=== PATIENT | male | born 1970 | race Caucasian/White ===

== ENCOUNTER 2017-07-03 04:59 | Inpatient (IN) | payer MEDICAID ==
[~2017-07-03] VITALS: Ht 182.9 cm; Wt 128.7 kg
[~2017-07-03 04:59] MED LIST: ASPI1TAB69 PO; LISI40TA PO; TETA1INJ6 IM
[2017-07-03 05:02] VITALS: BP 134/65; PULSE 93; RESP 20; TEMP 101.2; O2SAT 97
[2017-07-03] MEDS ORDERED: guaiFENesin/CODEINE SYRUP 200 MG/20 MG/10 ML CUP PO ONE (05:15)
[2017-07-03] MEDS ORDERED: ACETAMINOPHEN 325 MG TAB PO ONE (05:15)
[2017-07-03] MEDS ORDERED: SODIUM CHLOR 0.9% 1000 ML INJ 1,000 ML IV ONE ×2 (05:15→08:00)
[2017-07-03 05:16] VITALS: BP 147/75; PULSE 89; RESP 20; O2SAT 98
[2017-07-03] MEDS ORDERED: GABA600T PO (05:16)
--- NOTE | 2017-07-03 05:19 | PD ---
HPI Chief Complaint: Cold / Flu Symptoms Time Seen by Provider: 05:11 Travel History International Travel<30 days: No Contact w/Intl Traveler<30days: No Traveled to known affect area: No History of Present Illness HPI 46-year-old male here for evaluation of flulike illness. The patient has had fever, cough, generalized malaise. Symptoms have been going on for about a week. He was seen by his primary care physician 3 days ago and started on Tamiflu for presumptive diagnosis of influenza, however he states his symptoms have not been improving. Cough is nonproductive. No hemoptysis. He complains of diffuse chest pain/aches, mainly while coughing. He has had a few loose bowel movements. No abdominal pain. No vomiting. Last dose of Tylenol was around 7:00 PM. PFSH Past Medical History Arthritis: No Asthma: No Autoimmune Disease: No Blood Disorders: No Anxiety: No Depression: No Heart Rhythm Problems: No Cancer: No Cardiovascular Problems: Yes (ARRHYTHMIA - DOESNT RECALL WHICH) High Cholesterol: No Chemotherapy: No Chest Pain: No Congestive Heart Failure: No Cirrhosis: Yes (2006 DIAGNOSED) COPD: No Cerebrovascular Accident: No Diabetes: No Diminished Hearing: No Diverticulitis: Yes (RUPTURE WITH COLOSTOMY PRESENT) Endocrine: No Gastrointestinal Disorders: Yes (COLOSTOMY) GERD: No Glaucoma: No Genitourinary: No Headaches: No Hepatitis: Yes (HEPATITIS C) Hiatal Hernia: No Hypertension: Yes Immune Disorder: No Kidney Stones: No Musculoskeletal: No Neurologic: No Psychiatric: No Reproductive: No Respiratory: No Migraines: No Myocardial Infarction: No Pancreatitis: No Radiation Therapy: No Renal Failure: No Seizures: No Sickle Cell Disease: No Sleep Apnea: No Thyroid Disease: No Ulcer: No Tetanus Vaccination: < 5 Years Influenza Vaccination: No Past Surgical History Abdominal Surgery: Yes (COLOSTOMY, and reveral of colostomy) AICD: No Appendectomy: No Arteriovenous Shunt: No Body Medical Devices: PLEURISY Cardiac Surgery: No Cholecystectomy: No Ear Surgery: No Endocrine Surgery: No Eye Surgery: No Genitourinary Surgery: No Gynecologic Surgery: No Insulin Pump: No Joint Replacement: No Oral Surgery: No Pacemaker: No Thoracic Surgery: Yes (REMOVAL OF 1/2 RIB LEFT CHEST WALL AGE 12) Social History Alcohol Use: Yes (1 BEER A DAY) Tobacco Use: No Substance Use: No Allergies-Medications (Allergen,Severity, Reaction): Coded Allergies: No Known Allergies (Verified Adverse Reaction, Unknown, 07/03/17) Reported Meds & Prescriptions Reported Meds & Active Scripts Active Lisinopril 40 Mg Tab 40 Mg PO DAILY Reported Gabapentin 600 Mg Tab 600 Mg PO BID Review of Systems Except as stated in HPI: all other systems reviewed are Neg Physical Exam Narrative GENERAL: Well-developed, well-nourished, no apparent distress. SKIN: Focused skin assessment warm/dry. No rash. No petechiae. HEAD: Atraumatic. Normocephalic. EYES: Pupils equal and round. No scleral icterus. No injection or drainage. ENT: No nasal bleeding or discharge. Mucous membranes pink and moist. Normal- appearing pharynx. Bilateral tympanic membrane and external auditory canals are normal. NECK: Trachea midline. No JVD. No nuchal rigidity. CARDIOVASCULAR: Regular rate and rhythm. No murmur appreciated. RESPIRATORY: No accessory muscle use. Clear to auscultation. Breath sounds equal bilaterally. GASTROINTESTINAL: Abdomen soft, non-tender, nondistended. MUSCULOSKELETAL: No obvious deformities. No clubbing. No cyanosis. No edema. NEUROLOGICAL: Awake and alert. No obvious cranial nerve deficits. Motor grossly within normal limits. Normal speech. PSYCHIATRIC: Appropriate mood and affect; insight and judgment normal. Data Data Last Documented VS Vital Signs Date Time Temp Pulse Resp B/P (MAP) Pulse Ox O2 Delivery O2 Flow Rate FiO2 07/03/17 07:03 98.8 93 20 139/81 (100) 96 Room Air Orders Orders Sepsis Workup Initiated (07/03/17 ) Electrocardiogram (07/03/17 05:15) Complete Blood Count With Diff (07/03/17 05:15) Comprehensive Metabolic Panel (07/03/17 05:15) Prothrombin Time / Inr (Pt) (07/03/17 05:15) Act Partial Throm Time (Ptt) (07/03/17 05:15) Lactic Acid Sepsis Protocol (07/03/17 05:15) Lipase (07/03/17 05:15) Ckmb (Isoenzyme) Profile (07/03/17 05:15) Troponin I (07/03/17 05:15) Influenzae A/B Antigen (07/03/17 05:15) Blood Culture (07/03/17 05:15) Chest, Single Ap (07/03/17 05:15) Ecg Monitoring (07/03/17 05:15) Iv Access Insert/Monitor (07/03/17 05:15) Oximetry (07/03/17 05:15) Acetaminophen (Tylenol) (07/03/17 05:15) Sodium Chlor 0.9% 1000 Ml Inj (Ns 1000 M (07/03/17 05:15) Guaifen-Cod 200-20 Mg/10ml Liq (Robituss (07/03/17 05:15) Group A Rapid Strep Screen (07/03/17 05:18) Strep Culture (Group A) (07/03/17 06:22) Labs Laboratory Tests Test 07/03/17 06:10 White Blood Count 11.4 TH/MM3 Red Blood Count 3.26 MIL/MM3 Hemoglobin 11.7 GM/DL Hematocrit 34.3 % Mean Corpuscular Volume 105.0 FL Mean Corpuscular Hemoglobin 36.0 PG Mean Corpuscular Hemoglobin Concent 34.2 % Red Cell Distribution Width 15.4 % Platelet Count 113 TH/MM3 Mean Platelet Volume 9.1 FL CBC Comment AUTO DIFF Prothrombin Time 14.4 SEC Prothromb Time International Ratio 1.4 RATIO Activated Partial Thromboplast Time 30.8 SEC Lactic Acid Level 1.2 mmol/L MDM Medical Decision Making Medical Screen Exam Complete: Yes Emergency Medical Condition: Yes Interpretation(s) EKG: Sinus, rate 87, normal axis, normal intervals, nonspecific T-wave abnormality, no ST segment abnormality, possible left atrial enlargement Differential Diagnosis Influenza, pneumonia, viral illness, sepsis, dehydration, metabolic abnormality Narrative Course Initial vital signs show heart rate 93, blood pressure 134/65, pulse ox 97% on room air, oral temp of 101.2F. CBC: WBC 11.4, hemoglobin 11.7, hematocrit 34.3, platelets 113, MCV 105. The patient has had elevated MCVs in the past. CMP: Influenza and group A strep are negative. Chest x-ray: No acute disease. At approximately 7 Am at the end of my shift the patient was signed out to Dr Gomes to follow up with the rest of the labs and disposition. Fabian Moser MD Jul 03, 2017 05:19
--- NOTE | 2017-07-03 06:15 | RADRPT ---
EXAM DATE/TIME: 07/03/2017 05:25 [facility] COMPARISON: CHEST SINGLE AP, December 03, 2012, 5:39. INDICATIONS : Flu like symptoms and cough for two weeks. MEDICAL HISTORY : None. SURGICAL HISTORY : None. ENCOUNTER: Initial ACUITY: 2 weeks PAIN SCORE: 0/10 LOCATION: Bilateral chest FINDINGS: A single view of the chest demonstrates the lungs to be symmetrically aerated without evidence of mas s, infiltrate or effusion. Heart mildly enlarged. The cardiomediastinal contours are unremarkable. Osseous structures are intact. CONCLUSION: No acute disease. Santiago Mccartney MD on July 03, 2017 at 6:14 Board Certified Radiologist. This report was verified electronically.
[2017-07-03 06:50] LABS: HEMATOCRIT 34.3 % (39.0-51.0); HEMOGLOBIN 11.7 GM/DL (13.0-17.0); MEAN CORPUSCULAR HGB CONC 34.2 % (32.0-36.0); MEAN PLATELET VOLUME 9.1 FL (7.0-11.0); PLATELET COUNT 113 TH/MM3 (150-450); RED BLOOD COUNT 3.26 MIL/MM3 (4.50-5.90); RED CELL DISTRIBUTION WIDTH 15.4 % (11.6-17.2); WHITE BLOOD COUNT 11.4 TH/MM3 (4.0-11.0)
[2017-07-03 06:52] LABS: INTERNATIONAL NORMALIZED RATIO 1.4 RATIO; PROTHROMBIN TIME - PATIENT 14.4 SEC (9.8-11.6)
[2017-07-03 07:03] VITALS: BP 139/81; PULSE 93; RESP 20; TEMP 98.8; O2SAT 96
[2017-07-03 07:12] LABS: ALBUMIN 2.2 GM/DL (3.4-5.0); AST (GOT) 68 U/L (15-37); BLOOD UREA NITROGEN 17 MG/DL (7-18); CALCIUM 8.2 MG/DL (8.5-10.1); CHLORIDE 97 MEQ/L (98-107); CREATININE 1.03 MG/DL (0.60-1.30); GLOMERULAR FILTRATION RATE 77 ML/MIN (>89); GLUCOSE,RANDOM 88 MG/DL (74-106); SODIUM (NA) 130 MEQ/L (136-145)
[2017-07-03 07:13] LABS: ALT (GPT) 54 U/L (12-78)
[2017-07-03 07:16] LABS: ALKALINE PHOSPHATASE 248 U/L (45-117); TOTAL BILIRUBIN ADULT 2.1 MG/DL (0.2-1.0); TOTAL PROTEIN 6.8 GM/DL (6.4-8.2); TROPONIN I LESS THAN 0.02 NG/ML (0.02-0.05)
[2017-07-03 07:37] LABS: BANDS 37 % (0-6); LYMPHOCYTES 1 % (9-44); MONOCYTES 7 % (0-8); NEUTROPHIL # MANUAL DIFF 10.4 TH/MM3 (1.8-7.7); POLYS (SEG NEUTROPHILS) 54 % (16-70)
[2017-07-03] MEDS ORDERED: VANCOMYCIN INJ 1,000 MG in SODIUM CHLOR 0.9% 250 ML INJ 250 ML IV STA (07:47)
[2017-07-03] MEDS ORDERED: PIPERACIL-TAZO 4.5 GM PREMIX 100 ML IV STA (07:47)
--- NOTE | 2017-07-03 07:57 | PD ---
Physical Exam Narrative GENERAL: 46-year-old male who appears uncomfortable SKIN: Focused skin assessment warm/dry. Jaundiced HEAD: Atraumatic. Normocephalic. EYES: Pupils equal and round. No scleral icterus. No injection or drainage. ENT: No nasal bleeding or discharge. Mucous membranes pink and moist. NECK: Trachea midline. CARDIOVASCULAR: Regular rate and rhythm. RESPIRATORY: No accessory muscle use. No increased effort GASTROINTESTINAL: Abdomen soft, non-tender, nondistended. MUSCULOSKELETAL: No obvious deformities. No clubbing. No cyanosis. NEUROLOGICAL: Awake and alert. Moves all extremities. Normal speech. PSYCHIATRIC: Appropriate mood and affect; insight and judgment normal. Data Data Last Documented VS Vital Signs Date Time Temp Pulse Resp B/P (MAP) Pulse Ox O2 Delivery O2 Flow Rate FiO2 07/03/17 07:03 98.8 93 20 139/81 (100) 96 Room Air Orders Orders Sepsis Workup Initiated (07/03/17 ) Electrocardiogram (07/03/17 05:15) Complete Blood Count With Diff (07/03/17 05:15) Comprehensive Metabolic Panel (07/03/17 05:15) Prothrombin Time / Inr (Pt) (07/03/17 05:15) Act Partial Throm Time (Ptt) (07/03/17 05:15) Lactic Acid Sepsis Protocol (07/03/17 05:15) Lipase (07/03/17 05:15) Ckmb (Isoenzyme) Profile (07/03/17 05:15) Troponin I (07/03/17 05:15) Influenzae A/B Antigen (07/03/17 05:15) Blood Culture (07/03/17 05:15) Chest, Single Ap (07/03/17 05:15) Ecg Monitoring (07/03/17 05:15) Iv Access Insert/Monitor (07/03/17 05:15) Oximetry (07/03/17 05:15) Acetaminophen (Tylenol) (07/03/17 05:15) Sodium Chlor 0.9% 1000 Ml Inj (Ns 1000 M (07/03/17 05:15) Guaifen-Cod 200-20 Mg/10ml Liq (Robituss (07/03/17 05:15) Group A Rapid Strep Screen (07/03/17 05:18) Strep Culture (Group A) (07/03/17 06:22) Ct Abd/Pel W Iv Contrast(Rout) (07/03/17 ) Vancomycin Inj (Vancomycin Inj) (07/03/17 07:47) Piperacil-Tazo 4.5 Gm Premix (Zosyn 4.5 (07/03/17 07:47) Sodium Chlor 0.9% 1000 Ml Inj (Ns 1000 M (07/03/17 08:00) Iohexol 350 Inj (Omnipaque 350 Inj) (07/03/17 08:52) Admit Order (Ed Use Only) (07/03/17 09:56) Labs Laboratory Tests Test 07/03/17 06:10 White Blood Count 11.4 TH/MM3 Red Blood Count 3.26 MIL/MM3 Hemoglobin 11.7 GM/DL Hematocrit 34.3 % Mean Corpuscular Volume 105.0 FL Mean Corpuscular Hemoglobin 36.0 PG Mean Corpuscular Hemoglobin Concent 34.2 % Red Cell Distribution Width 15.4 % Platelet Count 113 TH/MM3 Mean Platelet Volume 9.1 FL CBC Comment AUTO DIFF Differential Total Cells Counted 100 Neutrophils % (Manual) 54 % Band Neutrophils % 37 % Lymphocytes % 1 % Monocytes % 7 % Eosinophils % 1 % Neutrophils # (Manual) 10.4 TH/MM3 Differential Comment FINAL DIFF MANUAL Platelet Estimate LOW Platelet Morphology Comment NORMAL Prothrombin Time 14.4 SEC Prothromb Time International Ratio 1.4 RATIO Activated Partial Thromboplast Time 30.8 SEC Blood Urea Nitrogen 17 MG/DL Creatinine 1.03 MG/DL Random Glucose 88 MG/DL Total Protein 6.8 GM/DL Albumin 2.2 GM/DL Calcium Level 8.2 MG/DL Alkaline Phosphatase 248 U/L Aspartate Amino Transf (AST/SGOT) 68 U/L Alanine Aminotransferase (ALT/SGPT) 54 U/L Total Bilirubin 2.1 MG/DL Sodium Level 130 MEQ/L Potassium Level 4.1 MEQ/L Chloride Level 97 MEQ/L Carbon Dioxide Level 28.0 MEQ/L Anion Gap 5 MEQ/L Estimat Glomerular Filtration Rate 77 ML/MIN Lactic Acid Level 1.2 mmol/L Total Creatine Kinase 85 U/L Troponin I LESS THAN 0.02 NG/ML Lipase 932 U/L MDM Supervised Visit with ZARA: No Interpretation(s) CBC & BMP Diagram 07/03/17 06:10 Total Protein 6.8, Albumin 2.2 L, Calcium Level 8.2 L, Alkaline Phosphatase 248 H, Aspartate Amino Transf (AST/SGOT) 68 H, Alanine Aminotransferase (ALT/SGPT) 54, Total Bilirubin 2.1 H Last 24 hours Impressions Chest X-Ray 07/03/17 0515 Signed Impressions: Service Date/Time: June 05:25 - CONCLUSION: No acute disease. Santiago Mccartney MD CT abdomen pelvis shows likely source of infection is right lower lobe infiltrate given symptoms. Other findings noted Narrative Course Patient has 37 bands without source. Given vancomycin and Zosyn and IV fluid bolus repeated. Patient has elevation in lipase. Will check CT scan abdomen and pelvis to rule out concurrent process. Patient updated and agrees to plan. Patient agrees to admission. CT without pancreatitis findings and patient without significant abdominal pain. Patient's fever and symptoms are likely from a small right lower lobe pneumonia that was seen on CT. will admit for further care Sepsis Criteria SIRS Criteria (2 or more): Temp > 100.9 or < 96.8, Heart rate over 90 Sepsis Criteria (SIRS+source): Infect source susp/known Criteria Outcome: Meets sepsis criteria Physician Communication Physician Communication Signed over to me to follow blood work and reevaluate dr grove agrees to admit Diagnosis Primary Impression: Sepsis Qualified Codes: A41.9 - Sepsis, unspecified organism Additional Impressions: Bandemia Pneumonia Qualified Codes: J18.1 - Lobar pneumonia, unspecified organism Elevated lipase Admitting Information Admitting Physician Requests: Observation Addis Gomes MD Jul 03, 2017 07:57
[2017-07-03] MEDS ORDERED: IOHEXOL 350 MG/ML 10 ML VIAL (for RAD DIAG) IVCONTRAST ONE (08:52)
--- NOTE | 2017-07-03 09:25 | RADRPT ---
EXAM DATE/TIME: 07/03/2017 08:43 [facility] COMPARISON: No previous studies available for comparison. INDICATIONS : Abdominal pain along with flu like symptoms. IV CONTRAST: 97 cc Omnipaque 350 (iohexol) IV ORAL CONTRAST: No oral contrast ingested. RADIATION DOSE: 16.33 CTDIvol (mGy) MEDICAL HISTORY : Cardiovascular disease. Hepatitis C. Diverticulitis.Hypertension SURGICAL HISTORY : Colostomy. ENCOUNTER: Initial ACUITY: 3 days PAIN SCALE: 5/10 LOCATION: abdomen TECHNIQUE: Volumetric scanning of the abdomen and pelvis was performed. Using automated exposure control and ad justment of the mA and/or kV according to patient size, radiation dose was kept as low as reasonably achievable to obtain optimal diagnostic quality images. DICOM format image data is available electro nically for review and comparison. FINDINGS: LOWER LUNGS: Tiny right pleural effusion is noted. Minimal right basilar atelectasis and/or infiltrate is noted. LIVER: There is a 1.5 cm low-density lesion within the anterior segment of the right lobe of the liver which is indeterminate. MRI of the abdomen with contrast would be helpful for further characterization of this lesion. No biliary ductal dilatation is noted. The gallbladder is filled with calcified gallston es. There are multiple very large intraperitoneal varices within the left abdomen which feed into the splenic vein suggesting portal hypertension. Perigastric varices are also noted. SPLEEN: Mild splenomegaly is noted PANCREAS: Within normal limits. KIDNEYS: Normal in size and shape. There is no mass, stone or hydronephrosis. ADRENAL GLANDS: Within normal limits. VASCULAR: There is no aortic aneurysm. BOWEL/MESENTERY: The stomach, small bowel, and colon demonstrate no acute abnormality. There is no free intraperitone al air or fluid. ABDOMINAL WALL: Within normal limits. RETROPERITONEUM: There is no lymphadenopathy. BLADDER: No wall thickening or mass. REPRODUCTIVE: Within normal limits. INGUINAL: Extensive bilateral inguinal varices are noted and are more prominent on the right than the left. MUSCULOSKELETAL: Degenerative changes and scoliosis of the thoracolumbar spine are noted. CONCLUSION: 1. 1.5 cm low-density lesion within the anterior segment of the right lobe of liver which is indeterm inate. Outpatient MRI of the abdomen with contrast would be helpful for further characterization of t his indeterminate lesion. 2. Mild splenomegaly and very large intra-abdominal varices draining into the splenic vein suggesting portal hypertension. 3. Perigastric varices and bilateral inguinal varices are also noted. 4. Cholelithiasis. 5. Tiny right pleural effusion. 6. Minimal right basilar atelectasis and/or infiltrate. 7. Degenerative changes and scoliosis of the thoracolumbar spine. Haseeb Helms MD on July 03, 2017 at 9:10 Board Certified Radiologist. This report was verified electronically.
[2017-07-03] MEDS ORDERED: NALOXONE HCL 0.4 MG/ML AMP IV PUSH PRN (10:15)
[2017-07-03] MEDS ORDERED: SODIUM CHLORIDE 0.9% FLUSH 10 ML FLUSH IV FLUSH PRN (10:15)
[2017-07-03 11:26] VITALS: BP 134/66; PULSE 88; RESP 18; TEMP 98.7; O2SAT 95
--- NOTE | 2017-07-03 11:27 | PD.PN.STU ---
Subjective Remarks The patient is a 46 year old male who presents with the complaint of "flu for 1.5 weeks". He is accompanied by his mother who provides most of the information. About 1.5 weeks ago he began to have a productive cough, headaches , and body aches. His PCP gave him Tamiflu which he finished last night but did not help much. He was also febrile at home a few times and febrile upon arrival to the ED with temp of 101.2 F. About 2 days ago he began to develop with a pain that was in his upper right chest and in the lateral side of the lower right chest. He describes it as throbbing constant 7/10 pain that is alleviated with Ibuprofen. He says the pain is worse when he takes in a deep breath. He denies any trauma or injury to the areas. Last night he woke up at 3am and the pain was so bad that he wanted to come to the ED. He denies any nausea, vomiting , abdominal pain, rash, change in appetite, sore throat, congestion, hematuria, dysuria, melena, or chills. He had an episode of runny stool 2 nights ago with no blood in it. PMH: hypertension, disk herniation, hepatitis C (untreated), ruptured diverticular abscess Home Meds: gabapentin, Flexeril, and lisinopril Social hx: he denies tobacco or recreational drug use. He has a hx of alcohol abuse but his last drink was 7 years ago. Objective Vitals Vital Signs Date Time Temp Pulse Resp B/P (MAP) Pulse Ox O2 Delivery O2 Flow Rate FiO2 07/03/17 07:03 98.8 93 20 139/81 (100) 96 Room Air 07/03/17 07:03 98.8 93 20 139/81 (100) 96 Room Air 07/03/17 05:16 89 20 147/75 (99) 98 Room Air 07/03/17 05:16 98 07/03/17 05:02 101.2 93 20 134/65 (88) 97 Result Diagram: 07/03/17 0610 07/03/17 0610 Other Results Laboratory Tests Test 07/03/17 06:10 White Blood Count 11.4 TH/MM3 Red Blood Count 3.26 MIL/MM3 Hemoglobin 11.7 GM/DL Hematocrit 34.3 % Mean Corpuscular Volume 105.0 FL Mean Corpuscular Hemoglobin 36.0 PG Mean Corpuscular Hemoglobin Concent 34.2 % Red Cell Distribution Width 15.4 % Platelet Count 113 TH/MM3 Mean Platelet Volume 9.1 FL CBC Comment AUTO DIFF Differential Total Cells Counted 100 Neutrophils % (Manual) 54 % Band Neutrophils % 37 % Lymphocytes % 1 % Monocytes % 7 % Eosinophils % 1 % Neutrophils # (Manual) 10.4 TH/MM3 Differential Comment FINAL DIFF MANUAL Platelet Estimate LOW Platelet Morphology Comment NORMAL Prothrombin Time 14.4 SEC Prothromb Time International Ratio 1.4 RATIO Activated Partial Thromboplast Time 30.8 SEC Blood Urea Nitrogen 17 MG/DL Creatinine 1.03 MG/DL Random Glucose 88 MG/DL Total Protein 6.8 GM/DL Albumin 2.2 GM/DL Calcium Level 8.2 MG/DL Alkaline Phosphatase 248 U/L Aspartate Amino Transf (AST/SGOT) 68 U/L Alanine Aminotransferase (ALT/SGPT) 54 U/L Total Bilirubin 2.1 MG/DL Sodium Level 130 MEQ/L Potassium Level 4.1 MEQ/L Chloride Level 97 MEQ/L Carbon Dioxide Level 28.0 MEQ/L Anion Gap 5 MEQ/L Estimat Glomerular Filtration Rate 77 ML/MIN Lactic Acid Level 1.2 mmol/L Total Creatine Kinase 85 U/L Troponin I LESS THAN 0.02 NG/ML Lipase 932 U/L Imaging Last Impressions Chest X-Ray 07/03/17 0515 Signed Impressions: Service Date/Time: June 05:25 - CONCLUSION: No acute disease. Santiago Mccartney MD Chest CT 07/03/17 0000 Signed Impressions: Service Date/Time: June 12:16 - CONCLUSION: 1. Extensive stranding with prominent lymph nodes in the right axilla measuring upwards of 1.6 cm in diameter. Does the patient have clinical symptomatology to suggest a cellulitis in this area? 2. Mild, generalized anasarca with some interstitial prominence in both lungs as well the visualized portions of the upper mesentery. Findings are nonspecific but can be seen in entity such as overwhelming sepsis. 3. Calcified gallstones. 4. Small right-sided pleural effusion with associated atelectatic changes. 5. Atretic left sixth rib could be congenital or postsurgical. Old healed rib fractures involving the lateral aspect of #3 and 4 on the left. 6. Mild gynecomastia. Again, nonspecific finding that can be seen with certain medications. Masoud Lopez MD Abdomen/Pelvis CT 07/03/17 0000 Signed Impressions: Service Date/Time: June 08:43 - CONCLUSION: 1. 1.5 cm low-density lesion within the anterior segment of the right lobe of liver which is indeterminate. Outpatient MRI of the abdomen with contrast would be helpful for further characterization of this indeterminate lesion. 2. Mild splenomegaly and very large intra-abdominal varices draining into the splenic vein suggesting portal hypertension. 3. Perigastric varices and bilateral inguinal varices are also noted. 4. Cholelithiasis. 5. Tiny right pleural effusion. 6. Minimal right basilar atelectasis and/or infiltrate. 7. Degenerative changes and scoliosis of the thoracolumbar spine. Haseeb Helms MD Objective Remarks GENERAL: A WDWN male in no acute distress. SKIN: Warm and dry. Hypopigmented spots over the upper back, shoulders, and upper chest. Mild jaundice in his arms. HEAD: Normocephalic. EYES: Mild scleral icterus. No injection or drainage. NECK: Supple, trachea midline. No JVD or lymphadenopathy. CARDIOVASCULAR: Regular rate and rhythm.. A 2/6 systolic murmur heard at the apex. RESPIRATORY: Breath sounds equal bilaterally. No accessory muscle use. GASTROINTESTINAL: Abdomen soft, non-tender, mildly distended. Galloway's sign is negative, no hepatosplenomegaly on exam. MUSCULOSKELETAL: No cyanosis, or edema. Tenderness to palpation in the upper right chest around the second rib. Tender to palpation on the right lower back on lateral side. No erythema or bruising of the area. A/P Assessment and Plan 1. Shoulder/back pain -elevated Alk phos, total bilirubin, and lipase. Stones seen on CT. Patient has no significant abdominal pain. -RUQ u/s to better evaluate stone -hepatitis panel and HIV lab work -Could be secondary to the small pleural effusion seen on CT -order urine to rule out stones or UTI 2. Macrocytic anemia -Order B12 and folate 3. Pleural Effusion -cover with antibiotics- it is likely the source of infection 4. Hyponatremia -order Legionella urine antigen due to pleural effusion, loose stool, and low sodium. 5. Tinea Versicolor -can be treated outpatient by his PCP Yogesh Tripathi M3 Jul 03, 2017 11:26
--- NOTE | 2017-07-03 13:32 | RADRPT ---
EXAM DATE/TIME: 07/03/2017 12:16 [facility] COMPARISON: CHEST SINGLE AP, July 03, 2017, 5:25. INDICATIONS : Chest pain, possible flu. RADIATION DOSE: 19.91 CTDIvol (mGy) MEDICAL HISTORY : Hypertension. SURGICAL HISTORY : None. ENCOUNTER: Initial ACUITY: 2 weeks PAIN SCALE: 4/10 LOCATION: Right chest TECHNIQUE: Volumetric scanning of the chest was performed. Using automated exposure control and adjustment of t he mA and/or kV according to patient size, radiation dose was kept as low as reasonably achievable to obtain optimal diagnostic quality images. DICOM format image data is available electronically for r eview and comparison. Follow-up recommendations for detected pulmonary nodules are based at a minimum on nodule size and pa tient risk factors according to Fleischner Society Guidelines. FINDINGS: LUNGS: Mild interstitial prominence bilaterally. Atelectatic changes in the right base. PLEURAE: Small right-sided effusion. MEDIASTINUM: The heart and great vessels demonstrate no acute abnormality. There is no mediastinal or hilar lymph adenopathy. AXILLAE: Extensive inflammatory stranding in the right axilla with prominent lymph nodes measuring upwards of 1.6 cm in diameter. MUSCULOSKELETAL: Within normal limits for patient age. MISCELLANEOUS: Bilateral gynecomastia. Extensive calcified gallstones within the gallbladder lumen. Markedly atretic left rib may be congenital. Old healed rib fractures laterally at ribs #3 and 4 also on the left Gen eralized stranding in the visualized portions of the upper mesentery. CONCLUSION: 1. Extensive stranding with prominent lymph nodes in the right axilla measuring upwards of 1.6 cm in diameter. Does the patient have clinical symptomatology to suggest a cellulitis in this area? 2. Mild, generalized anasarca with some interstitial prominence in both lungs as well the visualized portions of the upper mesentery. Findings are nonspecific but can be seen in entity such as overwhelm ing sepsis. 3. Calcified gallstones. 4. Small right-sided pleural effusion with associated atelectatic changes. 5. Atretic left sixth rib could be congenital or postsurgical. Old healed rib fractures involving the lateral aspect of #3 and 4 on the left. 6. Mild gynecomastia. Again, nonspecific finding that can be seen with certain medications. Masoud Lopez MD on July 03, 2017 at 13:17 Board Certified Radiologist. This report was verified electronically.
[2017-07-03] MEDS: IBUPROFEN 600 MG TAB PO PRN (18:08)
[2017-07-03] MEDS: SODIUM CHLOR 0.9% 1000 ML INJ 1,000 ML IV SCH ×2 (18:11→20:02)
[2017-07-03 20:00] VITALS: BP 129/57; PULSE 98; RESP 18; TEMP 99.1; O2SAT 92
[2017-07-03] MEDS: cefTRIAXone INJ 1,000 MG in SODIUM CHLORIDE 0.9% INJ 100 ML IV SCH (20:22)
[2017-07-03] MEDS ORDERED: guaiFENesin/DEXTROMETHORPHAN 200 MG/20 MG/10 ML CUP PO ONE (20:30)
[2017-07-03] MEDS: SODIUM CHLORIDE 0.9% FLUSH 10 ML FLUSH IV FLUSH SCH (21:00)
--- NOTE | 2017-07-03 21:28 | EKG ---
Date Performed: 07/03/2017 Time Performed: 05:27:57 PTAGE: 46 years EKG: Sinus rhythm POSSIBLE LEFT ATRIAL ENLARGEMENT NONSPECIFIC T-WAVE ABNORMALITY Compared to previous tracing, sinus rhythm has replaced the previously seen narrow complex with resolution to previously seen ST changes BORDERLINE ECG PREVIOUS TRACING : 12/03/12 @ 1358 DOCTOR: Everett Wayne Interpretating Date/Time 07/03/2017 21:26:11
--- NOTE | 2017-07-03 23:28 | HHI.HP ---
[facility] Kulwinder Ely MD (Paul) Admission Diagnosis bandemia, pneumonia, fever Diagnoses: Chief Complaint: Fever, cough, generalized body ache Travel History International Travel<30 Days: No Contact w/Intl Traveler <30 Da: No Traveled to Known Affected Are: No Sepsis Criteria SIRS Criteria (2 or more): Temp > 100.9 or < 96.8, WBC > 86397, < 4000 or > 10 % bands Sepsis Criteria (SIRS+source): Infect source susp/known History of Present Illness Patiet 46-year-old male who presented to the emergency room with complaint of flulike symptoms for about a week. Patient reports he has been having right-sided pleuritic type chest pain. He was seen by his PCP who was treating him for the flu empirically. However his symptoms did not get any better. His main complaint today is the pain involving the right lower side of his chest. He reports the pain as being constant. Worse with deep breath. He reports occasional cough but denies shortness of breath. He admits to some fevers and chills. Patient had a temperature 101.2 in the emergency room. Workup in the emergency room revealed a pleural effusion on an abdominal CAT scan. Hospitalist service consulted for admission. Review of Systems Constitutional: COMPLAINS OF: Fever, Chills Respiratory: COMPLAINS OF: Cough, DENIES: Wheezing, Sputum production Cardiovascular: COMPLAINS OF: Chest pain Musculoskeletal: COMPLAINS OF: Muscle aches Integumentary: DENIES: Rash Pain on the right axilla. Past Family Social History Past Medical History Hypertension, disk herniation, hepatitis C (untreated), ruptured diverticular abscess Past Surgical History ?Left thoracotomy for pleurisy. Reported Medications Reported Meds & Active Scripts Active Lisinopril 40 Mg Tab 40 Mg PO DAILY Reported Gabapentin 600 Mg Tab 600 Mg PO BID Allergies: Coded Allergies: No Known Allergies (Verified Adverse Reaction, Unknown, 07/03/17) Family History Reviewed and noncontributory. Social History he denies tobacco or recreational drug use. He has a hx of alcohol abuse but his last drink was reportedly 7 years ago. He denies current illicit drug use. Physical Exam Vital Signs Vital Signs Date Time Temp Pulse Resp B/P (MAP) Pulse Ox O2 Delivery O2 Flow Rate FiO2 07/03/17 16:30 07/03/17 11:26 98.7 88 18 134/66 (88) 95 Room Air 07/03/17 07:03 98.8 93 20 139/81 (100) 96 Room Air 07/03/17 07:03 98.8 93 20 139/81 (100) 96 Room Air 07/03/17 05:16 89 20 147/75 (99) 98 Room Air 07/03/17 05:16 98 07/03/17 05:02 101.2 93 20 134/65 (88) 97 Physical Exam GENERAL: This is a well-nourished, well-developed patient, in no apparent distress. SKIN: some punctate lesions on bilateral arms. HEAD: Atraumatic. Normocephalic. No temporal or scalp tenderness. EYES: Pupils equal round and reactive. Extraocular motions intact. No scleral icterus. No injection or drainage. ENT: Nose without bleeding, purulent drainage or septal hematoma. Throat without erythema, tonsillar hypertrophy or exudate. Uvula midline. Airway patent. NECK: Trachea midline. No JVD or lymphadenopathy. Supple, nontender, no meningeal signs. CARDIOVASCULAR: Regular rate and rhythm. 2/6 GEOVANNA murmur best heard over the tricuspid area. RESPIRATORY: Diminished breath sounds bilaterally at the bases. GASTROINTESTINAL: Abdomen soft, non-tender, nondistended. No hepato-splenomegaly , or palpable masses. No guarding. MUSCULOSKELETAL: Extremities without clubbing, cyanosis, or edema. No joint tenderness, effusion, or edema noted. No calf tenderness. Negative Homans sign bilaterally. NEUROLOGICAL: Awake and alert. Cranial nerves II through XII intact. Motor and sensory grossly within normal limits. Five out of 5 muscle strength in all muscle groups. Normal speech. Laboratory Laboratory Tests Test 07/03/17 06:10 07/03/17 11:14 White Blood Count 11.4 Red Blood Count 3.26 Hemoglobin 11.7 Hematocrit 34.3 Mean Corpuscular Volume 105.0 Mean Corpuscular Hemoglobin 36.0 Mean Corpuscular Hemoglobin Concent 34.2 Red Cell Distribution Width 15.4 Platelet Count 113 Mean Platelet Volume 9.1 CBC Comment AUTO DIFF Differential Total Cells Counted 100 Neutrophils % (Manual) 54 Band Neutrophils % 37 Lymphocytes % 1 Monocytes % 7 Eosinophils % 1 Neutrophils # (Manual) 10.4 Differential Comment FINAL DIFF MANUAL Platelet Estimate LOW Platelet Morphology Comment NORMAL Prothrombin Time 14.4 Prothromb Time International Ratio 1.4 Activated Partial Thromboplast Time 30.8 Blood Urea Nitrogen 17 Creatinine 1.03 Random Glucose 88 Total Protein 6.8 Albumin 2.2 Calcium Level 8.2 Alkaline Phosphatase 248 Aspartate Amino Transf (AST/SGOT) 68 Alanine Aminotransferase (ALT/SGPT) 54 Total Bilirubin 2.1 Sodium Level 130 Potassium Level 4.1 Chloride Level 97 Carbon Dioxide Level 28.0 Anion Gap 5 Estimat Glomerular Filtration Rate 77 Lactic Acid Level 1.2 Total Creatine Kinase 85 Troponin I LESS THAN 0.02 Lipase 932 Ammonia 22 Date/Time Source Procedure Growth Status 07/03/17 06:10 Blood Peripheral Aerobic Blood Culture Pending Received 07/03/17 06:10 Blood Peripheral Anaerobic Blood Culture Pending Received 07/03/17 06:22 Throat Group A Streptococcus Screen Pending Received Result Diagram: 07/03/1710 07/03/17 0610 Imaging Last Impressions Chest X-Ray 07/03/17 0515 Signed Impressions: Service Date/Time: June 05:25 - CONCLUSION: No acute disease. Santiago Mccartney MD Chest CT 07/03/17 0000 Signed Impressions: Service Date/Time: June 12:16 - CONCLUSION: 1. Extensive stranding with prominent lymph nodes in the right axilla measuring upwards of 1.6 cm in diameter. Does the patient have clinical symptomatology to suggest a cellulitis in this area? 2. Mild, generalized anasarca with some interstitial prominence in both lungs as well the visualized portions of the upper mesentery. Findings are nonspecific but can be seen in entity such as overwhelming sepsis. 3. Calcified gallstones. 4. Small right-sided pleural effusion with associated atelectatic changes. 5. Atretic left sixth rib could be congenital or postsurgical. Old healed rib fractures involving the lateral aspect of #3 and 4 on the left. 6. Mild gynecomastia. Again, nonspecific finding that can be seen with certain medications. Masoud Lopez MD Abdomen/Pelvis CT 07/03/17 0000 Signed Impressions: Service Date/Time: June 08:43 - CONCLUSION: 1. 1.5 cm low-density lesion within the anterior segment of the right lobe of liver which is indeterminate. Outpatient MRI of the abdomen with contrast would be helpful for further characterization of this indeterminate lesion. 2. Mild splenomegaly and very large intra-abdominal varices draining into the splenic vein suggesting portal hypertension. 3. Perigastric varices and bilateral inguinal varices are also noted. 4. Cholelithiasis. 5. Tiny right pleural effusion. 6. Minimal right basilar atelectasis and/or infiltrate. 7. Degenerative changes and scoliosis of the thoracolumbar spine. Haseeb Helms MD Caprinarlyn VTE Risk Assessment Caprini VTE Risk Assessment: No/Low Risk (score <= 1) VTE Pharm Contraindication: Coagulopathy,INR elevated Caprini Risk Assessment Model Point Value = 1 Point Value = 2 Point Value = 3 Point Value = 5 Age 41-60 Minor surgery BMI > 25 kg/m2 Swollen legs Varicose veins or History of unexplained or recurrent spontaneous Oral contraceptives or hormone replacement Sepsis (< 1 month) Serious lung disease, including pneumonia (< 1 month) Abnormal pulmonary function Acute myocardial infarction Congestive heart failure (< 1 month) History of inflammatory bowel disease Medical patient at bed rest Age 61-74 Arthroscopic surgery Major open surgery (> 45 min) Laparoscopic surgery (> 45 min) Malignancy Confined to bed (> 72 hours) Immobilizing plaster cast Central venous access Age >= 75 History of VTE Family history of VTE Factor V Leiden Prothrombin [id number] Lupus anticoagulant Anticardiolipin antibodies Elevated serum homocysteine Heparin-induced thrombocytopenia Other congenital or acquired thrombophilia Stroke (< 1 month) Elective arthroplasty Hip, pelvis, or leg fracture Acute spinal cord injury (< 1 month) Prophylaxis Regimen Total Risk Factor Score Risk Level Prophylaxis Regimen 0-1 Low Early ambulation 2 Moderate Order ONE of the following: *Sequential Compression Device (SCD) *Heparin 5000 units SQ BID 3-4 Higher Order ONE of the following medications: *Heparin 5000 units SQ TID *Enoxaparin/Lovenox 40 mg SQ daily (WT < 150 kg, CrCl > 30 mL/min) *Enoxaparin/Lovenox 30 mg SQ daily (WT < 150 kg, CrCl > 10-29 mL/min) *Enoxaparin/Lovenox 30 mg SQ BID (WT < 150 kg, CrCl > 30 mL/min) AND/OR *Sequential Compression Device (SCD) 5 or more Highest Order ONE of the following medications: *Heparin 5000 units SQ TID (Preferred with Epidurals) *Enoxaparin/Lovenox 40 mg SQ daily (WT < 150 kg, CrCl > 30 mL/min) *Enoxaparin/Lovenox 30 mg SQ daily (WT < 150 kg, CrCl > 10-29 mL/min) *Enoxaparin/Lovenox 30 mg SQ BID (WT < 150 kg, CrCl > 30 mL/min) AND *Sequential Compression Device (SCD) Assessment and Plan Problem List: (1) Sepsis ICD Code: A41.9 - Sepsis, unspecified organism Status: Acute Plan: Fever, leukocytosis, bandemia. PNA is probable source. Patient also have axillary lymphadenopathy. Etiology unclear. Patient has a history of some type of thoracotomy on the left for pleurisy per his report. Continue Rocephin and Azithromycin. Follow cultures Follow WBC. If no improvement by tomorrow, can consider another source such as the liver abnormality. ?Abscess is a stretch. Can consider MR of his abdomen to look at the liver better. (2) Pneumonia ICD Code: J18.9 - Pneumonia, unspecified organism Status: Acute Plan: Antibiotics as above. If no improvement by tomorrow, would plan to broaden antibiotics coverage. (3) Bandemia ICD Code: D72.825 - Bandemia Status: Acute Plan: Secondary to sepsis as above. Monitor progress. (4) Elevated lipase ICD Code: R74.8 - Abnormal levels of other serum enzymes Status: Acute Plan: May be due to dehydration and sepsis. Asymptomatic. (5) Hypertension ICD Code: I10 - Essential (primary) hypertension Status: Acute Plan: Continue lisinopril. (6) Axillary lymphadenopathy ICD Code: R59.0 - Localized enlarged lymph nodes Plan: Etiology unclear. Continue to monitor Physician Certification 2 Midnight Certification Type: Admission for Inpatient Services Order for Inpatient Services The services are ordered in accordance with Medicare regulations or non- Medicare payer requirements, as applicable. In the case of services not specified as inpatient-only, they are appropriately provided as inpatient services in accordance with the 2-midnight benchmark. Estimated LOS (days): 3 days is the estimated time the patient will need to remain in the hospital, assuming treatment plan goals are met and no additional complications. Post-Hospital Plan: Home Problem Qualifiers (1) Sepsis: Qualified Codes: A41.9 - Sepsis, unspecified organism (2) Pneumonia: Qualified Codes: J18.1 - Lobar pneumonia, unspecified organism (3) Hypertension: Qualified Codes: I10 - Essential (primary) hypertension Verna Grissom MD Jul 03, 2017 23:28
[2017-07-04] VITALS: BP 119/67; PULSE 84; RESP 18; TEMP 97.3; O2SAT 94
[2017-07-04 04:00] VITALS: BP 146/67; PULSE 85; RESP 18; TEMP 97.5; O2SAT 94
[2017-07-04] MEDS: SODIUM CHLOR 0.9% 1000 ML INJ 1,000 ML IV SCH ×2 (05:59→14:22)
[2017-07-04 08:00] VITALS: BP 135/63; PULSE 89; RESP 18; TEMP 98.5; O2SAT 91
[2017-07-04 08:27] LABS: AUTOMATED NEUTROPHIL # 10.6 TH/MM3 (1.8-7.7); BASOPHIL % 0.2 % (0.0-2.0); EOSINOPHIL # 0.1 TH/MM3 (0-0.4); EOSINOPHIL % 1.2 % (0.0-4.0); HEMATOCRIT 33.5 % (39.0-51.0); HEMOGLOBIN 11.4 GM/DL (13.0-17.0); LYMPH % 3.8 % (9.0-44.0); LYMPHOCYTE # 0.5 TH/MM3 (1.0-4.8); MEAN CELL VOLUME 107.3 FL (80.0-100.0); MEAN CORPUSCULAR HEMOGLOBIN 36.4 PG (27.0-34.0); MEAN CORPUSCULAR HGB CONC 33.9 % (32.0-36.0); MEAN PLATELET VOLUME 8.8 FL (7.0-11.0); MONO % 9.2 % (0.0-8.0); MONOCYTE # 1.1 TH/MM3 (0-0.9); NEUT % 85.6 % (16.0-70.0); PLATELET COUNT 87 TH/MM3 (150-450); RED BLOOD COUNT 3.12 MIL/MM3 (4.50-5.90); RED CELL DISTRIBUTION WIDTH 15.7 % (11.6-17.2); WHITE BLOOD COUNT 12.4 TH/MM3 (4.0-11.0)
[2017-07-04 08:43] LABS: ALBUMIN 1.8 GM/DL (3.4-5.0); BICARBONATE 27.7 MEQ/L (21.0-32.0); BLOOD UREA NITROGEN 16 MG/DL (7-18); CALCIUM 7.8 MG/DL (8.5-10.1); CHLORIDE 101 MEQ/L (98-107); SODIUM (NA) 135 MEQ/L (136-145)
[2017-07-04] MEDS: SODIUM CHLORIDE 0.9% FLUSH 10 ML FLUSH IV FLUSH SCH ×2 (09:00→21:09)
[2017-07-04] MEDS ORDERED: AZITHROMYCIN 250 MG TAB PO SCH (09:00)
[2017-07-04 09:04] LABS: ALKALINE PHOSPHATASE 101 U/L (45-117); ALT (GPT) 42 U/L (12-78); AST (GOT) 49 U/L (15-37); GLOMERULAR FILTRATION RATE 104 ML/MIN (>89); GLUCOSE,RANDOM 77 MG/DL (74-106); TOTAL BILIRUBIN ADULT 2.2 MG/DL (0.2-1.0); TOTAL PROTEIN 6.1 GM/DL (6.4-8.2)
[2017-07-04 09:05] LABS: BANDS 31 % (0-6); MONOCYTES 2 % (0-8); MYELOCYTES 1 % (0-0); NEUTROPHIL # MANUAL DIFF 12.2 TH/MM3 (1.8-7.7); POLYS (SEG NEUTROPHILS) 66 % (16-70); TOXIC GRANULATION 1+ (NORMAL)
[2017-07-04] MEDS ORDERED: Vancomycin Consult Pharmacy 1 EA OTHER SCH (09:15)
[2017-07-04] MEDS ORDERED: VANCOMYCIN INJ 1,000 MG in SODIUM CHLOR 0.9% 250 ML INJ 250 ML IV SCH (09:15)
[2017-07-04] MEDS: cefTRIAXone INJ 1,000 MG in SODIUM CHLORIDE 0.9% INJ 100 ML IV SCH (09:30)
[2017-07-04] MEDS: LISINOPRIL 20 MG TAB PO SCH (09:32)
[2017-07-04] MEDS: GABAPENTIN 300 MG CAP PO SCH ×2 (09:34→21:09)
[2017-07-04] MEDS: IBUPROFEN 600 MG TAB PO PRN ×2 (09:35→16:57)
[2017-07-04 12:00] VITALS: BP 129/63; PULSE 100; RESP 18; TEMP 99; O2SAT 91
--- NOTE | 2017-07-04 12:16 | PD.CONS ---
HPI History of Present Illness This is a 46 year old male with hx perforated diverticular abscess s/p colectomy and colostomy and reversal, hep c s/p interferon who presented with flu like sx. GI consulted for elevated lipase and liver lesion. He endorses mild abd pain in lower quadrants, fevers. Denies n/v diarrhea, blood in stool, black tarry stool, weight loss. CT showed indeterminate 1.5cm liver lesion, portal HTN, varices, cholelithiasis. he had colonoscopy 2-3 years ago prior to his colostomy with Dr Velazquez and there were no abnormal findings. never had endoscopy. He denies etoh or illicit drug use but his UDS was pos for cocaine, marijuana, opiates. Poor historian, some hx obtained from pts mother. (Stefani Hui) PFSH Past Medical History Hypertension, disk herniation, hepatitis C (untreated), ruptured diverticular abscess Past Surgical History pleurodesis colectomy colostomy colostomy reversal (Stefani uHi) Coded Allergies: No Known Allergies (Verified Allergy, Unknown, 07/04/17) Family History Reviewed and noncontributory. Social History he denies tobacco or recreational drug use. He has a hx of alcohol abuse but his last drink was reportedly 7 years ago. He denies current illicit drug use. UDS pos for cocaine, opiates, marijuana. (Stefani Hui) Review of Systems Constitutional: COMPLAINS OF: Fatigue, Fever Endocrine: DENIES: Polydipsia Eyes: DENIES: Blurred vision Ears, nose, mouth, throat: DENIES: Hearing loss Respiratory: DENIES: Cough Cardiovascular: DENIES: Chest pain Gastrointestinal: COMPLAINS OF: Abdominal pain, DENIES: Black stools, Bloody stools, Diarrhea, Nausea, Vomiting, Hematemesis Genitourinary: DENIES: Urinary incontinence Musculoskeletal: COMPLAINS OF: Muscle aches Integumentary: DENIES: Jaundice Hematologic/lymphatic: DENIES: Bruising Immunologic/allergic: DENIES: Eczema Neurologic: DENIES: Abnormal gait Psychiatric: DENIES: Confusion (Stefani Hui) GI Exam Vitals I&O Vital Signs Date Time Temp Pulse Resp B/P (MAP) Pulse Ox O2 Delivery O2 Flow Rate FiO2 07/04/17 08:00 98.5 89 18 135/63 (87) 91 07/04/17 04:00 97.5 85 18 146/67 (93) 94 07/04/17 00:00 97.3 84 18 119/67 (84) 94 07/03/17 20:00 99.1 98 18 129/57 (81) 92 07/03/17 16:30 I/O 07/03/17 07/03/17 07/03/17 07/04/17 07/04/17 07/04/17 07:00 15:00 23:00 07:00 15:00 23:00 Intake Total 1100 ml Output Total 1200 ml Balance -100 ml Intake IV Total 1100 ml Output Urine Total 1200 ml Imaging Last Impressions Chest X-Ray 07/03/17 0515 Signed Impressions: Service Date/Time: June 05:25 - CONCLUSION: No acute disease. Santiago Mccartney MD Chest CT 07/03/17 0000 Signed Impressions: Service Date/Time: June 12:16 - CONCLUSION: 1. Extensive stranding with prominent lymph nodes in the right axilla measuring upwards of 1.6 cm in diameter. Does the patient have clinical symptomatology to suggest a cellulitis in this area? 2. Mild, generalized anasarca with some interstitial prominence in both lungs as well the visualized portions of the upper mesentery. Findings are nonspecific but can be seen in entity such as overwhelming sepsis. 3. Calcified gallstones. 4. Small right-sided pleural effusion with associated atelectatic changes. 5. Atretic left sixth rib could be congenital or postsurgical. Old healed rib fractures involving the lateral aspect of #3 and 4 on the left. 6. Mild gynecomastia. Again, nonspecific finding that can be seen with certain medications. Masoud Lopez MD Abdomen/Pelvis CT 07/03/17 0000 Signed Impressions: Service Date/Time: June 08:43 - CONCLUSION: 1. 1.5 cm low-density lesion within the anterior segment of the right lobe of liver which is indeterminate. Outpatient MRI of the abdomen with contrast would be helpful for further characterization of this indeterminate lesion. 2. Mild splenomegaly and very large intra-abdominal varices draining into the splenic vein suggesting portal hypertension. 3. Perigastric varices and bilateral inguinal varices are also noted. 4. Cholelithiasis. 5. Tiny right pleural effusion. 6. Minimal right basilar atelectasis and/or infiltrate. 7. Degenerative changes and scoliosis of the thoracolumbar spine. Haseeb Helms MD Laboratory Test 07/04/17 06:00 07/04/17 06:13 Urine Opiates Screen POS Urine Barbiturates Screen NEG Urine Amphetamines Screen NEG Urine Benzodiazepines Screen NEG Urine Cocaine Screen POS Urine Cannabinoids Screen POS White Blood Count 12.4 TH/MM3 Red Blood Count 3.12 MIL/MM3 Hemoglobin 11.4 GM/DL Hematocrit 33.5 % Mean Corpuscular Volume 107.3 FL Mean Corpuscular Hemoglobin 36.4 PG Mean Corpuscular Hemoglobin Concent 33.9 % Red Cell Distribution Width 15.7 % Platelet Count 87 TH/MM3 Mean Platelet Volume 8.8 FL Neutrophils (%) (Auto) 85.6 % Lymphocytes (%) (Auto) 3.8 % Monocytes (%) (Auto) 9.2 % Eosinophils (%) (Auto) 1.2 % Basophils (%) (Auto) 0.2 % Neutrophils # (Auto) 10.6 TH/MM3 Lymphocytes # (Auto) 0.5 TH/MM3 Monocytes # (Auto) 1.1 TH/MM3 Eosinophils # (Auto) 0.1 TH/MM3 Basophils # (Auto) 0.0 TH/MM3 CBC Comment AUTO DIFF Differential Total Cells Counted 100 Neutrophils % (Manual) 66 % Band Neutrophils % 31 % Monocytes % 2 % Neutrophils # (Manual) 12.2 TH/MM3 Myelocytes 1 % Differential Comment FINAL DIFF MANUAL Toxic Granulation 1+ Platelet Estimate LOW Platelet Morphology Comment NORMAL Blood Urea Nitrogen 16 MG/DL Creatinine 0.80 MG/DL Random Glucose 77 MG/DL Total Protein 6.1 GM/DL Albumin 1.8 GM/DL Calcium Level 7.8 MG/DL Alkaline Phosphatase 101 U/L Aspartate Amino Transf (AST/SGOT) 49 U/L Alanine Aminotransferase (ALT/SGPT) 42 U/L Total Bilirubin 2.2 MG/DL Sodium Level 135 MEQ/L Potassium Level 4.0 MEQ/L Chloride Level 101 MEQ/L Carbon Dioxide Level 27.7 MEQ/L Anion Gap 6 MEQ/L Estimat Glomerular Filtration Rate 104 ML/MIN Lipase 278 U/L Date/Time Source Procedure Growth Status 07/04/17 10:37 Blood Peripheral Aerobic Blood Culture Pending Received 07/04/17 10:37 Blood Peripheral Anaerobic Blood Culture Pending Received 07/03/17 06:22 Throat Group A Streptococcus Screen Pending Received Physical Examination HEENT: PERRL; normocephalic; atraumatic; no jaundice. CHEST: rhonchi CARDIAC: RRR ABDOMEN: Soft, mildly distended, RUQ TTP; no hepatosplenomegaly; bowel sounds are present in all four quadrants. EXTREMITIES: No clubbing, cyanosis, or edema. SKIN: ashy; no rash; no jaundice. [employer]: lethargic (Stefani Hui) Assessment and Plan Plan ASSESSMENT - abnormal imaging - 1.5 cm liver lesion seen on CT as well as portal HTN, varices, cholelithiasis. hx hep c. - elevated LFTs - trending down. hx hep c. - elevated lipase - unclear significance. 932 on admission and now WNL. - abd pain - pt c/o lower quadrant pain, is TTP in RUQ. unclear etiology. - PNA per primary ID following PLAN - liver w/u inc AFP - hcv quant - abx per ID - illicit drug cessation - further recs as case unfolds pt seen by myself and Dr Andrade and this note is on his behalf (Stefani Hui) Plan Patient was seen and examined, agree with above note, that his liver function tests, most likely cirrhosis, patient has chronic pancreatitis, also has hepatitis C, agree with above plan (Rigoberto Andrade MD) Stefani Hui Jul 04, 2017 12:16 Rigoberto Andrade MD Jul 04, 2017 16:48
--- NOTE | 2017-07-04 13:03 | HHI.PR ---
Subjective Remarks Patient reports that pleuritic right-sided chest pain continues. Denies any nausea or vomiting currently. Has had some hemoptysis as per nursing. Objective Vital Signs Date Time Temp Pulse Resp B/P (MAP) Pulse Ox O2 Delivery O2 Flow Rate FiO2 07/04/17 12:00 99.0 100 18 129/63 (85) 91 07/04/17 08:00 98.5 89 18 135/63 (87) 91 07/04/17 04:00 97.5 85 18 146/67 (93) 94 07/04/17 00:00 97.3 84 18 119/67 (84) 94 07/03/17 20:00 99.1 98 18 129/57 (81) 92 07/03/17 16:30 I/O 07/03/17 07/03/17 07/03/17 07/04/17 07/04/17 07/04/17 06:59 14:59 22:59 06:59 14:59 22:59 Intake Total 1100 ml Output Total 1200 ml Balance -100 ml Intake IV Total 1100 ml Output Urine Total 1200 ml Result Diagram: 07/04/1761207/04/17612 Objective Remarks GENERAL: Patient sitting up in bed. Appears comfortable. Alert and oriented 3. SKIN: Warm and dry. HEAD: Normocephalic. EYES: No scleral icterus. No injection or drainage. NECK: Supple, trachea midline. No JVD. CARDIOVASCULAR: Regular rate and rhythm without murmurs, gallops, or rubs. RESPIRATORY: Breath sounds equal bilaterally. No accessory muscle use. GASTROINTESTINAL: Abdomen soft, non-tender, nondistended. MUSCULOSKELETAL: No cyanosis, or edema. BACK: Nontender without obvious deformity. No CVA tenderness. A/P Assessment and Plan //Sepsis //MRSA bacteremia. = Pneumonia on CT chest, liver lesion, right axillary lymphadenopathy, possible cellulitis = Continue broad-spectrum antibiotics. Infectious disease consulted. Repeat blood cultures. Check echocardiogram. Start vancomycin //Pneumonia. //Hemoptysis reported by nursing As seen on CT. Continue broad-spectrum antibiotics. = Add vancomycin for MRSA. Consult pulmonology. //Elevated lipase = Uncertain etiology, could be secondary to nausea and vomiting secondary to sepsis. GI consulted for liver lesion. Appreciate assistance. //Suspected IV drug use //Cocaine, marijuana, opiates positive on drug screen. = Patient adamantly denies IV drug use. Counseling provided nonetheless. //Right axillary lymphadenopathy. Tender to palpation Uncertain etiology. Continue IV antibiotics. Infectious disease following. //Thrombus cytopenia. Platelets in the 80s. Likely secondary to liver sequestration. No signs of acute blood loss. Continue to monitor. Discharge Planning Continue treatment for sepsis, MRSA bacteremia. Juanjose Ramsay MD Jul 04, 2017 13:03
--- NOTE | 2017-07-04 14:07 | PD.CONS ---
History of Present Illness Service Infectious Disease Consult Requested By Dr Kya Ramsay Reason for Consult Evaluate patient with MRSA bacteremia Primary Care Physician Kulwinder Ely MD (Paul) Diagnoses: History of Present Illness Patient seen and examined. Records reviewed. Patient is a 46-year-old male who presented to the emergency room with complaint of flulike symptoms for about a week. Patient reports he has been having right-sided pleuritic type chest pain. He describes pain as heavy in character, present all the time, worse with coughing and deep breathing. he initially had dry cough but recently started bringing up blood. He was seen by his PCP who was treating him for the flu empirically. he started Tamiflu about 2 days prior to admission. he also has had fevers and upb0bbu. No abdominal pain, no N/V, no complaints. In the ED, his temp was 102. Influenza testing negative. One of 2 BC now reported as growing MRSA. His temps are better. CXR clear. CT chest with R pleural effusion with some atelectasis. CT A/P with a lesion in liver. evidence of portal hypertension. Infectious Disease consultation has been requested to evaluate patient with MRSA bacteremia. Review of Systems Constitutional: COMPLAINS OF: Fever, Chills Eyes: DENIES: Eye pain Ears, nose, mouth, throat: DENIES: Nasal discharge, Oral lesions, Throat pain, Running Nose, Sinus Pain Respiratory: COMPLAINS OF: Cough, Hemoptysis, Sputum production Cardiovascular: COMPLAINS OF: Chest pain, DENIES: Palpitations, Syncope Gastrointestinal: DENIES: Abdominal pain, Diarrhea, Nausea, Vomiting, Difficulty Swallowing Genitourinary: DENIES: Urgency, Hematuria, Dysuria Musculoskeletal: DENIES: Joint Swelling Integumentary: DENIES: Rash Hematologic/lymphatic: DENIES: Lymphadenopathy Immunologic/allergic: DENIES: Urticaria Neurologic: DENIES: Headache, Localized weakness Psychiatric: DENIES: Hallucinations Past Family Social History Allergies: Coded Allergies: No Known Allergies (Verified Adverse Reaction, Unknown, 07/03/17) Past Medical History Hypertension Herniated disc Hepatitis C (untreated) Ruptured diverticular abscess Past Surgical History ?Left thoracotomy for pleurisy. Active Ordered Medications Current Medications Medications (Trade) Dose Ordered Sig/Cassandra Route Start Time Stop Time Status Last Admin Sodium Chloride 1,000 ml @ 100 mls/hr Q10H IV 07/03/17 10:02 07/04/17 05:59 (NS Flush) 2 ml UNSCH PRN IV FLUSH 07/03/17 10:15 (NS Flush) 2 ml BID IV FLUSH 07/03/17 21:00 (Tylenol) 650 mg Q4H PRN PO 07/03/17 10:15 (Zofran Inj) 4 mg Q6H PRN IVP 07/03/17 10:15 (Narcan Inj) 0.4 mg UNSCH PRN IV PUSH 07/03/17 10:15 Ceftriaxone Sodium 1000 mg/ Sodium Chloride 100 ml @ 200 mls/hr Q12H IV 07/03/17 21:00 07/04/17 09:30 (Motrin) 600 mg Q6H PRN PO 07/03/17 18:15 07/04/17 09:35 (Neurontin) 600 mg BID PO 07/04/17 09:00 07/04/17 09:34 (Prinivil) 40 mg DAILY PO 07/04/17 09:00 07/04/17 09:32 (Zithromax) 500 mg DAILY PO 07/04/17 09:00 07/04/17 09:34 Pharmacy Profile Note 0 ml @ 0 mls/hr UNSCH OTHER 07/04/17 09:15 Vancomycin HCl 2000 mg/Sodium Chloride 520 ml @ 250 mls/hr Q12H IV 07/04/17 13:00 Miscellaneous Information SPECIFIC LAB TO BE DRAWN:VANCOMYCIN TROUGH DATE TO... ONCE ONCE .XX 07/06/17 00:45 07/06/17 00:46 (Tessalon) 200 mg TID PRN PO 07/04/17 11:45 Family History Non-contributory Social History He denies tobacco or recreational drug use. He has a hx of alcohol abuse but his last drink was reportedly 7 years ago. He denies current illicit drug use. Physical Exam Vital Signs Vital Signs Date Time Temp Pulse Resp B/P (MAP) Pulse Ox O2 Delivery O2 Flow Rate FiO2 07/04/17 12:00 99.0 100 18 129/63 (85) 91 07/04/17 08:00 98.5 89 18 135/63 (87) 91 07/04/17 04:00 97.5 85 18 146/67 (93) 94 07/04/17 00:00 97.3 84 18 119/67 (84) 94 07/03/17 20:00 99.1 98 18 129/57 (81) 92 07/03/17 16:30 Physical Exam GENERAL: Patient is a well-nourished, well-developed male, awake and alert, not in respiratory distress. SKIN: Cool and dry. No generalized rash, no ecchymoses and no evidence of embolic lesions. Has spider angiomatas HEAD: Atraumatic. Normocephalic. No temporal wasting, or tenderness. EYES: Straughn conjunctiva. No petechia or hemorrhage. Pupils equal, round and reactive to light. Extraocular movements full and intact. No scleral icterus. No injection or drainage. EARS, NOSE AND THROAT: Nose without bleeding or purulent nasal discharge. No sinus tenderness. Mucous membranes pink and moist. No oral lesions noted. No exudate. No oral thrush. NECK: Trachea midline. Supple and not tender, no meningeal signs CARDIOVASCULAR: Regular rate and rhythm. No murmurs, rubs or gallops heard RESPIRATORY: Clear to auscultation. Breath sounds equal bilaterally. No rales , wheezing or rhonchi ABDOMEN: Soft, non-tender, nondistended. Bowel sounds present and normoactive. No guarding. No rebound. No organomegaly. EXTREMITIES: No clubbing, cyanosis, or edema. On his R foot there is an area of redness below the big toe to the 3rd toes. There is tenderness on palpation of the 2nd MCP plantar aspect. NO swelling, (+) heat, no open wound. No calf tenderness. Well perfused and warm. NEUROLOGICAL: Awake and alert. Cranial nerves grossly intact. Motor grossly within normal limits. PSYCHIATRIC: Normal affect, calm and cooperative. LINE: No evidence of infection Laboratory Laboratory Tests Test 07/04/17 06:00 07/04/17 06:13 Urine Opiates Screen POS Urine Barbiturates Screen NEG Urine Amphetamines Screen NEG Urine Benzodiazepines Screen NEG Urine Cocaine Screen POS Urine Cannabinoids Screen POS White Blood Count 12.4 Red Blood Count 3.12 Hemoglobin 11.4 Hematocrit 33.5 Mean Corpuscular Volume 107.3 Mean Corpuscular Hemoglobin 36.4 Mean Corpuscular Hemoglobin Concent 33.9 Red Cell Distribution Width 15.7 Platelet Count 87 Mean Platelet Volume 8.8 Neutrophils (%) (Auto) 85.6 Lymphocytes (%) (Auto) 3.8 Monocytes (%) (Auto) 9.2 Eosinophils (%) (Auto) 1.2 Basophils (%) (Auto) 0.2 Neutrophils # (Auto) 10.6 Lymphocytes # (Auto) 0.5 Monocytes # (Auto) 1.1 Eosinophils # (Auto) 0.1 Basophils # (Auto) 0.0 CBC Comment AUTO DIFF Differential Total Cells Counted 100 Neutrophils % (Manual) 66 Band Neutrophils % 31 Monocytes % 2 Neutrophils # (Manual) 12.2 Myelocytes 1 Differential Comment FINAL DIFF MANUAL Toxic Granulation 1+ Platelet Estimate LOW Platelet Morphology Comment NORMAL Blood Urea Nitrogen 16 Creatinine 0.80 Random Glucose 77 Total Protein 6.1 Albumin 1.8 Calcium Level 7.8 Alkaline Phosphatase 101 Aspartate Amino Transf (AST/SGOT) 49 Alanine Aminotransferase (ALT/SGPT) 42 Total Bilirubin 2.2 Sodium Level 135 Potassium Level 4.0 Chloride Level 101 Carbon Dioxide Level 27.7 Anion Gap 6 Estimat Glomerular Filtration Rate 104 Lipase 278 Date/Time Source Procedure Growth Status 07/04/17 10:37 Blood Peripheral Aerobic Blood Culture Pending Received 07/04/17 10:37 Blood Peripheral Anaerobic Blood Culture Pending Received 07/03/17 06:22 Throat Group A Streptococcus Screen - Preliminary NO BETA STREPTOCOCCI ISOLATED AT 24 H... Resulted Result Diagram: 07/04/17 0613 07/04/17 0613 Imaging Last Impressions Chest X-Ray 07/03/17 0515 Signed Impressions: Service Date/Time: June 05:25 - CONCLUSION: No acute disease. Santiago Mccartney MD Chest CT 07/03/17 0000 Signed Impressions: Service Date/Time: June 12:16 - CONCLUSION: 1. Extensive stranding with prominent lymph nodes in the right axilla measuring upwards of 1.6 cm in diameter. Does the patient have clinical symptomatology to suggest a cellulitis in this area? 2. Mild, generalized anasarca with some interstitial prominence in both lungs as well the visualized portions of the upper mesentery. Findings are nonspecific but can be seen in entity such as overwhelming sepsis. 3. Calcified gallstones. 4. Small right-sided pleural effusion with associated atelectatic changes. 5. Atretic left sixth rib could be congenital or postsurgical. Old healed rib fractures involving the lateral aspect of #3 and 4 on the left. 6. Mild gynecomastia. Again, nonspecific finding that can be seen with certain medications. Masoud Lopez MD Abdomen/Pelvis CT 07/03/17 0000 Signed Impressions: Service Date/Time: June 08:43 - CONCLUSION: 1. 1.5 cm low-density lesion within the anterior segment of the right lobe of liver which is indeterminate. Outpatient MRI of the abdomen with contrast would be helpful for further characterization of this indeterminate lesion. 2. Mild splenomegaly and very large intra-abdominal varices draining into the splenic vein suggesting portal hypertension. 3. Perigastric varices and bilateral inguinal varices are also noted. 4. Cholelithiasis. 5. Tiny right pleural effusion. 6. Minimal right basilar atelectasis and/or infiltrate. 7. Degenerative changes and scoliosis of the thoracolumbar spine. Haseeb Helms MD Assessment and Plan Assessment and Plan IMPRESSION MRSA bacteremia, source - has pulmonary complaints, has pleural effusion - now with hemoptysis - also with redness on his R foot, ?early cellulitis ?Early PNA Known liver cirrhosis, previous ETOH, and also He p C RECOMMENDATION Agree with echo Repeat BC Continue Vanco Will switch to Levaquin and stop Rocephin and Zithromax Repeat chest x-ray to reevaluate the pleural effusion and infiltrate Agree with pulmonary evaluation May need to do a CTA as part of workup for hemoptysis X-ray of the right foot, may need to do MRI if more physical findings develop Follow cultures Monitor progress We will determine course of treatment once workup is completed I will follow along with you Thank you for this consultation Natividad Sanchez MD Jul 04, 2017 14:07
[2017-07-04] MEDS: VANCOMYCIN INJ 2,000 MG in SODIUM CHLORID 0.9% 500 ML INJ 500 ML IV SCH (14:08)
--- NOTE | 2017-07-04 15:42 | ECHRPT ---
Indication: SEPSIS/ENDOCARDITIS CONCLUSIONS The left ventricular systolic function is normal with an estimated ejection fraction in the range of 60-65%. Wall thickness is measured at the upper limits of normal. No regional wall motion abnormalities are present. Normal left ventricular size. There is trace tricuspid valve regurgitation. The estimated pulmonary arterial pressure is 33 mmHg. Structurally normal mitral valve. Trace mitral regurgitation. BP: / HR: Rhythm: Sinus MEASUREMENTS (Male / Female) Normal Values Technical Quality:Good 2D ECHO LV Diastolic Diameter PLAX 5.5 cm 4.2 - 5.9 / 3.9 - 5.3 cm LV Systolic Diameter PLAX 3.8 cm IVS Diastolic Thickness 1.0 cm 0.6 - 1.0 / 0.6 - 0.9 cm LVPW Diastolic Thickness 1.0 cm 0.6 - 1.0 / 0.6 - 0.9 cm LV Relative Wall Thickness 0.4 LVOT Diameter 2.1 cm M-MODE Aortic Root Diameter MM 2.6 cm LA Systolic Diameter MM 3.1 cm LA Ao Ratio MM 1.2 AV Cusp Separation MM 2.0 cm DOPPLER AV Peak Velocity 187.0 cm/s AV Peak Gradient 14.0 mmHg LVOT Peak Velocity 151.0 cm/s LVOT Peak Gradient 9.1 mmHg AV Area Cont Eq pk 2.8 cm MR Peak Velocity 335.0 cm/s MR Peak Gradient 44.9 mmHg Mitral E Point Velocity 115.0 cm/s Mitral A Point Velocity 71.1 cm/s Mitral E to A Ratio 1.6 LV E' Lateral Velocity 11.1 cm/s Mitral E to LV E' Lateral Ratio 10.4 LV E' Septal Velocity 9.5 cm/s Mitral E to LV E' Septal Ratio 12.2 TR Peak Velocity 244.0 cm/s TR Peak Gradient 23.8 mmHg Right Atrial Pressure 10.0 mmHg Pulmonary Artery Systolic Pressu 33.8 mmHg Right Ventricular Systolic Press 33.8 mmHg FINDINGS LEFT VENTRICLE The left ventricular systolic function is normal with an estimated ejection fraction in the range of 60-65%. Wall thickness is measured at the upper limits of normal. No regional wall motion abnormalities are present. Normal left ventricular size. RIGHT VENTRICLE Normal right ventricular size and systolic function. LEFT ATRIUM The left atrial size is normal. RIGHT ATRIUM The right atrial size is normal. ATRIAL SEPTUM Normal atrial septal thickness without atrial level shunting by limited color doppler interrogation. AORTA The aortic root and proximal ascending aorta are normal in size on limited imaging. MITRAL VALVE Structurally normal mitral valve. Trace mitral regurgitation. AORTIC VALVE Trileaflet aortic valve. No aortic valve stenosis or regurgitation. TRICUSPID VALVE There is trace tricuspid valve regurgitation. The estimated pulmonary arterial pressure is 33 mmHg. PULMONARY VALVE No pulmonary valve regurgitation or stenosis. VESSELS The inferior vena cava is normal in size. PERICARDIUM No pericardial effusion. Cristo Vance MD (Electronically Signed) Final Date:04 July 2017 15:41
--- NOTE | 2017-07-04 16:01 | RADRPT ---
EXAM DATE/TIME: 07/04/2017 15:41 [facility] COMPARISON: CT THORAX W/O CONTRAST, July 03, 2017, 12:16. CT ABDOMEN & PELVIS W CONTRAST, July 03, 2017, 8:43. INDICATIONS : Eval cough. Hemoptysis. MEDICAL HISTORY : Hypertension. SURGICAL HISTORY : None. ENCOUNTER: Subsequent ACUITY: 2 weeks PAIN SCORE: 8/10 LOCATION: Bilateral chest FINDINGS: There is cardiomegaly with mild interstitial edema and consolidative changes in the right base have p rogressed in the interval. Small right pleural effusion is evident. CONCLUSION: Progression of the right bibasilar disease and pleural effusion. Josh Santiago MD FACR on July 04, 2017 at 15:57 Board Certified Radiologist. This report was verified electronically.
[2017-07-04 16:02] VITALS: BP 111/55; PULSE 99; RESP 18; TEMP 98.5; O2SAT 91
--- NOTE | 2017-07-04 16:09 | RADRPT ---
EXAM DATE/TIME: 07/04/2017 15:35 [facility] COMPARISON: No previous studies available for comparison. INDICATIONS : Redness and pain right 1st distal metatarsal. MEDICAL HISTORY : Hypertension. SURGICAL HISTORY : None. ENCOUNTER: Subsequent ACUITY: 1 day PAIN SCORE: 10/10 LOCATION: Right Foot. FINDINGS: Three view examination of the right foot demonstrates no soft tissue swelling, dislocation, or fractu re. The tarsal bones appear intact. The interphalangeal and metatarsophalangeal joints are intact. The calcaneus is intact. Bony mineralization is normal. CONCLUSION: Negative for fracture or dislocation. Follow up in 7-10 days is suggested if symptoms persist. Josh Santiago MD FACR on July 04, 2017 at 16:07 Board Certified Radiologist. This report was verified electronically.
[2017-07-04] MEDS: LEVOFLOXACIN 750 MG TAB PO SCH (16:57)
[2017-07-04 21:30] VITALS: BP 103/50; PULSE 83; RESP 19; TEMP 98.1; O2SAT 92
[2017-07-05] VITALS: BP 106/61; PULSE 80; RESP 20; TEMP 98.9; O2SAT 93
[2017-07-05] MEDS: VANCOMYCIN INJ 2,000 MG in SODIUM CHLORID 0.9% 500 ML INJ 500 ML IV SCH ×2 (00:14→12:29)
[2017-07-05] MEDS: IBUPROFEN 600 MG TAB PO PRN ×4 (00:14→20:20)
[2017-07-05] MEDS: BENZONATATE 100 MG CAP PO PRN ×3 (00:14→17:57)
[2017-07-05] MEDS: SODIUM CHLOR 0.9% 1000 ML INJ 1,000 ML IV SCH ×3 (02:02→21:53)
[2017-07-05 05:00] VITALS: BP 105/67; PULSE 88; RESP 17; TEMP 97.3; O2SAT 92
[2017-07-05 07:47] LABS: TOTAL IRON BINDING CAPACITY 141 MCG/DL (250-450)
[2017-07-05 07:50] LABS: % SATURATION IRON PROFILE 68.6 % (20-50); FERRITIN 540 NG/ML (26-388); IRON (FE) 97 MCG/DL (65-175)
[2017-07-05 08:27] VITALS: BP 114/58; PULSE 80; RESP 18; TEMP 97.6; O2SAT 91
[2017-07-05] MEDS: SODIUM CHLORIDE 0.9% FLUSH 10 ML FLUSH IV FLUSH SCH ×2 (08:48→20:17)
[2017-07-05] MEDS: GABAPENTIN 300 MG CAP PO SCH ×2 (08:52→20:16)
[2017-07-05] MEDS: LISINOPRIL 20 MG TAB PO SCH (08:52)
[2017-07-05] MEDS ORDERED: cefTRIAXone INJ 2,000 MG in SODIUM CHLORIDE 0.9% INJ 100 ML IV SCH (09:00)
--- NOTE | 2017-07-05 10:16 | HHI.GIFU ---
Subjective Remarks Pt sitting up in bed, coughing. Denies coughign up blood today. Denies abd pain. (Stefani Hui) Objective Vitals I&O Vital Signs Date Time Temp Pulse Resp B/P (MAP) Pulse Ox O2 Delivery O2 Flow Rate FiO2 07/05/17 10:12 16 07/05/17 08:27 97.6 80 18 114/58 (76) 91 07/05/17 05:00 97.3 88 17 105/67 (80) 92 07/05/17 00:00 98.9 80 20 106/61 (76) 93 07/04/17 21:30 98.1 83 19 103/50 (67) 92 07/04/17 16:02 98.5 99 18 111/55 (73) 91 07/04/17 12:00 99.0 100 18 129/63 (85) 91 I/O 07/04/17 07/04/17 07/04/17 07/05/17 07/05/17 07/05/17 07:00 15:00 23:00 07:00 15:00 23:00 Intake Total 1100 ml 650 ml 750 ml Output Total 1200 ml Balance -100 ml 650 ml 750 ml Intake Oral 650 ml 750 ml IV Total 1100 ml Output Urine Total 1200 ml # Voids 0 3 # Bowel Movements 0 0 Laboratory Laboratory Tests Test 07/05/17 05:48 Iron Level 97 Total Iron Binding Capacity 141 Percent Iron Saturation 68.6 Ferritin 540 Tumor Marker Alpha Fetoprotein 3.5 Date/Time Source Procedure Growth Status 07/04/17 10:37 Blood Peripheral Aerobic Blood Culture Pending Received 07/04/17 10:37 Blood Peripheral Anaerobic Blood Culture Pending Received 07/05/17 00:22 Sputum Expectorated Sputum Gram Stain Pending Received 07/05/17 00:22 Sputum Expectorated Sputum Sputum Culture Pending Received Imaging Last Impressions Foot X-Ray 07/04/17 0000 Signed Impressions: Service Date/Time: Tuesday, July 04, 2017 15:35 - CONCLUSION: Negative for fracture or dislocation. Follow up in 7-10 days is suggested if symptoms persist. Josh Santiago MD FACR Chest X-Ray 07/04/17 0000 Signed Impressions: Service Date/Time: Tuesday, July 04, 2017 15:41 - CONCLUSION: Progression of the right bibasilar disease and pleural effusion. Josh Santiago MD FACR Chest CT 07/03/17 0000 Signed Impressions: Service Date/Time: June 12:16 - CONCLUSION: 1. Extensive stranding with prominent lymph nodes in the right axilla measuring upwards of 1.6 cm in diameter. Does the patient have clinical symptomatology to suggest a cellulitis in this area? 2. Mild, generalized anasarca with some interstitial prominence in both lungs as well the visualized portions of the upper mesentery. Findings are nonspecific but can be seen in entity such as overwhelming sepsis. 3. Calcified gallstones. 4. Small right-sided pleural effusion with associated atelectatic changes. 5. Atretic left sixth rib could be congenital or postsurgical. Old healed rib fractures involving the lateral aspect of #3 and 4 on the left. 6. Mild gynecomastia. Again, nonspecific finding that can be seen with certain medications. Masoud Lopez MD Abdomen/Pelvis CT 07/03/17 0000 Signed Impressions: Service Date/Time: June 08:43 - CONCLUSION: 1. 1.5 cm low-density lesion within the anterior segment of the right lobe of liver which is indeterminate. Outpatient MRI of the abdomen with contrast would be helpful for further characterization of this indeterminate lesion. 2. Mild splenomegaly and very large intra-abdominal varices draining into the splenic vein suggesting portal hypertension. 3. Perigastric varices and bilateral inguinal varices are also noted. 4. Cholelithiasis. 5. Tiny right pleural effusion. 6. Minimal right basilar atelectasis and/or infiltrate. 7. Degenerative changes and scoliosis of the thoracolumbar spine. Haseeb Helms MD Physical Exam HEENT: PERRL; normocephalic; atraumatic; no jaundice. CHEST: diminished CARDIAC: RRR ABDOMEN: Soft, mildly distended, nontender; no hepatosplenomegaly; bowel sounds are present in all four quadrants. EXTREMITIES: No clubbing, cyanosis, or edema. SKIN: ashy; no rash; no jaundice. FLYING I INSTRUCTOR: AOX3 (Stefani Hui MACHINE TURNER) Assessment and Plan Plan ASSESSMENT - abnormal imaging - 1.5 cm liver lesion seen on CT as well as portal HTN, varices, cholelithiasis. hx hep c. - elevated LFTs - trending down. hx hep c. cirrhosis - elevated lipase -chronic pancreatitis. 932 on admission and now WNL. - abd pain - pt c/o lower quadrant pain, is TTP in RUQ. unclear etiology. - PNA per primary ID following 07/05/17 liver w/u and hcv quant are pending. pt coughing. no GI complaints today. PLAN - await liver w/u - await hcv quant - abx per ID - illicit drug cessation - supportive care pt seen by myself and Dr Andrade and this note is on his behalf (Stefani Hui) Plan Patient was seen and examined, agree with above note,, await for further lab and workup on the liver, chronic pancreatitis seems to be improving since the patient does not have pain now (Rigoberto Andrade MD) Stefani Hui Jul 05, 2017 10:16 Rigoberto Andrade MD Jul 05, 2017 14:01
--- NOTE | 2017-07-05 11:42 | PD.CONS ---
History of Present Illness Service Pulmonary Consult Requested By Reason for Consult Hemoptysis Primary Care Physician Kulwinder Ely MD (Paul) Diagnoses: History of Present Illness Patient seen and examined. Records reviewed. Patient is a 46-year-old male who presented to the emergency room with complaint of flulike symptoms for about a week. Patient reports he has been having right-sided pleuritic type chest pain. He describes pain as heavy in character, present all the time, worse with coughing and deep breathing. Patient states he was having hemoptysis for 3 days. Last episode was yesterday. He coughs up clear to yellow mucus now. States he has history of pleurisy from before. He is life long non-smoker. Review of Systems Respiratory: COMPLAINS OF: Cough, Hemoptysis, Sputum production, Shortness of breath Cardiovascular: COMPLAINS OF: Chest pain (right sided, pleuritic ), DENIES: Palpitations, Syncope, Dyspnea on Exertion, PND, Lower Extremity Edema, Orthopnea, Claudication Except as stated in HPI: all other systems reviewed are Neg Past Family Social History Allergies: Coded Allergies: No Known Allergies (Verified Allergy, Unknown, 07/04/17) Physical Exam Vital Signs Vital Signs Date Time Temp Pulse Resp B/P (MAP) Pulse Ox O2 Delivery O2 Flow Rate FiO2 07/05/17 10:12 16 07/05/17 08:27 97.6 80 18 114/58 (76) 91 07/05/17 05:00 97.3 88 17 105/67 (80) 92 07/05/17 00:00 98.9 80 20 106/61 (76) 93 07/04/17 21:30 98.1 83 19 103/50 (67) 92 07/04/17 16:02 98.5 99 18 111/55 (73) 91 07/04/17 12:00 99.0 100 18 129/63 (85) 91 Physical Exam GENERAL: This is a well-nourished, well-developed patient, in no apparent distress. SKIN: No rashes, ecchymoses or lesions. Cool and dry. HEAD: Atraumatic. Normocephalic. No temporal or scalp tenderness. EYES: Pupils equal round and reactive. Extraocular motions intact. No scleral icterus. No injection or drainage. ENT: Nose without bleeding, purulent drainage or septal hematoma. Throat without erythema, tonsillar hypertrophy or exudate. Uvula midline. Airway patent. NECK: Trachea midline. No JVD or lymphadenopathy. Supple, nontender, no meningeal signs. CARDIOVASCULAR: Regular rate and rhythm without murmurs, gallops, or rubs. RESPIRATORY: Clear to auscultation.diminished right basilar breath sounds. GASTROINTESTINAL: Abdomen soft, non-tender, nondistended. No hepato-splenomegaly , or palpable masses. No guarding. MUSCULOSKELETAL: Extremities without clubbing, cyanosis, or edema. No joint tenderness, effusion, or edema noted. No calf tenderness. Negative Homans sign bilaterally. NEUROLOGICAL: Awake and alert. Cranial nerves II through XII intact. Motor and sensory grossly within normal limits. Five out of 5 muscle strength in all muscle groups. Normal speech. Laboratory Laboratory Tests Test 07/05/17 05:48 Iron Level 97 Total Iron Binding Capacity 141 Percent Iron Saturation 68.6 Ferritin 540 Tumor Marker Alpha Fetoprotein 3.5 Date/Time Source Procedure Growth Status 07/04/17 10:37 Blood Peripheral Aerobic Blood Culture - Preliminary NO GROWTH IN 1 DAY Resulted 07/04/17 10:37 Blood Peripheral Anaerobic Blood Culture - Preliminary NO GROWTH IN 1 DAY Resulted 07/05/17 00:22 Sputum Expectorated Sputum Gram Stain - Final Resulted 07/05/17 00:22 Sputum Expectorated Sputum Sputum Culture Pending Resulted Result Diagram: 07/04/1761207/04/17 06 Imaging CXR reviewed: shows increasing right pleural effusion vs atelectasis CT chest reviewed Assessment and Plan Assessment and Plan PNA Hemoptysis, resolved, likely secondary to pna Right pleural effusion vs atelectasis Hx of drug use MRSA bacteremia Obtain chest ultrasound for evaluation of right effusion May need thoracentesis with appropriate fluid studies Hemoptysis has resolved and is likely secondary to pna O2 sats stable on room air Abx as per ID recs F/u all outstanding cxs Recommend IS D/w patient and mother at bedside in detail Further orders per Dr. Smith Thank you for this consultation Diana Pleitez Jul 05, 2017 11:42
[2017-07-05 12:23] VITALS: BP 110/57; PULSE 87; RESP 18; TEMP 97.9; O2SAT 91
--- NOTE | 2017-07-05 12:55 | RADRPT ---
EXAM DATE/TIME: 07/05/2017 12:26 [facility] COMPARISON: CHEST PA & LAT, July 04, 2017, 15:41. EXTERNAL COMPARISON : [facility], XR CHEST PA & LAT, March 13, 2015 INDICATIONS : Right plerual effusion. MEDICAL HISTORY : Hypertension. Diverticulitis. Cirrhosis. Cardiac arrhythmia. Dysnea. Hemoptysis. Hep C. SURGICAL HISTORY : Colostomy. Removal of 1/2 rib left chest wall. ENCOUNTER: Initial ACUITY: 1 week PAIN SCORE: 3/10 LOCATION: Right chest MEASUREMENTS: SKIN TO PARIETAL PLEURA: 2.8 cm SKIN TO MAX SAFE DEPTH: ?5.3 cm ESTIMATED FLUID VOLUME: 408 cc FLUID COMPOSITION: complex FINDINGS: Loculated complex right pleural effusion. Thoracentesis under CT may be of benefit given the loculat ions. CONCLUSION: Loculated fluid as above. Josh Santiago MD FACR on July 05, 2017 at 12:52 Board Certified Radiologist. This report was verified electronically.
[2017-07-05] MEDS: LEVOFLOXACIN 750 MG TAB PO SCH (15:19)
[2017-07-05 16:00] VITALS: BP 134/59; PULSE 90; RESP 18; TEMP 98.1; O2SAT 92
--- NOTE | 2017-07-05 17:01 | HHI.PR ---
Subjective Remarks Patient seen this morning. Says he is feeling better overall.. Denies any chest pain or shortness of breath. Objective Vital Signs Date Time Temp Pulse Resp B/P (MAP) Pulse Ox O2 Delivery O2 Flow Rate FiO2 07/05/17 16:29 16 07/05/17 16:00 98.1 90 18 134/59 (84) 92 07/05/17 12:23 97.9 87 18 110/57 (74) 91 07/05/17 08:27 97.6 80 18 114/58 (76) 91 07/05/17 05:00 97.3 88 17 105/67 (80) 92 07/05/17 00:00 98.9 80 20 106/61 (76) 93 07/04/17 21:30 98.1 83 19 103/50 (67) 92 I/O 07/04/17 07/04/17 07/04/17 07/05/17 07/05/17 07/05/17 07:00 15:00 23:00 07:00 15:00 23:00 Intake Total 1100 ml 650 ml 750 ml Output Total 1200 ml Balance -100 ml 650 ml 750 ml Intake Oral 650 ml 750 ml IV Total 1100 ml Output Urine Total 1200 ml # Voids 0 3 # Bowel Movements 0 0 Result Diagram: 07/04/1761207/04/17612 Objective Remarks GENERAL: Patient sitting up in bed. Appears comfortable. Alert and oriented 3. SKIN: Warm and dry. HEAD: Normocephalic. EYES: No scleral icterus. No injection or drainage. NECK: Supple, trachea midline. No JVD. Right axillary lymphadenopathy dry clipper tender but improved from yesterday. CARDIOVASCULAR: Regular rate and rhythm without murmurs, gallops, or rubs. RESPIRATORY: Breath sounds equal bilaterally. No accessory muscle use. GASTROINTESTINAL: Abdomen soft, non-tender, nondistended. MUSCULOSKELETAL: No cyanosis, or edema. BACK: Nontender without obvious deformity. No CVA tenderness. A/P Assessment and Plan //Sepsis //MRSA bacteremia. = Pneumonia on CT chest, liver lesion, right axillary lymphadenopathy, possible cellulitis = Continue broad-spectrum antibiotics. Infectious disease consulted. Repeat blood cultures. Check echocardiogram. Start vancomycin = 07/05. Echocardiogram negative for vegetations. Continue antibiotics as per infectious disease. Appreciate assistance. //Pneumonia. //Hemoptysis reported by nursing As seen on CT. Continue broad-spectrum antibiotics. = Add vancomycin for MRSA. Consult pulmonology. = Pulmonology following. Appreciate assistance. //Elevated lipase = Uncertain etiology, could be secondary to nausea and vomiting secondary to sepsis. GI consulted for liver lesion. Appreciate assistance. = Liver workup pending. Appreciate GI assistance. //Suspected IV drug use //Cocaine, marijuana, opiates positive on drug screen. = Patient adamantly denies IV drug use. Counseling provided nonetheless. //Right axillary lymphadenopathy. Tender to palpation Uncertain etiology. Continue IV antibiotics. Infectious disease following. //Thrombus cytopenia. Platelets in the 80s. Likely secondary to liver sequestration. No signs of acute blood loss. Continue to monitor. Discharge Planning Continue treatment for sepsis, MRSA bacteremia. Juanjose Ramsay MD Jul 05, 2017 17:01
[2017-07-05] MEDS ORDERED: MAGNESIUM HYDROXIDE SUSP 30 ML CUP PO ONE (18:00)
[2017-07-05] MEDS ORDERED: DOCUSATE SODIUM 50 MG/SENNA 8.6 MG TAB PO ONE (18:00)
[2017-07-05 20:47] VITALS: BP 100/46; PULSE 92; RESP 18; TEMP 97.4; O2SAT 91
[2017-07-06] MEDS ORDERED: PHARMACY ORDERED LAB ONE (00:45)
[2017-07-06 01:29] VITALS: BP 110/53; PULSE 83; RESP 18; TEMP 97.7; O2SAT 91
[2017-07-06] MEDS: VANCOMYCIN INJ 2,000 MG in SODIUM CHLORID 0.9% 500 ML INJ 500 ML IV SCH (01:55)
[2017-07-06 05:27] VITALS: BP 139/81; PULSE 81; RESP 18; TEMP 97.8; O2SAT 94
[2017-07-06] MEDS: SODIUM CHLOR 0.9% 1000 ML INJ 1,000 ML IV SCH ×2 (08:02→09:13)
[2017-07-06 08:08] LABS: AUTOMATED NEUTROPHIL # 11.6 TH/MM3 (1.8-7.7); BASOPHIL # 0.1 TH/MM3 (0-0.2); BASOPHIL % 0.4 % (0.0-2.0); EOSINOPHIL # 0.3 TH/MM3 (0-0.4); EOSINOPHIL % 2.3 % (0.0-4.0); LYMPH % 4.7 % (9.0-44.0); LYMPHOCYTE # 0.7 TH/MM3 (1.0-4.8); MEAN CELL VOLUME 107.2 FL (80.0-100.0); MEAN CORPUSCULAR HEMOGLOBIN 35.8 PG (27.0-34.0); MEAN CORPUSCULAR HGB CONC 33.4 % (32.0-36.0); MEAN PLATELET VOLUME 9.2 FL (7.0-11.0); MONO % 11.9 % (0.0-8.0); MONOCYTE # 1.7 TH/MM3 (0-0.9); NEUT % 80.7 % (16.0-70.0); PLATELET COUNT 117 TH/MM3 (150-450); RED BLOOD COUNT 3.08 MIL/MM3 (4.50-5.90); RED CELL DISTRIBUTION WIDTH 15.5 % (11.6-17.2); WHITE BLOOD COUNT 14.4 TH/MM3 (4.0-11.0)
[2017-07-06 08:21] VITALS: BP 102/54; PULSE 84; RESP 18; TEMP 97.5; O2SAT 93
[2017-07-06 08:31] LABS: ALBUMIN 1.5 GM/DL (3.4-5.0); BICARBONATE 24.2 MEQ/L (21.0-32.0); CALCIUM 7.6 MG/DL (8.5-10.1); CREATININE 4.1 MG/DL (0.60-1.30); MAGNESIUM 2.1 MG/DL (1.5-2.5); PHOSPHORUS 3.2 MG/DL (2.5-4.9)
[2017-07-06] MEDS: LISINOPRIL 20 MG TAB PO SCH (09:00)
[2017-07-06] MEDS: SODIUM CHLORIDE 0.9% FLUSH 10 ML FLUSH IV FLUSH SCH ×2 (09:13→21:00)
[2017-07-06] MEDS: GABAPENTIN 300 MG CAP PO SCH (09:14)
[2017-07-06] MEDS: BENZONATATE 100 MG CAP PO PRN ×2 (09:17→21:07)
[2017-07-06] MEDS: IBUPROFEN 600 MG TAB PO PRN (09:19)
[2017-07-06 09:29] LABS: BANDS 6 % (0-6); MONOCYTES 8 % (0-8); MYELOCYTES 1 % (0-0); POLYS (SEG NEUTROPHILS) 82 % (16-70); PROMYELOCYTES 1 % (0-0)
[2017-07-06 09:30] LABS: TOXIC GRANULATION 1+ (NORMAL)
[2017-07-06 09:31] LABS: TOXIC VACUOLATION PRESENT (NONE SEEN)
[2017-07-06] MEDS ORDERED: SODIUM CHLORID 0.9% 500 ML INJ 500 ML IV ONE (11:00)
--- NOTE | 2017-07-06 11:45 | HHI.GIFU ---
Subjective Remarks Pt is asleep when I walked in, awakes to me calling his name but falls back to sleep. mom at bed side, states hasn't had BM since Fri. no nausea, vomiting, abd pain or bleeding reported. (Mavis Crawford ROSA ELENA) Objective Vitals I&O Vital Signs Date Time Temp Pulse Resp B/P (MAP) Pulse Ox O2 Delivery O2 Flow Rate FiO2 07/06/17 08:21 97.5 84 18 102/54 (70) 93 07/06/17 05:27 97.8 81 18 139/81 (100) 94 07/06/17 01:29 97.7 83 18 110/53 (72) 91 07/05/17 20:47 97.4 92 18 100/46 (64) 91 07/05/17 16:29 16 07/05/17 16:00 98.1 90 18 134/59 (84) 92 07/05/17 12:23 97.9 87 18 110/57 (74) 91 I/O 07/05/17 07/05/17 07/05/17 07/06/17 07/06/17 07/06/17 07:00 15:00 23:00 07:00 15:00 23:00 Intake Total 750 ml 1000 ml 1500 ml Balance 750 ml 1000 ml 1500 ml Intake Oral 750 ml IV Total 1000 ml 1500 ml # Voids 3 # Bowel Movements 0 Laboratory Laboratory Tests Test 07/06/17 01:45 07/06/17 07:00 Vancomycin Level Trough 26.7 White Blood Count 14.4 Red Blood Count 3.08 Hemoglobin 11.0 Hematocrit 33.0 Mean Corpuscular Volume 107.2 Mean Corpuscular Hemoglobin 35.8 Mean Corpuscular Hemoglobin Concent 33.4 Red Cell Distribution Width 15.5 Platelet Count 117 Mean Platelet Volume 9.2 Neutrophils (%) (Auto) 80.7 Lymphocytes (%) (Auto) 4.7 Monocytes (%) (Auto) 11.9 Eosinophils (%) (Auto) 2.3 Basophils (%) (Auto) 0.4 Neutrophils # (Auto) 11.6 Lymphocytes # (Auto) 0.7 Monocytes # (Auto) 1.7 Eosinophils # (Auto) 0.3 Basophils # (Auto) 0.1 CBC Comment AUTO DIFF Differential Total Cells Counted 100 Neutrophils % (Manual) 82 Band Neutrophils % 6 Monocytes % 8 Eosinophils % 2 Neutrophils # (Manual) 13.0 Myelocytes 1 Promyelocytes 1 Differential Comment FINAL DIFF MANUAL Toxic Granulation 1+ Toxic Vacuolation PRESENT Platelet Estimate LOW Platelet Morphology Comment NORMAL Blood Urea Nitrogen 45 Creatinine 4.10 Random Glucose 62 Albumin 1.5 Calcium Level 7.6 Phosphorus Level 3.2 Magnesium Level 2.1 Sodium Level 135 Potassium Level 4.5 Chloride Level 103 Carbon Dioxide Level 24.2 Anion Gap 8 Estimat Glomerular Filtration Rate 16 Date/Time Source Procedure Growth Status 07/04/17 10:37 Blood Peripheral Aerobic Blood Culture - Preliminary NO GROWTH IN 2 DAYS Resulted 07/04/17 10:37 Blood Peripheral Anaerobic Blood Culture - Preliminary NO GROWTH IN 2 DAYS Resulted 07/05/17 00:22 Sputum Expectorated Sputum Gram Stain - Final Resulted 07/05/17 00:22 Sputum Expectorated Sputum Sputum Culture Pending Resulted Imaging Last Impressions Chest Ultrasound 07/05/17 0000 Signed Impressions: Service Date/Time: Wednesday, July 05, 2017 12:26 - CONCLUSION: Loculated fluid as above. Josh Santiago MD FACR Foot X-Ray 07/04/17 0000 Signed Impressions: Service Date/Time: Tuesday, July 04, 2017 15:35 - CONCLUSION: Negative for fracture or dislocation. Follow up in 7-10 days is suggested if symptoms persist. Josh Santiago MD FACR Chest X-Ray 07/04/17 0000 Signed Impressions: Service Date/Time: Tuesday, July 04, 2017 15:41 - CONCLUSION: Progression of the right bibasilar disease and pleural effusion. Josh Santiago MD FACR Chest CT 07/03/17 0000 Signed Impressions: Service Date/Time: June 12:16 - CONCLUSION: 1. Extensive stranding with prominent lymph nodes in the right axilla measuring upwards of 1.6 cm in diameter. Does the patient have clinical symptomatology to suggest a cellulitis in this area? 2. Mild, generalized anasarca with some interstitial prominence in both lungs as well the visualized portions of the upper mesentery. Findings are nonspecific but can be seen in entity such as overwhelming sepsis. 3. Calcified gallstones. 4. Small right-sided pleural effusion with associated atelectatic changes. 5. Atretic left sixth rib could be congenital or postsurgical. Old healed rib fractures involving the lateral aspect of #3 and 4 on the left. 6. Mild gynecomastia. Again, nonspecific finding that can be seen with certain medications. Masoud Lopez MD Abdomen/Pelvis CT 07/03/17 0000 Signed Impressions: Service Date/Time: June 08:43 - CONCLUSION: 1. 1.5 cm low-density lesion within the anterior segment of the right lobe of liver which is indeterminate. Outpatient MRI of the abdomen with contrast would be helpful for further characterization of this indeterminate lesion. 2. Mild splenomegaly and very large intra-abdominal varices draining into the splenic vein suggesting portal hypertension. 3. Perigastric varices and bilateral inguinal varices are also noted. 4. Cholelithiasis. 5. Tiny right pleural effusion. 6. Minimal right basilar atelectasis and/or infiltrate. 7. Degenerative changes and scoliosis of the thoracolumbar spine. Haseeb Helms MD Physical Exam HEENT: PERRL; normocephalic; atraumatic; no jaundice. CHEST: diminished CARDIAC: RRR ABDOMEN: Soft, mildly distended, nontender; no hepatosplenomegaly; bowel sounds are present in all four quadrants. EXTREMITIES: No clubbing, cyanosis, or edema. SKIN: ashy; no rash; no jaundice. 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 hx hep c. - elevated LFTs - trending down. hx hep c. cirrhosis - elevated lipase -chronic pancreatitis. 932 on admission and now WNL. - abd pain - pt c/o lower quadrant pain, is TTP in RUQ. unclear etiology. - PNA per primary ID following 07/05/17 liver w/u and hcv quant are pending. pt coughing. no GI complaints today. 07/06/17 liver work up pending, Fe 540, iron saturation 68.6, could be secondary to alcohol intake AFP wnl, lipase normalized liver lesion on CT, not able to have an MRI due to poor kidney function PLAN - await liver w/u - await hcv quant - abx per ID - illicit drug cessation - alcohol cessation - Will add lactulose BID - will order Hfe - supportive care pt seen by myself and Dr Andrade and this note is on his behalf (Mavis Crawford) Plan Patient was seen and examined, agree with above note, patient workup still pending as far as liver, he also has some swelling in his right side extremities , being worked up at this time, could be related because the patient is laying on his right side all the time Patient need to stop drug use and alcohol Further plan depends on the final findings on liver workup and findings on CT scan once it is possible to do from kidney function stand (Rigoberto Andrade MD) Mavis Crawford Jul 06, 2017 11:45 Rigoberto Andrade MD Jul 06, 2017 15:21
[2017-07-06 12:23] VITALS: BP 115/56; PULSE 80; RESP 18; TEMP 97.4; O2SAT 92
--- NOTE | 2017-07-06 12:47 | PD.CONS ---
HPI Service Nephrology Consult Requested By Reason for Consult RODOLFO Primary Care Physician Kulwinder Ely MD (Paul) History of Present Illness Mr. Wade is a 46 year old who had been having flu like symptoms. He is now diagnosed with MRSA bacteremia. Has right sided loculated pleural effusion. Has hemoptysis. Received IV iodinated contrast on 07/[address] of the abdomen/pelvis , and chest. Creatinine was less than 1 on admission, it has increased to 4.10. Vancomycin level was 26.7 Patient has history of alcohol abuse, cirrhosis of liver, Hepatitis C. He is found to have a liver lesion. GI is on the case. Past Family Social History Allergies: Coded Allergies: No Known Allergies (Verified Allergy, Unknown, 07/04/17) Past Medical History hypertension Cirrhosis of liver Hepatitis C ruptured diverticulitis Reported Medications Active Lisinopril 40 Mg Tab 40 Mg PO DAILY Reported Gabapentin 600 Mg Tab 600 Mg PO BID Active Ordered Medications Current Medications Medications (Trade) Dose Ordered Sig/Cassandra Route Start Time Stop Time Status Last Admin Sodium Chloride 1,000 ml @ 100 mls/hr Q10H IV 07/03/17 10:02 07/06/17 09:13 (NS Flush) 2 ml UNSCH PRN IV FLUSH 07/03/17 10:15 (NS Flush) 2 ml BID IV FLUSH 07/03/17 21:00 07/06/17 09:13 (Tylenol) 650 mg Q4H PRN PO 07/03/17 10:15 (Zofran Inj) 4 mg Q6H PRN IVP 07/03/17 10:15 (Narcan Inj) 0.4 mg UNSCH PRN IV PUSH 07/03/17 10:15 (Motrin) 600 mg Q6H PRN PO 07/03/17 18:15 07/06/17 09:19 (Neurontin) 600 mg BID PO 07/04/17 09:00 07/06/17 09:14 (Prinivil) 40 mg DAILY PO 07/04/17 09:00 07/06/17 09:00 Pharmacy Profile Note 0 ml @ 0 mls/hr UNSCH OTHER 07/04/17 09:15 Vancomycin HCl 2000 mg/Sodium Chloride 520 ml @ 250 mls/hr Q12H IV 07/04/17 13:00 Future Hold 07/06/17 01:55 (Tessalon) 200 mg TID PRN PO 07/04/17 11:45 07/06/17 09:17 (Levaquin) 750 mg DAILY@1600 PO 07/04/17 16:00 07/05/17 15:19 (Lactulose Liq) 30 ml QID PO 07/06/17 13:00 Family History reviewed, non contributory Social History History of ETOH, IV drug abuse. Physical Exam Vital Signs Vital Signs Date Time Temp Pulse Resp B/P (MAP) Pulse Ox O2 Delivery O2 Flow Rate FiO2 07/06/17 12:23 97.4 80 18 115/56 (75) 92 07/06/17 08:21 97.5 84 18 102/54 (70) 93 07/06/17 05:27 97.8 81 18 139/81 (100) 94 07/06/17 01:29 97.7 83 18 110/53 (72) 91 07/05/17 20:47 97.4 92 18 100/46 (64) 91 07/05/17 16:29 16 07/05/17 16:00 98.1 90 18 134/59 (84) 92 Laboratory Laboratory Tests Test 07/06/17 01:45 07/06/17 07:00 Vancomycin Level Trough 26.7 White Blood Count 14.4 Red Blood Count 3.08 Hemoglobin 11.0 Hematocrit 33.0 Mean Corpuscular Volume 107.2 Mean Corpuscular Hemoglobin 35.8 Mean Corpuscular Hemoglobin Concent 33.4 Red Cell Distribution Width 15.5 Platelet Count 117 Mean Platelet Volume 9.2 Neutrophils (%) (Auto) 80.7 Lymphocytes (%) (Auto) 4.7 Monocytes (%) (Auto) 11.9 Eosinophils (%) (Auto) 2.3 Basophils (%) (Auto) 0.4 Neutrophils # (Auto) 11.6 Lymphocytes # (Auto) 0.7 Monocytes # (Auto) 1.7 Eosinophils # (Auto) 0.3 Basophils # (Auto) 0.1 CBC Comment AUTO DIFF Differential Total Cells Counted 100 Neutrophils % (Manual) 82 Band Neutrophils % 6 Monocytes % 8 Eosinophils % 2 Neutrophils # (Manual) 13.0 Myelocytes 1 Promyelocytes 1 Differential Comment FINAL DIFF MANUAL Toxic Granulation 1+ Toxic Vacuolation PRESENT Platelet Estimate LOW Platelet Morphology Comment NORMAL Blood Urea Nitrogen 45 Creatinine 4.10 Random Glucose 62 Albumin 1.5 Calcium Level 7.6 Phosphorus Level 3.2 Magnesium Level 2.1 Sodium Level 135 Potassium Level 4.5 Chloride Level 103 Carbon Dioxide Level 24.2 Anion Gap 8 Estimat Glomerular Filtration Rate 16 Date/Time Source Procedure Growth Status 07/04/17 10:37 Blood Peripheral Aerobic Blood Culture - Preliminary NO GROWTH IN 2 DAYS Resulted 07/04/17 10:37 Blood Peripheral Anaerobic Blood Culture - Preliminary NO GROWTH IN 2 DAYS Resulted 07/05/17 00:22 Sputum Expectorated Sputum Gram Stain - Final Resulted 07/05/17 00:22 Sputum Expectorated Sputum Sputum Culture Pending Resulted Result Diagram: 07/06/17 0700 07/06/17 0700 Assessment and Plan Problem List: (1) Acute kidney injury ICD Codes: N17.9 - Acute kidney failure, unspecified Plan: May have developed Vancomycin induced nephrotoxicity. Other possibilities: ATN due to sepsis. Post infectious GN. Hepatorenal syndrome? it is a diagnosis of exclusion. Plan: Stop Ibuprofen: received a dose today. Obtain UA, urine electrolytes. Obtain renal US. Continue IVF. Avoid other nephrotoxic agents. Suspend Vancomycin: chose alternative if possible. Obtain complement levels. Bladder scan. (2) Hepatitis C infection ICD Codes: B19.20 - Unspecified viral hepatitis C without hepatic coma Status: Acute Plan: Workup is in progress. (3) Sepsis ICD Codes: A41.9 - Sepsis, unspecified organism Status: Acute Plan: ID on the case. See above. (4) Hypertension ICD Codes: I10 - Essential (primary) hypertension Status: Acute Plan: Suspend Lisinopril for the time being. Assessment and Plan Thanks for the consult. Problem Qualifiers (1) Sepsis: Qualified Codes: A41.9 - Sepsis, unspecified organism (2) Hypertension: Qualified Codes: I10 - Essential (primary) hypertension Bj Amaya MD Jul 06, 2017 12:47
[2017-07-06] MEDS: LACTULOSE SYRUP 20 GM/30 ML CUP PO SCH ×3 (13:00→21:00)
[2017-07-06 13:30] LABS: COMPLEMENT C4 12 MG/DL (10-40)
--- NOTE | 2017-07-06 13:30 | HHI.PR ---
Subjective Remarks Doing ok Still has right sided pleuritic chest pain No further hemoptysis Objective Vital Signs Vital Signs Date Time Temp Pulse Resp B/P (MAP) Pulse Ox O2 Delivery O2 Flow Rate FiO2 07/06/17 12:23 97.4 80 18 115/56 (75) 92 07/06/17 08:21 97.5 84 18 102/54 (70) 93 07/06/17 05:27 97.8 81 18 139/81 (100) 94 07/06/17 01:29 97.7 83 18 110/53 (72) 91 07/05/17 20:47 97.4 92 18 100/46 (64) 91 07/05/17 16:29 16 07/05/17 16:00 98.1 90 18 134/59 (84) 92 I/O 07/05/17 07/05/17 07/05/17 07/06/17 07/06/17 07/06/17 07:00 15:00 23:00 07:00 15:00 23:00 Intake Total 750 ml 1000 ml 1500 ml Balance 750 ml 1000 ml 1500 ml Intake Oral 750 ml IV Total 1000 ml 1500 ml # Voids 3 # Bowel Movements 0 General: NAD HEENT: NCAT Lungs: clear. diminished right basilar bs Heart: S1, S2 Abd: soft, nontender Ext: no edema Result Diagram: 07/06/17 0700 07/06/17 0700 Other Results Chest u/s: loculated right effusion A/P Assessment and Plan PNA Hemoptysis, resolved, likely secondary to pna Loculated right pleural effusion Hx of drug use MRSA bacteremia Order right thoracentesis with fluid studies If empyema may require chest tube Hemoptysis has resolved and is likely secondary to pna O2 sats stable on room air Abx as per ID recs F/u all outstanding cxs Recommend IS Diana Pleitez Jul 06, 2017 13:30
[2017-07-06] MEDS ORDERED: SODIUM CHLOR 0.9% 1000 ML INJ 1,000 ML IV ONE (13:45)
--- NOTE | 2017-07-06 14:27 | HHI.PR ---
Subjective Remarks Patient says he is feeling all right. Reports pleuritic right-sided chest pain continues. Axillary pain improving however. Objective Vital Signs Date Time Temp Pulse Resp B/P (MAP) Pulse Ox O2 Delivery O2 Flow Rate FiO2 07/06/17 12:23 97.4 80 18 115/56 (75) 92 07/06/17 08:21 97.5 84 18 102/54 (70) 93 07/06/17 05:27 97.8 81 18 139/81 (100) 94 07/06/17 01:29 97.7 83 18 110/53 (72) 91 07/05/17 20:47 97.4 92 18 100/46 (64) 91 07/05/17 16:29 16 07/05/17 16:00 98.1 90 18 134/59 (84) 92 I/O 07/05/17 07/05/17 07/05/17 07/06/17 07/06/17 07/06/17 07:00 15:00 23:00 07:00 15:00 23:00 Intake Total 750 ml 1000 ml 1500 ml Balance 750 ml 1000 ml 1500 ml Intake Oral 750 ml IV Total 1000 ml 1500 ml # Voids 3 # Bowel Movements 0 Result Diagram: 07/06/17 0700 07/06/17 0700 Objective Remarks GENERAL: Patient sitting up in bed. Appears comfortable. Alert and oriented 3. SKIN: Warm and dry. HEAD: Normocephalic. EYES: No scleral icterus. No injection or drainage. NECK: Supple, trachea midline. No JVD. Right axillary lymphadenopathy starch mangle tender, unchanged from yesterday. CARDIOVASCULAR: Regular rate and rhythm without murmurs, gallops, or rubs. RESPIRATORY: Breath sounds equal bilaterally. No accessory muscle use. GASTROINTESTINAL: Abdomen soft, non-tender, nondistended. MUSCULOSKELETAL: No cyanosis, or edema. BACK: Nontender without obvious deformity. No CVA tenderness. A/P Assessment and Plan //Severe sepsis //MRSA bacteremia. = Pneumonia on CT chest, liver lesion, right axillary lymphadenopathy, possible cellulitis = Continue broad-spectrum antibiotics. Infectious disease consulted. Repeat blood cultures. Check echocardiogram. Start vancomycin = 07/05. Echocardiogram negative for vegetations. Continue antibiotics as per infectious disease. Appreciate assistance. = 07/06, patient with RODOLFO which makes this severe sepsis. Leukocytosis 14.4. Repeat cultures positive for gram-positive cocci. Continue antibiotics as per infectious disease. Pulmonology managing empyema. //Acute kidney injury = Creatinine 4.1 from 0.8. -Nephrology consulted. Appreciate assistance. IV fluid bolus ordered. //Pneumonia. //Hemoptysis reported by nursing //Right lung empyema As seen on CT. Continue broad-spectrum antibiotics. = Add vancomycin for MRSA. Consult pulmonology. = Pulmonology following. Appreciate assistance. = 07/06. Continue antibiotics as per infectious disease. Empyema. Pulmonology he to drain. Appreciate assistance. //Elevated lipase = Uncertain etiology, could be secondary to nausea and vomiting secondary to sepsis. GI consulted for liver lesion. Appreciate assistance. = Liver workup pending. Appreciate GI assistance. //Suspected IV drug use //Cocaine, marijuana, opiates positive on drug screen. = Patient adamantly denies IV drug use. Counseling provided nonetheless. //Right axillary lymphadenopathy. Tender to palpation Uncertain etiology. Continue IV antibiotics. Infectious disease following. //Thrombocytopenia. Platelets in the 80s. Likely secondary to liver sequestration. No signs of acute blood loss. Continue to monitor. = 07/06. Platelets 117. No signs of bleeding. Discharge Planning Continue treatment for sepsis, MRSA bacteremia, empyema, acute kidney injury. Juanjose Ramsay MD Jul 06, 2017 14:27
[2017-07-06 15:57] VITALS: BP 133/52; PULSE 93; RESP 18; TEMP 97.5; O2SAT 91
[2017-07-06] MEDS: LEVOFLOXACIN 250 MG TAB PO SCH (17:16)
[2017-07-06 20:00] VITALS: BP 109/55; PULSE 89; RESP 18; TEMP 97
[2017-07-06] MEDS: ACETAMINOPHEN 325 MG TAB PO PRN (21:06)
--- NOTE | 2017-07-06 21:22 | RADRPT ---
EXAM DATE/TIME: 07/06/2017 20:20 [facility] COMPARISON: No previous studies available for comparison. INDICATIONS : Increased BUN/Creatnine. MEDICAL HISTORY : Hypertension. Diverticulitis. Cirrhosis. Cardiac arrhythmia. Dysnea. Hemoptysis. Hepatitis C. SURGICAL HISTORY : Colostomy. Removal of 1/2 rib left chest wall. ENCOUNTER: Initial ACUITY: 1 day PAIN SCORE: 4/10 LOCATION: Bilateral flank MEASUREMENTS: RIGHT KIDNEY: 12.5 x 6.9 x 6.6 cm LEFT KIDNEY: 12.5 x 6.3 x 6.0 cm FINDINGS: RIGHT KIDNEY: Renal cortex is normal in thickness and echotexture. No hydronephrosis, stone, or mass. LEFT KIDNEY: Renal cortex is normal in thickness and echotexture. No hydronephrosis, stone, or mass. BLADDER: The bladder is empty. There is a moderate right pleural effusion. CONCLUSION: 1. Normal appearance the kidneys. 2. Moderate right pleural effusion. Luis Miguel Villegas MD on July 06, 2017 at 21:18 Board Certified Radiologist. This report was verified electronically.
[2017-07-06 23:18] LABS: BLOOD, URINE MOD (NEG); GLUCOSE,URINE 100 mg/dL (NEG); KETONE, URINE TRACE mg/dL (NEG); NITRITE,URINE NEG (NEG); PH, URINE 5.5 (5.0-8.5); URINE COLOR Brown (YELLW/STRAW); URINE LEUKOCYTE ESTERASE SMALL (NEG)
[2017-07-06 23:20] LABS: BILIRUBIN, URINE NEG (NEG)
[2017-07-06 23:30] LABS: AMORPHOUS SEDIMENT, URINE OCC; BACTERIA, URINE MANY /hpf; CALCIUM OXALATE CRYSTALS,URINE OCC /hpf; MUCUS URINE FEW /lpf (OCC); SQUAMOUS EPITHELIAL CELL URINE 21 /hpf (0-5)
[2017-07-06 23:48] LABS: CREATININE, RANDOM URINE 210.3 MG/DL
[2017-07-07] MEDS: SODIUM CHLOR 0.9% 1000 ML INJ 1,000 ML IV SCH
[2017-07-07 01:15] VITALS: BP 91/53; PULSE 92; RESP 18; TEMP 98.2; O2SAT 94
[2017-07-07 05:28] VITALS: BP 98/47; PULSE 92; RESP 18; TEMP 97.6; O2SAT 91
[2017-07-07 07:53] VITALS: BP 98/52; PULSE 87; RESP 20; TEMP 97.5; O2SAT 91
--- NOTE | 2017-07-07 08:10 | HHI.NPPN ---
Subjective Interval History Urine output is not documented. Labs are not available. Patient reports that his urine output is low. Review of Systems General Constitutional: Fatigue Objective Data Data Vital Signs Date Time Temp Pulse Resp B/P (MAP) Pulse Ox O2 Delivery O2 Flow Rate FiO2 07/07/17 07:53 97.5 87 20 98/52 (67) 91 07/07/17 05:28 97.6 92 18 98/47 (64) 91 07/07/17 01:15 98.2 92 18 91/53 (66) 94 07/06/17 20:00 97.0 89 18 109/55 (73) 07/06/17 15:57 97.5 93 18 133/52 (79) 91 07/06/17 12:23 97.4 80 18 115/56 (75) 92 07/06/17 08:21 97.5 84 18 102/54 (70) 93 -: 07/06/17 0700 07/06/17 0700 Microbiology 07/06/17 Urine Culture, Received Pending Physical Exam General Appearance: Well Developed Eyes Eye Exam: Pupils Equal Pulmonary Resp Exam: Clear Bilaterally, Breath Sounds Equal Cardiology CV Exam: Regular Gastrointestinal/Abdomen GI Exam: Soft, Non-Tender Integumentary Skin Exam: Intact Extremeties Extremities Exam: Moderate Edema Assessment/Plan Problem List: (1) Acute kidney injury ICD Codes: N17.9 - Acute kidney failure, unspecified Plan: May have developed Vancomycin induced nephrotoxicity. Other possibilities: ATN due to sepsis. Post infectious GN. Hepatorenal syndrome? unlikely Plan: Stopped Ibuprofen. UA is abnormal: allergic interstitial nephritis vs post streptococcal GN. Also possible is Hepatitis C related MPGN, but C4 is not low. Renal US is negative for hydronephrosis. Avoid other nephrotoxic agents. Suspend Vancomycin: chose alternative if possible. Stop IVF. Dialysis today. (2) Hepatitis C infection ICD Codes: B19.20 - Unspecified viral hepatitis C without hepatic coma Status: Acute Plan: Workup is in progress. (3) Sepsis ICD Codes: A41.9 - Sepsis, unspecified organism Status: Acute Plan: ID on the case. See above. (4) Hypertension ICD Codes: I10 - Essential (primary) hypertension Status: Acute Plan: Suspend Lisinopril for the time being. Problem Qualifiers (1) Sepsis: Qualified Codes: A41.9 - Sepsis, unspecified organism (2) Hypertension: Qualified Codes: I10 - Essential (primary) hypertension Bj Amaya MD Jul 07, 2017 08:10
[2017-07-07] MEDS: LACTULOSE SYRUP 20 GM/30 ML CUP PO SCH ×4 (09:00→20:33)
[2017-07-07] MEDS: SODIUM CHLORIDE 0.9% FLUSH 10 ML FLUSH IV FLUSH SCH ×2 (09:00→20:34)
[2017-07-07] MEDS ORDERED: cloNIDine HCL 0.1 MG TAB PO PRN (09:15)
[2017-07-07] MEDS ORDERED: SODIUM CHLORIDE 0.9% FLUSH 10 ML FLUSH IV FLUSH PRN ×2 (09:15→13:45)
[2017-07-07] MEDS ORDERED: ACETAMINOPHEN 325 MG TAB PO PRN (09:15)
[2017-07-07] MEDS ORDERED: GELATIN 12 MM/7 MM FOAM TOP PRN (09:15)
[2017-07-07] MEDS ORDERED: diphenhydrAMINE HCL 25 MG CAP PO PRN (09:15)
[2017-07-07] MEDS ORDERED: HEPARIN SODIUM - IV 10,000 UNITS/10 ML VIAL IV FLUSH PRN (09:15)
[2017-07-07] MEDS ORDERED: SODIUM CHLOR 0.9% 1000 ML INJ 1,000 ML OTHER PRN ×2 (09:15)
[2017-07-07] MEDS ORDERED: NITROGLYCERIN 0.4 MG SL 25 TABS/BTL SL PRN (09:15)
[2017-07-07] MEDS ORDERED: SODIUM CHLOR 0.9% 1000 ML INJ 1,000 ML IV PRN (09:15)
[2017-07-07] MEDS: BENZONATATE 100 MG CAP PO PRN ×2 (09:19→20:32)
--- NOTE | 2017-07-07 10:07 | HHI.PR ---
Subjective Remarks Patient says he is feeling generally all right. Reports right pleuritic chest pain is improving. Denies any shortness of breath. Discussed with nursing. Objective Vital Signs Date Time Temp Pulse Resp B/P (MAP) Pulse Ox O2 Delivery O2 Flow Rate FiO2 07/07/17 07:53 97.5 87 20 98/52 (67) 91 07/07/17 05:28 97.6 92 18 98/47 (64) 91 07/07/17 01:15 98.2 92 18 91/53 (66) 94 07/06/17 20:00 97.0 89 18 109/55 (73) 07/06/17 15:57 97.5 93 18 133/52 (79) 91 07/06/17 12:23 97.4 80 18 115/56 (75) 92 I/O 07/06/17 07/06/17 07/06/17 07/07/17 07/07/17 07/07/17 07:00 15:00 23:00 07:00 15:00 23:00 Intake Total 722 ml 1600 ml 369 ml Balance 722 ml 1600 ml 369 ml IV Total 722 ml 1600 ml 369 ml # Voids 1 1 # Bowel Movements 4 Result Diagram: 07/06/17 0700 07/06/17 0700 Objective Remarks GENERAL: Patient sitting up in bed. Appears comfortable. Alert and oriented 3. No change on exam. SKIN: Warm and dry. HEAD: Normocephalic. EYES: No scleral icterus. No injection or drainage. NECK: Supple, trachea midline. No JVD. Right axillary lymphadenopathy mangle tender cloth, unchanged from yesterday. CARDIOVASCULAR: Regular rate and rhythm without murmurs, gallops, or rubs. RESPIRATORY: Breath sounds equal bilaterally. No accessory muscle use. GASTROINTESTINAL: Abdomen soft, non-tender, nondistended. MUSCULOSKELETAL: No cyanosis, or edema. BACK: Nontender without obvious deformity. No CVA tenderness. A/P Assessment and Plan //Severe sepsis //MRSA bacteremia. = Pneumonia on CT chest, liver lesion, right axillary lymphadenopathy, possible cellulitis = Continue broad-spectrum antibiotics. Infectious disease consulted. Repeat blood cultures. Check echocardiogram. Start vancomycin = 07/05. Echocardiogram negative for vegetations. Continue antibiotics as per infectious disease. Appreciate assistance. = 07/06, patient with RODOLFO which makes this severe sepsis. Leukocytosis 14.4. Repeat cultures positive for gram-positive cocci. Continue antibiotics as per infectious disease. Pulmonology managing empyema. = 07/07 planned thoracentesis for empyema. Have contacted ID for recommendations on antibiotics. Appreciate assistance. //Oliguric acute kidney injury = Creatinine 4.1 from 0.8. -Nephrology consulted. Appreciate assistance. IV fluid bolus ordered. = Patient had been on ANSELMO inhibitor and ibuprofen. Have stopped both. = 07/07. Awaiting repeat labs from today. May need dialysis. Appreciate nephrology assistance //Pneumonia. //Hemoptysis reported by nursing //Right lung empyema As seen on CT. Continue broad-spectrum antibiotics. = Add vancomycin for MRSA. Consult pulmonology. = Pulmonology following. Appreciate assistance. = 07/06. Continue antibiotics as per infectious disease. Empyema. Pulmonology he to drain. Appreciate assistance. = 07/07. Pending thoracentesis for empyema. //Elevated lipase = Uncertain etiology, could be secondary to nausea and vomiting secondary to sepsis. GI consulted for liver lesion. Appreciate assistance. = Liver workup pending. Appreciate GI assistance. //Suspected IV drug use //Cocaine, marijuana, opiates positive on drug screen. = Patient adamantly denies IV drug use. Counseling provided nonetheless. //Right axillary lymphadenopathy. Tender to palpation Uncertain etiology. Continue IV antibiotics. Infectious disease following. //Thrombocytopenia. Platelets in the 80s. Likely secondary to liver sequestration. No signs of acute blood loss. Continue to monitor. = 07/06. Platelets 117. No signs of bleeding. Discharge Planning Continue treatment for sepsis, MRSA bacteremia, empyema, acute kidney injury. Juanjose Rasmay MD Jul 07, 2017 10:07
[2017-07-07 10:31] VITALS: BP 100/48; PULSE 86; RESP 18; TEMP 98.8; O2SAT 96
[2017-07-07 10:48] LABS: AUTOMATED NEUTROPHIL # 14.1 TH/MM3 (1.8-7.7); BASOPHIL # 0.1 TH/MM3 (0-0.2); BASOPHIL % 0.4 % (0.0-2.0); EOSINOPHIL # 0.3 TH/MM3 (0-0.4); EOSINOPHIL % 1.9 % (0.0-4.0); HEMATOCRIT 34.8 % (39.0-51.0); HEMOGLOBIN 11.8 GM/DL (13.0-17.0); LYMPH % 4.2 % (9.0-44.0); LYMPHOCYTE # 0.7 TH/MM3 (1.0-4.8); MEAN CELL VOLUME 108.2 FL (80.0-100.0); MEAN CORPUSCULAR HEMOGLOBIN 36.6 PG (27.0-34.0); MEAN CORPUSCULAR HGB CONC 33.8 % (32.0-36.0); MONO % 10.6 % (0.0-8.0); MONOCYTE # 1.8 TH/MM3 (0-0.9); NEUT % 82.9 % (16.0-70.0); PLATELET COUNT 156 TH/MM3 (150-450); RED BLOOD COUNT 3.22 MIL/MM3 (4.50-5.90); RED CELL DISTRIBUTION WIDTH 15.9 % (11.6-17.2)
[2017-07-07 10:55] LABS: ALBUMIN 1.6 GM/DL (3.4-5.0); BICARBONATE 22.8 MEQ/L (21.0-32.0); CREATININE 5.74 MG/DL (0.60-1.30); MAGNESIUM 2.4 MG/DL (1.5-2.5); PHOSPHORUS 4.4 MG/DL (2.5-4.9)
[2017-07-07 11:19] LABS: RANDOM VANCOMYCIN 60.5 COMMENT
--- NOTE | 2017-07-07 11:39 | RADRPT ---
EXAM DATE/TIME: 07/07/2017 11:23 [facility] COMPARISON: CHEST PA & LAT, July 04, 2017, 15:41. INDICATIONS : Post right thoracentesis. MEDICAL HISTORY : Hypertension. Diverticulitis. Cirrhosis. Cardiac arrhythmia. Dysnea. Hemoptysis SURGICAL HISTORY : Colostomy. Removal of 1/2 rib left chest wall. ENCOUNTER: Subsequent ACUITY: 1 day PAIN SCORE: 0/10 LOCATION: chest FINDINGS: A single frontal expiratory view of the chest was performed. Pleural-parenchymal density right lung. No pneumothorax. Left lung relatively clear. Heart enlarged. Osseous structures are intact. CONCLUSION: No pneumothorax. Santiago Mccartney MD on July 07, 2017 at 11:36 Board Certified Radiologist. This report was verified electronically.
[2017-07-07] MEDS ORDERED: LIDOCAINE HCL 1% 20 ML VIAL ONE (11:46)
[2017-07-07 11:59] LABS: BANDS 15 % (0-6); BASOPHILS 1 % (0-2); LYMPHOCYTES 4 % (9-44); METAMYELOCYTES 4 % (0-1); MONOCYTES 7 % (0-8); MYELOCYTES 1 % (0-0); NEUTROPHIL # MANUAL DIFF 14.6 TH/MM3 (1.8-7.7); POLYS (SEG NEUTROPHILS) 66 % (16-70); TOXIC GRANULATION 1+ (NORMAL)
[2017-07-07 12:54] LABS: TOTAL PROTEIN,PLEURAL FLUID 3.8 GM/DL
[2017-07-07 13:04] LABS: PLEURAL FLUID HISTIOCYTES 3 %; PLEURAL FLUID LYMPHS 2 %; PLEURAL FLUID MONOS 4 %; PLEURAL FLUID POLYS (SEGS) 91 %; PLEURAL FLUID RBC 11493 /MM3 (0-0); PLEURAL FLUID WBC 3187 /MM3 (0-10)
[2017-07-07] MEDS: DAPTOmycin INJ 600 MG in SODIUM CHLORIDE 0.9% INJ 100 ML IV SCH (13:30)
--- NOTE | 2017-07-07 13:39 | PD.RAD ---
Post Procedure Progress Note Pre Procedure Diagnosis: (1) Acute kidney injury Post Procedure Diagnosis: (1) Acute kidney injury Procedure Date: Jul 07, 2017 Supervising Radiologist: Masoud Lopez Proceduralist/Assist: Parviz Rodrigues, RT(R), Bertha Batista RT(R) Anesthesia: Local Plan of Activity Patient to Unit: Nursing Unit Patient Condition: Good See PACS Report for procedural detail/treatment Central Venous Access Device Procedure 1 Right Internal Jugular Hemodialysis Catheter Non-Tunneled Placement single lumen Greek: 16 PICC Line Length (cm): 15 Masoud Lopez MD Jul 07, 2017 13:39
--- NOTE | 2017-07-07 13:48 | HHI.GIFU ---
Subjective Remarks sitting on side of bed No Abdominal pain or soreness/S/P Rt. Thoracentesis today, Hungry, Appetite good. Afebrile Objective Vitals I&O Vital Signs Date Time Temp Pulse Resp B/P (MAP) Pulse Ox O2 Delivery O2 Flow Rate FiO2 07/07/17 10:31 98.8 86 18 100/48 (65) 96 07/07/17 07:53 97.5 87 20 98/52 (67) 91 07/07/17 05:28 97.6 92 18 98/47 (64) 91 07/07/17 01:15 98.2 92 18 91/53 (66) 94 07/06/17 20:00 97.0 89 18 109/55 (73) 07/06/17 15:57 97.5 93 18 133/52 (79) 91 I/O 07/06/17 07/06/17 07/06/17 07/07/17 07/07/17 07/07/17 06:59 14:59 22:59 06:59 14:59 22:59 Intake Total 722 ml 1600 ml 369 ml Balance 722 ml 1600 ml 369 ml IV Total 722 ml 1600 ml 369 ml # Voids 1 1 # Bowel Movements 4 Laboratory Laboratory Tests Test 07/06/17 22:20 07/07/17 07:29 07/07/17 11:00 Urine Color Brown Urine Turbidity Cloudy Urine pH 5.5 Urine Specific [place] 1.021 Urine Protein 300 OR GREATER Urine Glucose (UA) 100 Urine Ketones TRACE Urine Occult Blood MOD Urine Nitrite NEG Urine Bilirubin NEG Urine Urobilinogen 2.0 Urine Leukocyte Esterase SMALL Urine RBC 78 Urine WBC 114 Urine Squamous Epithelial Cells 21 Urine Calcium Oxalate Crystals OCC Urine Amorphous Sediment OCC Urine Bacteria MANY Urine Mucus FEW Microscopic Urinalysis Comment CULTURE INDICATED Urine Random Creatinine 210.3 Urine Random Sodium 48 White Blood Count 17.0 Red Blood Count 3.22 Hemoglobin 11.8 Hematocrit 34.8 Mean Corpuscular Volume 108.2 Mean Corpuscular Hemoglobin 36.6 Mean Corpuscular Hemoglobin Concent 33.8 Red Cell Distribution Width 15.9 Platelet Count 156 Mean Platelet Volume 9.0 Neutrophils (%) (Auto) 82.9 Lymphocytes (%) (Auto) 4.2 Monocytes (%) (Auto) 10.6 Eosinophils (%) (Auto) 1.9 Basophils (%) (Auto) 0.4 Neutrophils # (Auto) 14.1 Lymphocytes # (Auto) 0.7 Monocytes # (Auto) 1.8 Eosinophils # (Auto) 0.3 Basophils # (Auto) 0.1 CBC Comment AUTO DIFF Differential Total Cells Counted 100 Neutrophils % (Manual) 66 Band Neutrophils % 15 Lymphocytes % 4 Monocytes % 7 Eosinophils % 2 Basophils % 1 Neutrophils # (Manual) 14.6 Metamyelocytes 4 Myelocytes 1 Differential Comment FINAL DIFF MANUAL Toxic Granulation 1+ Platelet Estimate LOW Platelet Morphology Comment NORMAL Blood Urea Nitrogen 52 Creatinine 5.74 Random Glucose 63 Albumin 1.6 Calcium Level 8.0 Phosphorus Level 4.4 Magnesium Level 2.4 Sodium Level 134 Potassium Level 4.5 Chloride Level 103 Carbon Dioxide Level 22.8 Anion Gap 8 Estimat Glomerular Filtration Rate 11 Total Creatine Kinase 89 Random Vancomycin Level 60.5 Pleural Fluid pH 7.5 Pleural Fluid WBC 3187 Pleural Fluid RBC 78973 Pleural Fluid Neutrophils 91 Pleural Fluid Lymphocytes 2 Pleural Fluid Monocytes 4 Pleural Fluid Histiocytes 3 Pleural Fluid Comment Pleural Fluid Total Protein 3.8 Pleural Fluid LDH 1278 Pleural Fluid Glucose 38 Date/Time Source Procedure Growth Status 07/04/17 10:37 Blood Peripheral Aerobic Blood Culture - Preliminary NO GROWTH IN 3 DAYS Resulted 07/04/17 10:37 Blood Peripheral Anaerobic Blood Culture - Preliminary NO GROWTH IN 3 DAYS Resulted 07/07/17 11:00 Fluid Pleural Fluid Fungal Smear Pending Received 07/07/17 11:00 Fluid Pleural Fluid Fungal Culture Pending Received 07/05/17 00:22 Sputum Expectorated Sputum Gram Stain - Final Complete 07/05/17 00:22 Sputum Expectorated Sputum Sputum Culture - Final HEAVY GROWTH NORMAL RESPIRATORY MARISELA Complete 07/06/17 22:20 Urine Clean Catch Urine Culture Pending Received Imaging Last Impressions Chest X-Ray 07/07/17 0000 Signed Impressions: Service Date/Time: Friday, July 07, 2017 11:23 - CONCLUSION: No pneumothorax. Santiago Mccartney MD Renal Ultrasound 07/06/17 0000 Signed Impressions: Service Date/Time: Thursday, July 06, 2017 20:20 - CONCLUSION: 1. Normal appearance the kidneys. 2. Moderate right pleural effusion. Luis Miguel Villegas MD Chest Ultrasound 07/05/17 0000 Signed Impressions: Service Date/Time: Wednesday, July 05, 2017 12:26 - CONCLUSION: Loculated fluid as above. Josh Santiago MD FACR Foot X-Ray 07/04/17 0000 Signed Impressions: Service Date/Time: Tuesday, July 04, 2017 15:35 - CONCLUSION: Negative for fracture or dislocation. Follow up in 7-10 days is suggested if symptoms persist. Josh Santiago MD FACR Chest CT 07/03/17 0000 Signed Impressions: Service Date/Time: June 12:16 - CONCLUSION: 1. Extensive stranding with prominent lymph nodes in the right axilla measuring upwards of 1.6 cm in diameter. Does the patient have clinical symptomatology to suggest a cellulitis in this area? 2. Mild, generalized anasarca with some interstitial prominence in both lungs as well the visualized portions of the upper mesentery. Findings are nonspecific but can be seen in entity such as overwhelming sepsis. 3. Calcified gallstones. 4. Small right-sided pleural effusion with associated atelectatic changes. 5. Atretic left sixth rib could be congenital or postsurgical. Old healed rib fractures involving the lateral aspect of #3 and 4 on the left. 6. Mild gynecomastia. Again, nonspecific finding that can be seen with certain medications. Masoud Lopez MD Abdomen/Pelvis CT 07/03/17 0000 Signed Impressions: Service Date/Time: June 08:43 - CONCLUSION: 1. 1.5 cm low-density lesion within the anterior segment of the right lobe of liver which is indeterminate. Outpatient MRI of the abdomen with contrast would be helpful for further characterization of this indeterminate lesion. 2. Mild splenomegaly and very large intra-abdominal varices draining into the splenic vein suggesting portal hypertension. 3. Perigastric varices and bilateral inguinal varices are also noted. 4. Cholelithiasis. 5. Tiny right pleural effusion. 6. Minimal right basilar atelectasis and/or infiltrate. 7. Degenerative changes and scoliosis of the thoracolumbar spine. Haseeb Helms MD Physical Exam HEENT: PERRL; normocephalic; atraumatic; no jaundice. Oral cavity clean. Speech clear. CHEST: No obvious rhonchi, wheezing, Mild diminished BS at bases. Rt. > CARDIAC: RRR ABDOMEN: round, obese, Soft, nontender; no palpable liver border.; bowel sounds are present in all four quadrants. EXTREMITIES: Trace Bilateral edema. SKIN: Pale; no rash; no jaundice. 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 hx hep c. - elevated LFTs - trending down. hx hep c. cirrhosis - elevated lipase -chronic pancreatitis. 932 on admission and now WNL. - abd pain - pt c/o lower quadrant pain, is TTP in RUQ. unclear etiology. - PNA per primary ID following 07/03/17, Low density lesion, anterior Rt. Lobe, MRI, Abd would be helpful. pending renal function. 07/05/17 liver w/u and hcv quant are pending. pt coughing. no GI complaints today. 07/06/17 liver work up pending, Fe 540, iron saturation 68.6, could be secondary to alcohol intake AFP wnl, lipase normalized liver lesion on CT, not able to have an MRI due to poor kidney function 07/07/2017, Rt. Thoracentesis today, Possible Empyema/Infection,and Rt. IJ. Nontunnel Hemodialysis Catheter. Back to , hungry, No Abdominal pain or soreness or upper GI symptoms. Labs, HGB, 11.8, no obvious bleeding, iron workup abnormal , iron deficiency possible due to ETOH/chronic disease. No constipation, Loose stools X 4 yesterday,receiving (lactulose PO). Note, elevated WBC ct. unspecified. Liver workup some still pending, AFP 3.5, Antismooth muscle ab, complement 3, low 62, Albumin levels low. PLAN - Added Iron sulfate PO - antiemetics as needed. - abx per ID - illicit drug cessation - alcohol cessation - lactulose QID - Awaiting rest of liver workup - supportive care pt seen by myself and Dr Perera, this note is on his behalf Esperanza Duenas Jul 07, 2017 13:48
--- NOTE | 2017-07-07 13:56 | HHI.IDPN ---
Subjective Subjective Remarks Patient is a 46-year-old male who presented to the emergency room with complaint of flulike symptoms for about a week. Patient reports he has been having right-sided pleuritic type chest pain. He describes pain as heavy in character, present all the time, worse with coughing and deep breathing. he initially had dry cough but recently started bringing up blood. He was seen by his PCP who was treating him for the flu empirically. he started Tamiflu about 2 days prior to admission. he also has had fevers and [id number]. No abdominal pain, no N/V, no complaints. In the ED, his temp was 102. Influenza testing negative. One of 2 BC now reported as growing MRSA. His temps are better. CXR clear. CT chest with R pleural effusion with some atelectasis. CT A/P with a lesion in liver. evidence of portal hypertension. Infectious Disease consultation has been requested to evaluate patient with MRSA bacteremia. Notes reviewed Temps ok BC with MRSA 07/04, and 07/05 Developed acute rise in creatinine To be started on HD Had tap R effusion, chest pain better Still with tenderness on his R foot but a little better Foot xray negative Echo ok Antibiotics Current Medications Medications (Trade) Dose Ordered Sig/Cassandra Route Start Time Stop Time Status Last Admin (NS Flush) 2 ml UNSCH PRN IV FLUSH 07/03/17 10:15 (NS Flush) 2 ml BID IV FLUSH 07/03/17 21:00 07/06/17 09:13 (Tylenol) 650 mg Q4H PRN PO 07/03/17 10:15 07/06/17 21:06 (Zofran Inj) 4 mg Q6H PRN IVP 07/03/17 10:15 (Narcan Inj) 0.4 mg UNSCH PRN IV PUSH 07/03/17 10:15 (Neurontin) 600 mg BID PO 07/04/17 09:00 Future Hold 07/06/17 09:14 (Tessalon) 200 mg TID PRN PO 07/04/17 11:45 07/07/17 09:19 (Lactulose Liq) 30 ml QID PO 07/06/17 13:00 07/06/17 17:16 (Levaquin) 250 mg DAILY@1600 PO 07/06/17 16:00 07/06/17 17:16 Sodium Chloride 1,000 ml @ 0 mls/hr Q0M PRN OTHER 07/07/17 09:15 (Heparin Inj) 8,000 units UNSCH PRN IV FLUSH 07/07/17 09:15 Sodium Chloride 1,000 ml @ 200 mls/hr Q5H PRN IV 07/07/17 09:15 Sodium Chloride 1,000 ml @ 0 mls/hr Q0M PRN OTHER 07/07/17 09:15 (Mannitol Inj) 12.5 gm UNSCH PRN IV 07/07/17 09:15 Albumin Human 100 ml @ 60 mls/hr UNSCH PRN IV 07/07/17 09:15 (NS Flush) 5 ml UNSCH PRN IV FLUSH 07/07/17 09:15 (Heparin Inj) UNSCH PRN .XX 07/07/17 09:15 (Gentamicin Inj) 20 mg UNSCH PRN OTHER 07/07/17 09:15 (Zofran Inj) 4 mg UNSCH PRN IV PUSH 07/07/17 09:15 (Tylenol) 650 mg UNSCH PRN PO 07/07/17 09:15 (Benadryl) 25 mg UNSCH PRN PO 07/07/17 09:15 (Nitrostat Sl) 0.4 mg UNSCH PRN SL 07/07/17 09:15 (Catapres) 0.1 mg UNSCH PRN PO 07/07/17 09:15 (Gelfoam 12 Mm/7 Mm Top) 1 foam UNSCH PRN TOP 07/07/17 09:15 Daptomycin 600 mg/ Sodium Chloride 100 ml @ 200 mls/hr Q48H IV 07/07/17 12:00 07/07/17 13:30 (NS Flush) UNSCH PRN IV FLUSH 07/07/17 13:45 UNV (Heparin Inj) UNSCH PRN IV FLUSH 07/07/17 13:45 UNV Lines No evidence of infection Past Medical History Hypertension Herniated disc Hepatitis C (untreated) Ruptured diverticular abscess Past Surgical History ?Left thoracotomy for pleurisy. Allergies: Coded Allergies: No Known Allergies (Verified Allergy, Unknown, 07/04/17) Objective . Vital Signs Date Time Temp Pulse Resp B/P (MAP) Pulse Ox O2 Delivery O2 Flow Rate FiO2 07/07/17 10:31 98.8 86 18 100/48 (65) 96 07/07/17 07:53 97.5 87 20 98/52 (67) 91 07/07/17 05:28 97.6 92 18 98/47 (64) 91 07/07/17 01:15 98.2 92 18 91/53 (66) 94 07/06/17 20:00 97.0 89 18 109/55 (73) 07/06/17 15:57 97.5 93 18 133/52 (79) 91 07/07/17 07/07/17 07/08/17 15:00 23:00 07:00 Intake Total 369 ml Balance 369 ml IV Total 369 ml . Laboratory Tests Test 07/06/17 07:00 07/07/17 07:29 White Blood Count 14.4 TH/MM3 17.0 TH/MM3 Red Blood Count 3.08 MIL/MM3 3.22 MIL/MM3 Hemoglobin 11.0 GM/DL 11.8 GM/DL Hematocrit 33.0 % 34.8 % Mean Corpuscular Volume 107.2 FL 108.2 FL Mean Corpuscular Hemoglobin 35.8 PG 36.6 PG Mean Corpuscular Hemoglobin Concent 33.4 % 33.8 % Red Cell Distribution Width 15.5 % 15.9 % Platelet Count 117 TH/MM3 156 TH/MM3 Mean Platelet Volume 9.2 FL 9.0 FL Neutrophils (%) (Auto) 80.7 % 82.9 % Lymphocytes (%) (Auto) 4.7 % 4.2 % Monocytes (%) (Auto) 11.9 % 10.6 % Eosinophils (%) (Auto) 2.3 % 1.9 % Basophils (%) (Auto) 0.4 % 0.4 % Neutrophils # (Auto) 11.6 TH/MM3 14.1 TH/MM3 Lymphocytes # (Auto) 0.7 TH/MM3 0.7 TH/MM3 Monocytes # (Auto) 1.7 TH/MM3 1.8 TH/MM3 Eosinophils # (Auto) 0.3 TH/MM3 0.3 TH/MM3 Basophils # (Auto) 0.1 TH/MM3 0.1 TH/MM3 CBC Comment AUTO DIFF AUTO DIFF Differential Total Cells Counted 100 100 Neutrophils % (Manual) 82 % 66 % Band Neutrophils % 6 % 15 % Monocytes % 8 % 7 % Eosinophils % 2 % 2 % Neutrophils # (Manual) 13.0 TH/MM3 14.6 TH/MM3 Myelocytes 1 % 1 % Promyelocytes 1 % Differential Comment FINAL DIFF MANUAL FINAL DIFF MANUAL Toxic Granulation 1+ 1+ Toxic Vacuolation PRESENT Platelet Estimate LOW LOW Platelet Morphology Comment NORMAL NORMAL Lymphocytes % 4 % Basophils % 1 % Metamyelocytes 4 % Laboratory Tests Test 07/06/17 07:00 07/07/17 07:29 Blood Urea Nitrogen 45 MG/DL 52 MG/DL Creatinine 4.10 MG/DL 5.74 MG/DL Random Glucose 62 MG/DL 63 MG/DL Albumin 1.5 GM/DL 1.6 GM/DL Calcium Level 7.6 MG/DL 8.0 MG/DL Phosphorus Level 3.2 MG/DL 4.4 MG/DL Magnesium Level 2.1 MG/DL 2.4 MG/DL Sodium Level 135 MEQ/L 134 MEQ/L Potassium Level 4.5 MEQ/L 4.5 MEQ/L Chloride Level 103 MEQ/L 103 MEQ/L Carbon Dioxide Level 24.2 MEQ/L 22.8 MEQ/L Anion Gap 8 MEQ/L 8 MEQ/L Estimat Glomerular Filtration Rate 16 ML/MIN 11 ML/MIN Total Creatine Kinase 89 U/L Microbiology Date/Time Source Procedure Growth Status 07/07/17 11:00 Fluid Pleural Fluid Fungal Smear Pending Received 07/07/17 11:00 Fluid Pleural Fluid Fungal Culture Pending Received 07/07/17 11:00 Fluid Pleural Fluid Gram Stain Pending Received 07/07/17 11:00 Fluid Pleural Fluid Body Fluid Culture Pending Received 07/05/17 00:22 Sputum Expectorated Sputum Gram Stain - Final Complete 07/05/17 00:22 Sputum Expectorated Sputum Sputum Culture - Final HEAVY GROWTH NORMAL RESPIRATORY MARISELA Complete 07/06/17 22:20 Urine Clean Catch Urine Culture - Preliminary NO GROWTH IN 24 HOURS. Resulted Imaging Last Impressions Chest X-Ray 07/07/17 0000 Signed Impressions: Service Date/Time: Friday, July 07, 2017 11:23 - CONCLUSION: No pneumothorax. Santiago Mccartney MD Renal Ultrasound 07/06/17 0000 Signed Impressions: Service Date/Time: Thursday, July 06, 2017 20:20 - CONCLUSION: 1. Normal appearance the kidneys. 2. Moderate right pleural effusion. Luis Miguel Villegas MD Chest Ultrasound 07/05/17 0000 Signed Impressions: Service Date/Time: Wednesday, July 05, 2017 12:26 - CONCLUSION: Loculated fluid as above. Josh Santiago MD FACR Foot X-Ray 07/04/17 0000 Signed Impressions: Service Date/Time: Tuesday, July 04, 2017 15:35 - CONCLUSION: Negative for fracture or dislocation. Follow up in 7-10 days is suggested if symptoms persist. Josh Santiago MD FACR Chest CT 07/03/17 0000 Signed Impressions: Service Date/Time: June 12:16 - CONCLUSION: 1. Extensive stranding with prominent lymph nodes in the right axilla measuring upwards of 1.6 cm in diameter. Does the patient have clinical symptomatology to suggest a cellulitis in this area? 2. Mild, generalized anasarca with some interstitial prominence in both lungs as well the visualized portions of the upper mesentery. Findings are nonspecific but can be seen in entity such as overwhelming sepsis. 3. Calcified gallstones. 4. Small right-sided pleural effusion with associated atelectatic changes. 5. Atretic left sixth rib could be congenital or postsurgical. Old healed rib fractures involving the lateral aspect of #3 and 4 on the left. 6. Mild gynecomastia. Again, nonspecific finding that can be seen with certain medications. Masodu Lopez MD Abdomen/Pelvis CT 07/03/17 0000 Signed Impressions: Service Date/Time: June 08:43 - CONCLUSION: 1. 1.5 cm low-density lesion within the anterior segment of the right lobe of liver which is indeterminate. Outpatient MRI of the abdomen with contrast would be helpful for further characterization of this indeterminate lesion. 2. Mild splenomegaly and very large intra-abdominal varices draining into the splenic vein suggesting portal hypertension. 3. Perigastric varices and bilateral inguinal varices are also noted. 4. Cholelithiasis. 5. Tiny right pleural effusion. 6. Minimal right basilar atelectasis and/or infiltrate. 7. Degenerative changes and scoliosis of the thoracolumbar spine. Haseeb Helms MD Physical Exam GENERAL: Patient is a well-nourished, well-developed male, awake and alert, not in respiratory distress. SKIN: Cool and dry. No generalized rash, no ecchymoses and no evidence of embolic lesions. Has spider angiomatas HEAD: Atraumatic. Normocephalic. No temporal wasting, or tenderness. EYES: [place] conjunctiva. No petechia or hemorrhage. Pupils equal, round and reactive to light. Extraocular movements full and intact. No scleral icterus. No injection or drainage. EARS, NOSE AND THROAT: Nose without bleeding or purulent nasal discharge. No sinus tenderness. Mucous membranes pink and moist. No oral lesions noted. No exudate. No oral thrush. NECK: Trachea midline. Supple and not tender, no meningeal signs CARDIOVASCULAR: Regular rate and rhythm. No murmurs, rubs or gallops heard RESPIRATORY: Clear to auscultation. Breath sounds equal bilaterally. No rales , wheezing or rhonchi ABDOMEN: Soft, non-tender, nondistended. Bowel sounds present and normoactive. No guarding. No rebound. No organomegaly. EXTREMITIES: No clubbing, cyanosis, or edema. On his R foot there is an area of redness below the big toe to the 3rd toes dorsal aspect. There is tenderness on palpation of the 1st to 2nd MCP plantar aspect. NO swelling, (+ ) heat, no open wound. No calf tenderness. Well perfused and warm. NEUROLOGICAL: Grossly nonfocal. PSYCHIATRIC: Normal affect, calm and cooperative. LINE: No evidence of infection Assessment & Plan Remarks IMPRESSION MRSA bacteremia, source - has pulmonary complaints, has pleural effusion - now with hemoptysis - ?empyema - also with redness on his R foot, ?early cellulitis ?Early PNA Known liver cirrhosis, previous ETOH, and also He p C Acute renal failure, etiology? RECOMMENDATION Repeat BC to document clearing Stop Vanco Start IV daptomycin for MRSA bacteremia Add Zyvox for MRSA pneumonia Continue Levaquin for now MRI R foot Follow cultures Monitor progress I will determine course of treatment once workup is completed Explained plan to the patient Natividad Sanchez MD Jul 07, 2017 13:56
--- NOTE | 2017-07-07 14:25 | RADRPT ---
EXAM DATE/TIME: 07/07/2017 13:15 [facility] COMPARISON: No previous studies available for comparison. INDICATIONS : Patient presents with acute renal failure in need of temporary dialysis catheter placement. MEDICAL HISTORY : HTN Disk herniation Hep C (untreated) Ruptured diverticular abcess SURGICAL HISTORY : Left thoracotomy for pleurisy ENCOUNTER: Initial ACUITY: 4-6 days PAIN SCORE: 0/10 LOCATION: N/A FLUORO TIME: 0.19 minutes IMAGE SERIES: 2 ACCESS: Right internal jugular vein DEVICE(S): 1.) 14 Kenyan dual lumen 15 cm Schon catheter PROCEDURE : 1. Ultrasound guided venipuncture. 2. Fluoroscopic guidance. 3. Central line placement. The risks, benefits and alternatives to the procedure were explained and verbal and written consent w as obtained. The site was prepped in sterile fashion. Full sterile technique was used, including ca p, mask, sterile gloves and gown and a large sterile sheet. Hand hygiene and 2% chlorhexidine prep w as utilized per protocol for cutaneous antisepsis with appropriate dry time for site. Sterile gel an d sterile probe cover were utilized for ultrasound guidance. The skin and subcutaneous tissues were infiltrated with local anesthetic solution. A suitable site a klever the vein was selected with ultrasound and fluoroscopic guidance. A small incision was made. Th e vein was accessed under direct ultrasound visualization using the micropuncture technique. The erna ropuncture set was exchanged for a 0.035 wire. The tract was dilated. The catheter was advanced int o position under direct fluoroscopic visualization. The catheter was fixed in place with suture and a sterile dressing was applied. The patient tolerated the procedure well and there were no complications. CONCLUSION: Uncomplicated line placement as above. Masoud Lopez MD on July 07, 2017 at 14:23 Board Certified Radiologist. This report was verified electronically.
[2017-07-07] MEDS: LINEZOLID 600 MG TAB PO SCH ×2 (14:41→20:33)
--- NOTE | 2017-07-07 15:43 | RADRPT ---
EXAM DATE/TIME: 07/07/2017 10:32 [facility] COMPARISON: No previous studies available for comparison. INDICATIONS : Right pleural effusion. MEDICAL HISTORY : Hypertension. Hepatitis C. Diverticulitis. MRSA, blood. Cirrhosis. SURGICAL HISTORY : Rib removed from left chest. Colostomy with reversal. Chest tube placement. ENCOUNTER: Initial ACUITY: 1 day PAIN SCORE: 0/10 LOCATION: Right chest FLUID: Total volume of 1,100 cc of cloudy, red fluid was removed. Fluid was sent to lab for ordered studies. TECHNIQUE: 1. Ultrasound guidance for thoracentesis. 2. Thoracentesis. The risks, benefits, and alternatives to ultrasound guided thoracentesis were explained to the patien t in lay simple terms, including the risk of bleeding and infection. Written and verbal informed con sent was obtained. Appropriate area for thoracentesis was marked under ultrasound guidance with the patient in the uprig ht position. Overlying skin was prepped and draped in the usual sterile fashion and with local anest hetic, a dermatotomy was made with an 11 blade scalpel. A 6 Portuguese thoracentesis catheter was placed in the pleural space and fluid was removed. Catheter was then removed and a sterile dressing applie d. There were no immediate complications. The patient tolerated the procedure well and the left the ultrasound suite in stable condition. Chest radiograph is to be obtained. CONCLUSION: Uncomplicated ultrasound guided thoracentesis. Santiago Mccartney MD on July 07, 2017 at 15:41 Board Certified Radiologist. This report was verified electronically.
[2017-07-07 15:45] VITALS: BP 111/57; PULSE 94; RESP 20; TEMP 97.7; O2SAT 93
[2017-07-07] MEDS: LEVOFLOXACIN 250 MG TAB PO SCH (16:00)
--- NOTE | 2017-07-07 16:48 | RADRPT ---
EXAM DATE/TIME: 07/07/2017 15:40 [facility] COMPARISON: No previous studies available for comparison. INDICATIONS : Osteomyelitis. MEDICAL HISTORY : Diverticulitis. Hepatitis C. Cirrhosis. SURGICAL HISTORY : Colostomy. ENCOUNTER: Initial ACUITY: 3 day PAIN SCORE: 4/10 LOCATION: Right foot TECHNIQUE: Multiplanar, multisequence MRI examination was performed without contrast. FINDINGS: Patient has minimal redness and swelling first and third metacarpal phalangeal area. This tear by MR I shows some mild edema without evidence for deep space abscess or marrow changes to suggest osteomye litis. Findings most likely representing mild cellulitis without deep space involvement. CONCLUSION: Probable mild cellulitis without osteomyelitis or deep space involvement. Josh Santiago MD FACR on July 07, 2017 at 16:44 Board Certified Radiologist. This report was verified electronically.
[2017-07-07] MEDS: FERROUS SULFATE 325 MG (65 MG ELEMENTAL IRON) TAB PO SCH (20:33)
--- NOTE | 2017-07-07 21:42 | RADRPT ---
EXAM DATE/TIME: 07/07/2017 20:53 [facility] COMPARISON: CT ABDOMEN & PELVIS W CONTRAST, July 03, 2017, 8:43. CT THORAX W/O CONTRAST, July 03, 2017, 12:16. INDICATIONS : Shortness of breath. RADIATION DOSE: 9.59 CTDIvol (mGy) MEDICAL HISTORY : Hepatitis C. Hypertension. SURGICAL HISTORY : rib removed ENCOUNTER: Initial ACUITY: 1 day PAIN SCALE: 3/10 LOCATION: Bilateral chest TECHNIQUE: Volumetric scanning of the chest was performed. Using automated exposure control and adjustment of t he mA and/or kV according to patient size, radiation dose was kept as low as reasonably achievable to obtain optimal diagnostic quality images. DICOM format image data is available electronically for r eview and comparison. Follow-up recommendations for detected pulmonary nodules are based at a minimum on nodule size and pa tient risk factors according to Fleischner Society Guidelines. FINDINGS: LUNGS: There is increased density and volume loss in the right lower lobe. There is a moderate right pleural effusion. The left lung is grossly clear.. PLEURAE: There is a moderate right pleural effusion. MEDIASTINUM: There is an enlarged right paratracheal lymph node measuring 1.7 cm. There are scattered normal-sized lymph nodes in the mediastinum. AXILLAE: There are prominent lymph nodes and induration seen throughout the right axillary region. Normal-size d lymph nodes are seen in the left axillary region without induration. MUSCULOSKELETAL: There are old bilateral rib fractures. MISCELLANEOUS: The visualized upper abdominal organs demonstrate no acute abnormality. Calcified gallstones are seen . CONCLUSION: 1. Numerous lymph nodes with prominent induration in the right axillary region. The right axillary pr ocess needs to be considered. 2. There is now a right paratracheal enlarged lymph node. This wasn't present previously. This consis tent with a reactive node given the rapid change. 3. Moderate right pleural effusion with accompanying atelectasis at the right lower lung. The effusio n is worse on the current exam. 4. Gallstones Luis Miguel Villegas MD on July 07, 2017 at 21:34 Board Certified Radiologist. This report was verified electronically.
[2017-07-08] VITALS: BP 89/42; PULSE 79; RESP 20; TEMP 97.3; O2SAT 98
[2017-07-08 04:00] VITALS: BP_SYST 106; BP_SYST 130; BP_DIAS 55; BP_DIAS 75; RESP 18; TEMP 98.2; O2SAT 72
[2017-07-08 07:23] LABS: AUTOMATED NEUTROPHIL # 11.8 TH/MM3 (1.8-7.7); BASOPHIL # 0.1 TH/MM3 (0-0.2); BASOPHIL % 0.8 % (0.0-2.0); EOSINOPHIL # 0.2 TH/MM3 (0-0.4); EOSINOPHIL % 1.7 % (0.0-4.0); HEMATOCRIT 32.7 % (39.0-51.0); HEMOGLOBIN 11.1 GM/DL (13.0-17.0); LYMPH % 4.7 % (9.0-44.0); LYMPHOCYTE # 0.7 TH/MM3 (1.0-4.8); MEAN CELL VOLUME 106.5 FL (80.0-100.0); MEAN CORPUSCULAR HEMOGLOBIN 36.1 PG (27.0-34.0); MEAN PLATELET VOLUME 8.4 FL (7.0-11.0); MONO % 9.8 % (0.0-8.0); MONOCYTE # 1.4 TH/MM3 (0-0.9); PLATELET COUNT 148 TH/MM3 (150-450); RED BLOOD COUNT 3.07 MIL/MM3 (4.50-5.90); RED CELL DISTRIBUTION WIDTH 15.6 % (11.6-17.2); WHITE BLOOD COUNT 14.2 TH/MM3 (4.0-11.0)
[2017-07-08 08:00] VITALS: BP 101/52; PULSE 88; RESP 18; TEMP 98; O2SAT 91
[2017-07-08] MEDS: SODIUM CHLORIDE 0.9% FLUSH 10 ML FLUSH IV FLUSH SCH ×2 (08:19→21:32)
[2017-07-08] MEDS: LACTULOSE SYRUP 20 GM/30 ML CUP PO SCH ×4 (08:19→21:27)
--- NOTE | 2017-07-08 08:22 | HHI.PR ---
Subjective Remarks Follow-up for MRSA bacteremia, severe sepsis, acute kidney injury, pneumonia. Patient is currently doing well but feels tired after dialysis. No fever but occasional chills. He is scheduled for nuclear study (WBC scan) and tomorrow ADRIANA. He again reports no history of IV drug use. Objective Vitals Vital Signs Date Time Temp Pulse Resp B/P (MAP) Pulse Ox O2 Delivery O2 Flow Rate FiO2 07/08/17 04:00 98.2 18 106/55 (72) 72 07/08/17 00:00 97.3 79 20 89/42 (58) 98 07/07/17 15:45 97.7 94 20 111/57 (75) 93 07/07/17 10:31 98.8 86 18 100/48 (65) 96 I/O 07/07/17 07/07/17 07/07/17 07/08/17 07/08/17 07/08/17 07:00 15:00 23:00 07:00 15:00 23:00 Intake Total 1600 ml 369 ml 480 ml 660 ml Balance 1600 ml 369 ml 480 ml 660 ml Intake Oral 480 ml 660 ml IV Total 1600 ml 369 ml # Voids 1 # Bowel Movements 4 Result Diagram: 07/08/17 0630 07/07/17 0729 Imaging Last Impressions Thoracentesis Ultrasound 07/07/17 0000 Signed Impressions: Service Date/Time: Friday, July 07, 2017 10:32 - CONCLUSION: Uncomplicated ultrasound guided thoracentesis. Santiago Mccartney MD Foot MRI 07/07/17 0000 Signed Impressions: Service Date/Time: Friday, July 07, 2017 15:40 - CONCLUSION: Probable mild cellulitis without osteomyelitis or deep space involvement. Josh Santiago MD FACR Chest X-Ray 07/07/17 0000 Signed Impressions: Service Date/Time: Friday, July 07, 2017 11:23 - CONCLUSION: No pneumothorax. Santiago Mccartney MD Chest CT 07/07/17 0000 Signed Impressions: Service Date/Time: Friday, July 07, 2017 20:53 - CONCLUSION: 1. Numerous lymph nodes with prominent induration in the right axillary region. The right axillary process needs to be considered. 2. There is now a right paratracheal enlarged lymph node. This wasn't present previously. This consistent with a reactive node given the rapid change. 3. Moderate right pleural effusion with accompanying atelectasis at the right lower lung. The effusion is worse on the current exam. 4. Gallstones Luis Miguel Villegas MD Catheter Placement X-Ray 07/07/17 0000 Signed Impressions: Service Date/Time: Friday, July 07, 2017 13:15 - CONCLUSION: Uncomplicated line placement as above. Masoud Lopez MD Renal Ultrasound 07/06/17 0000 Signed Impressions: Service Date/Time: Thursday, July 06, 2017 20:20 - CONCLUSION: 1. Normal appearance the kidneys. 2. Moderate right pleural effusion. Luis Miguel Villegas MD Chest Ultrasound 07/05/17 0000 Signed Impressions: Service Date/Time: Wednesday, July 05, 2017 12:26 - CONCLUSION: Loculated fluid as above. Josh Santiago MD FACR Foot X-Ray 07/04/17 0000 Signed Impressions: Service Date/Time: Tuesday, July 04, 2017 15:35 - CONCLUSION: Negative for fracture or dislocation. Follow up in 7-10 days is suggested if symptoms persist. Josh Santiago MD FACR Abdomen/Pelvis CT 07/03/17 0000 Signed Impressions: Service Date/Time: June 08:43 - CONCLUSION: 1. 1.5 cm low-density lesion within the anterior segment of the right lobe of liver which is indeterminate. Outpatient MRI of the abdomen with contrast would be helpful for further characterization of this indeterminate lesion. 2. Mild splenomegaly and very large intra-abdominal varices draining into the splenic vein suggesting portal hypertension. 3. Perigastric varices and bilateral inguinal varices are also noted. 4. Cholelithiasis. 5. Tiny right pleural effusion. 6. Minimal right basilar atelectasis and/or infiltrate. 7. Degenerative changes and scoliosis of the thoracolumbar spine. Haseeb Helms MD Objective Remarks GENERAL: SKIN: Warm and dry. HEAD: Normocephalic. EYES: No scleral icterus. No injection or drainage. NECK: Supple, trachea midline. No JVD or lymphadenopathy. CARDIOVASCULAR: Regular rate and rhythm without murmurs, gallops, or rubs. RESPIRATORY: Breath sounds equal bilaterally. No accessory muscle use. GASTROINTESTINAL: Abdomen soft, non-tender, nondistended. MUSCULOSKELETAL: No cyanosis, or edema. BACK: Nontender without obvious deformity. No CVA tenderness. Procedures Echo 07/04/2017 The left ventricular systolic function is normal with an estimated ejection fraction in the range of 60-65%. Wall thickness is measured at the upper limits of normal. No regional wall motion abnormalities are present. Normal left ventricular size. There is trace tricuspid valve regurgitation. The estimated pulmonary arterial pressure is 33 mmHg. A/P Problem List: (1) Sepsis ICD Code: A41.9 - Sepsis, unspecified organism Status: Acute (2) Pneumonia ICD Code: J18.9 - Pneumonia, unspecified organism Status: Acute (3) Bandemia ICD Code: D72.825 - Bandemia Status: Acute (4) Elevated lipase ICD Code: R74.8 - Abnormal levels of other serum enzymes Status: Acute (5) Hypertension ICD Code: I10 - Essential (primary) hypertension Status: Acute (6) Axillary lymphadenopathy ICD Code: R59.0 - Localized enlarged lymph nodes Assessment and Plan On 07/03/2017, Mr. Wade, a 46 year old male presented to the ED due to flu like symptoms despite being treated for flu by his PCP. He complained of right- sided pleuritic chest pain. He reported fever and chills. Temperature in the emergency department was 101.2F. CT chest showed right pleural effusion with some atelectasis. CT abdomen pelvis showed a liver lesion. Severe sepsis - resolved. MRSA bacteremia MRSA pneumonia Pneumonia on CT chest, liver lesion, right axillary lymphadenopathy, possible cellulitis Pleural fluid cx grew MRSA. Blood cx also grew MRSA. Appreciate ID input. Currently patient is on Daptomycin (for bacteremia), Linezolid for MRSA pneumonia. Also on Levaquin. 07/05 - Echo showed no vegetation. ADRIANA is scheduled for 07/09/2017. acute kidney injury Creatinine 0.8 on 07/04/2017. Now on dialysis. Possibly due to vancomycin as well as post infectious Continue dialysis per Nephrology. Thrombocytopenia - improved. PLT 148K on 07/08/2017. Full code. SCDs. Problem Qualifiers (1) Sepsis: Qualified Codes: A41.9 - Sepsis, unspecified organism (2) Pneumonia: Qualified Codes: J18.1 - Lobar pneumonia, unspecified organism (3) Hypertension: Qualified Codes: I10 - Essential (primary) hypertension Keanu Faustin DO Jul 08, 2017 08:22
[2017-07-08 08:33] LABS: BANDS 5 % (0-6); LYMPHOCYTES 6 % (9-44); MONOCYTES 2 % (0-8); MYELOCYTES 1 % (0-0); NEUTROPHIL # MANUAL DIFF 12.8 TH/MM3 (1.8-7.7); POLYS (SEG NEUTROPHILS) 84 % (16-70); TOXIC GRANULATION 1+ (NORMAL); TOXIC VACUOLATION PRESENT (NONE SEEN)
[2017-07-08] MEDS: ALBUMIN 25% INJ 100 ML IV PRN (09:40)
[2017-07-08] MEDS: MANNITOL 12.5 GM/50 ML VIAL IV PRN (10:02)
[2017-07-08] MEDS: GENTAMICIN SULFATE 20 MG/2 ML VIAL OTHER PRN (11:10)
[2017-07-08] MEDS: HEPARIN SODIUM - IV 2,000 UNITS/2 ML VIAL IV FLUSH PRN (11:10)
--- NOTE | 2017-07-08 11:39 | HHI.NPPN ---
Subjective Renal Failure: Acute Interval History had dialysis yesterday. Seen at the end of dialysis. Blood pressure borderline low with treatment. (Lisa Tovar) Review of Systems General Constitutional: Fatigue (Lisa Tovar) Objective Data Data 07/08/17 07/09/17 19:00 07:00 Output Total 3000 ml Balance -3000 ml Hemodialysis 3000 ml Vital Signs Date Time Temp Pulse Resp B/P (MAP) Pulse Ox O2 Delivery O2 Flow Rate FiO2 07/08/17 08:00 98.0 88 18 101/52 (68) 91 07/08/17 04:00 98.2 18 106/55 (72) 72 07/08/17 00:00 97.3 79 20 89/42 (58) 98 07/07/17 15:45 97.7 94 20 111/57 (75) 93 (Lisa Tovar) -: 07/08/17 0630 07/07/17 0729 Microbiology 07/07/17 Aerobic Blood Culture - Preliminary, Resulted NO GROWTH IN 1 DAY 07/07/17 Anaerobic Blood Culture - Preliminary, Resulted NO GROWTH IN 1 DAY 07/07/17 Aerobic Blood Culture - Preliminary, Resulted NO GROWTH IN 1 DAY 07/07/17 Anaerobic Blood Culture - Preliminary, Resulted NO GROWTH IN 1 DAY Imaging Last 72 hours Impressions Thoracentesis Ultrasound 07/07/17 0000 Signed Impressions: Service Date/Time: Friday, July 07, 2017 10:32 - CONCLUSION: Uncomplicated ultrasound guided thoracentesis. Santiago Mccartney MD Foot MRI 07/07/17 0000 Signed Impressions: Service Date/Time: Friday, July 07, 2017 15:40 - CONCLUSION: Probable mild cellulitis without osteomyelitis or deep space involvement. Jsoh Santiago MD FACR Chest X-Ray 07/07/17 0000 Signed Impressions: Service Date/Time: Friday, July 07, 2017 11:23 - CONCLUSION: No pneumothorax. Santiago Mccartney MD Chest CT 07/07/17 0000 Signed Impressions: Service Date/Time: Friday, July 07, 2017 20:53 - CONCLUSION: 1. Numerous lymph nodes with prominent induration in the right axillary region. The right axillary process needs to be considered. 2. There is now a right paratracheal enlarged lymph node. This wasn't present previously. This consistent with a reactive node given the rapid change. 3. Moderate right pleural effusion with accompanying atelectasis at the right lower lung. The effusion is worse on the current exam. 4. Gallstones Luis Miguel Villegas MD Catheter Placement X-Ray 07/07/17 0000 Signed Impressions: Service Date/Time: Friday, July 07, 2017 13:15 - CONCLUSION: Uncomplicated line placement as above. Masoud Lopez MD Renal Ultrasound 07/06/17 0000 Signed Impressions: Service Date/Time: Thursday, July 06, 2017 20:20 - CONCLUSION: 1. Normal appearance the kidneys. 2. Moderate right pleural effusion. Luis Miguel Villegas MD Tubes & Lines: Vas-Cath (Lisa Tovar B[employer]) Physical Exam General Appearance: Well Developed, No Acute Distress, Comfortable (Lisa Tovar [employer]) Eyes Eye Exam: Pupils Equal (Dominic Tovaron B. [employer]) Pulmonary Resp Exam: Clear Bilaterally, Breath Sounds Equal (GuyLisa B[employer]) Cardiology CV Exam: Regular, Normal Sinus Rhythm (Lisa Tovar [employer]) Gastrointestinal/Abdomen GI Exam: Soft, Non-Tender, Bowel Sounds Present (Lisa Tovar [employer]) Musculoskeletal MS Exam: Joints Intact, Normal Gait, Normal Tone, Good Strength (GuyLisa B[employer]) Integumentary Skin Exam: Warm, Dry, Intact (GuyLisa [employer]) Extremeties Extremities Exam: Pedal Pulses Palpable, Moderate Edema (GuyLisa [employer]) Neurologic Neuro Exam: Alert, Awake, Oriented, Speech Clear, Moving All Extremities (GuyLisa B[employer]) Psychiatric Psych Exam: Appropriate Responses (GuyLisa [employer]) Assessment/Plan Discussed Condition With: Patient Assessment Summary: RODOLFO/Acute Renal Failure Problem List: (1) Acute kidney injury ICD Codes: N17.9 - Acute kidney failure, unspecified Plan: Etiology is uncertain. May have developed Vancomycin induced nephrotoxicity. Vanc was stopped. he was also on Ibuprofen and ANSELMO inhibitor, those were also stopped. Other possibilities: ATN due to sepsis and Post infectious GN. Hepatorenal syndrome is less likely Vascath placed and HD initiated 07/07. Seen during HD today on a 3K, 350 BFR, goal 3L Repeat labs daily. HD TTS as needed. Have asked for urine output to be documented. Avoid IVF, nephrotoxic agents. (2) Sepsis ICD Codes: A41.9 - Sepsis, unspecified organism Status: Acute Plan: ID following s/p thoracentesis 07/07. Has MRSA, empyema. On Daptomycin, Zyvoxx, and Levaquin. Off IV vancomycin. Monitor clinically. (3) Hypertension ICD Codes: I10 - Essential (primary) hypertension Status: Acute Plan: Borderline hypotensive, hold antihypertensives for now. (4) Hepatitis C infection ICD Codes: B19.20 - Unspecified viral hepatitis C without hepatic coma Status: Acute Plan: Workup is in progress. GI and ID following. (Lisa Tovar) Plan patient was seen and examined. Dialysis today. Monitor for signs of renal recovery. (Bj Amaya MD) Problem Qualifiers (1) Sepsis: Qualified Codes: A41.9 - Sepsis, unspecified organism (2) Hypertension: Qualified Codes: I10 - Essential (primary) hypertension Lisa Tovar Jul 08, 2017 11:39 Bj Amaya MD Jul 09, 2017 09:06
[2017-07-08 12:00] VITALS: BP 114/56; PULSE 93; RESP 18; TEMP 98.1; O2SAT 92
[2017-07-08] MEDS: FERROUS SULFATE 325 MG (65 MG ELEMENTAL IRON) TAB PO SCH (12:00)
[2017-07-08] MEDS: LINEZOLID 600 MG TAB PO SCH ×2 (12:00→21:27)
--- NOTE | 2017-07-08 12:33 | HHI.IDPN ---
Subjective Subjective Remarks Patient is a 46-year-old male who presented to the emergency room with complaint of flulike symptoms for about a week. Patient reports he has been having right-sided pleuritic type chest pain. He describes pain as heavy in character, present all the time, worse with coughing and deep breathing. he initially had dry cough but recently started bringing up blood. He was seen by his PCP who was treating him for the flu empirically. he started Tamiflu about 2 days prior to admission. he also has had fevers and [id number]. No abdominal pain, no N/V, no complaints. In the ED, his temp was 102. Influenza testing negative. One of 2 BC now reported as growing MRSA. His temps are better. CXR clear. CT chest with R pleural effusion with some atelectasis. CT A/P with a lesion in liver. evidence of portal hypertension. Infectious Disease consultation has been requested to evaluate patient with MRSA bacteremia. Notes reviewed Temps ok BC with MRSA 07/04, and 07/05 Started on HD yesterday Had second HD today Feels tired Pleural fluid C/S MRSA Still with tenderness on his R foot but a little better Foot xray negative Echo ok MRI foot no deep infection Antibiotics Daptomycin Zyvox Levaquin Current Medications Medications (Trade) Dose Ordered Sig/Cassandra Route Start Time Stop Time Status Last Admin (NS Flush) 2 ml UNSCH PRN IV FLUSH 07/03/17 10:15 (NS Flush) 2 ml BID IV FLUSH 07/03/17 21:00 07/07/17 20:34 (Tylenol) 650 mg Q4H PRN PO 07/03/17 10:15 07/06/17 21:06 (Zofran Inj) 4 mg Q6H PRN IVP 07/03/17 10:15 (Narcan Inj) 0.4 mg UNSCH PRN IV PUSH 07/03/17 10:15 (Neurontin) 600 mg BID PO 07/04/17 09:00 Future Hold 07/06/17 09:14 (Tessalon) 200 mg TID PRN PO 07/04/17 11:45 07/07/17 20:32 (Lactulose Liq) 30 ml QID PO 07/06/17 13:00 07/06/17 17:16 (Levaquin) 250 mg DAILY@1600 PO 07/06/17 16:00 07/06/17 17:16 Sodium Chloride 1,000 ml @ 0 mls/hr Q0M PRN OTHER 07/07/17 09:15 (Heparin Inj) 8,000 units UNSCH PRN IV FLUSH 07/07/17 09:15 Sodium Chloride 1,000 ml @ 200 mls/hr Q5H PRN IV 07/07/17 09:15 Sodium Chloride 1,000 ml @ 0 mls/hr Q0M PRN OTHER 07/07/17 09:15 (Mannitol Inj) 12.5 gm UNSCH PRN IV 07/07/17 09:15 07/08/17 10:02 Albumin Human 100 ml @ 60 mls/hr UNSCH PRN IV 07/07/17 09:15 07/08/17 09:40 (NS Flush) 5 ml UNSCH PRN IV FLUSH 07/07/17 09:15 (Heparin Inj) UNSCH PRN .XX 07/07/17 09:15 (Gentamicin Inj) 20 mg UNSCH PRN OTHER 07/07/17 09:15 07/08/17 11:10 (Zofran Inj) 4 mg UNSCH PRN IV PUSH 07/07/17 09:15 (Tylenol) 650 mg UNSCH PRN PO 07/07/17 09:15 (Benadryl) 25 mg UNSCH PRN PO 07/07/17 09:15 (Nitrostat Sl) 0.4 mg UNSCH PRN SL 07/07/17 09:15 (Catapres) 0.1 mg UNSCH PRN PO 07/07/17 09:15 (Gelfoam 12 Mm/7 Mm Top) 1 foam UNSCH PRN TOP 07/07/17 09:15 Daptomycin 600 mg/ Sodium Chloride 100 ml @ 200 mls/hr Q48H IV 07/07/17 12:00 07/07/17 13:30 (NS Flush) UNSCH PRN IV FLUSH 07/07/17 13:45 (Heparin Inj) UNSCH PRN IV FLUSH 07/07/17 13:45 07/08/17 11:10 (Zyvox) 600 mg Q12HR PO 07/07/17 14:00 07/08/17 12:00 (Ferrous Sulfate) 325 mg BID PO 07/07/17 21:00 07/08/17 12:00 Lines No evidence of infection Past Medical History Hypertension Herniated disc Hepatitis C (untreated) Ruptured diverticular abscess Past Surgical History ?Left thoracotomy for pleurisy. Allergies: Coded Allergies: No Known Allergies (Verified Allergy, Unknown, 07/04/17) Objective . Vital Signs Date Time Temp Pulse Resp B/P (MAP) Pulse Ox O2 Delivery O2 Flow Rate FiO2 07/08/17 08:00 98.0 88 18 101/52 (68) 91 07/08/17 04:00 98.2 18 106/55 (72) 72 07/08/17 00:00 97.3 79 20 89/42 (58) 98 07/07/17 15:45 97.7 94 20 111/57 (75) 93 07/08/17 07/08/17 07/09/17 14:59 22:59 06:59 Output Total 3000 ml Balance -3000 ml Hemodialysis 3000 ml . Laboratory Tests Test 07/07/17 07:29 07/08/17 06:30 White Blood Count 17.0 TH/MM3 14.2 TH/MM3 Red Blood Count 3.22 MIL/MM3 3.07 MIL/MM3 Hemoglobin 11.8 GM/DL 11.1 GM/DL Hematocrit 34.8 % 32.7 % Mean Corpuscular Volume 108.2 FL 106.5 FL Mean Corpuscular Hemoglobin 36.6 PG 36.1 PG Mean Corpuscular Hemoglobin Concent 33.8 % 34.0 % Red Cell Distribution Width 15.9 % 15.6 % Platelet Count 156 TH/MM3 148 TH/MM3 Mean Platelet Volume 9.0 FL 8.4 FL Neutrophils (%) (Auto) 82.9 % 83.0 % Lymphocytes (%) (Auto) 4.2 % 4.7 % Monocytes (%) (Auto) 10.6 % 9.8 % Eosinophils (%) (Auto) 1.9 % 1.7 % Basophils (%) (Auto) 0.4 % 0.8 % Neutrophils # (Auto) 14.1 TH/MM3 11.8 TH/MM3 Lymphocytes # (Auto) 0.7 TH/MM3 0.7 TH/MM3 Monocytes # (Auto) 1.8 TH/MM3 1.4 TH/MM3 Eosinophils # (Auto) 0.3 TH/MM3 0.2 TH/MM3 Basophils # (Auto) 0.1 TH/MM3 0.1 TH/MM3 CBC Comment AUTO DIFF AUTO DIFF Differential Total Cells Counted 100 100 Neutrophils % (Manual) 66 % 84 % Band Neutrophils % 15 % 5 % Lymphocytes % 4 % 6 % Monocytes % 7 % 2 % Eosinophils % 2 % 2 % Basophils % 1 % Neutrophils # (Manual) 14.6 TH/MM3 12.8 TH/MM3 Metamyelocytes 4 % Myelocytes 1 % 1 % Differential Comment FINAL DIFF MANUAL FINAL DIFF MANUAL Toxic Granulation 1+ 1+ Platelet Estimate LOW LOW Platelet Morphology Comment NORMAL NORMAL Toxic Vacuolation PRESENT Laboratory Tests Test 07/07/17 07:29 07/07/17 20:14 Blood Urea Nitrogen 52 MG/DL Creatinine 5.74 MG/DL Random Glucose 63 MG/DL Albumin 1.6 GM/DL Calcium Level 8.0 MG/DL Phosphorus Level 4.4 MG/DL Magnesium Level 2.4 MG/DL Sodium Level 134 MEQ/L Potassium Level 4.5 MEQ/L Chloride Level 103 MEQ/L Carbon Dioxide Level 22.8 MEQ/L Anion Gap 8 MEQ/L Estimat Glomerular Filtration Rate 11 ML/MIN Total Creatine Kinase 89 U/L 111 U/L Microbiology Date/Time Source Procedure Growth Status 07/07/17 20:14 Blood Peripheral Aerobic Blood Culture - Preliminary NO GROWTH IN 1 DAY Resulted 07/07/17 20:14 Blood Peripheral Anaerobic Blood Culture - Preliminary NO GROWTH IN 1 DAY Resulted 07/07/17 20:09 Blood Peripheral Aerobic Blood Culture - Preliminary NO GROWTH IN 1 DAY Resulted 07/07/17 20:09 Blood Peripheral Anaerobic Blood Culture - Preliminary NO GROWTH IN 1 DAY Resulted 07/07/17 11:00 Fluid Pleural Fluid Fungal Smear - Final NO FUNGAL ELEMENTS SEEN. Resulted 07/07/17 11:00 Fluid Pleural Fluid Fungal Culture Pending Resulted 07/07/17 11:00 Fluid Pleural Fluid Gram Stain - Final Resulted 07/07/17 11:00 Body Fluid Culture - Preliminary S. Aureus Mrsa Resulted 07/06/17 22:20 Urine Clean Catch Urine Culture - Final NO GROWTH IN 48 HOURS. Complete Imaging Last Impressions Chest X-Ray 07/07/17 0000 Signed Impressions: Service Date/Time: Friday, July 07, 2017 11:23 - CONCLUSION: No pneumothorax. Santiago Mccartney MD Renal Ultrasound 07/06/17 0000 Signed Impressions: Service Date/Time: Thursday, July 06, 2017 20:20 - CONCLUSION: 1. Normal appearance the kidneys. 2. Moderate right pleural effusion. Luis Miguel Villegas MD Chest Ultrasound 07/05/17 0000 Signed Impressions: Service Date/Time: Wednesday, July 05, 2017 12:26 - CONCLUSION: Loculated fluid as above. Josh Santiago MD FACR Foot X-Ray 07/04/17 0000 Signed Impressions: Service Date/Time: Tuesday, July 04, 2017 15:35 - CONCLUSION: Negative for fracture or dislocation. Follow up in 7-10 days is suggested if symptoms persist. Josh Santiago MD FACR Chest CT 07/03/17 0000 Signed Impressions: Service Date/Time: June 12:16 - CONCLUSION: 1. Extensive stranding with prominent lymph nodes in the right axilla measuring upwards of 1.6 cm in diameter. Does the patient have clinical symptomatology to suggest a cellulitis in this area? 2. Mild, generalized anasarca with some interstitial prominence in both lungs as well the visualized portions of the upper mesentery. Findings are nonspecific but can be seen in entity such as overwhelming sepsis. 3. Calcified gallstones. 4. Small right-sided pleural effusion with associated atelectatic changes. 5. Atretic left sixth rib could be congenital or postsurgical. Old healed rib fractures involving the lateral aspect of #3 and 4 on the left. 6. Mild gynecomastia. Again, nonspecific finding that can be seen with certain medications. Masoud Lopez MD Abdomen/Pelvis CT 07/03/17 0000 Signed Impressions: Service Date/Time: June 08:43 - CONCLUSION: 1. 1.5 cm low-density lesion within the anterior segment of the right lobe of liver which is indeterminate. Outpatient MRI of the abdomen with contrast would be helpful for further characterization of this indeterminate lesion. 2. Mild splenomegaly and very large intra-abdominal varices draining into the splenic vein suggesting portal hypertension. 3. Perigastric varices and bilateral inguinal varices are also noted. 4. Cholelithiasis. 5. Tiny right pleural effusion. 6. Minimal right basilar atelectasis and/or infiltrate. 7. Degenerative changes and scoliosis of the thoracolumbar spine. Haseeb Helms MD Physical Exam GENERAL: awake and alert, not in respiratory distress. SKIN: Cool and dry. No generalized rash, no ecchymoses and no evidence of embolic lesions. Has spider angiomatas HEAD: Atraumatic. Normocephalic. No temporal wasting, or tenderness. EYES: [place] conjunctiva. No petechia or hemorrhage. Pupils equal, round and reactive to light. Extraocular movements full and intact. No scleral icterus. No injection or drainage. EARS, NOSE AND THROAT: Nose without bleeding or purulent nasal discharge. No sinus tenderness. Mucous membranes pink and moist. No oral lesions noted. No exudate. No oral thrush. NECK: Trachea midline. Supple and not tender, no meningeal signs CARDIOVASCULAR: Regular rate and rhythm. No murmurs, rubs or gallops heard RESPIRATORY: Clear to auscultation. Breath sounds equal bilaterally. No rales , wheezing or rhonchi ABDOMEN: Soft, non-tender, nondistended. Bowel sounds present and normoactive. No guarding. No rebound. No organomegaly. EXTREMITIES: No clubbing, cyanosis, or edema. On his R foot there is an area of redness below the big toe to the 3rd toes dorsal aspect. There is tenderness on palpation of the 1st to 2nd MCP plantar aspect. NO swelling, (+ ) heat, no open wound. No calf tenderness. Well perfused and warm. NEUROLOGICAL: Grossly nonfocal. PSYCHIATRIC: Normal affect, calm and cooperative. LINE: No evidence of infection Assessment & Plan Remarks IMPRESSION MRSA bacteremia, source - has pulmonary complaints, has pleural effusion, C/S MRSA - ?empyema - also with redness on his R foot, cellulitis on MRI ?Early PNA Known liver cirrhosis, previous ETOH, and also He p C Acute renal failure, etiology? RECOMMENDATION Repeat BC to document clearing Continue IV daptomycin for MRSA bacteremia Continue Zyvox for MRSA pneumonia Continue Levaquin for now I asked micro to do susceptibility testing on Teflaro Follow cultures Monitor progress I will determine course of treatment once workup is completed Explained plan to the patient Natividad Sanchez MD Jul 08, 2017 12:33
--- NOTE | 2017-07-08 13:36 | HHI.GIFU ---
Subjective Remarks delayed entry, pt seen 07/08/17 pt resting in bed, feels better after thoracentesis. (Stefani Hui) Objective Vitals I&O Vital Signs Date Time Temp Pulse Resp B/P (MAP) Pulse Ox O2 Delivery O2 Flow Rate FiO2 07/08/17 12:00 98.1 93 18 114/56 (75) 92 07/08/17 08:00 98.0 88 18 101/52 (68) 91 07/08/17 04:00 98.2 18 106/55 (72) 72 07/08/17 00:00 97.3 79 20 89/42 (58) 98 07/07/17 15:45 97.7 94 20 111/57 (75) 93 I/O 07/07/17 07/07/17 07/07/17 07/08/17 07/08/17 07/08/17 07:00 15:00 23:00 07:00 15:00 23:00 Intake Total 1600 ml 369 ml 480 ml 660 ml Output Total 3000 ml Balance 1600 ml 369 ml 480 ml 660 ml -3000 ml Intake Oral 480 ml 660 ml IV Total 1600 ml 369 ml Hemodialysis 3000 ml # Voids 1 # Bowel Movements 4 Laboratory Laboratory Tests Test 07/07/17 20:14 07/08/17 06:30 Total Creatine Kinase 111 Hepatitis A IgM Antibody NONREACTIVE Hepatitis B Surface Antigen NONREACTIVE Hepatitis B Core IgM Antibody NONREACTIVE Hepatitis C IgG Antibody REACTIVE White Blood Count 14.2 Red Blood Count 3.07 Hemoglobin 11.1 Hematocrit 32.7 Mean Corpuscular Volume 106.5 Mean Corpuscular Hemoglobin 36.1 Mean Corpuscular Hemoglobin Concent 34.0 Red Cell Distribution Width 15.6 Platelet Count 148 Mean Platelet Volume 8.4 Neutrophils (%) (Auto) 83.0 Lymphocytes (%) (Auto) 4.7 Monocytes (%) (Auto) 9.8 Eosinophils (%) (Auto) 1.7 Basophils (%) (Auto) 0.8 Neutrophils # (Auto) 11.8 Lymphocytes # (Auto) 0.7 Monocytes # (Auto) 1.4 Eosinophils # (Auto) 0.2 Basophils # (Auto) 0.1 CBC Comment AUTO DIFF Differential Total Cells Counted 100 Neutrophils % (Manual) 84 Band Neutrophils % 5 Lymphocytes % 6 Monocytes % 2 Eosinophils % 2 Neutrophils # (Manual) 12.8 Myelocytes 1 Differential Comment FINAL DIFF MANUAL Toxic Granulation 1+ Toxic Vacuolation PRESENT Platelet Estimate LOW Platelet Morphology Comment NORMAL Date/Time Source Procedure Growth Status 07/07/17 20:14 Blood Peripheral Aerobic Blood Culture - Preliminary NO GROWTH IN 1 DAY Resulted 07/07/17 20:14 Blood Peripheral Anaerobic Blood Culture - Preliminary NO GROWTH IN 1 DAY Resulted 07/07/17 11:00 Fluid Pleural Fluid Fungal Smear - Final NO FUNGAL ELEMENTS SEEN. Resulted 07/07/17 11:00 Fluid Pleural Fluid Fungal Culture Pending Resulted 07/05/17 00:22 Sputum Expectorated Sputum Gram Stain - Final Complete 07/05/17 00:22 Sputum Expectorated Sputum Sputum Culture - Final HEAVY GROWTH NORMAL RESPIRATORY MARISELA Complete 07/06/17 22:20 Urine Clean Catch Urine Culture - Final NO GROWTH IN 48 HOURS. Complete Imaging Last Impressions Thoracentesis Ultrasound 07/07/17 0000 Signed Impressions: Service Date/Time: Friday, July 07, 2017 10:32 - CONCLUSION: Uncomplicated ultrasound guided thoracentesis. Santiago Mccartney MD Foot MRI 07/07/17 0000 Signed Impressions: Service Date/Time: Friday, July 07, 2017 15:40 - CONCLUSION: Probable mild cellulitis without osteomyelitis or deep space involvement. Josh Santiago MD FACR Chest X-Ray 07/07/17 0000 Signed Impressions: Service Date/Time: Friday, July 07, 2017 11:23 - CONCLUSION: No pneumothorax. Santiago Mccartney MD Chest CT 07/07/17 0000 Signed Impressions: Service Date/Time: Friday, July 07, 2017 20:53 - CONCLUSION: 1. Numerous lymph nodes with prominent induration in the right axillary region. The right axillary process needs to be considered. 2. There is now a right paratracheal enlarged lymph node. This wasn't present previously. This consistent with a reactive node given the rapid change. 3. Moderate right pleural effusion with accompanying atelectasis at the right lower lung. The effusion is worse on the current exam. 4. Gallstones Luis Miguel Villegas MD Catheter Placement X-Ray 07/07/17 0000 Signed Impressions: Service Date/Time: Friday, July 07, 2017 13:15 - CONCLUSION: Uncomplicated line placement as above. Masoud Lopez MD Renal Ultrasound 07/06/17 0000 Signed Impressions: Service Date/Time: Thursday, July 06, 2017 20:20 - CONCLUSION: 1. Normal appearance the kidneys. 2. Moderate right pleural effusion. Luis Miguel Villegas MD Chest Ultrasound 07/05/17 0000 Signed Impressions: Service Date/Time: Wednesday, July 05, 2017 12:26 - CONCLUSION: Loculated fluid as above. Josh Santiago MD FACR Foot X-Ray 07/04/17 0000 Signed Impressions: Service Date/Time: Tuesday, July 04, 2017 15:35 - CONCLUSION: Negative for fracture or dislocation. Follow up in 7-10 days is suggested if symptoms persist. Josh Santiago MD FACR Abdomen/Pelvis CT 07/03/17 0000 Signed Impressions: Service Date/Time: June 08:43 - CONCLUSION: 1. 1.5 cm low-density lesion within the anterior segment of the right lobe of liver which is indeterminate. Outpatient MRI of the abdomen with contrast would be helpful for further characterization of this indeterminate lesion. 2. Mild splenomegaly and very large intra-abdominal varices draining into the splenic vein suggesting portal hypertension. 3. Perigastric varices and bilateral inguinal varices are also noted. 4. Cholelithiasis. 5. Tiny right pleural effusion. 6. Minimal right basilar atelectasis and/or infiltrate. 7. Degenerative changes and scoliosis of the thoracolumbar spine. Haseeb Helms MD Physical Exam HEENT: PERRL; normocephalic; atraumatic; no jaundice. CHEST: rhonchi CARDIAC: RRR ABDOMEN: round, obese, Soft, nontender; RUQ TTP; bowel sounds are present in all four quadrants. EXTREMITIES: + Bilateral edema. SKIN: Pale; no rash; no jaundice. 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 hx hep c. - elevated LFTs - trending down. hx hep c. cirrhosis - elevated lipase -chronic pancreatitis. 932 on admission and now WNL. - abd pain - pt c/o lower quadrant pain, is TTP in RUQ. unclear etiology. - PNA per primary ID following 07/03/17, Low density lesion, anterior Rt. Lobe, MRI, Abd would be helpful. pending renal function. 07/05/17 liver w/u and hcv quant are pending. pt coughing. no GI complaints today. 07/06/17 liver work up pending, Fe 540, iron saturation 68.6, could be secondary to alcohol intake AFP wnl, lipase normalized liver lesion on CT, not able to have an MRI due to poor kidney function 07/07/2017, Rt. Thoracentesis today, Possible Empyema/Infection,and Rt. IJ. Nontunnel Hemodialysis Catheter. Back to , hungry, No Abdominal pain or soreness or upper GI symptoms. Labs, HGB, 11.8, no obvious bleeding, iron workup abnormal , iron deficiency possible due to ETOH/chronic disease. No constipation, Loose stools X 4 yesterday,receiving (lactulose PO). Note, elevated WBC ct. unspecified. Liver workup some still pending, AFP 3.5, Antismooth muscle ab, complement 3, low 62, Albumin levels low. 07/08/17 says he feels a bit better. s/p thoracentesis yesterday. pleural fluid + MRSA. ID following. liver w/u in progress. still waiting on hcv quant and genotype. on HD, nephrology following. PLAN - await hcv quant and genotype - renal diet - abx per ID - illicit drug cessation - lactulose QID - Awaiting rest of liver workup - supportive care pt seen by myself and Dr Perera, this note is on her behalf (Stefani Hui) Physician Comments seen, examined agree with above abdominal us add ensure tid (Chante Perera MD) Stefani Hui Jul 08, 2017 13:36 Chante Perera MD Jul 08, 2017 15:03
--- NOTE | 2017-07-08 14:38 | HHI.PR ---
Subjective Remarks Doing ok S/p thoracentesis CT Chest shows persistent right pleural effusion Objective Vital Signs Vital Signs Date Time Temp Pulse Resp B/P (MAP) Pulse Ox O2 Delivery O2 Flow Rate FiO2 07/08/17 12:00 98.1 93 18 114/56 (75) 92 07/08/17 08:00 98.0 88 18 101/52 (68) 91 07/08/17 04:00 98.2 18 106/55 (72) 72 07/08/17 00:00 97.3 79 20 89/42 (58) 98 07/07/17 15:45 97.7 94 20 111/57 (75) 93 I/O 07/07/17 07/07/17 07/07/17 07/08/17 07/08/17 07/08/17 07:00 15:00 23:00 07:00 15:00 23:00 Intake Total 1600 ml 369 ml 480 ml 660 ml Output Total 3000 ml Balance 1600 ml 369 ml 480 ml 660 ml -3000 ml Intake Oral 480 ml 660 ml IV Total 1600 ml 369 ml Hemodialysis 3000 ml # Voids 1 # Bowel Movements 4 Gen: NAD Lungs: diminished right breath sounds Heart S1, S2 Abd soft Ext Min edema Neuro awake and follows commands Result Diagram: 07/08/17 0630 07/07/[address] chest reviewed: shows moderate right pleural effusion with atelectasis A/P Assessment and Plan PNA Hemoptysis, resolved, likely secondary to pna Loculated right pleural effusion, exudative per Light's criteria, likely empyema Hx of drug use MRSA bacteremia Order right chest tube placement per ID Fluid is exudative per Light's criteria CT reviewed...suspicious for empyema F/u fluid cytology and cx Hemoptysis has resolved and is likely secondary to pna O2 sats stable on room air Abx as per ID recs F/u all outstanding cxs Recommend IS Diana Pleitez Jul 08, 2017 14:38
[2017-07-08 15:14] LABS: AMYLASE BODY FLUID 62 U/L; AMYLASE BODY FLUID TYPE PLEURAL
[2017-07-08 15:14] LABS: SMOOTH MUSCLE TOTAL AUTOABS Negative (Negative)
[2017-07-08 15:24] LABS: ALPHA-1-ANTITRYPSIN 225 mg/dL (100 - 190)
[2017-07-08] MEDS ORDERED: LORazepam 2 MG/ML VIAL ONE (15:53)
[2017-07-08 16:00] VITALS: BP 110/55; PULSE 91; RESP 18; TEMP 98.4; O2SAT 92
[2017-07-08] MEDS ORDERED: LIDOCAINE HCL 1% 10 ML VIAL OTHER ONE (16:30)
--- NOTE | 2017-07-08 16:53 | PD.RAD ---
Post CT Procedure Prog Note Pre Procedure Diagnosis: (1) Pleural effusion Post Procedure Diagnosis: (1) Pleural effusion Procedure Date: Jul 08, 2017 Supervising Radiologist: Santiago Mccartney Proceduralist/Assist: jane lopez melissa Estimated blood loss: none Anesthesia: Conscious Sedation Plan of Activity Patient to Unit: ROPU Patient Condition: Good See PACS Report for procedural detail/treatment Santiago Mccartney MD Jul 08, 2017 16:53
--- NOTE | 2017-07-08 17:35 | RADRPT ---
EXAM DATE/TIME: 07/08/2017 17:04 [facility] COMPARISON: CHEST EXPIRATION ONLY, July 07, 2017, 11:23. INDICATIONS : Post chest tube placement. MEDICAL HISTORY : None. SURGICAL HISTORY : None. ENCOUNTER: Subsequent ACUITY: 4 - 6 days PAIN SCORE: 0/10 LOCATION: Bilateral chest FINDINGS: A single frontal expiratory view of the chest was performed. Interval placement of a [place] loop cathet er in the inferior aspect of the right hemithorax. Reduction in the previously seen right-sided effus ion. There is still fluid remaining, however. Heart size is prominent with diffuse increased intersti tial markings characteristic of CHF and volume overload. Right IJ dialysis type catheter. Osseous structures are intact. CONCLUSION: 1. Interval placement of a right IJ dialysis type catheter and a [place] loop thoracostomy tube in the r ight lung base. 2. Interval reduction in the size of the right-sided pleural effusion seen previously. Some effusion persists. No pneumothorax. 3. Cardiomegaly with diffuse increased interstitial markings characteristic of some degree of vascula r congestion/CHF. Masoud Lopez MD on July 08, 2017 at 17:31 Board Certified Radiologist. This report was verified electronically.
[2017-07-08] MEDS: LEVOFLOXACIN 250 MG TAB PO SCH (18:03)
--- NOTE | 2017-07-08 18:08 | RADRPT ---
EXAM DATE/TIME: 07/08/2017 16:27 INDICATIONS : Right pleural effusion. MEDICATION(S): 1.) 100 mcg fentanyl (Sublimaze) IV 2.) 1 mg lorazepam (Ativan) IV DEVICE(S): 1.) 10 Fr [place] FLUID: Total volume [id number] cc of clear, red fluid was remoted. Fluid was discarded. MEDICAL HISTORY : Hypertension. Cardiovascular disease. Diverticulitis. SURGICAL HISTORY : Colostomy. ENCOUNTER: Initial ACUITY: 1 day PAIN SCORE: 0/10 LOCATION: Right chest PROCEDURE : 1. CT guided chest tube placement. 2. Conscious sedation with continuous EKG and oximetry monitoring. The risks, benefits and alternatives to the procedure were explained and verbal and written consent w as obtained. The site was prepped in sterile fashion. Full sterile technique was used, including ca p, mask, sterile gloves and gown and a large sterile sheet. Hand hygiene and 2% chlorhexidine and/or betadine/alcohol prep was utilized per protocol for cutaneous antisepsis. The skin and subcutaneous tissues were infiltrated with local anesthetic solution. Using automated exposure control and adjus tment of the mA and/or kV according to patient size, radiation dose was kept as low as reasonably ach ievable to obtain optimal diagnostic quality images. DICOM format image data is available electronic ally for review and comparison. With CT guidance the chest was punctured and the prescribed catheter was placed in the lung apex. Wal l suction was applied. Post procedure images demonstrate satisfactory position of the tube. The cat heter was sutured in place and a Percu-Stay was applied. Conscious sedation was performed with the prescribed dosages and duration as above. The patient madeleine ated the procedure well and there were no complications. EKG and oximetry remained stable throughout the procedure. The patient was sent to post anesthesia recovery in stable condition. CONCLUSION: Uncomplicated chest tube placement as above. Santiago Mccartney MD on July 08, 2017 at 18:06 Board Certified Radiologist. This report was verified electronically.
--- NOTE | 2017-07-08 18:57 | RADRPT ---
EXAM DATE/TIME: 07/08/2017 18:00 [place] COMPARISON: CT ABDOMEN & PELVIS W CONTRAST, July 03, 2017, 8:43. INDICATIONS : Abnormal CT. MEDICAL HISTORY : Hypertension. Hepatitis C. Dyspnea. Diverticulitis. Hemoptysis. Blood transfusions. MRSA. SURGICAL HISTORY : Chest surgery. Colectomy. ENCOUNTER: Initial ACUITY: 1 day PAIN SCORE: Nonresponsive. LOCATION: Abdomen. MEASUREMENTS: LIVER: 14.3 cm length COMMON DUCT: 8 mm RIGHT KIDNEY: 13.6 x 5.7 x 5.7 cm LEFT KIDNEY: 13.9 x 5.2 x 6.3 cm SPLEEN: 14.0 cm length AORTA: 2.1cm maximal FINDINGS: LIVER: Heterogeneous and nodular without focal lesion or ductal dilatation. COMMON DUCT: No intraluminal mass or stone visualized. GALLBLADDER: Contains multiple stones, demonstrates no wall thickening or pericholecystic fluid. PANCREAS: The visualized portions are within normal limits. RIGHT KIDNEY: No hydronephrosis, stone or mass. LEFT KIDNEY: No hydronephrosis, stone or mass. SPLEEN: No focal lesion. AORTA: Non aneurysmal. IVC: Within normal limits. Bilateral pleural effusions. CONCLUSION: 1. Cirrhotic appearing liver with splenomegaly. 2. Extensive cholelithiasis. Santiago Mccartney MD on July 08, 2017 at 18:52 Board Certified Radiologist. This report was verified electronically.
[2017-07-08 20:00] VITALS: BP 109/57; PULSE 83; RESP 16; TEMP 98.2; O2SAT 93
--- NOTE | 2017-07-08 23:20 | HHI.PR ---
Subjective Remarks Follow-up for MRSA bacteremia, severe sepsis, acute kidney injury, pneumonia. Patient is currently doing well but feels tired after dialysis. No fever but occasional chills. Objective Vitals Vital Signs Date Time Temp Pulse Resp B/P (MAP) Pulse Ox O2 Delivery O2 Flow Rate FiO2 07/08/17 21:20 Nasal Cannula 2.00 07/08/17 20:00 98.2 83 16 109/57 (74) 93 07/08/17 17:16 Nasal Cannula 2.00 07/08/17 16:00 98.4 91 18 110/55 (73) 92 07/08/17 12:00 98.1 93 18 114/56 (75) 92 07/08/17 08:00 98.0 88 18 101/52 (68) 91 07/08/17 04:00 98.2 18 106/55 (72) 72 07/08/17 00:00 97.3 79 20 89/42 (58) 98 I/O 07/08/17 07/08/17 07/08/17 07/09/17 07/09/17 07/09/17 07:00 15:00 23:00 07:00 15:00 23:00 Intake Total 660 ml 120 ml Output Total 3000 ml 300 ml Balance 660 ml -2880 ml -300 ml Intake Oral 660 ml 120 ml Chest Tube Drainage Total 300 ml Hemodialysis 3000 ml Result Diagram: 07/08/17 0630 07/07/17 0729 Objective Remarks GENERAL: SKIN: Warm and dry. HEAD: Normocephalic. EYES: No scleral icterus. No injection or drainage. NECK: Supple, trachea midline. No JVD or lymphadenopathy. CARDIOVASCULAR: Regular rate and rhythm without murmurs, gallops, or rubs. RESPIRATORY: Breath sounds equal bilaterally. No accessory muscle use. GASTROINTESTINAL: Abdomen soft, non-tender, nondistended. MUSCULOSKELETAL: No cyanosis, or edema. BACK: Nontender without obvious deformity. No CVA tenderness. Procedures Echo 07/04/2017 The left ventricular systolic function is normal with an estimated ejection fraction in the range of 60-65%. Wall thickness is measured at the upper limits of normal. No regional wall motion abnormalities are present. Normal left ventricular size. There is trace tricuspid valve regurgitation. The estimated pulmonary arterial pressure is 33 mmHg. A/P Problem List: (1) Sepsis ICD Code: A41.9 - Sepsis, unspecified organism Status: Acute (2) Pneumonia ICD Code: J18.9 - Pneumonia, unspecified organism Status: Acute (3) Bandemia ICD Code: D72.825 - Bandemia Status: Acute (4) Elevated lipase ICD Code: R74.8 - Abnormal levels of other serum enzymes Status: Acute (5) Hypertension ICD Code: I10 - Essential (primary) hypertension Status: Acute (6) Axillary lymphadenopathy ICD Code: R59.0 - Localized enlarged lymph nodes Assessment and Plan On 07/03/2017, Mr. Wade, a 46 year old male presented to the ED due to flu like symptoms despite being treated for flu by his PCP. He complained of right- sided pleuritic chest pain. He reported fever and chills. Temperature in the emergency department was 101.2F. CT chest showed right pleural effusion with some atelectasis. CT abdomen pelvis showed a liver lesion. Severe sepsis - resolved. MRSA bacteremia MRSA pneumonia Pneumonia on CT chest, liver lesion, right axillary lymphadenopathy, possible cellulitis Pleural fluid cx grew MRSA. Blood cx also grew MRSA. Appreciate ID input. Currently patient is on Daptomycin (for bacteremia), Linezolid for MRSA pneumonia. Also on Levaquin. 07/05 - Echo showed no vegetation. acute kidney injury Creatinine 0.8 on 07/04/2017. Now on dialysis. Possibly due to vancomycin as well as post infectious Continue dialysis per Nephrology. Thrombocytopenia - improved. PLT 148K on 07/08/2017. Full code. SCDs. Problem Qualifiers (1) Sepsis: Qualified Codes: A41.9 - Sepsis, unspecified organism (2) Pneumonia: Qualified Codes: J18.1 - Lobar pneumonia, unspecified organism (3) Hypertension: Qualified Codes: I10 - Essential (primary) hypertension Keanu Faustin DO Jul 08, 2017 23:20
[2017-07-09] VITALS (7 sets, daily range): BP systolic 101–110; BP diastolic 51–62; PULSE 79–88; RESP 16–20; TEMP 97.2–98.8; O2SAT 91–97
[2017-07-09] MEDS: LINEZOLID 600 MG TAB PO SCH ×2 (09:10→20:26)
[2017-07-09] MEDS: LACTULOSE SYRUP 20 GM/30 ML CUP PO SCH ×4 (09:10→20:20)
[2017-07-09] MEDS: SODIUM CHLORIDE 0.9% FLUSH 10 ML FLUSH IV FLUSH SCH ×2 (09:11→20:25)
[2017-07-09 09:36] LABS: ALBUMIN 1.6 GM/DL (3.4-5.0); BICARBONATE 28.3 MEQ/L (21.0-32.0); CALCIUM 7.6 MG/DL (8.5-10.1); CREATININE 6.62 MG/DL (0.60-1.30)
--- NOTE | 2017-07-09 10:36 | HHI.PR ---
Subjective Remarks Follow-up for MRSA bacteremia, severe sepsis, acute kidney injury, pneumonia. Patient is currently doing well. He took some pain medication and feels somewhat drowsy. No acute concerns. Objective Vitals Vital Signs Date Time Temp Pulse Resp B/P (MAP) Pulse Ox O2 Delivery O2 Flow Rate FiO2 07/09/17 08:29 97.7 79 18 105/51 (69) 97 07/09/17 04:07 Nasal Cannula 2.00 07/09/17 04:00 97.2 80 16 102/51 (68) 95 07/09/17 00:00 98.6 88 16 110/62 (78) 95 07/08/17 21:20 Nasal Cannula 2.00 07/08/17 20:30 Nasal Cannula 2.00 07/08/17 20:00 98.2 83 16 109/57 (74) 93 07/08/17 17:16 Nasal Cannula 2.00 07/08/17 16:00 98.4 91 18 110/55 (73) 92 07/08/17 12:00 98.1 93 18 114/56 (75) 92 I/O 07/08/17 07/08/17 07/08/17 07/09/17 07/09/17 07/09/17 07:00 15:00 23:00 07:00 15:00 23:00 Intake Total 660 ml 120 ml 480 ml Output Total 3000 ml 300 ml 1200 ml Balance 660 ml -2880 ml -300 ml -720 ml Intake Oral 660 ml 120 ml 480 ml Chest Tube Drainage Total 300 ml 1200 ml Hemodialysis 3000 ml Result Diagram: 07/08/17 0630 07/09/17 0812 Imaging Last Impressions Chest X-Ray 07/08/17 0000 Signed Impressions: Service Date/Time: Saturday, July 08, 2017 17:04 - CONCLUSION: 1. Interval placement of a right IJ dialysis type catheter and a [place] loop thoracostomy tube in the right lung base. 2. Interval reduction in the size of the right-sided pleural effusion seen previously. Some effusion persists. No pneumothorax. 3. Cardiomegaly with diffuse increased interstitial markings characteristic of some degree of vascular congestion/CHF. Masoud Lopez MD Chest Tube Insertion 07/08/17 0000 Signed Impressions: Service Date/Time: Saturday, July 08, 2017 16:27 - CONCLUSION: Uncomplicated chest tube placement as above. Santiago Mccartney MD Abdomen Ultrasound 07/08/17 0000 Signed Impressions: Service Date/Time: Saturday, July 08, 2017 18:00 - CONCLUSION: 1. Cirrhotic appearing liver with splenomegaly. 2. Extensive cholelithiasis. Santiago Mccartney MD Thoracentesis Ultrasound 07/07/17 0000 Signed Impressions: Service Date/Time: Friday, July 07, 2017 10:32 - CONCLUSION: Uncomplicated ultrasound guided thoracentesis. Santiago Mccartney MD Foot MRI 07/07/17 0000 Signed Impressions: Service Date/Time: Friday, July 07, 2017 15:40 - CONCLUSION: Probable mild cellulitis without osteomyelitis or deep space involvement. Josh Santiago MD FACR Chest CT 07/07/17 0000 Signed Impressions: Service Date/Time: Friday, July 07, 2017 20:53 - CONCLUSION: 1. Numerous lymph nodes with prominent induration in the right axillary region. The right axillary process needs to be considered. 2. There is now a right paratracheal enlarged lymph node. This wasn't present previously. This consistent with a reactive node given the rapid change. 3. Moderate right pleural effusion with accompanying atelectasis at the right lower lung. The effusion is worse on the current exam. 4. Gallstones Luis Miguel Villegas MD Catheter Placement X-Ray 07/07/17 0000 Signed Impressions: Service Date/Time: Friday, July 07, 2017 13:15 - CONCLUSION: Uncomplicated line placement as above. Masoud Lopez MD Renal Ultrasound 07/06/17 0000 Signed Impressions: Service Date/Time: Thursday, July 06, 2017 20:20 - CONCLUSION: 1. Normal appearance the kidneys. 2. Moderate right pleural effusion. Luis Miguel Villegas MD Chest Ultrasound 07/05/17 0000 Signed Impressions: Service Date/Time: Wednesday, July 05, 2017 12:26 - CONCLUSION: Loculated fluid as above. Josh Santiago MD FACR Foot X-Ray 07/04/17 0000 Signed Impressions: Service Date/Time: Tuesday, July 04, 2017 15:35 - CONCLUSION: Negative for fracture or dislocation. Follow up in 7-10 days is suggested if symptoms persist. Josh Santiago MD FACR Abdomen/Pelvis CT 07/03/17 0000 Signed Impressions: Service Date/Time: June 08:43 - CONCLUSION: 1. 1.5 cm low-density lesion within the anterior segment of the right lobe of liver which is indeterminate. Outpatient MRI of the abdomen with contrast would be helpful for further characterization of this indeterminate lesion. 2. Mild splenomegaly and very large intra-abdominal varices draining into the splenic vein suggesting portal hypertension. 3. Perigastric varices and bilateral inguinal varices are also noted. 4. Cholelithiasis. 5. Tiny right pleural effusion. 6. Minimal right basilar atelectasis and/or infiltrate. 7. Degenerative changes and scoliosis of the thoracolumbar spine. Haseeb Helms MD Objective Remarks GENERAL: SKIN: Warm and dry. HEAD: Normocephalic. EYES: No scleral icterus. No injection or drainage. NECK: Supple, trachea midline. No JVD or lymphadenopathy. CARDIOVASCULAR: Regular rate and rhythm without murmurs, gallops, or rubs. RESPIRATORY: Breath sounds equal bilaterally. No accessory muscle use. GASTROINTESTINAL: Abdomen soft, non-tender, nondistended. MUSCULOSKELETAL: No cyanosis, or edema. BACK: Nontender without obvious deformity. No CVA tenderness. Procedures Echo 07/04/2017 The left ventricular systolic function is normal with an estimated ejection fraction in the range of 60-65%. Wall thickness is measured at the upper limits of normal. No regional wall motion abnormalities are present. Normal left ventricular size. There is trace tricuspid valve regurgitation. The estimated pulmonary arterial pressure is 33 mmHg. 07/08/2017 -right-sided chest tube placement by interventional radiology. A/P Problem List: (1) Sepsis ICD Code: A41.9 - Sepsis, unspecified organism Status: Acute (2) Pneumonia ICD Code: J18.9 - Pneumonia, unspecified organism Status: Acute (3) Bandemia ICD Code: D72.825 - Bandemia Status: Acute (4) Elevated lipase ICD Code: R74.8 - Abnormal levels of other serum enzymes Status: Acute (5) Hypertension ICD Code: I10 - Essential (primary) hypertension Status: Acute (6) Axillary lymphadenopathy ICD Code: R59.0 - Localized enlarged lymph nodes Assessment and Plan On 07/03/2017, Mr. Wade, a 46 year old male presented to the ED due to flu like symptoms despite being treated for flu by his PCP. He complained of right- sided pleuritic chest pain. He reported fever and chills. Temperature in the emergency department was 101.2F. CT chest showed right pleural effusion with some atelectasis. CT abdomen pelvis showed a liver lesion. Severe sepsis - resolved. MRSA bacteremia MRSA pneumonia Empyema - pleural fluid grew MRSA Pneumonia on CT chest, liver lesion, right axillary lymphadenopathy, possible cellulitis Pleural fluid cx grew MRSA. Blood cx also grew MRSA. Appreciate ID input. Currently patient is on Daptomycin (for bacteremia), Linezolid for MRSA pneumonia. Also on Levaquin. 07/05 - Echo showed no vegetation. Chest tube placed on the right side on 07/08/2017 Acetaminophen, tramadol as needed for pain. acute kidney injury Creatinine 0.8 on 07/04/2017. Cr 6.62 on 07/09/2017. Now on dialysis. Possibly due to vancomycin as well as post infectious Continue dialysis per Nephrology. Thrombocytopenia - improved. PLT 148K on 07/08/2017. Full code. SCDs. Problem Qualifiers (1) Sepsis: Qualified Codes: A41.9 - Sepsis, unspecified organism (2) Pneumonia: Qualified Codes: J18.1 - Lobar pneumonia, unspecified organism (3) Hypertension: Qualified Codes: I10 - Essential (primary) hypertension Keanu Faustin DO Jul 09, 2017 10:36 am
--- NOTE | 2017-07-09 11:37 | HHI.NPPN ---
Subjective Renal Failure: Acute Interval History He is resting. chest tube placed. Urine output not being recorded. (Lisa Tovar) Review of Systems General Constitutional: Fatigue (Lisa Tovar) Objective Data Data Vital Signs Date Time Temp Pulse Resp B/P (MAP) Pulse Ox O2 Delivery O2 Flow Rate FiO2 07/09/17 08:29 97.7 79 18 105/51 (69) 97 07/09/17 04:07 Nasal Cannula 2.00 07/09/17 04:00 97.2 80 16 102/51 (68) 95 07/09/17 00:00 98.6 88 16 110/62 (78) 95 07/08/17 21:20 Nasal Cannula 2.00 07/08/17 20:30 Nasal Cannula 2.00 07/08/17 20:00 98.2 83 16 109/57 (74) 93 07/08/17 17:16 Nasal Cannula 2.00 07/08/17 16:00 98.4 91 18 110/55 (73) 92 07/08/17 12:00 98.1 93 18 114/56 (75) 92 (Lisa Tovar) -: 07/08/17 0630 07/09/17 0812 Imaging Last 72 hours Impressions Chest X-Ray 07/08/17 0000 Signed Impressions: Service Date/Time: Saturday, July 08, 2017 17:04 - CONCLUSION: 1. Interval placement of a right IJ dialysis type catheter and a [place] loop thoracostomy tube in the right lung base. 2. Interval reduction in the size of the right-sided pleural effusion seen previously. Some effusion persists. No pneumothorax. 3. Cardiomegaly with diffuse increased interstitial markings characteristic of some degree of vascular congestion/CHF. Masoud Lopez MD Chest Tube Insertion 07/08/17 0000 Signed Impressions: Service Date/Time: Saturday, July 08, 2017 16:27 - CONCLUSION: Uncomplicated chest tube placement as above. Santiago Mccartney MD Abdomen Ultrasound 07/08/17 0000 Signed Impressions: Service Date/Time: Saturday, July 08, 2017 18:00 - CONCLUSION: 1. Cirrhotic appearing liver with splenomegaly. 2. Extensive cholelithiasis. Santiago Mccartney MD Thoracentesis Ultrasound 07/07/17 0000 Signed Impressions: Service Date/Time: Friday, July 07, 2017 10:32 - CONCLUSION: Uncomplicated ultrasound guided thoracentesis. Santiago Mccartney MD Foot MRI 07/07/17 0000 Signed Impressions: Service Date/Time: Friday, July 07, 2017 15:40 - CONCLUSION: Probable mild cellulitis without osteomyelitis or deep space involvement. Josh Santiago MD FACR Chest X-Ray 07/07/17 0000 Signed Impressions: Service Date/Time: Friday, July 07, 2017 11:23 - CONCLUSION: No pneumothorax. Santiago Mccartney MD Chest CT 07/07/17 0000 Signed Impressions: Service Date/Time: Friday, July 07, 2017 20:53 - CONCLUSION: 1. Numerous lymph nodes with prominent induration in the right axillary region. The right axillary process needs to be considered. 2. There is now a right paratracheal enlarged lymph node. This wasn't present previously. This consistent with a reactive node given the rapid change. 3. Moderate right pleural effusion with accompanying atelectasis at the right lower lung. The effusion is worse on the current exam. 4. Gallstones Luis Miguel Villegas MD Catheter Placement X-Ray 07/07/17 0000 Signed Impressions: Service Date/Time: Friday, July 07, 2017 13:15 - CONCLUSION: Uncomplicated line placement as above. Masoud Lopez MD Tubes & Lines: Vas-Cath Tubes & Lines Comment R chest tube (Lisa Tovar) Physical Exam General Appearance: Well Developed, No Acute Distress, Comfortable (Lisa Tovar) Eyes Eye Exam: Pupils Equal (Lisa Tovar) Pulmonary Resp Exam: Clear Bilaterally, Breath Sounds Equal (Lisa Tovar) Cardiology CV Exam: Regular, Normal Sinus Rhythm (Lisa Tovar) Gastrointestinal/Abdomen GI Exam: Soft, Non-Tender, Bowel Sounds Present (Lisa Tovar) Musculoskeletal MS Exam: Joints Intact, Normal Gait, Normal Tone, Good Strength (Lisa Tovar) Integumentary Skin Exam: Warm, Dry, Intact (Lisa Tovar) Extremeties Extremities Exam: Pedal Pulses Palpable, Moderate Edema (Lisa Tovar) Neurologic Neuro Exam: Alert, Awake, Oriented, Speech Clear, Moving All Extremities (Lisa Tovar) Psychiatric Psych Exam: Appropriate Responses (Lisa Tovar) Assessment/Plan Discussed Condition With: Patient Assessment Summary: RODOLFO/Acute Renal Failure Problem List: (1) Acute kidney injury ICD Codes: N17.9 - Acute kidney failure, unspecified Plan: Etiology is uncertain. May have developed Vancomycin induced nephrotoxicity. Vanc was stopped. he was also on Ibuprofen and ANSELMO inhibitor, those were also stopped. Other possibilities: ATN due to sepsis and Post infectious GN. C3 is low Hepatorenal syndrome is less likely. Check cryoglobulin level. Vascath placed and HD initiated 07/07 and tolerated well Repeat labs tomorrow. HD TTS as needed. Monitor urine output Avoid IVF, nephrotoxic agents. (2) Sepsis ICD Codes: A41.9 - Sepsis, unspecified organism Status: Acute Plan: ID following s/p thoracentesis 07/07. Has MRSA, empyema. chest tube placed on right. On Daptomycin, Zyvoxx, and Levaquin. Monitor clinically. (3) Hypertension ICD Codes: I10 - Essential (primary) hypertension Status: Acute Plan: Borderline hypotensive, hold antihypertensives for now. (4) Hepatitis C infection ICD Codes: B19.20 - Unspecified viral hepatitis C without hepatic coma Status: Acute Plan: Workup is in progress. GI and ID following. (Lisa Tovar) Plan patient was seen and examined. Agree with above assessment and plan. Needs urine output monitoring. Dialysis tomorrow. (Bj Amaya MD) Problem Qualifiers (1) Sepsis: Qualified Codes: A41.9 - Sepsis, unspecified organism (2) Hypertension: Qualified Codes: I10 - Essential (primary) hypertension Lisa Tovar Jul 09, 2017 11:37 Bj Amaya MD Jul 09, 2017 21:27
--- NOTE | 2017-07-09 12:18 | HHI.IDPN ---
Subjective Subjective Remarks Patient is a 46-year-old male who presented to the emergency room with complaint of flulike symptoms for about a week. Patient reports he has been having right-sided pleuritic type chest pain. He describes pain as heavy in character, present all the time, worse with coughing and deep breathing. he initially had dry cough but recently started bringing up blood. He was seen by his PCP who was treating him for the flu empirically. he started Tamiflu about 2 days prior to admission. he also has had fevers and [id number]. No abdominal pain, no N/V, no complaints. In the ED, his temp was 102. Influenza testing negative. One of 2 BC now reported as growing MRSA. His temps are better. CXR clear. CT chest with R pleural effusion with some atelectasis. CT A/P with a lesion in liver. evidence of portal hypertension. Infectious Disease consultation has been requested to evaluate patient with MRSA bacteremia. Notes reviewed Temps ok Had placement of CT per pulmonary Got 1500 ml fluid initially First thoracentesis got 1100 ml BC with MRSA 07/03, and 07/04 Feels tired Pleural fluid C/S MRSA Still with tenderness on his R foot but a little better Foot xray negative Echo ok MRI foot no deep infection Follow-up BC negative Antibiotics Daptomycin Zyvox Levaquin Current Medications Medications (Trade) Dose Ordered Sig/Cassandra Route Start Time Stop Time Status Last Admin (NS Flush) 2 ml UNSCH PRN IV FLUSH 07/03/17 10:15 (NS Flush) 2 ml BID IV FLUSH 07/03/17 21:00 07/09/17 09:11 (Tylenol) 650 mg Q4H PRN PO 07/03/17 10:15 07/06/17 21:06 (Zofran Inj) 4 mg Q6H PRN IVP 07/03/17 10:15 (Narcan Inj) 0.4 mg UNSCH PRN IV PUSH 07/03/17 10:15 (Neurontin) 600 mg BID PO 07/04/17 09:00 Future Hold 07/06/17 09:14 (Tessalon) 200 mg TID PRN PO 07/04/17 11:45 07/07/17 20:32 (Lactulose Liq) 30 ml QID PO 07/06/17 13:00 07/09/17 09:10 (Levaquin) 250 mg DAILY@1600 PO 07/06/17 16:00 07/08/17 18:03 Sodium Chloride 1,000 ml @ 0 mls/hr Q0M PRN OTHER 07/07/17 09:15 (Heparin Inj) 8,000 units UNSCH PRN IV FLUSH 07/07/17 09:15 Sodium Chloride 1,000 ml @ 200 mls/hr Q5H PRN IV 07/07/17 09:15 Sodium Chloride 1,000 ml @ 0 mls/hr Q0M PRN OTHER 07/07/17 09:15 (Mannitol Inj) 12.5 gm UNSCH PRN IV 07/07/17 09:15 07/08/17 10:02 Albumin Human 100 ml @ 60 mls/hr UNSCH PRN IV 07/07/17 09:15 07/08/17 09:40 (NS Flush) 5 ml UNSCH PRN IV FLUSH 07/07/17 09:15 (Heparin Inj) UNSCH PRN .XX 07/07/17 09:15 (Gentamicin Inj) 20 mg UNSCH PRN OTHER 07/07/17 09:15 07/08/17 11:10 (Zofran Inj) 4 mg UNSCH PRN IV PUSH 07/07/17 09:15 (Tylenol) 650 mg UNSCH PRN PO 07/07/17 09:15 (Benadryl) 25 mg UNSCH PRN PO 07/07/17 09:15 (Nitrostat Sl) 0.4 mg UNSCH PRN SL 07/07/17 09:15 (Catapres) 0.1 mg UNSCH PRN PO 07/07/17 09:15 (Gelfoam 12 Mm/7 Mm Top) 1 foam UNSCH PRN TOP 07/07/17 09:15 Daptomycin 600 mg/ Sodium Chloride 100 ml @ 200 mls/hr Q48H IV 07/07/17 12:00 07/07/17 13:30 (NS Flush) UNSCH PRN IV FLUSH 07/07/17 13:45 (Heparin Inj) UNSCH PRN IV FLUSH 07/07/17 13:45 07/08/17 11:10 (Zyvox) 600 mg Q12HR PO 07/07/17 14:00 07/09/17 09:10 (Ultram) 50 mg Q8H PRN PO 07/08/17 13:45 Lines Line with no evidence of infection Past Medical History Hypertension Herniated disc Hepatitis C (untreated) Ruptured diverticular abscess Past Surgical History ?Left thoracotomy for pleurisy. Allergies: Coded Allergies: No Known Allergies (Verified Allergy, Unknown, 07/04/17) Objective . Vital Signs Date Time Temp Pulse Resp B/P (MAP) Pulse Ox O2 Delivery O2 Flow Rate FiO2 07/09/17 08:29 97.7 79 18 105/51 (69) 97 07/09/17 04:07 Nasal Cannula 2.00 07/09/17 04:00 97.2 80 16 102/51 (68) 95 07/09/17 00:00 98.6 88 16 110/62 (78) 95 07/08/17 21:20 Nasal Cannula 2.00 07/08/17 20:30 Nasal Cannula 2.00 07/08/17 20:00 98.2 83 16 109/57 (74) 93 07/08/17 17:16 Nasal Cannula 2.00 07/08/17 16:00 98.4 91 18 110/55 (73) 92 . Laboratory Tests Test 07/08/17 06:30 White Blood Count 14.2 TH/MM3 Red Blood Count 3.07 MIL/MM3 Hemoglobin 11.1 GM/DL Hematocrit 32.7 % Mean Corpuscular Volume 106.5 FL Mean Corpuscular Hemoglobin 36.1 PG Mean Corpuscular Hemoglobin Concent 34.0 % Red Cell Distribution Width 15.6 % Platelet Count 148 TH/MM3 Mean Platelet Volume 8.4 FL Neutrophils (%) (Auto) 83.0 % Lymphocytes (%) (Auto) 4.7 % Monocytes (%) (Auto) 9.8 % Eosinophils (%) (Auto) 1.7 % Basophils (%) (Auto) 0.8 % Neutrophils # (Auto) 11.8 TH/MM3 Lymphocytes # (Auto) 0.7 TH/MM3 Monocytes # (Auto) 1.4 TH/MM3 Eosinophils # (Auto) 0.2 TH/MM3 Basophils # (Auto) 0.1 TH/MM3 CBC Comment AUTO DIFF Differential Total Cells Counted 100 Neutrophils % (Manual) 84 % Band Neutrophils % 5 % Lymphocytes % 6 % Monocytes % 2 % Eosinophils % 2 % Neutrophils # (Manual) 12.8 TH/MM3 Myelocytes 1 % Differential Comment FINAL DIFF MANUAL Toxic Granulation 1+ Toxic Vacuolation PRESENT Platelet Estimate LOW Platelet Morphology Comment NORMAL Laboratory Tests Test 07/07/17 20:14 07/09/17 08:12 Total Creatine Kinase 111 U/L Blood Urea Nitrogen 44 MG/DL Creatinine 6.62 MG/DL Random Glucose 71 MG/DL Albumin 1.6 GM/DL Calcium Level 7.6 MG/DL Phosphorus Level 5.0 MG/DL Sodium Level 135 MEQ/L Potassium Level 4.5 MEQ/L Chloride Level 100 MEQ/L Carbon Dioxide Level 28.3 MEQ/L Anion Gap 7 MEQ/L Estimat Glomerular Filtration Rate 9 ML/MIN Microbiology Date/Time Source Procedure Growth Status 07/07/17 20:14 Blood Peripheral Aerobic Blood Culture - Preliminary NO GROWTH IN 2 DAYS Resulted 07/07/17 20:14 Blood Peripheral Anaerobic Blood Culture - Preliminary NO GROWTH IN 2 DAYS Resulted 07/07/17 20:09 Blood Peripheral Aerobic Blood Culture - Preliminary NO GROWTH IN 2 DAYS Resulted 07/07/17 20:09 Blood Peripheral Anaerobic Blood Culture - Preliminary NO GROWTH IN 2 DAYS Resulted 07/07/17 11:00 Fluid Pleural Fluid Fungal Smear - Final NO FUNGAL ELEMENTS SEEN. Resulted 07/07/17 11:00 Fluid Pleural Fluid Fungal Culture Pending Resulted 07/07/17 11:00 Fluid Pleural Fluid Gram Stain - Final Complete 07/07/17 11:00 Body Fluid Culture - Final S. Aureus Mrsa Complete 07/06/17 22:20 Urine Clean Catch Urine Culture - Final NO GROWTH IN 48 HOURS. Complete Imaging Last Impressions Chest X-Ray 07/07/17 0000 Signed Impressions: Service Date/Time: Friday, July 07, 2017 11:23 - CONCLUSION: No pneumothorax. Santiago Mccartney MD Renal Ultrasound 07/06/17 0000 Signed Impressions: Service Date/Time: Thursday, July 06, 2017 20:20 - CONCLUSION: 1. Normal appearance the kidneys. 2. Moderate right pleural effusion. Luis Miguel Villegas MD Chest Ultrasound 07/05/17 0000 Signed Impressions: Service Date/Time: Wednesday, July 05, 2017 12:26 - CONCLUSION: Loculated fluid as above. Josh Santiago MD FACR Foot X-Ray 07/04/17 0000 Signed Impressions: Service Date/Time: Tuesday, July 04, 2017 15:35 - CONCLUSION: Negative for fracture or dislocation. Follow up in 7-10 days is suggested if symptoms persist. Josh Santiago MD FACR Chest CT 07/03/17 0000 Signed Impressions: Service Date/Time: June 12:16 - CONCLUSION: 1. Extensive stranding with prominent lymph nodes in the right axilla measuring upwards of 1.6 cm in diameter. Does the patient have clinical symptomatology to suggest a cellulitis in this area? 2. Mild, generalized anasarca with some interstitial prominence in both lungs as well the visualized portions of the upper mesentery. Findings are nonspecific but can be seen in entity such as overwhelming sepsis. 3. Calcified gallstones. 4. Small right-sided pleural effusion with associated atelectatic changes. 5. Atretic left sixth rib could be congenital or postsurgical. Old healed rib fractures involving the lateral aspect of #3 and 4 on the left. 6. Mild gynecomastia. Again, nonspecific finding that can be seen with certain medications. Masoud Lopez MD Abdomen/Pelvis CT 07/03/17 0000 Signed Impressions: Service Date/Time: June 08:43 - CONCLUSION: 1. 1.5 cm low-density lesion within the anterior segment of the right lobe of liver which is indeterminate. Outpatient MRI of the abdomen with contrast would be helpful for further characterization of this indeterminate lesion. 2. Mild splenomegaly and very large intra-abdominal varices draining into the splenic vein suggesting portal hypertension. 3. Perigastric varices and bilateral inguinal varices are also noted. 4. Cholelithiasis. 5. Tiny right pleural effusion. 6. Minimal right basilar atelectasis and/or infiltrate. 7. Degenerative changes and scoliosis of the thoracolumbar spine. Haseeb Helms MD Physical Exam GENERAL: awake and alert, not in respiratory distress. SKIN: Cool and dry. No generalized rash, no ecchymoses and no evidence of embolic lesions. Has spider angiomatas HEAD: Atraumatic. Normocephalic. No temporal wasting, or tenderness. EYES: Hale conjunctiva. No petechia or hemorrhage. Pupils equal, round and reactive to light. Extraocular movements full and intact. No scleral icterus. No injection or drainage. EARS, NOSE AND THROAT: Nose without bleeding or purulent nasal discharge. No sinus tenderness. Mucous membranes pink and moist. No oral lesions noted. No exudate. No oral thrush. NECK: Trachea midline. Supple and not tender, no meningeal signs CARDIOVASCULAR: Regular rate and rhythm. No murmurs, rubs or gallops heard RESPIRATORY: Clear to auscultation. Breath sounds equal bilaterally. No rales , wheezing or rhonchi ABDOMEN: Soft, non-tender, nondistended. Bowel sounds present and normoactive. No guarding. No rebound. No organomegaly. EXTREMITIES: No clubbing, cyanosis, or edema. On his R foot there is an area of redness below the big toe to the 3rd toes dorsal aspect. There is tenderness on palpation of the 1st to 2nd MCP plantar aspect. NO swelling, (+ ) heat, no open wound. No calf tenderness. Well perfused and warm. NEUROLOGICAL: Grossly nonfocal. PSYCHIATRIC: Normal affect, calm and cooperative. LINE: No evidence of infection Assessment & Plan Remarks IMPRESSION MRSA bacteremia, source - due to PNA, and infected pleural fluid - has CT in place placed 07/08 - also with redness on his R foot, cellulitis on MRI Pneumonia, with empyema Known liver cirrhosis, previous ETOH, and also He p C Acute renal failure, etiology? RECOMMENDATION Follow C/S Continue IV daptomycin for MRSA bacteremia Continue Zyvox for MRSA pneumonia Continue Levaquin for now - stop 07/11 I asked micro to do susceptibility testing on Teflaro - still pending Monitor progress I will determine course of treatment once workup is completed D/W Natividad Thibodeaux MD Jul 09, 2017 12:18
[2017-07-09] MEDS: DAPTOmycin INJ 600 MG in SODIUM CHLORIDE 0.9% INJ 100 ML IV SCH (13:32)
--- NOTE | 2017-07-09 14:53 | HHI.GIFU ---
Subjective Remarks Pt resting in bed. c/o that his phone keeps ringing. NOw with chest tube. (Stefani Hui) Objective Vitals I&O Vital Signs Date Time Temp Pulse Resp B/P (MAP) Pulse Ox O2 Delivery O2 Flow Rate FiO2 07/09/17 13:39 Nasal Cannula 2.00 07/09/17 12:00 97.8 81 18 103/51 (68) 91 07/09/17 08:29 97.7 79 18 105/51 (69) 97 07/09/17 04:07 Nasal Cannula 2.00 07/09/17 04:00 97.2 80 16 102/51 (68) 95 07/09/17 00:00 98.6 88 16 110/62 (78) 95 07/08/17 21:20 Nasal Cannula 2.00 07/08/17 20:30 Nasal Cannula 2.00 07/08/17 20:00 98.2 83 16 109/57 (74) 93 07/08/17 17:16 Nasal Cannula 2.00 07/08/17 16:00 98.4 91 18 110/55 (73) 92 I/O 07/08/17 07/08/17 07/08/17 07/09/17 07/09/17 07/09/17 07:00 15:00 23:00 07:00 15:00 23:00 Intake Total 660 ml 120 ml 480 ml Output Total 3000 ml 300 ml 1200 ml Balance 660 ml -2880 ml -300 ml -720 ml Intake Oral 660 ml 120 ml 480 ml Chest Tube Drainage Total 300 ml 1200 ml Hemodialysis 3000 ml Laboratory Laboratory Tests Test 07/09/17 08:12 07/09/17 12:42 Blood Urea Nitrogen 44 Creatinine 6.62 Random Glucose 71 Albumin 1.6 Calcium Level 7.6 Phosphorus Level 5.0 Sodium Level 135 Potassium Level 4.5 Chloride Level 100 Carbon Dioxide Level 28.3 Anion Gap 7 Estimat Glomerular Filtration Rate 9 Date/Time Source Procedure Growth Status 07/07/17 20:14 Blood Peripheral Aerobic Blood Culture - Preliminary NO GROWTH IN 2 DAYS Resulted 07/07/17 20:14 Blood Peripheral Anaerobic Blood Culture - Preliminary NO GROWTH IN 2 DAYS Resulted 07/07/17 11:00 Fluid Pleural Fluid Fungal Smear - Final NO FUNGAL ELEMENTS SEEN. Resulted 07/07/17 11:00 Fluid Pleural Fluid Fungal Culture Pending Resulted 07/05/17 00:22 Sputum Expectorated Sputum Gram Stain - Final Complete 07/05/17 00:22 Sputum Expectorated Sputum Sputum Culture - Final HEAVY GROWTH NORMAL RESPIRATORY MARISELA Complete 07/06/17 22:20 Urine Clean Catch Urine Culture - Final NO GROWTH IN 48 HOURS. Complete Imaging Last Impressions Chest X-Ray 07/08/17 0000 Signed Impressions: Service Date/Time: Saturday, July 08, 2017 17:04 - CONCLUSION: 1. Interval placement of a right IJ dialysis type catheter and a [place] loop thoracostomy tube in the right lung base. 2. Interval reduction in the size of the right-sided pleural effusion seen previously. Some effusion persists. No pneumothorax. 3. Cardiomegaly with diffuse increased interstitial markings characteristic of some degree of vascular congestion/CHF. Masoud Lopez MD Chest Tube Insertion 07/08/17 0000 Signed Impressions: Service Date/Time: Saturday, July 08, 2017 16:27 - CONCLUSION: Uncomplicated chest tube placement as above. Santiago Mccartney MD Abdomen Ultrasound 07/08/17 0000 Signed Impressions: Service Date/Time: Saturday, July 08, 2017 18:00 - CONCLUSION: 1. Cirrhotic appearing liver with splenomegaly. 2. Extensive cholelithiasis. Santiago Mccartney MD Thoracentesis Ultrasound 07/07/17 0000 Signed Impressions: Service Date/Time: Friday, July 07, 2017 10:32 - CONCLUSION: Uncomplicated ultrasound guided thoracentesis. Santiago Mccartney MD Foot MRI 07/07/17 0000 Signed Impressions: Service Date/Time: Friday, July 07, 2017 15:40 - CONCLUSION: Probable mild cellulitis without osteomyelitis or deep space involvement. Josh Santiago MD FACR Chest CT 07/07/17 0000 Signed Impressions: Service Date/Time: Friday, July 07, 2017 20:53 - CONCLUSION: 1. Numerous lymph nodes with prominent induration in the right axillary region. The right axillary process needs to be considered. 2. There is now a right paratracheal enlarged lymph node. This wasn't present previously. This consistent with a reactive node given the rapid change. 3. Moderate right pleural effusion with accompanying atelectasis at the right lower lung. The effusion is worse on the current exam. 4. Gallstones Luis Miguel Villegas MD Catheter Placement X-Ray 07/07/17 0000 Signed Impressions: Service Date/Time: Friday, July 07, 2017 13:15 - CONCLUSION: Uncomplicated line placement as above. Masoud Lopez MD Renal Ultrasound 07/06/17 0000 Signed Impressions: Service Date/Time: Thursday, July 06, 2017 20:20 - CONCLUSION: 1. Normal appearance the kidneys. 2. Moderate right pleural effusion. Luis Miguel Villegas MD Chest Ultrasound 07/05/17 0000 Signed Impressions: Service Date/Time: Wednesday, July 05, 2017 12:26 - CONCLUSION: Loculated fluid as above. Josh Santiago MD FACR Foot X-Ray 07/04/17 0000 Signed Impressions: Service Date/Time: Tuesday, July 04, 2017 15:35 - CONCLUSION: Negative for fracture or dislocation. Follow up in 7-10 days is suggested if symptoms persist. Josh Santiago MD FACR Abdomen/Pelvis CT 07/03/17 0000 Signed Impressions: Service Date/Time: June 08:43 - CONCLUSION: 1. 1.5 cm low-density lesion within the anterior segment of the right lobe of liver which is indeterminate. Outpatient MRI of the abdomen with contrast would be helpful for further characterization of this indeterminate lesion. 2. Mild splenomegaly and very large intra-abdominal varices draining into the splenic vein suggesting portal hypertension. 3. Perigastric varices and bilateral inguinal varices are also noted. 4. Cholelithiasis. 5. Tiny right pleural effusion. 6. Minimal right basilar atelectasis and/or infiltrate. 7. Degenerative changes and scoliosis of the thoracolumbar spine. Haseeb Helms MD Physical Exam HEENT: PERRL; normocephalic; atraumatic; no jaundice. CHEST: CTA. chest tube right side with serosanguineous drainage CARDIAC: RRR ABDOMEN: obese, Soft, nontender; bowel sounds are present in all four quadrants. EXTREMITIES: + Bilateral edema. SKIN: Pale; no rash; no jaundice. LEAD [employer]INCIPAL [employer]CHNICAL ARCHITECT: [employer], (Stefani Hui [employer] SUPERVIS[employer]) Assessment and Plan Plan ASSESSMENT/History - abnormal imaging - 1.5 cm liver lesion seen on CT as well as portal HTN, varices, cholelithiasis. hx hep c. - elevated LFTs - trending down. hx hep c. cirrhosis - elevated lipase -chronic pancreatitis. 932 on admission and now WNL. - abd pain - pt c/o lower quadrant pain, is TTP in RUQ. unclear etiology. - PNA per primary ID following 07/03/17, Low density lesion, anterior Rt. Lobe, MRI, Abd would be helpful. pending renal function. 07/05/17 liver w/u and hcv quant are pending. pt coughing. no GI complaints today. 07/06/17 liver work up pending, Fe 540, iron saturation 68.6, could be secondary to alcohol intake AFP wnl, lipase normalized liver lesion on CT, not able to have an MRI due to poor kidney function 07/07/2017, Rt. Thoracentesis today, Possible Empyema/Infection,and Rt. IJ. Nontunnel Hemodialysis Catheter. Back to , hungry, No Abdominal pain or soreness or upper GI symptoms. Labs, HGB, 11.8, no obvious bleeding, iron workup abnormal , iron deficiency possible due to ETOH/chronic disease. No constipation, Loose stools X 4 yesterday,receiving (lactulose PO). Note, elevated WBC ct. unspecified. Liver workup some still pending, AFP 3.5, Antismooth muscle ab, complement 3, low 62, Albumin levels low. 07/08/17 says he feels a bit better. s/p thoracentesis yesterday. pleural fluid + MRSA. ID following. liver w/u in progress. still waiting on hcv quant and genotype. on HD, nephrology following. 07/09/17 now with chest tube. liver w/u so far unremarkable. hcv quant and teja still pending. PLAN - await hcv quant and genotype - renal diet - abx per ID - illicit drug cessation - lactulose - await AMA & ceruloplasmin - supportive care - if needed can have tx outpt for hep c, when drug free pt seen by myself and Dr Perera, this note is on her behalf (Stefani Hui) Physician Comments seen, examined agree with above abdominal us-cirrhosis, splenomegaly , no liver lesion mri liver when kidney function better (Chante Perera MD) Stefani Hui Jul 09, 2017 14:53 Chante Perera MD Jul 09, 2017 17:06
[2017-07-09] MEDS: LEVOFLOXACIN 250 MG TAB PO SCH (17:02)
--- NOTE | 2017-07-09 17:05 | HHI.PR ---
Subjective Remarks doing ok s/p chesttube insertion Objective Vital Signs Date Time Temp Pulse Resp B/P (MAP) Pulse Ox O2 Delivery O2 Flow Rate FiO2 07/09/17 16:49 97.5 84 18 105/54 (71) 92 07/09/17 13:39 Nasal Cannula 2.00 07/09/17 12:00 97.8 81 18 103/51 (68) 91 07/09/17 08:29 97.7 79 18 105/51 (69) 97 07/09/17 04:07 Nasal Cannula 2.00 07/09/17 04:00 97.2 80 16 102/51 (68) 95 07/09/17 00:00 98.6 88 16 110/62 (78) 95 07/08/17 21:20 Nasal Cannula 2.00 07/08/17 20:30 Nasal Cannula 2.00 07/08/17 20:00 98.2 83 16 109/57 (74) 93 07/08/17 17:16 Nasal Cannula 2.00 I/O 07/08/17 07/08/17 07/08/17 07/09/17 07/09/17 07/09/17 07:00 15:00 23:00 07:00 15:00 23:00 Intake Total 660 ml 120 ml 480 ml Output Total 3000 ml 300 ml 1200 ml Balance 660 ml -2880 ml -300 ml -720 ml Intake Oral 660 ml 120 ml 480 ml Chest Tube Drainage Total 300 ml 1200 ml Hemodialysis 3000 ml Result Diagram: 07/08/17 0630 07/09/17 0812 Objective Remarks General appearance no acute distress Lungs decreased heart sounds over both bases Heart S1-S2 abdomen is soft obese Extremities mild edema Neurologic alert oriented 3 Assessment and Plan Assessment and Plan Pneumonia Empyema MRSA bacteremia The patient will need to continue on the chest tube to suction Continue antibiotics as per ID recommendation We will continue to follow No new recommendations from a pulmonary perspective at this point. Tramaine Smith MD Jul 09, 2017 17:05
[2017-07-09] MEDS: traMADol HCL 50 MG TAB PO PRN (20:29)
[2017-07-10] VITALS: BP 98/52; PULSE 84; RESP 20; TEMP 97.8; O2SAT 92
[2017-07-10 06:28] VITALS: BP 106/51; PULSE 82; RESP 19; TEMP 97.6; O2SAT 92
[2017-07-10] MEDS: traMADol HCL 50 MG TAB PO PRN ×2 (07:16→20:04)
[2017-07-10 07:21] LABS: BICARBONATE 26.7 MEQ/L (21.0-32.0); CALCIUM 7.8 MG/DL (8.5-10.1); CREATININE 7.97 MG/DL (0.60-1.30); PHOSPHORUS 5.9 MG/DL (2.5-4.9)
[2017-07-10 07:22] LABS: ALBUMIN 1.5 GM/DL (3.4-5.0)
[2017-07-10 07:46] VITALS: BP 104/52; PULSE 84; RESP 20; TEMP 97.8; O2SAT 91
[2017-07-10] MEDS: LINEZOLID 600 MG TAB PO SCH (08:12)
[2017-07-10] MEDS: SODIUM CHLORIDE 0.9% FLUSH 10 ML FLUSH IV FLUSH SCH ×2 (08:12→21:00)
[2017-07-10] MEDS: LACTULOSE SYRUP 20 GM/30 ML CUP PO SCH ×4 (08:12→21:00)
--- NOTE | 2017-07-10 08:26 | HHI.NPPN ---
Subjective Renal Failure: Acute Interval History patient is oliguric. To have dialysis today. Review of Systems General Constitutional: Fatigue Objective Data Data Vital Signs Date Time Temp Pulse Resp B/P (MAP) Pulse Ox O2 Delivery O2 Flow Rate FiO2 07/10/17 08:19 Room Air 07/10/17 07:46 97.8 84 20 104/52 (69) 91 07/10/17 06:28 97.6 82 19 106/51 (69) 92 07/10/17 00:00 97.8 84 20 98/52 (67) 92 07/09/17 21:00 Room Air 07/09/17 20:00 98.8 84 20 101/52 (68) 94 07/09/17 17:20 92 21 07/09/17 16:49 97.5 84 18 105/54 (71) 92 07/09/17 13:39 Nasal Cannula 2.00 07/09/17 12:00 97.8 81 18 103/51 (68) 91 07/09/17 09:00 Nasal Cannula 1.00 07/09/17 08:29 97.7 79 18 105/51 (69) 97 -: 07/08/17 0630 07/10/17 0638 Tubes & Lines: Vas-Cath Tubes & Lines Comment R chest tube Physical Exam General Appearance: Well Developed, No Acute Distress, Comfortable Eyes Eye Exam: Pupils Equal Pulmonary Resp Exam: Clear Bilaterally, Breath Sounds Equal Cardiology CV Exam: Regular, Normal Sinus Rhythm Gastrointestinal/Abdomen GI Exam: Soft, Non-Tender, Bowel Sounds Present Musculoskeletal MS Exam: Joints Intact, Normal Gait, Normal Tone, Good Strength Integumentary Skin Exam: Warm, Dry, Intact Extremeties Extremities Exam: Pedal Pulses Palpable, Moderate Edema Neurologic Neuro Exam: Alert, Awake, Oriented, Speech Clear, Moving All Extremities Psychiatric Psych Exam: Appropriate Responses Assessment/Plan Discussed Condition With: Patient Assessment Summary: RODOLFO/Acute Renal Failure Problem List: (1) Acute kidney injury ICD Codes: N17.9 - Acute kidney failure, unspecified Plan: Etiology is uncertain. May have developed Vancomycin induced nephrotoxicity. Vanc was stopped. he was also on Ibuprofen and ANSELMO inhibitor, those were also stopped. Other possibilities: ATN due to sepsis and Post infectious GN. C3 is low Hepatorenal syndrome is less likely. Hepatitis C related Cryoglobulinemic Vasculitis also considered, Vascath placed and HD initiated 07/07 and Dialysis today. Monitor urine output Avoid IVF, nephrotoxic agents. Repeat UA. (2) Sepsis ICD Codes: A41.9 - Sepsis, unspecified organism Status: Acute Plan: ID following s/p thoracentesis 07/07. Has MRSA, empyema. chest tube placed on right. On Daptomycin, Zyvoxx, and Levaquin. Monitor clinically. (3) Hypertension ICD Codes: I10 - Essential (primary) hypertension Status: Acute Plan: Borderline hypotensive, hold antihypertensives for now. (4) Hepatitis C infection ICD Codes: B19.20 - Unspecified viral hepatitis C without hepatic coma Status: Acute Plan: Workup is in progress. GI and ID following. Problem Qualifiers (1) Sepsis: Qualified Codes: A41.9 - Sepsis, unspecified organism (2) Hypertension: Qualified Codes: I10 - Essential (primary) hypertension Bj Amaya MD Jul 10, 2017 08:26
[2017-07-10] MEDS: ALBUMIN 25% INJ 100 ML IV PRN ×2 (08:40→09:00)
[2017-07-10] MEDS: GENTAMICIN SULFATE 20 MG/2 ML VIAL OTHER PRN (11:37)
[2017-07-10] MEDS: HEPARIN SODIUM - IV 10,000 UNITS/10 ML VIAL PRN (11:37)
[2017-07-10 12:47] VITALS: BP 125/56; PULSE 87; RESP 20; TEMP 98; O2SAT 92
--- NOTE | 2017-07-10 13:10 | HHI.IDPN ---
Subjective Subjective Remarks Patient is a 46-year-old male who presented to the emergency room with complaint of flulike symptoms for about a week. Patient reports he has been having right-sided pleuritic type chest pain. He describes pain as heavy in character, present all the time, worse with coughing and deep breathing. he initially had dry cough but recently started bringing up blood. He was seen by his PCP who was treating him for the flu empirically. he started Tamiflu about 2 days prior to admission. he also has had fevers and [id number]. No abdominal pain, no N/V, no complaints. In the ED, his temp was 102. Influenza testing negative. One of 2 BC now reported as growing MRSA. His temps are better. CXR clear. CT chest with R pleural effusion with some atelectasis. CT A/P with a lesion in liver. evidence of portal hypertension. Infectious Disease consultation has been requested to evaluate patient with MRSA bacteremia. Notes reviewed Temps ok Just came from HD Had placement of CT per pulmonary - currently draining serous fluid Got 1500 ml fluid initially First thoracentesis got 1100 ml BC with MRSA 07/03, and 07/04 Feels tired Pleural fluid C/S MRSA Still with tenderness on his R foot but a little better Foot xray negative Echo ok MRI foot no deep infection Follow-up BC negative MRSA S to Teflaro Antibiotics Daptomycin Zyvox Levaquin Current Medications Medications (Trade) Dose Ordered Sig/Cassandra Route Start Time Stop Time Status Last Admin (NS Flush) 2 ml UNSCH PRN IV FLUSH 07/03/17 10:15 (NS Flush) 2 ml BID IV FLUSH 07/03/17 21:00 07/10/17 08:12 (Tylenol) 650 mg Q4H PRN PO 07/03/17 10:15 07/06/17 21:06 (Zofran Inj) 4 mg Q6H PRN IVP 07/03/17 10:15 (Narcan Inj) 0.4 mg UNSCH PRN IV PUSH 07/03/17 10:15 (Neurontin) 600 mg BID PO 07/04/17 09:00 Future Hold 07/06/17 09:14 (Tessalon) 200 mg TID PRN PO 07/04/17 11:45 07/07/17 20:32 (Lactulose Liq) 30 ml QID PO 07/06/17 13:00 07/09/17 09:10 Sodium Chloride 1,000 ml @ 0 mls/hr Q0M PRN OTHER 07/07/17 09:15 (Heparin Inj) 8,000 units UNSCH PRN IV FLUSH 07/07/17 09:15 Sodium Chloride 1,000 ml @ 200 mls/hr Q5H PRN IV 07/07/17 09:15 Sodium Chloride 1,000 ml @ 0 mls/hr Q0M PRN OTHER 07/07/17 09:15 (Mannitol Inj) 12.5 gm UNSCH PRN IV 07/07/17 09:15 07/08/17 10:02 Albumin Human 100 ml @ 60 mls/hr UNSCH PRN IV 07/07/17 09:15 07/10/17 09:00 (NS Flush) 5 ml UNSCH PRN IV FLUSH 07/07/17 09:15 (Heparin Inj) UNSCH PRN .XX 07/07/17 09:15 07/10/17 11:37 (Gentamicin Inj) 20 mg UNSCH PRN OTHER 07/07/17 09:15 07/10/17 11:37 (Zofran Inj) 4 mg UNSCH PRN IV PUSH 07/07/17 09:15 (Tylenol) 650 mg UNSCH PRN PO 07/07/17 09:15 (Benadryl) 25 mg UNSCH PRN PO 07/07/17 09:15 (Nitrostat Sl) 0.4 mg UNSCH PRN SL 07/07/17 09:15 (Catapres) 0.1 mg UNSCH PRN PO 07/07/17 09:15 (Gelfoam 12 Mm/7 Mm Top) 1 foam UNSCH PRN TOP 07/07/17 09:15 (NS Flush) UNSCH PRN IV FLUSH 07/07/17 13:45 (Heparin Inj) UNSCH PRN IV FLUSH 07/07/17 13:45 07/08/17 11:10 (Ultram) 50 mg Q8H PRN PO 07/08/17 13:45 07/10/17 07:16 Ceftaroline Fosamil 200 mg/ Sodium Chloride 100 ml @ 100 mls/hr Q12H IV 07/10/17 12:30 UNV Lines Line with no evidence of infection Past Medical History Hypertension Herniated disc Hepatitis C (untreated) Ruptured diverticular abscess Past Surgical History ?Left thoracotomy for pleurisy. Allergies: Coded Allergies: No Known Allergies (Verified Allergy, Unknown, 07/04/17) Objective . Vital Signs Date Time Temp Pulse Resp B/P (MAP) Pulse Ox O2 Delivery O2 Flow Rate FiO2 07/10/17 12:47 98.0 87 20 125/56 (79) 92 07/10/17 08:19 Room Air 07/10/17 07:46 97.8 84 20 104/52 (69) 91 07/10/17 06:28 97.6 82 19 106/51 (69) 92 07/10/17 00:00 97.8 84 20 98/52 (67) 92 07/09/17 21:00 Room Air 07/09/17 20:00 98.8 84 20 101/52 (68) 94 07/09/17 17:20 92 21 07/09/17 16:49 97.5 84 18 105/54 (71) 92 07/09/17 13:39 Nasal Cannula 2.00 07/10/17 07/10/17 07/11/17 15:00 23:00 07:00 Intake Total 200 ml Output Total 3000 ml Balance -2800 ml IV Total 200 ml Hemodialysis 3000 ml . Laboratory Tests Test 07/09/17 08:12 07/10/17 06:38 Blood Urea Nitrogen 44 MG/DL 53 MG/DL Creatinine 6.62 MG/DL 7.97 MG/DL Random Glucose 71 MG/DL 54 MG/DL Albumin 1.6 GM/DL 1.5 GM/DL Calcium Level 7.6 MG/DL 7.8 MG/DL Phosphorus Level 5.0 MG/DL 5.9 MG/DL Sodium Level 135 MEQ/L 134 MEQ/L Potassium Level 4.5 MEQ/L 5.1 MEQ/L Chloride Level 100 MEQ/L 100 MEQ/L Carbon Dioxide Level 28.3 MEQ/L 26.7 MEQ/L Anion Gap 7 MEQ/L 7 MEQ/L Estimat Glomerular Filtration Rate 9 ML/MIN 7 ML/MIN Microbiology Date/Time Source Procedure Growth Status 07/07/17 20:14 Blood Peripheral Aerobic Blood Culture - Preliminary NO GROWTH IN 3 DAYS Resulted 07/07/17 20:14 Blood Peripheral Anaerobic Blood Culture - Preliminary NO GROWTH IN 3 DAYS Resulted 07/07/17 20:09 Blood Peripheral Aerobic Blood Culture - Preliminary NO GROWTH IN 3 DAYS Resulted 07/07/17 20:09 Blood Peripheral Anaerobic Blood Culture - Preliminary NO GROWTH IN 3 DAYS Resulted Imaging Last Impressions Chest X-Ray 07/07/17 0000 Signed Impressions: Service Date/Time: Friday, July 07, 2017 11:23 - CONCLUSION: No pneumothorax. Santiago Mccartney MD Renal Ultrasound 07/06/17 0000 Signed Impressions: Service Date/Time: Thursday, July 06, 2017 20:20 - CONCLUSION: 1. Normal appearance the kidneys. 2. Moderate right pleural effusion. Luis Miguel Villegas MD Chest Ultrasound 07/05/17 0000 Signed Impressions: Service Date/Time: Wednesday, July 05, 2017 12:26 - CONCLUSION: Loculated fluid as above. Josh Santiago MD FACR Foot X-Ray 07/04/17 0000 Signed Impressions: Service Date/Time: Tuesday, July 04, 2017 15:35 - CONCLUSION: Negative for fracture or dislocation. Follow up in 7-10 days is suggested if symptoms persist. Josh Santiago MD FACR Chest CT 07/03/17 0000 Signed Impressions: Service Date/Time: June 12:16 - CONCLUSION: 1. Extensive stranding with prominent lymph nodes in the right axilla measuring upwards of 1.6 cm in diameter. Does the patient have clinical symptomatology to suggest a cellulitis in this area? 2. Mild, generalized anasarca with some interstitial prominence in both lungs as well the visualized portions of the upper mesentery. Findings are nonspecific but can be seen in entity such as overwhelming sepsis. 3. Calcified gallstones. 4. Small right-sided pleural effusion with associated atelectatic changes. 5. Atretic left sixth rib could be congenital or postsurgical. Old healed rib fractures involving the lateral aspect of #3 and 4 on the left. 6. Mild gynecomastia. Again, nonspecific finding that can be seen with certain medications. Masoud Lopez MD Abdomen/Pelvis CT 07/03/17 0000 Signed Impressions: Service Date/Time: June 08:43 - CONCLUSION: 1. 1.5 cm low-density lesion within the anterior segment of the right lobe of liver which is indeterminate. Outpatient MRI of the abdomen with contrast would be helpful for further characterization of this indeterminate lesion. 2. Mild splenomegaly and very large intra-abdominal varices draining into the splenic vein suggesting portal hypertension. 3. Perigastric varices and bilateral inguinal varices are also noted. 4. Cholelithiasis. 5. Tiny right pleural effusion. 6. Minimal right basilar atelectasis and/or infiltrate. 7. Degenerative changes and scoliosis of the thoracolumbar spine. Haseeb Helms MD Physical Exam GENERAL: awake and alert, not in respiratory distress. SKIN: Cool and dry. No generalized rash, no ecchymoses and no evidence of embolic lesions. Has spider angiomatas HEAD: Atraumatic. Normocephalic. No temporal wasting, or tenderness. EYES: [place] conjunctiva. No petechia or hemorrhage. Pupils equal, round and reactive to light. Extraocular movements full and intact. Mild scleral icterus. No injection or drainage. EARS, NOSE AND THROAT: Nose without bleeding or purulent nasal discharge. No sinus tenderness. Mucous membranes pink and moist. No oral lesions noted. NECK: Trachea midline. Supple and not tender, no meningeal signs CARDIOVASCULAR: Regular rate and rhythm. No murmurs, rubs or gallops heard RESPIRATORY: Clear to auscultation. Decreased at bases. No rales, wheezing or rhonchi. R CT in place with serous fluid ABDOMEN: Soft, non-tender, nondistended. Bowel sounds present and normoactive. No guarding. No rebound. No organomegaly. EXTREMITIES: No clubbing, cyanosis, or edema. On his R foot there is an area of redness below the big toe to the 3rd toes dorsal aspect. NO swelling, (+) heat, no open wound. No calf tenderness. Well perfused and warm. NEUROLOGICAL: Grossly nonfocal. PSYCHIATRIC: Normal affect, calm and cooperative. LINE: No evidence of infection Assessment & Plan Remarks IMPRESSION MRSA bacteremia, source - due to PNA, and infected pleural fluid - has CT in place placed 07/08 - also with redness on his R foot, cellulitis on MRI Pneumonia, with empyema Known liver cirrhosis, previous ETOH, and also He p C Acute renal failure, etiology? RECOMMENDATION Follow C/S Stop Levaquin IV Teflaro which will cover PNA/empyema and bacteremia Monitor progress Follow progress of renal failure D/W Natividad Thibodeaux MD Jul 10, 2017 13:10
--- NOTE | 2017-07-10 13:52 | HHI.GIFU ---
Subjective Remarks Pt resting in bed, just back from HD. Sleepy. No GI complaints. (Stefani Hui) Objective Vitals I&O Vital Signs Date Time Temp Pulse Resp B/P (MAP) Pulse Ox O2 Delivery O2 Flow Rate FiO2 07/10/17 12:47 98.0 87 20 125/56 (79) 92 07/10/17 08:19 Room Air 07/10/17 07:46 97.8 84 20 104/52 (69) 91 07/10/17 06:28 97.6 82 19 106/51 (69) 92 07/10/17 00:00 97.8 84 20 98/52 (67) 92 07/09/17 21:00 Room Air 07/09/17 20:00 98.8 84 20 101/52 (68) 94 07/09/17 17:20 92 21 07/09/17 16:49 97.5 84 18 105/54 (71) 92 07/09/17 13:39 Nasal Cannula 2.00 I/O 07/09/17 07/09/17 07/09/17 07/10/17 07/10/17 07/10/17 07:00 15:00 23:00 07:00 15:00 23:00 Intake Total 480 ml 220 ml 30 ml 200 ml Output Total 1200 ml 200 ml 3000 ml Balance -720 ml 220 ml -170 ml -2800 ml Intake Oral 480 ml 120 ml 30 ml IV Total 100 ml 200 ml Chest Tube Drainage Total 1200 ml 200 ml Hemodialysis 3000 ml # Voids 1 1 # Bowel Movements 2 3 Laboratory Laboratory Tests Test 07/10/17 06:38 Blood Urea Nitrogen 53 Creatinine 7.97 Random Glucose 54 Albumin 1.5 Calcium Level 7.8 Phosphorus Level 5.9 Sodium Level 134 Potassium Level 5.1 Chloride Level 100 Carbon Dioxide Level 26.7 Anion Gap 7 Estimat Glomerular Filtration Rate 7 Date/Time Source Procedure Growth Status 07/07/17 20:14 Blood Peripheral Aerobic Blood Culture - Preliminary NO GROWTH IN 3 DAYS Resulted 07/07/17 20:14 Blood Peripheral Anaerobic Blood Culture - Preliminary NO GROWTH IN 3 DAYS Resulted 07/07/17 11:00 Fluid Pleural Fluid Fungal Smear - Final NO FUNGAL ELEMENTS SEEN. Resulted 07/07/17 11:00 Fluid Pleural Fluid Fungal Culture Pending Resulted 07/05/17 00:22 Sputum Expectorated Sputum Gram Stain - Final Complete 07/05/17 00:22 Sputum Expectorated Sputum Sputum Culture - Final HEAVY GROWTH NORMAL RESPIRATORY MARISELA Complete 07/06/17 22:20 Urine Clean Catch Urine Culture - Final NO GROWTH IN 48 HOURS. Complete Imaging Last Impressions Chest X-Ray 07/08/17 0000 Signed Impressions: Service Date/Time: Saturday, July 08, 2017 17:04 - CONCLUSION: 1. Interval placement of a right IJ dialysis type catheter and a [place] loop thoracostomy tube in the right lung base. 2. Interval reduction in the size of the right-sided pleural effusion seen previously. Some effusion persists. No pneumothorax. 3. Cardiomegaly with diffuse increased interstitial markings characteristic of some degree of vascular congestion/CHF. Masoud Lopez MD Chest Tube Insertion 07/08/17 0000 Signed Impressions: Service Date/Time: Saturday, July 08, 2017 16:27 - CONCLUSION: Uncomplicated chest tube placement as above. Santiago Mccartney MD Abdomen Ultrasound 07/08/17 0000 Signed Impressions: Service Date/Time: Saturday, July 08, 2017 18:00 - CONCLUSION: 1. Cirrhotic appearing liver with splenomegaly. 2. Extensive cholelithiasis. Santiago Mccartney MD Thoracentesis Ultrasound 07/07/17 0000 Signed Impressions: Service Date/Time: Friday, July 07, 2017 10:32 - CONCLUSION: Uncomplicated ultrasound guided thoracentesis. Santiago Mccartney MD Foot MRI 07/07/17 0000 Signed Impressions: Service Date/Time: Friday, July 07, 2017 15:40 - CONCLUSION: Probable mild cellulitis without osteomyelitis or deep space involvement. Josh Santiago MD FACR Chest CT 07/07/17 0000 Signed Impressions: Service Date/Time: Friday, July 07, 2017 20:53 - CONCLUSION: 1. Numerous lymph nodes with prominent induration in the right axillary region. The right axillary process needs to be considered. 2. There is now a right paratracheal enlarged lymph node. This wasn't present previously. This consistent with a reactive node given the rapid change. 3. Moderate right pleural effusion with accompanying atelectasis at the right lower lung. The effusion is worse on the current exam. 4. Gallstones Luis Miguel Villegas MD Catheter Placement X-Ray 07/07/17 0000 Signed Impressions: Service Date/Time: Friday, July 07, 2017 13:15 - CONCLUSION: Uncomplicated line placement as above. Masoud Lopez MD Renal Ultrasound 07/06/17 0000 Signed Impressions: Service Date/Time: Thursday, July 06, 2017 20:20 - CONCLUSION: 1. Normal appearance the kidneys. 2. Moderate right pleural effusion. Luis Miguel Villegas MD Chest Ultrasound 07/05/17 0000 Signed Impressions: Service Date/Time: Wednesday, July 05, 2017 12:26 - CONCLUSION: Loculated fluid as above. Josh Santiago MD FACR Foot X-Ray 07/04/17 0000 Signed Impressions: Service Date/Time: Tuesday, July 04, 2017 15:35 - CONCLUSION: Negative for fracture or dislocation. Follow up in 7-10 days is suggested if symptoms persist. Josh Santiago MD FACR Abdomen/Pelvis CT 07/03/17 0000 Signed Impressions: Service Date/Time: June 08:43 - CONCLUSION: 1. 1.5 cm low-density lesion within the anterior segment of the right lobe of liver which is indeterminate. Outpatient MRI of the abdomen with contrast would be helpful for further characterization of this indeterminate lesion. 2. Mild splenomegaly and very large intra-abdominal varices draining into the splenic vein suggesting portal hypertension. 3. Perigastric varices and bilateral inguinal varices are also noted. 4. Cholelithiasis. 5. Tiny right pleural effusion. 6. Minimal right basilar atelectasis and/or infiltrate. 7. Degenerative changes and scoliosis of the thoracolumbar spine. Haseeb Helms MD Physical Exam HEENT: PERRL; normocephalic; atraumatic; no jaundice. CHEST: CTA. chest tube right side CARDIAC: RRR ABDOMEN: obese, Soft, nontender; bowel sounds are present in all four quadrants. EXTREMITIES: trace BLE edema. SKIN: Pale; no rash; no jaundice. COMBAT CONTROL: mild lethargy (Stefani Hui) Assessment and Plan Plan ASSESSMENT/History - abnormal imaging - 1.5 cm liver lesion seen on CT as well as portal HTN, varices, cholelithiasis. hx hep c. - elevated LFTs - trending down. hx hep c. cirrhosis - elevated lipase -chronic pancreatitis. 932 on admission and now WNL. - abd pain - pt c/o lower quadrant pain, is TTP in RUQ. unclear etiology. - PNA per primary ID following 07/03/17, Low density lesion, anterior Rt. Lobe, MRI, Abd would be helpful. pending renal function. 07/05/17 liver w/u and hcv quant are pending. pt coughing. no GI complaints today. 07/06/17 liver work up pending, Fe 540, iron saturation 68.6, could be secondary to alcohol intake AFP wnl, lipase normalized liver lesion on CT, not able to have an MRI due to poor kidney function 07/07/2017, Rt. Thoracentesis today, Possible Empyema/Infection,and Rt. IJ. Nontunnel Hemodialysis Catheter. Back to , hungry, No Abdominal pain or soreness or upper GI symptoms. Labs, HGB, 11.8, no obvious bleeding, iron workup abnormal , iron deficiency possible due to ETOH/chronic disease. No constipation, Loose stools X 4 yesterday,receiving (lactulose PO). Note, elevated WBC ct. unspecified. Liver workup some still pending, AFP 3.5, Antismooth muscle ab, complement 3, low 62, Albumin levels low. 07/08/17 says he feels a bit better. s/p thoracentesis yesterday. pleural fluid + MRSA. ID following. liver w/u in progress. still waiting on hcv quant and genotype. on HD, nephrology following. 07/09/17 now with chest tube. liver w/u so far unremarkable. hcv quant still pending. 07/10/17 hcv load 30,900. no GI complaints. PLAN - MRI when renal fxn allows - await hemochromatosis, ceruloplasmin, AMA - renal diet - abx per ID - illicit drug cessation - lactulose - supportive care - f/u with GI after d/c pt seen by myself and Dr Perera, this note is on her behalf (Stefani Hui) Stefani Hui Jul 10, 2017 13:52 Chante Perera MD Jul 10, 2017 18:08
[2017-07-10] MEDS: SODIUM CHLORIDE 0.9% IV SCH (14:16)
[2017-07-10] MEDS: CEFTAROLINE IV SCH (14:16)
[2017-07-10] MEDS: ONDANSETRON HCL 4 MG/2 ML VIAL IVP PRN (14:21)
[2017-07-10 16:24] VITALS: BP 122/57; PULSE 89; RESP 20; TEMP 98.5; O2SAT 90
[2017-07-10 20:00] VITALS: BP 119/63; PULSE 85; RESP 18; TEMP 98.1; O2SAT 94
[2017-07-10 23:51] LABS: MITOCHONDRIAL ABS LESS THAN 20.0 U (<=20.0)
[2017-07-11] VITALS: BP 130/70; PULSE 80; RESP 18; TEMP 98.6; O2SAT 96
[2017-07-11] MEDS: CEFTAROLINE IV SCH ×2 (02:26→12:44)
[2017-07-11] MEDS: SODIUM CHLORIDE 0.9% IV SCH ×2 (02:26→12:44)
[2017-07-11] MEDS: traMADol HCL 50 MG TAB PO PRN ×3 (04:05→21:39)
[2017-07-11 05:00] VITALS: BP 140/71; PULSE 85; RESP 18; TEMP 97.7; O2SAT 99
[2017-07-11 07:00] VITALS: BP 126/60; PULSE 90; RESP 18; TEMP 97.8
[2017-07-11 08:10] LABS: ALBUMIN 1.8 GM/DL (3.4-5.0); BICARBONATE 27.7 MEQ/L (21.0-32.0); CALCIUM 7.8 MG/DL (8.5-10.1); CREATININE 6.96 MG/DL (0.60-1.30); PHOSPHORUS 5.6 MG/DL (2.5-4.9)
[2017-07-11] MEDS: LACTULOSE SYRUP 20 GM/30 ML CUP PO SCH ×4 (08:47→21:00)
[2017-07-11] MEDS: SODIUM CHLORIDE 0.9% FLUSH 10 ML FLUSH IV FLUSH SCH ×2 (08:47→21:00)
[2017-07-11] MEDS: ONDANSETRON HCL 4 MG/2 ML VIAL IVP PRN (09:13)
[2017-07-11 09:59] LABS: BACTERIA, URINE MANY /hpf; BLOOD, URINE MOD (NEG); GLUCOSE,URINE NEG (NEG); HYALINE CAST, URINE 16 /lpf (RARE); KETONE, URINE NEG (NEG); NITRITE,URINE NEG (NEG); SQUAMOUS EPITHELIAL CELL URINE 21 /hpf (0-5)
[2017-07-11 10:00] LABS: BILIRUBIN, URINE NEG (NEG); URINE COLOR BROWN (YELLW/STRAW)
[2017-07-11 10:01] LABS: AMORPHOUS SEDIMENT, URINE SMALL; URINE LEUKOCYTE ESTERASE SMALL (NEG)
--- NOTE | 2017-07-11 10:51 | HHI.PR ---
Subjective Remarks Follow-up for MRSA bacteremia, severe sepsis, acute kidney injury, pneumonia. Patient is currently doing well. Chest tube continues to drain but has slowed down. No fever or chills. Objective Vitals Vital Signs Date Time Temp Pulse Resp B/P (MAP) Pulse Ox O2 Delivery O2 Flow Rate FiO2 07/11/17 10:27 Nasal Cannula 2.00 07/11/17 07:00 97.8 90 18 126/60 (82) 07/11/17 05:00 97.7 85 18 140/71 (94) 99 07/11/17 00:00 98.6 80 18 130/70 (90) 96 07/10/17 20:00 98.1 85 18 119/63 (81) 94 07/10/17 16:24 98.5 89 20 122/57 (78) 90 07/10/17 12:47 98.0 87 20 125/56 (79) 92 I/O 07/10/17 07/10/17 07/10/17 07/11/17 07/11/17 07/11/17 07:00 15:00 23:00 07:00 15:00 23:00 Intake Total 30 ml 200 ml Output Total 200 ml 3000 ml 300 ml Balance -170 ml -2800 ml -300 ml Intake Oral 30 ml IV Total 200 ml Output Urine Total 50 ml Chest Tube Drainage Total 200 ml 250 ml Hemodialysis 3000 ml # Voids 1 3 # Bowel Movements 3 2 Result Diagram: 07/08/17 0630 07/11/17 0549 Imaging Last Impressions Chest X-Ray 07/08/17 0000 Signed Impressions: Service Date/Time: Saturday, July 08, 2017 17:04 - CONCLUSION: 1. Interval placement of a right IJ dialysis type catheter and a [place] loop thoracostomy tube in the right lung base. 2. Interval reduction in the size of the right-sided pleural effusion seen previously. Some effusion persists. No pneumothorax. 3. Cardiomegaly with diffuse increased interstitial markings characteristic of some degree of vascular congestion/CHF. Masoud Lopez MD Chest Tube Insertion 07/08/17 0000 Signed Impressions: Service Date/Time: Saturday, July 08, 2017 16:27 - CONCLUSION: Uncomplicated chest tube placement as above. Santiago Mccartney MD Abdomen Ultrasound 07/08/17 0000 Signed Impressions: Service Date/Time: Saturday, July 08, 2017 18:00 - CONCLUSION: 1. Cirrhotic appearing liver with splenomegaly. 2. Extensive cholelithiasis. Santiago Mccartney MD Thoracentesis Ultrasound 07/07/17 0000 Signed Impressions: Service Date/Time: Friday, July 07, 2017 10:32 - CONCLUSION: Uncomplicated ultrasound guided thoracentesis. Santiago Mccartney MD Foot MRI 07/07/17 0000 Signed Impressions: Service Date/Time: Friday, July 07, 2017 15:40 - CONCLUSION: Probable mild cellulitis without osteomyelitis or deep space involvement. Josh Santiago MD FACR Chest CT 07/07/17 0000 Signed Impressions: Service Date/Time: Friday, July 07, 2017 20:53 - CONCLUSION: 1. Numerous lymph nodes with prominent induration in the right axillary region. The right axillary process needs to be considered. 2. There is now a right paratracheal enlarged lymph node. This wasn't present previously. This consistent with a reactive node given the rapid change. 3. Moderate right pleural effusion with accompanying atelectasis at the right lower lung. The effusion is worse on the current exam. 4. Gallstones Luis Miguel Villegas MD Catheter Placement X-Ray 07/07/17 0000 Signed Impressions: Service Date/Time: Friday, July 07, 2017 13:15 - CONCLUSION: Uncomplicated line placement as above. Masoud Lopez MD Renal Ultrasound 07/06/17 0000 Signed Impressions: Service Date/Time: Thursday, July 06, 2017 20:20 - CONCLUSION: 1. Normal appearance the kidneys. 2. Moderate right pleural effusion. Luis Miguel Villegas MD Chest Ultrasound 07/05/17 0000 Signed Impressions: Service Date/Time: Wednesday, July 05, 2017 12:26 - CONCLUSION: Loculated fluid as above. Josh Santiago MD FACR Foot X-Ray 07/04/17 0000 Signed Impressions: Service Date/Time: Tuesday, July 04, 2017 15:35 - CONCLUSION: Negative for fracture or dislocation. Follow up in 7-10 days is suggested if symptoms persist. Josh Santiago MD FACR Abdomen/Pelvis CT 07/03/17 0000 Signed Impressions: Service Date/Time: June 08:43 - CONCLUSION: 1. 1.5 cm low-density lesion within the anterior segment of the right lobe of liver which is indeterminate. Outpatient MRI of the abdomen with contrast would be helpful for further characterization of this indeterminate lesion. 2. Mild splenomegaly and very large intra-abdominal varices draining into the splenic vein suggesting portal hypertension. 3. Perigastric varices and bilateral inguinal varices are also noted. 4. Cholelithiasis. 5. Tiny right pleural effusion. 6. Minimal right basilar atelectasis and/or infiltrate. 7. Degenerative changes and scoliosis of the thoracolumbar spine. Haseeb Helms MD Objective Remarks GENERAL: SKIN: Warm and dry. HEAD: Normocephalic. EYES: No scleral icterus. No injection or drainage. NECK: Supple, trachea midline. No JVD or lymphadenopathy. CARDIOVASCULAR: Regular rate and rhythm without murmurs, gallops, or rubs. RESPIRATORY: Breath sounds equal bilaterally. No accessory muscle use. GASTROINTESTINAL: Abdomen soft, non-tender, nondistended. MUSCULOSKELETAL: No cyanosis, or edema. BACK: Nontender without obvious deformity. No CVA tenderness. Procedures Echo 07/04/2017 The left ventricular systolic function is normal with an estimated ejection fraction in the range of 60-65%. Wall thickness is measured at the upper limits of normal. No regional wall motion abnormalities are present. Normal left ventricular size. There is trace tricuspid valve regurgitation. The estimated pulmonary arterial pressure is 33 mmHg. 07/08/2017 -right-sided chest tube placement by interventional radiology. A/P Problem List: (1) Sepsis ICD Code: A41.9 - Sepsis, unspecified organism Status: Acute (2) Pneumonia ICD Code: J18.9 - Pneumonia, unspecified organism Status: Acute (3) Bandemia ICD Code: D72.825 - Bandemia Status: Acute (4) Elevated lipase ICD Code: R74.8 - Abnormal levels of other serum enzymes Status: Acute (5) Hypertension ICD Code: I10 - Essential (primary) hypertension Status: Acute (6) Axillary lymphadenopathy ICD Code: R59.0 - Localized enlarged lymph nodes Assessment and Plan On 07/03/2017, Mr. Wade, a 46 year old male presented to the ED due to flu like symptoms despite being treated for flu by his PCP. He complained of right- sided pleuritic chest pain. He reported fever and chills. Temperature in the emergency department was 101.2F. CT chest showed right pleural effusion with some atelectasis. CT abdomen pelvis showed a liver lesion. Severe sepsis - resolved. MRSA bacteremia MRSA pneumonia Empyema - pleural fluid grew MRSA Pneumonia on CT chest, liver lesion, right axillary lymphadenopathy, possible cellulitis Pleural fluid cx grew MRSA. Blood cx also grew MRSA. Appreciate ID input. Currently patient is on Ceftaroline 200mg Q12hrs to cover MRSA pneumonia and bacteremia. 07/05 - Echo showed no vegetation. Chest tube placed on the right side on 07/08/2017 Acetaminophen, tramadol as needed for pain. acute kidney injury Creatinine 0.8 on 07/04/2017. Cr 6.62 on 07/09/2017. Now on dialysis. Possibly due to vancomycin as well as post infectious Continue dialysis per Nephrology. Thrombocytopenia - improved. PLT 148K on 07/08/2017. Will obtain CBC, BMP in the AM. Full code. SCDs. Problem Qualifiers (1) Sepsis: Qualified Codes: A41.9 - Sepsis, unspecified organism (2) Pneumonia: Qualified Codes: J18.1 - Lobar pneumonia, unspecified organism (3) Hypertension: Qualified Codes: I10 - Essential (primary) hypertension Keanu Faustin DO Jul 11, 2017 10:51 am
[2017-07-11 11:51] LABS: CERULOPLASMIN 26 mg/dL (18-36)
--- NOTE | 2017-07-11 13:43 | HHI.GIFU ---
Subjective Remarks Pt lying in bed Lunch tray at bedside, he has not eaten any of it States no appetite Some nausea, denies emesis Denies abdominal pain Reports multiple watery BMs (Josi Lao) Objective Vitals I&O Vital Signs Date Time Temp Pulse Resp B/P (MAP) Pulse Ox O2 Delivery O2 Flow Rate FiO2 07/11/17 10:27 Nasal Cannula 2.00 07/11/17 07:00 97.8 90 18 126/60 (82) 07/11/17 05:00 97.7 85 18 140/71 (94) 99 07/11/17 00:00 98.6 80 18 130/70 (90) 96 07/10/17 20:00 98.1 85 18 119/63 (81) 94 07/10/17 16:24 98.5 89 20 122/57 (78) 90 I/O 07/10/17 07/10/17 07/10/17 07/11/17 07/11/17 07/11/17 07:00 15:00 23:00 07:00 15:00 23:00 Intake Total 30 ml 200 ml Output Total 200 ml 3000 ml 300 ml 100 ml Balance -170 ml -2800 ml -300 ml -100 ml Intake Oral 30 ml IV Total 200 ml Output Urine Total 50 ml 100 ml Chest Tube Drainage Total 200 ml 250 ml Hemodialysis 3000 ml # Voids 1 3 # Bowel Movements 3 2 1 Laboratory Laboratory Tests Test 07/11/17 05:49 07/11/17 09:10 Blood Urea Nitrogen 43 Creatinine 6.96 Random Glucose 69 Albumin 1.8 Calcium Level 7.8 Phosphorus Level 5.6 Sodium Level 136 Potassium Level 4.4 Chloride Level 99 Carbon Dioxide Level 27.7 Anion Gap 9 Estimat Glomerular Filtration Rate 9 Urine Color BROWN Urine Turbidity CLOUDY Urine pH 6.0 Urine Specific [place] 1.023 Urine Protein 300 Urine Glucose (UA) NEG Urine Ketones NEG Urine Occult Blood MOD Urine Nitrite NEG Urine Bilirubin NEG Urine Urobilinogen LESS THAN 2.0 Urine Leukocyte Esterase SMALL Urine RBC 98 Urine WBC Urine Squamous Epithelial Cells 21 Urine Amorphous Sediment SMALL Urine Bacteria MANY Urine Hyaline Casts 16 Urine Yeast with Hyphae MANY Urine Yeast (Budding) MANY Microscopic Urinalysis Comment CATH-CULTURE IND Urine Eosinophils NONE SEEN Date/Time Source Procedure Growth Status 07/07/17 20:14 Blood Peripheral Aerobic Blood Culture - Preliminary NO GROWTH IN 4 DAYS Resulted 07/07/17 20:14 Blood Peripheral Anaerobic Blood Culture - Preliminary NO GROWTH IN 4 DAYS Resulted 07/07/17 11:00 Fluid Pleural Fluid Fungal Smear - Final NO FUNGAL ELEMENTS SEEN. Resulted 07/07/17 11:00 Fluid Pleural Fluid Fungal Culture Pending Resulted 07/05/17 00:22 Sputum Expectorated Sputum Gram Stain - Final Complete 07/05/17 00:22 Sputum Expectorated Sputum Sputum Culture - Final HEAVY GROWTH NORMAL RESPIRATORY MARISELA Complete 07/11/17 09:10 Urine Catheterized Urine Urine Culture Pending Received Imaging Last Impressions Chest X-Ray 07/08/17 0000 Signed Impressions: Service Date/Time: Saturday, July 08, 2017 17:04 - CONCLUSION: 1. Interval placement of a right IJ dialysis type catheter and a [place] loop thoracostomy tube in the right lung base. 2. Interval reduction in the size of the right-sided pleural effusion seen previously. Some effusion persists. No pneumothorax. 3. Cardiomegaly with diffuse increased interstitial markings characteristic of some degree of vascular congestion/CHF. Masoud Lopez MD Chest Tube Insertion 07/08/17 0000 Signed Impressions: Service Date/Time: Saturday, July 08, 2017 16:27 - CONCLUSION: Uncomplicated chest tube placement as above. Santiago Mccartney MD Abdomen Ultrasound 07/08/17 0000 Signed Impressions: Service Date/Time: Saturday, July 08, 2017 18:00 - CONCLUSION: 1. Cirrhotic appearing liver with splenomegaly. 2. Extensive cholelithiasis. Santiago Mccartney MD Thoracentesis Ultrasound 07/07/17 0000 Signed Impressions: Service Date/Time: Friday, July 07, 2017 10:32 - CONCLUSION: Uncomplicated ultrasound guided thoracentesis. Santiago Mccartney MD Foot MRI 07/07/17 0000 Signed Impressions: Service Date/Time: Friday, July 07, 2017 15:40 - CONCLUSION: Probable mild cellulitis without osteomyelitis or deep space involvement. Josh Santiago MD FACR Chest CT 07/07/17 0000 Signed Impressions: Service Date/Time: Friday, July 07, 2017 20:53 - CONCLUSION: 1. Numerous lymph nodes with prominent induration in the right axillary region. The right axillary process needs to be considered. 2. There is now a right paratracheal enlarged lymph node. This wasn't present previously. This consistent with a reactive node given the rapid change. 3. Moderate right pleural effusion with accompanying atelectasis at the right lower lung. The effusion is worse on the current exam. 4. Gallstones Luis Miguel Villegas MD Catheter Placement X-Ray 07/07/17 0000 Signed Impressions: Service Date/Time: Friday, July 07, 2017 13:15 - CONCLUSION: Uncomplicated line placement as above. Masoud Lopez MD Renal Ultrasound 07/06/17 0000 Signed Impressions: Service Date/Time: Thursday, July 06, 2017 20:20 - CONCLUSION: 1. Normal appearance the kidneys. 2. Moderate right pleural effusion. Luis Miguel Villegas MD Chest Ultrasound 07/05/17 0000 Signed Impressions: Service Date/Time: Wednesday, July 05, 2017 12:26 - CONCLUSION: Loculated fluid as above. Josh Santiago MD FACR Foot X-Ray 07/04/17 0000 Signed Impressions: Service Date/Time: Tuesday, July 04, 2017 15:35 - CONCLUSION: Negative for fracture or dislocation. Follow up in 7-10 days is suggested if symptoms persist. Josh Santiago MD FACR Abdomen/Pelvis CT 07/03/17 0000 Signed Impressions: Service Date/Time: June 08:43 - CONCLUSION: 1. 1.5 cm low-density lesion within the anterior segment of the right lobe of liver which is indeterminate. Outpatient MRI of the abdomen with contrast would be helpful for further characterization of this indeterminate lesion. 2. Mild splenomegaly and very large intra-abdominal varices draining into the splenic vein suggesting portal hypertension. 3. Perigastric varices and bilateral inguinal varices are also noted. 4. Cholelithiasis. 5. Tiny right pleural effusion. 6. Minimal right basilar atelectasis and/or infiltrate. 7. Degenerative changes and scoliosis of the thoracolumbar spine. Haseeb Helms MD Physical Exam HEENT: Normocephalic; atraumatic CHEST: Even/unlabored- R sided chest side CARDIAC: RRR ABDOMEN: Obese, soft, nontender, bowel sounds active SKIN: Pale; no rash; no jaundice. [employer]BI[employer] OFFICER: Alert and oriented x 3 (Josi Lao) Assessment and Plan Plan ASSESSMENT/History - Cirrhosis- history of hepatitis C- genotype 1 a- quant 30,900 CT abdomen and pelvis W IV contrast (07/03) --> Mild splenomegaly and very large intra-abdominal varices draining into the splenic vein suggestion portal HTN. Perigastric varices and bilateral inguinal varices are also noted. Cholelithiasis. US abdomen (07/08) --> Cirrhotic appearing liver with splenomegaly. Extensive cholelithiasis. Liver BATRES: ROBERT, ASMA negative. AMA < 20. Iron-94 TIBC-141 %sat-68.6 Ferritin-540 U7V-644 Ceruloplasmin-26 Ammonia-22 - Liver lesion on CT --> 1.5 cm low-density lesion within the anterior segment of the right lobe of the liver which is indeterminate. Outpatient MRI with contrast suggested. Unable to do at this time, given poor renal function. AFP-3.5 - Elevated lipase- CT states unremarkable pancreas- Lipase 932 on 07/03 now WNL - Thrombocytopenia- improving. platelets currently 148 - Anemia- multifactoria- macrocytic- H/H stable currently 11.1/32.7 - Empyema- pleural fluid (+) MRSA- ID following - RODOLFO on dialysis PLAN - MRI to assess liver lesion when renal function improves - HFE pending - Renal diet - Monitor labs - Further recommendations based on clinical course Pt has been seen and examined by myself and Dr. Perera and this note is written on her behalf (Josi Lao) Josi Lao Jul 11, 2017 13:43 Chante Perera MD Jul 11, 2017 16:09
--- NOTE | 2017-07-11 14:04 | HHI.NPPN ---
Subjective Renal Failure: Acute Interval History Dialyzed yesterday, 3L UF. Mother at bedside. Chest tube is draining. (Lisa Tovar) Review of Systems General Constitutional: Fatigue (Lisa Tovar) Objective Data Data 07/11/17 07/12/17 19:00 07:00 Intake Total 100 ml Output Total 100 ml Balance 0 ml IV Total 100 ml Output Urine Total 100 ml # Bowel Movements 1 Vital Signs Date Time Temp Pulse Resp B/P (MAP) Pulse Ox O2 Delivery O2 Flow Rate FiO2 07/11/17 10:27 Nasal Cannula 2.00 07/11/17 07:00 97.8 90 18 126/60 (82) 07/11/17 05:00 97.7 85 18 140/71 (94) 99 07/11/17 00:00 98.6 80 18 130/70 (90) 96 07/10/17 20:00 98.1 85 18 119/63 (81) 94 07/10/17 16:24 98.5 89 20 122/57 (78) 90 (Lisa Tovar) -: 07/08/17 0630 07/11/17 0549 Microbiology 07/11/17 Urine Culture, Received Pending Tubes & Lines: Vas-Cath Tubes & Lines Comment R chest tube (Lisa Tovar) Physical Exam General Appearance: Well Developed, No Acute Distress, Comfortable (Lisa Tovar) Eyes Eye Exam: Pupils Equal (Lisa Tovar) Pulmonary Resp Exam: Clear Bilaterally, Breath Sounds Equal (Lisa Tovar) Cardiology CV Exam: Regular, Normal Sinus Rhythm (Lisa Tovar) Gastrointestinal/Abdomen GI Exam: Soft, Non-Tender, Bowel Sounds Present (Lisa Tovar) Musculoskeletal MS Exam: Joints Intact, Normal Gait, Normal Tone, Good Strength (Lisa Tovar) Integumentary Skin Exam: Warm, Dry, Intact (Lisa Tovar) Extremeties Extremities Exam: Pedal Pulses Palpable, Moderate Edema (Lisa Tovar) Neurologic Neuro Exam: Alert, Awake, Oriented, Speech Clear, Moving All Extremities (Lisa Tovar) Psychiatric Psych Exam: Appropriate Responses (Lisa Tovar) Assessment/Plan Discussed Condition With: Patient Assessment Summary: RODOLFO/Acute Renal Failure Problem List: (1) Acute kidney injury ICD Codes: N17.9 - Acute kidney failure, unspecified Plan: Etiology is uncertain. May have developed Vancomycin induced nephrotoxicity. Vanc was stopped. he was also on Ibuprofen and ANSELMO inhibitor, those were also stopped. Other possibilities: ATN due to sepsis and Post infectious GN. C3 is low Hepatorenal syndrome is less likely. Hepatitis C related Cryoglobulinemic Vasculitis also considered, cryoglobulin level in progress. Vascath placed and HD initiated 07/07 and HD tomorrow if needed (TTS) Monitor urine output Avoid IVF, nephrotoxic agents. (2) Sepsis ICD Codes: A41.9 - Sepsis, unspecified organism Status: Acute Plan: ID following s/p thoracentesis 07/07. Has MRSA, empyema. chest tube placed on right. On Teflaro, off Levaquin Monitor clinically. (3) Hypertension ICD Codes: I10 - Essential (primary) hypertension Status: Acute Plan: Hold antihypertensives for now. (4) Hepatitis C infection ICD Codes: B19.20 - Unspecified viral hepatitis C without hepatic coma Status: Acute Plan: Workup is in progress. GI and ID following. (Lisa Tovar) Plan patient was seen and examined on 07/11/17. Agree with above assessment and plan. Monitor for signs of renal recovery. (Bj Amaya MD) Problem Qualifiers (1) Sepsis: Qualified Codes: A41.9 - Sepsis, unspecified organism (2) Hypertension: Qualified Codes: I10 - Essential (primary) hypertension Lisa Tovar Jul 11, 2017 14:04 Bj Amaya MD Jul 14, 2017 09:37
--- NOTE | 2017-07-11 14:08 | HHI.IDPN ---
Subjective Subjective Remarks Patient is a 46-year-old male who presented to the emergency room with complaint of flulike symptoms for about a week. Patient reports he has been having right-sided pleuritic type chest pain. He describes pain as heavy in character, present all the time, worse with coughing and deep breathing. he initially had dry cough but recently started bringing up blood. He was seen by his PCP who was treating him for the flu empirically. he started Tamiflu about 2 days prior to admission. he also has had fevers and unf2ahu. No abdominal pain, no N/V, no complaints. In the ED, his temp was 102. Influenza testing negative. One of 2 BC now reported as growing MRSA. His temps are better. CXR clear. CT chest with R pleural effusion with some atelectasis. CT A/P with a lesion in liver. evidence of portal hypertension. Infectious Disease consultation has been requested to evaluate patient with MRSA bacteremia. Notes reviewed Temps ok Tired CT output still a lot but has decreased Last CXR 07/08 BC with MRSA 07/03, and 07/04 Pleural fluid C/S MRSA Echo ok MRI foot no deep infection Follow-up BC negative MRSA S to Teflaro Antibiotics Teflaro Current Medications Medications (Trade) Dose Ordered Sig/Cassandra Route Start Time Stop Time Status Last Admin (NS Flush) 2 ml UNSCH PRN IV FLUSH 07/03/17 10:15 07/11/17 02:27 (NS Flush) 2 ml BID IV FLUSH 07/03/17 21:00 07/11/17 08:47 (Tylenol) 650 mg Q4H PRN PO 07/03/17 10:15 07/06/17 21:06 (Zofran Inj) 4 mg Q6H PRN IVP 07/03/17 10:15 07/11/17 09:13 (Narcan Inj) 0.4 mg UNSCH PRN IV PUSH 07/03/17 10:15 (Neurontin) 600 mg BID PO 07/04/17 09:00 Future Hold 07/06/17 09:14 (Tessalon) 200 mg TID PRN PO 07/04/17 11:45 07/07/17 20:32 (Lactulose Liq) 30 ml QID PO 07/06/17 13:00 07/11/17 08:47 Sodium Chloride 1,000 ml @ 0 mls/hr Q0M PRN OTHER 07/07/17 09:15 (Heparin Inj) 8,000 units UNSCH PRN IV FLUSH 07/07/17 09:15 Sodium Chloride 1,000 ml @ 200 mls/hr Q5H PRN IV 07/07/17 09:15 Sodium Chloride 1,000 ml @ 0 mls/hr Q0M PRN OTHER 07/07/17 09:15 (Mannitol Inj) 12.5 gm UNSCH PRN IV 07/07/17 09:15 07/08/17 10:02 Albumin Human 100 ml @ 60 mls/hr UNSCH PRN IV 07/07/17 09:15 07/10/17 09:00 (NS Flush) 5 ml UNSCH PRN IV FLUSH 07/07/17 09:15 (Heparin Inj) UNSCH PRN .XX 07/07/17 09:15 07/10/17 11:37 (Gentamicin Inj) 20 mg UNSCH PRN OTHER 07/07/17 09:15 07/10/17 11:37 (Zofran Inj) 4 mg UNSCH PRN IV PUSH 07/07/17 09:15 (Tylenol) 650 mg UNSCH PRN PO 07/07/17 09:15 (Benadryl) 25 mg UNSCH PRN PO 07/07/17 09:15 (Nitrostat Sl) 0.4 mg UNSCH PRN SL 07/07/17 09:15 (Catapres) 0.1 mg UNSCH PRN PO 07/07/17 09:15 (Gelfoam 12 Mm/7 Mm Top) 1 foam UNSCH PRN TOP 07/07/17 09:15 (NS Flush) UNSCH PRN IV FLUSH 07/07/17 13:45 (Heparin Inj) UNSCH PRN IV FLUSH 07/07/17 13:45 07/08/17 11:10 (Ultram) 50 mg Q8H PRN PO 07/08/17 13:45 07/11/17 12:00 Ceftaroline Fosamil 200 mg/ Sodium Chloride 100 ml @ 100 mls/hr Q12H IV 07/10/17 14:00 07/11/17 12:44 Lines No evidence of infection Past Medical History Hypertension Herniated disc Hepatitis C (untreated) Ruptured diverticular abscess Past Surgical History ?Left thoracotomy for pleurisy. Allergies: Coded Allergies: No Known Allergies (Verified Allergy, Unknown, 07/04/17) Objective . Vital Signs Date Time Temp Pulse Resp B/P (MAP) Pulse Ox O2 Delivery O2 Flow Rate FiO2 07/11/17 10:27 Nasal Cannula 2.00 07/11/17 07:00 97.8 90 18 126/60 (82) 07/11/17 05:00 97.7 85 18 140/71 (94) 99 07/11/17 00:00 98.6 80 18 130/70 (90) 96 07/10/17 20:00 98.1 85 18 119/63 (81) 94 07/10/17 16:24 98.5 89 20 122/57 (78) 90 07/11/17 07/11/17 07/12/17 15:00 23:00 07:00 Intake Total 100 ml Output Total 100 ml Balance 0 ml IV Total 100 ml Output Urine Total 100 ml # Bowel Movements 1 . Laboratory Tests Test 07/10/17 06:38 07/11/17 05:49 Blood Urea Nitrogen 53 MG/DL 43 MG/DL Creatinine 7.97 MG/DL 6.96 MG/DL Random Glucose 54 MG/DL 69 MG/DL Albumin 1.5 GM/DL 1.8 GM/DL Calcium Level 7.8 MG/DL 7.8 MG/DL Phosphorus Level 5.9 MG/DL 5.6 MG/DL Sodium Level 134 MEQ/L 136 MEQ/L Potassium Level 5.1 MEQ/L 4.4 MEQ/L Chloride Level 100 MEQ/L 99 MEQ/L Carbon Dioxide Level 26.7 MEQ/L 27.7 MEQ/L Anion Gap 7 MEQ/L 9 MEQ/L Estimat Glomerular Filtration Rate 7 ML/MIN 9 ML/MIN Microbiology Date/Time Source Procedure Growth Status 07/11/17 09:10 Urine Catheterized Urine Urine Culture Pending Received Imaging Last Impressions Chest X-Ray 07/07/17 0000 Signed Impressions: Service Date/Time: Friday, July 07, 2017 11:23 - CONCLUSION: No pneumothorax. Santiago Mccartney MD Renal Ultrasound 07/06/17 0000 Signed Impressions: Service Date/Time: Thursday, July 06, 2017 20:20 - CONCLUSION: 1. Normal appearance the kidneys. 2. Moderate right pleural effusion. Luis Miguel Villegas MD Chest Ultrasound 07/05/17 0000 Signed Impressions: Service Date/Time: Wednesday, July 05, 2017 12:26 - CONCLUSION: Loculated fluid as above. Josh Santiago MD FACR Foot X-Ray 07/04/17 0000 Signed Impressions: Service Date/Time: Tuesday, July 04, 2017 15:35 - CONCLUSION: Negative for fracture or dislocation. Follow up in 7-10 days is suggested if symptoms persist. Josh Santiago MD FACR Chest CT 07/03/17 0000 Signed Impressions: Service Date/Time: June 12:16 - CONCLUSION: 1. Extensive stranding with prominent lymph nodes in the right axilla measuring upwards of 1.6 cm in diameter. Does the patient have clinical symptomatology to suggest a cellulitis in this area? 2. Mild, generalized anasarca with some interstitial prominence in both lungs as well the visualized portions of the upper mesentery. Findings are nonspecific but can be seen in entity such as overwhelming sepsis. 3. Calcified gallstones. 4. Small right-sided pleural effusion with associated atelectatic changes. 5. Atretic left sixth rib could be congenital or postsurgical. Old healed rib fractures involving the lateral aspect of #3 and 4 on the left. 6. Mild gynecomastia. Again, nonspecific finding that can be seen with certain medications. Masoud Lopez MD Abdomen/Pelvis CT 07/03/17 0000 Signed Impressions: Service Date/Time: June 08:43 - CONCLUSION: 1. 1.5 cm low-density lesion within the anterior segment of the right lobe of liver which is indeterminate. Outpatient MRI of the abdomen with contrast would be helpful for further characterization of this indeterminate lesion. 2. Mild splenomegaly and very large intra-abdominal varices draining into the splenic vein suggesting portal hypertension. 3. Perigastric varices and bilateral inguinal varices are also noted. 4. Cholelithiasis. 5. Tiny right pleural effusion. 6. Minimal right basilar atelectasis and/or infiltrate. 7. Degenerative changes and scoliosis of the thoracolumbar spine. Haseeb Helms MD Physical Exam GENERAL: awake and alert, not in respiratory distress. SKIN: Cool and dry. No generalized rash, no ecchymoses and no evidence of embolic lesions. Has spider angiomatas HEAD: Atraumatic. Normocephalic. No temporal wasting, or tenderness. EYES: [place] conjunctiva. No petechia or hemorrhage. Pupils equal, round and reactive to light. Extraocular movements full and intact. Mild scleral icterus. No injection or drainage. EARS, NOSE AND THROAT: Nose without bleeding or purulent nasal discharge. No sinus tenderness. Mucous membranes pink and moist. No oral lesions noted. NECK: Trachea midline. Supple and not tender, no meningeal signs CARDIOVASCULAR: Regular rate and rhythm. No murmurs, rubs or gallops heard RESPIRATORY: Clear to auscultation. Decreased at bases. No rales, wheezing or rhonchi. R CT in place with serous fluid ABDOMEN: Soft, non-tender, nondistended. Bowel sounds present and normoactive. No guarding. No rebound. No organomegaly. EXTREMITIES: No clubbing, cyanosis, or edema. R foot stable. No calf tenderness. Well perfused and warm. NEUROLOGICAL: Grossly nonfocal. PSYCHIATRIC: Normal affect, calm and cooperative. LINE: No evidence of infection Assessment & Plan Remarks IMPRESSION MRSA bacteremia, source - due to PNA, and infected pleural fluid - has CT in place placed 07/08 - also with redness on his R foot, cellulitis on MRI Pneumonia, with empyema Known liver cirrhosis, previous ETOH, and also He p C Acute renal failure, etiology? RECOMMENDATION Continue IV Teflaro which will cover PNA/empyema and bacteremia Repeat CXR Monitor progress Follow progress of renal failure D/W Natividad Thibodeaux MD Jul 11, 2017 14:08
[2017-07-11 16:29] LABS: HEREDITARY HEMOCHROM SPECIMEN WB Whole Blood
[2017-07-11 16:45] VITALS: BP 125/60; PULSE 78; RESP 20; TEMP 97.5; O2SAT 91
--- NOTE | 2017-07-11 16:53 | HHI.PR ---
Subjective Remarks Late entry for 07/10/2017 Follow-up for MRSA bacteremia, severe sepsis, acute kidney injury, pneumonia. Doing well. No acute concerns. Objective Vitals Vital Signs Date Time Temp Pulse Resp B/P (MAP) Pulse Ox O2 Delivery O2 Flow Rate FiO2 07/11/17 16:45 97.5 78 20 125/60 (81) 91 07/11/17 10:27 Nasal Cannula 2.00 07/11/17 07:00 97.8 90 18 126/60 (82) 07/11/17 05:00 97.7 85 18 140/71 (94) 99 07/11/17 00:00 98.6 80 18 130/70 (90) 96 07/10/17 20:00 98.1 85 18 119/63 (81) 94 I/O 07/10/17 07/10/17 07/10/17 07/11/17 07/11/17 07/11/17 07:00 15:00 23:00 07:00 15:00 23:00 Intake Total 30 ml 200 ml 100 ml 660 ml Output Total 200 ml 3000 ml 300 ml 100 ml Balance -170 ml -2800 ml -300 ml 0 ml 660 ml Intake Oral 30 ml 660 ml IV Total 200 ml 100 ml Output Urine Total 50 ml 100 ml Chest Tube Drainage Total 200 ml 250 ml Hemodialysis 3000 ml # Voids 1 3 3 # Bowel Movements 3 2 1 Result Diagram: 07/08/17 0630 07/11/17 0549 Objective Remarks GENERAL: SKIN: Warm and dry. HEAD: Normocephalic. EYES: No scleral icterus. No injection or drainage. NECK: Supple, trachea midline. No JVD or lymphadenopathy. CARDIOVASCULAR: Regular rate and rhythm without murmurs, gallops, or rubs. RESPIRATORY: Breath sounds equal bilaterally. No accessory muscle use. GASTROINTESTINAL: Abdomen soft, non-tender, nondistended. MUSCULOSKELETAL: No cyanosis, or edema. BACK: Nontender without obvious deformity. No CVA tenderness. Procedures Echo 07/04/2017 The left ventricular systolic function is normal with an estimated ejection fraction in the range of 60-65%. Wall thickness is measured at the upper limits of normal. No regional wall motion abnormalities are present. Normal left ventricular size. There is trace tricuspid valve regurgitation. The estimated pulmonary arterial pressure is 33 mmHg. 07/08/2017 -right-sided chest tube placement by interventional radiology. A/P Problem List: (1) Sepsis ICD Code: A41.9 - Sepsis, unspecified organism Status: Acute (2) Pneumonia ICD Code: J18.9 - Pneumonia, unspecified organism Status: Acute (3) Bandemia ICD Code: D72.825 - Bandemia Status: Acute (4) Elevated lipase ICD Code: R74.8 - Abnormal levels of other serum enzymes Status: Acute (5) Hypertension ICD Code: I10 - Essential (primary) hypertension Status: Acute (6) Axillary lymphadenopathy ICD Code: R59.0 - Localized enlarged lymph nodes Assessment and Plan On 07/03/2017, Mr. Wade, a 46 year old male presented to the ED due to flu like symptoms despite being treated for flu by his PCP. He complained of right- sided pleuritic chest pain. He reported fever and chills. Temperature in the emergency department was 101.2F. CT chest showed right pleural effusion with some atelectasis. CT abdomen pelvis showed a liver lesion. Severe sepsis - resolved. MRSA bacteremia MRSA pneumonia Empyema - pleural fluid grew MRSA Pneumonia on CT chest, liver lesion, right axillary lymphadenopathy, possible cellulitis Pleural fluid cx grew MRSA. Blood cx also grew MRSA. Appreciate ID input. Currently patient is on Ceftaroline 200mg Q12hrs to cover MRSA pneumonia and bacteremia. 07/05 - Echo showed no vegetation. Chest tube placed on the right side on 07/08/2017 Acetaminophen, tramadol as needed for pain. acute kidney injury Creatinine 0.8 on 07/04/2017. Cr 6.62 on 07/09/2017. Now on dialysis. Possibly due to vancomycin as well as post infectious Continue dialysis per Nephrology. Thrombocytopenia - improved. PLT 148K on 07/08/2017. Full code. SCDs. Problem Qualifiers (1) Sepsis: Qualified Codes: A41.9 - Sepsis, unspecified organism (2) Pneumonia: Qualified Codes: J18.1 - Lobar pneumonia, unspecified organism (3) Hypertension: Qualified Codes: I10 - Essential (primary) hypertension Keanu Faustin DO Jul 11, 2017 16:53
--- NOTE | 2017-07-11 17:36 | HHI.PR ---
Subjective Remarks doing ok s/p chesttube insertion has sig drainage Objective Vital Signs Date Time Temp Pulse Resp B/P (MAP) Pulse Ox O2 Delivery O2 Flow Rate FiO2 07/11/17 16:45 97.5 78 20 125/60 (81) 91 07/11/17 10:27 Nasal Cannula 2.00 07/11/17 07:00 97.8 90 18 126/60 (82) 07/11/17 05:00 97.7 85 18 140/71 (94) 99 07/11/17 00:00 98.6 80 18 130/70 (90) 96 07/10/17 20:00 98.1 85 18 119/63 (81) 94 I/O 07/10/17 07/10/17 07/10/17 07/11/17 07/11/17 07/11/17 07:00 15:00 23:00 07:00 15:00 23:00 Intake Total 30 ml 200 ml 100 ml 660 ml Output Total 200 ml 3000 ml 300 ml 100 ml Balance -170 ml -2800 ml -300 ml 0 ml 660 ml Intake Oral 30 ml 660 ml IV Total 200 ml 100 ml Output Urine Total 50 ml 100 ml Chest Tube Drainage Total 200 ml 250 ml Hemodialysis 3000 ml # Voids 1 3 3 # Bowel Movements 3 2 1 Result Diagram: 07/08/17 0630 07/11/17 0549 Objective Remarks General appearance no acute distress Lungs decreased heart sounds over both bases Heart S1-S2 abdomen is soft obese Extremities mild edema Neurologic alert oriented 3 Assessment and Plan Assessment and Plan Pneumonia Empyema MRSA bacteremia The patient will need to continue on the chest tube to suction Continue antibiotics as per ID recommendation consult Cv surgery regarding ? need vats the patient astill has a lot of ct drainage Tramaine Smith MD Jul 11, 2017 17:36
[2017-07-11 20:00] VITALS: BP 140/81; PULSE 75; RESP 18; TEMP 97.6; O2SAT 95
[2017-07-12] VITALS: BP 130/66; PULSE 80; RESP 18; TEMP 98.5; O2SAT 93
[2017-07-12] MEDS: CEFTAROLINE IV SCH ×2 (01:45→13:10)
[2017-07-12] MEDS: SODIUM CHLORIDE 0.9% IV SCH ×2 (01:45→13:10)
[2017-07-12] MEDS: BENZONATATE 100 MG CAP PO PRN (02:57)
[2017-07-12] MEDS: ACETAMINOPHEN 325 MG TAB PO PRN (02:58)
[2017-07-12 05:00] VITALS: BP 142/71; PULSE 84; RESP 18; TEMP 97; O2SAT 91
[2017-07-12] MEDS: traMADol HCL 50 MG TAB PO PRN ×3 (06:37→22:52)
[2017-07-12 08:32] VITALS: BP 115/59; PULSE 81; RESP 20; TEMP 98.3; O2SAT 92
--- NOTE | 2017-07-12 08:56 | RADRPT ---
EXAM DATE/TIME: 07/12/2017 07:57 [facility] COMPARISON: CHEST EXPIRATION ONLY, July 08, 2017, 17:04. CHEST PA & LAT, July 04, 2017, 15:41. INDICATIONS : Shortness of breath. Recent chest tube placement for pleural effusion. MEDICAL HISTORY : Hypertension. SURGICAL HISTORY : ENCOUNTER: Subsequent ACUITY: 2 days PAIN SCORE: 0/10 LOCATION: Bilateral chest FINDINGS: AP and lateral views of the chest were obtained and again demonstrate a right-sided central venous do uble-lumen catheter in place. The small bore right-sided chest tube remains in place at the right yan g base with mild blunting of the right costophrenic angle. Fluid remains in the major fissure as well as along the posterior and right lateral pleura. Remains at the upper limits of normal. There is mil d hazy opacity in the right lung. The bony thorax remains intact in appearance with old left-sided ri b fractures. CONCLUSION: 1. The small bore right-sided chest tube remains in place with stable right effusion which may be par tially loculated. 2. Hazy opacity remains in the right lung. Gato Patino MD on July 12, 2017 at 8:52 Board Certified Radiologist. This report was verified electronically.
[2017-07-12] MEDS: SODIUM CHLORIDE 0.9% FLUSH 10 ML FLUSH IV FLUSH SCH ×2 (09:10→22:52)
[2017-07-12] MEDS: LACTULOSE SYRUP 20 GM/30 ML CUP PO SCH ×4 (09:10→21:00)
--- NOTE | 2017-07-12 09:18 | PD.CONS ---
History of Present Illness Service CT Surgery Consult Requested By Dr. Smith Reason for Consult Right pleural effusion, possible empyema Primary Care Physician Kulwinder Ely MD (Paul) Diagnoses: History of Present Illness 46-year-old male who presented to the emergency room with complaint of flulike symptoms for about a week. Patient reports he has been having right-sided pleuritic type chest pain. He describes pain as heavy in character, present all the time, worse with coughing and deep breathing. Patient states he was having hemoptysis for 3 days. Last episode was yesterday. He coughs up clear to yellow mucus now. He was found to have MRSA in a blood culture and pleural fluid culture s/p right thoracentesis. He has renal failure requiring dialysis since being admitted. He has a small bore chest catheter which is draining serous fluid. He is being considered for VATS exploration and possible decortication. Review of Systems Constitutional: COMPLAINS OF: Diaphoretic episodes, Fatigue, Fever, Chills, Change in appetite, DENIES: Weight gain, Weight loss, Dizziness, Night Sweats Endocrine: DENIES: Heat/cold intolerance, Polydipsia, Polyuria, Polyphagia Eyes: DENIES: Blurred vision, Diplopia, Eye inflammation, Eye pain, Vision loss , Photosensitivity, Double Vision Ears, nose, mouth, throat: DENIES: Tinnitus, Hearing loss, Vertigo, Nasal discharge, Oral lesions, Throat pain, Hoarseness, Ear Pain, Running Nose, Epistaxis, Sinus Pain, Toothache, Odynophagia Respiratory: COMPLAINS OF: Cough, Sputum production, DENIES: Apneas, Snoring, Wheezing, Hemoptysis, Shortness of breath Cardiovascular: COMPLAINS OF: Chest pain, DENIES: Palpitations, Syncope, Dyspnea on Exertion, PND, Lower Extremity Edema, Orthopnea, Claudication Gastrointestinal: DENIES: Abdominal pain, Black stools, Bloody stools, Constipation, Diarrhea, Nausea, Vomiting, Difficulty Swallowing, Anorexia Genitourinary: DENIES: Sexual dysfunction, Urinary frequency, Urinary incontinence, Urgency, Hematuria, Dysuria, Nocturia, Penile Discharge, Testicular Pain, Testicular Swelling Musculoskeletal: COMPLAINS OF: Muscle aches, DENIES: Joint pain, Stiffness, Joint Swelling, Back pain, Neck pain Integumentary: DENIES: Abnormal pigmentation, Nail changes, Pruritus, Rash Hematologic/lymphatic: DENIES: Bruising, Lymphadenopathy Immunologic/allergic: DENIES: Eczema, Urticaria Neurologic: DENIES: Abnormal gait, Headache, Localized weakness, Paresthesias, Seizures, Speech Problems, Tremor, Poor Balance Psychiatric: DENIES: Anxiety, Confusion, Mood changes, Depression, Hallucinations, Agitation, Suicidal Ideation, Homicidal Ideation, Delusions Past Family Social History Allergies: Coded Allergies: No Known Allergies (Verified Allergy, Unknown, 07/04/17) Past Medical History Past Medical History Hypertension, disk herniation, hepatitis C (untreated), ruptured diverticular abscess Past Surgical History ?Left thoracotomy for pleurisy. Reported Gabapentin 600 Mg Tab 600 Mg PO BID Family History Reviewed and noncontributory. Social History he denies tobacco or recreational drug use. He has a hx of alcohol abuse but his last drink was reportedly 7 years ago. He denies current illicit drug use. Social History He denies illicit drug use, but his tox screen was positive for cocaine, opiates , and cannabis. Physical Exam Vital Signs Vital Signs Date Time Temp Pulse Resp B/P (MAP) Pulse Ox O2 Delivery O2 Flow Rate FiO2 07/12/17 08:32 98.3 81 20 115/59 (77) 92 07/12/17 05:00 97.0 84 18 142/71 (94) 91 07/12/17 00:00 98.5 80 18 130/66 (87) 93 07/11/17 20:00 97.6 75 18 140/81 (100) 95 07/11/17 16:45 97.5 78 20 125/60 (81) 91 07/11/17 10:27 Nasal Cannula 2.00 Physical Exam GENERAL: This is a well-nourished, well-developed patient, in no apparent distress. SKIN: No rashes, ecchymoses or lesions. Cool and dry. HEAD: Atraumatic. Normocephalic. No temporal or scalp tenderness. EYES: Pupils equal round and reactive. Extraocular motions intact. No scleral icterus. No injection or drainage. ENT: Nose without bleeding, purulent drainage or septal hematoma. Throat without erythema, tonsillar hypertrophy or exudate. Uvula midline. Airway patent. NECK: Trachea midline. No JVD or lymphadenopathy. Supple, nontender, no meningeal signs. CARDIOVASCULAR: Regular rate and rhythm without murmurs, gallops, or rubs. RESPIRATORY: Decreased BS on right. GASTROINTESTINAL: Abdomen soft, non-tender, nondistended. No hepato-splenomegaly , or palpable masses. No guarding. MUSCULOSKELETAL: Extremities without clubbing, cyanosis, or edema. No joint tenderness, effusion, or edema noted. No calf tenderness. Negative Homans sign bilaterally. NEUROLOGICAL: Awake and alert. Cranial nerves II through XII intact. Motor and sensory grossly within normal limits. Five out of 5 muscle strength in all muscle groups. Normal speech. Laboratory Laboratory Tests Test 07/11/17 09:10 Urine Color BROWN Urine Turbidity CLOUDY Urine pH 6.0 Urine Specific Wells 1.023 Urine Protein 300 Urine Glucose (UA) NEG Urine Ketones NEG Urine Occult Blood MOD Urine Nitrite NEG Urine Bilirubin NEG Urine Urobilinogen LESS THAN 2.0 Urine Leukocyte Esterase SMALL Urine RBC 98 Urine WBC Urine Squamous Epithelial Cells 21 Urine Amorphous Sediment SMALL Urine Bacteria MANY Urine Hyaline Casts 16 Urine Yeast with Hyphae MANY Urine Yeast (Budding) MANY Microscopic Urinalysis Comment CATH-CULTURE IND Urine Eosinophils NONE SEEN Date/Time Source Procedure Growth Status 07/07/17 20:14 Blood Peripheral Aerobic Blood Culture - Preliminary NO GROWTH IN 4 DAYS Resulted 07/07/17 20:14 Blood Peripheral Anaerobic Blood Culture - Preliminary NO GROWTH IN 4 DAYS Resulted 07/07/17 11:00 Fluid Pleural Fluid Fungal Smear - Final NO FUNGAL ELEMENTS SEEN. Resulted 07/07/17 11:00 Fluid Pleural Fluid Fungal Culture Pending Resulted 07/05/17 00:22 Sputum Expectorated Sputum Gram Stain - Final Complete 07/05/17 00:22 Sputum Expectorated Sputum Sputum Culture - Final HEAVY GROWTH NORMAL RESPIRATORY MARISELA Complete 07/11/17 09:10 Urine Catheterized Urine Urine Culture Pending Received Result Diagram: 07/08/17 0630 07/11/17 0549 Imaging Last Impressions Chest X-Ray 07/08/17 0000 Signed Impressions: Service Date/Time: Saturday, July 08, 2017 17:04 - CONCLUSION: 1. Interval placement of a right IJ dialysis type catheter and a [place] loop thoracostomy tube in the right lung base. 2. Interval reduction in the size of the right-sided pleural effusion seen previously. Some effusion persists. No pneumothorax. 3. Cardiomegaly with diffuse increased interstitial markings characteristic of some degree of vascular congestion/CHF. Masoud Lopez MD Chest Tube Insertion 07/08/17 0000 Signed Impressions: Service Date/Time: Saturday, July 08, 2017 16:27 - CONCLUSION: Uncomplicated chest tube placement as above. Santiago Mccartney MD Abdomen Ultrasound 07/08/17 0000 Signed Impressions: Service Date/Time: Saturday, July 08, 2017 18:00 - CONCLUSION: 1. Cirrhotic appearing liver with splenomegaly. 2. Extensive cholelithiasis. Santiago Mccartney MD Thoracentesis Ultrasound 07/07/17 0000 Signed Impressions: Service Date/Time: Friday, July 07, 2017 10:32 - CONCLUSION: Uncomplicated ultrasound guided thoracentesis. Santiago Mccartney MD Foot MRI 07/07/17 0000 Signed Impressions: Service Date/Time: Friday, July 07, 2017 15:40 - CONCLUSION: Probable mild cellulitis without osteomyelitis or deep space involvement. Josh Santiago MD FACR Chest CT 07/07/17 0000 Signed Impressions: Service Date/Time: Friday, July 07, 2017 20:53 - CONCLUSION: 1. Numerous lymph nodes with prominent induration in the right axillary region. The right axillary process needs to be considered. 2. There is now a right paratracheal enlarged lymph node. This wasn't present previously. This consistent with a reactive node given the rapid change. 3. Moderate right pleural effusion with accompanying atelectasis at the right lower lung. The effusion is worse on the current exam. 4. Gallstones Luis Miguel Villegas MD Catheter Placement X-Ray 07/07/17 0000 Signed Impressions: Service Date/Time: Friday, July 07, 2017 13:15 - CONCLUSION: Uncomplicated line placement as above. Masoud Lopez MD Renal Ultrasound 07/06/17 0000 Signed Impressions: Service Date/Time: Thursday, July 06, 2017 20:20 - CONCLUSION: 1. Normal appearance the kidneys. 2. Moderate right pleural effusion. Luis Miguel Villegas MD Chest Ultrasound 07/05/17 0000 Signed Impressions: Service Date/Time: Wednesday, July 05, 2017 12:26 - CONCLUSION: Loculated fluid as above. Josh Santiago MD FACR Foot X-Ray 07/04/17 0000 Signed Impressions: Service Date/Time: Tuesday, July 04, 2017 15:35 - CONCLUSION: Negative for fracture or dislocation. Follow up in 7-10 days is suggested if symptoms persist. Josh Santiago MD FACR Abdomen/Pelvis CT 07/03/17 0000 Signed Impressions: Service Date/Time: June 08:43 - CONCLUSION: 1. 1.5 cm low-density lesion within the anterior segment of the right lobe of liver which is indeterminate. Outpatient MRI of the abdomen with contrast would be helpful for further characterization of this indeterminate lesion. 2. Mild splenomegaly and very large intra-abdominal varices draining into the splenic vein suggesting portal hypertension. 3. Perigastric varices and bilateral inguinal varices are also noted. 4. Cholelithiasis. 5. Tiny right pleural effusion. 6. Minimal right basilar atelectasis and/or infiltrate. 7. Degenerative changes and scoliosis of the thoracolumbar spine. Haseeb Helms MD Last Impressions Chest X-Ray 07/12/17 0000 Signed Impressions: Service Date/Time: Wednesday, July 12, 2017 07:57 - CONCLUSION: 1. The small bore right-sided chest tube remains in place with stable right effusion which may be partially loculated. 2. Hazy opacity remains in the right lung. Gato Patino MD Chest CT 07/12/17 0000 Signed Impressions: Service Date/Time: Wednesday, July 12, 2017 12:19 - CONCLUSION: 1. Interval placement of right-sided percutaneous drainage catheter with mild decrease in the size of the right pleural effusion. 2. New small left pleural effusion. 3. Prominent lymph nodes and induration remaining in the right axillary region and 4. The previously noted prominence right paratracheal lymph node is stable. 5. Mild consolidation remains in the right lung base. Gato Patino MD Chest Tube Insertion 07/08/17 0000 Signed Impressions: Service Date/Time: Saturday, July 08, 2017 16:27 - CONCLUSION: Uncomplicated chest tube placement as above. Santiago Mccartney MD Abdomen Ultrasound 07/08/17 0000 Signed Impressions: Service Date/Time: Saturday, July 08, 2017 18:00 - CONCLUSION: 1. Cirrhotic appearing liver with splenomegaly. 2. Extensive cholelithiasis. Santiago Mccartney MD Thoracentesis Ultrasound 07/07/17 0000 Signed Impressions: Service Date/Time: Friday, July 07, 2017 10:32 - CONCLUSION: Uncomplicated ultrasound guided thoracentesis. Santiago Mccartney MD Foot MRI 07/07/17 0000 Signed Impressions: Service Date/Time: Friday, July 07, 2017 15:40 - CONCLUSION: Probable mild cellulitis without osteomyelitis or deep space involvement. Josh Santiago MD FACR Catheter Placement X-Ray 07/07/17 0000 Signed Impressions: Service Date/Time: Friday, July 07, 2017 13:15 - CONCLUSION: Uncomplicated line placement as above. Masoud Lopez MD Renal Ultrasound 07/06/17 0000 Signed Impressions: Service Date/Time: Thursday, July 06, 2017 20:20 - CONCLUSION: 1. Normal appearance the kidneys. 2. Moderate right pleural effusion. Luis Miguel Villegas MD Chest Ultrasound 07/05/17 0000 Signed Impressions: Service Date/Time: Wednesday, July 05, 2017 12:26 - CONCLUSION: Loculated fluid as above. Josh Santiago MD FACR Foot X-Ray 07/04/17 0000 Signed Impressions: Service Date/Time: Tuesday, July 04, 2017 15:35 - CONCLUSION: Negative for fracture or dislocation. Follow up in 7-10 days is suggested if symptoms persist. Josh Santiago MD FACR Abdomen/Pelvis CT 07/03/17 0000 Signed Impressions: Service Date/Time: June 08:43 - CONCLUSION: 1. 1.5 cm low-density lesion within the anterior segment of the right lobe of liver which is indeterminate. Outpatient MRI of the abdomen with contrast would be helpful for further characterization of this indeterminate lesion. 2. Mild splenomegaly and very large intra-abdominal varices draining into the splenic vein suggesting portal hypertension. 3. Perigastric varices and bilateral inguinal varices are also noted. 4. Cholelithiasis. 5. Tiny right pleural effusion. 6. Minimal right basilar atelectasis and/or infiltrate. 7. Degenerative changes and scoliosis of the thoracolumbar spine. Haseeb Helms MD Course Patient is now afebrile with mild leukocytosis. Recent CXR is suggestive of residual pleural effusion. Assessment and Plan Problem List: (1) Pleural effusion ICD Codes: J90 - Pleural effusion, not elsewhere classified Status: Acute Assessment and Plan 46y/o male presents with MRSA sepsis and a right pleural effusion which appears to be partially drained. His course has been complicated by renal failure. If he has a significant residual right pleural effusion, then he would benefit from thoracoscopic exploration wth possible decortication. I will request a chest CT today without contrast and follow-up tomorrow. 07/13/[address] shows moderate right pleural effusion. Recommend right VATS exploration to drain this and possible decortication. Risks and benefits discussed and he agrees to proceed. Discussed Condition With patient Pam Royal MD Jul 12, 2017 09:18
--- NOTE | 2017-07-12 09:20 | HHI.NPPN ---
Subjective Renal Failure: Acute Additional Remarks Seen during hemodialysis. Reports shortness of breath on exertion only. Mild lower extremity edema. CT to right chest wall. (Thais Lozano) Review of Systems General Constitutional: Fatigue (Thais Lozano) Respiratory Respiratory Remarks On exertion (Thais Lozano) Objective Data Data 07/12/17 07/13/17 19:00 07:00 Output Total 0 ml Balance 0 ml Chest Tube Drainage Total 0 ml Vital Signs Date Time Temp Pulse Resp B/P (MAP) Pulse Ox O2 Delivery O2 Flow Rate FiO2 07/12/17 08:32 98.3 81 20 115/59 (77) 92 07/12/17 05:00 97.0 84 18 142/71 (94) 91 07/12/17 00:00 98.5 80 18 130/66 (87) 93 07/11/17 20:00 97.6 75 18 140/81 (100) 95 07/11/17 16:45 97.5 78 20 125/60 (81) 91 07/11/17 10:27 Nasal Cannula 2.00 (Thais Lozano) -: 07/08/17 0630 07/11/17 0549 Tubes & Lines: Vas-Cath Tubes & Lines Comment R chest tube (Thais Lozano) Physical Exam General Appearance: Well Developed, No Acute Distress, Comfortable (Thais Lozano) Eyes Eye Exam: Pupils Equal (Thais Lozano) Pulmonary Resp Exam: Clear Bilaterally, Breath Sounds Equal (Thais Lozano) Cardiology CV Exam: Regular, Normal Sinus Rhythm, Murmur (Thais Lozano) Gastrointestinal/Abdomen GI Exam: Soft, Non-Tender, Bowel Sounds Present (Thais Lozano) Musculoskeletal MS Exam: Joints Intact, Normal Gait, Normal Tone, Good Strength (Thais Lozano) Integumentary Skin Exam: Warm, Dry, Intact (Thais Lozano) Extremeties Extremities Exam: Pedal Pulses Palpable, Moderate Edema (Thais Lozano) Neurologic Neuro Exam: Alert, Awake, Oriented, Speech Clear, Moving All Extremities (Thais Lozano) Psychiatric Psych Exam: Appropriate Responses (Thais Lozano) Assessment/Plan Discussed Condition With: Patient Assessment Summary: RODOLFO/Acute Renal Failure Problem List: (1) Acute kidney injury ICD Codes: N17.9 - Acute kidney failure, unspecified Plan: Etiology is uncertain. May have developed Vancomycin induced nephrotoxicity. Vanc was stopped. he was also on Ibuprofen and ANSELMO inhibitor, those were also stopped. Other possibilities: ATN due to sepsis and Post infectious GN. C3 is low Hepatorenal syndrome is less likely. Hepatitis C related Cryoglobulinemic Vasculitis also considered, cryoglobulin level in progress. Vascath placed and HD initiated 07/07 and 46 HD TTS if needed Seen during HD tolerating well. Continue to monitor urine output and BMP Creatinine at 6.96 from 7.97 Continue to Avoid IVF and nephrotoxic agents. (2) Sepsis ICD Codes: A41.9 - Sepsis, unspecified organism Status: Acute Plan: ID following s/p thoracentesis 07/07. Has MRSA, empyema. chest tube placed on right. On Teflaro, off Levaquin Monitor clinically. (3) Hypertension ICD Codes: I10 - Essential (primary) hypertension Status: Acute Plan: Hold antihypertensives for now. (4) Hepatitis C infection ICD Codes: B19.20 - Unspecified viral hepatitis C without hepatic coma Status: Acute Plan: Workup is in progress. GI and ID following. (Thais Lozano) Problem List: (1) Acute kidney injury ICD Codes: N17.9 - Acute kidney failure, unspecified Plan: Etiology is uncertain. May have developed Vancomycin induced nephrotoxicity. Vanc was stopped. he was also on Ibuprofen and ANSELMO inhibitor, those were also stopped. Other possibilities: ATN due to sepsis and Post infectious GN. C3 is low Hepatorenal syndrome is less likely. Hepatitis C related Cryoglobulinemic Vasculitis also considered, cryoglobulin level in progress. Vascath placed and HD initiated 07/07 and 46 HD TTS if needed Seen during HD tolerating well. Continue to monitor urine output and BMP Creatinine at 6.96 from 7.97 Continue to Avoid IVF and nephrotoxic agents. Patient seen and examined, agree with above. HD now, watch for renal recovery. (2) Sepsis ICD Codes: A41.9 - Sepsis, unspecified organism Status: Acute Plan: ID following s/p thoracentesis 07/07. Has MRSA, empyema. chest tube placed on right. On Teflaro, off Levaquin Monitor clinically. (3) Hypertension ICD Codes: I10 - Essential (primary) hypertension Status: Acute Plan: Hold antihypertensives for now. (4) Hepatitis C infection ICD Codes: B19.20 - Unspecified viral hepatitis C without hepatic coma Status: Acute Plan: Workup is in progress. GI and ID following. (Anne Marie eBltran MD) Problem Qualifiers (1) Sepsis: Qualified Codes: A41.9 - Sepsis, unspecified organism (2) Hypertension: Qualified Codes: I10 - Essential (primary) hypertension Thais Lozano Jul 12, 2017 09:20 Anne Marie Beltran MD Jul 12, 2017 09:27
[2017-07-12] MEDS: ONDANSETRON HCL 4 MG/2 ML VIAL IV PUSH PRN (11:25)
[2017-07-12] MEDS: HEPARIN SODIUM - IV 2,000 UNITS/2 ML VIAL IV FLUSH PRN (11:25)
[2017-07-12] MEDS: GENTAMICIN SULFATE 20 MG/2 ML VIAL OTHER PRN (11:25)
--- NOTE | 2017-07-12 12:38 | RADRPT ---
EXAM DATE/TIME: 07/12/2017 12:19 [facility] COMPARISON: CHEST PA & LAT, July 12, 2017, 7:57. CT THORAX W/O CONTRAST, July 07, 2017, 20:53. INDICATIONS : Short of breath; right pleural effusion with possible loculation.. RADIATION DOSE: 14.96 CTDIvol (mGy) MEDICAL HISTORY : Cardiovascular disease. Hypertension. Cirrhosis. SURGICAL HISTORY : Colostomy. Colectomy. ENCOUNTER: Initial ACUITY: 1 day PAIN SCALE: 3/10 LOCATION: Bilateral chest TECHNIQUE: Volumetric scanning of the chest was performed. Using automated exposure control and adjustment of t he mA and/or kV according to patient size, radiation dose was kept as low as reasonably achievable to obtain optimal diagnostic quality images. DICOM format image data is available electronically for r eview and comparison. Follow-up recommendations for detected pulmonary nodules are based at a minimum on nodule size and pa tient risk factors according to Fleischner Society Guidelines. FINDINGS: LUNGS: There is no consolidation or pneumothorax. No concerning pulmonary nodule is visualized. PLEURAE: Compared to the prior CT there is been interval placement of a right-sided chest tube pigtail in the posterior pleura. There is a moderate size right pleural effusion again noted which is slightly decre ased in size compared to the prior study. There is a small left pleural effusion now noted. MEDIASTINUM: Stable appearance with prominent right paratracheal lymph node additional smaller scattered reactive appearing lymph nodes. AXILLAE: Prominent lymph nodes and induration remaining in right axilla without change. MUSCULOSKELETAL: Within normal limits for patient age. MISCELLANEOUS: The visualized upper abdominal organs demonstrate no acute abnormality. The known calcified gallstone s are partially visualized. CONCLUSION: 1. Interval placement of right-sided percutaneous drainage catheter with mild decrease in the size of the right pleural effusion. 2. New small left pleural effusion. 3. Prominent lymph nodes and induration remaining in the right axillary region and 4. The previously noted prominence right paratracheal lymph node is stable. 5. Mild consolidation remains in the right lung base. Gato Patino MD on July 12, 2017 at 12:32 Board Certified Radiologist. This report was verified electronically.
[2017-07-12 13:31] LABS: AUTOMATED NEUTROPHIL # 8.5 TH/MM3 (1.8-7.7); BASOPHIL % 0.3 % (0.0-2.0); EOSINOPHIL # 0.4 TH/MM3 (0-0.4); EOSINOPHIL % 3.4 % (0.0-4.0); HEMATOCRIT 32.9 % (39.0-51.0); HEMOGLOBIN 11.6 GM/DL (13.0-17.0); LYMPH % 5.8 % (9.0-44.0); LYMPHOCYTE # 0.6 TH/MM3 (1.0-4.8); MEAN CELL VOLUME 104.5 FL (80.0-100.0); MEAN CORPUSCULAR HGB CONC 35.4 % (32.0-36.0); MEAN PLATELET VOLUME 8.4 FL (7.0-11.0); MONO % 8.3 % (0.0-8.0); MONOCYTE # 0.9 TH/MM3 (0-0.9); NEUT % 82.2 % (16.0-70.0); PLATELET COUNT 120 TH/MM3 (150-450); RED BLOOD COUNT 3.15 MIL/MM3 (4.50-5.90); RED CELL DISTRIBUTION WIDTH 15.5 % (11.6-17.2); WHITE BLOOD COUNT 10.3 TH/MM3 (4.0-11.0)
[2017-07-12 13:57] LABS: BICARBONATE 31.6 MEQ/L (21.0-32.0); CALCIUM 7.8 MG/DL (8.5-10.1); CREATININE 5.7 MG/DL (0.60-1.30)
--- NOTE | 2017-07-12 14:28 | HHI.PR ---
Subjective Remarks Follow-up for MRSA bacteremia, severe sepsis, acute kidney injury, pneumonia. Patient is currently doing well. Returned from Dialysis and feels exhausted. No fever, chills. Chest tube in place. Objective Vitals Vital Signs Date Time Temp Pulse Resp B/P (MAP) Pulse Ox O2 Delivery O2 Flow Rate FiO2 07/12/17 08:32 98.3 81 20 115/59 (77) 92 07/12/17 05:00 97.0 84 18 142/71 (94) 91 07/12/17 00:00 98.5 80 18 130/66 (87) 93 07/11/17 20:00 97.6 75 18 140/81 (100) 95 07/11/17 16:45 97.5 78 20 125/60 (81) 91 I/O 07/11/17 07/11/17 07/11/17 07/12/17 07/12/17 07/12/17 07:00 15:00 23:00 07:00 15:00 23:00 Intake Total 100 ml 660 ml Output Total 100 ml 250 ml 0 ml 3000 ml Balance 0 ml 410 ml 0 ml -3000 ml Intake Oral 660 ml IV Total 100 ml Output Urine Total 100 ml Chest Tube Drainage Total 250 ml 0 ml 0 ml Hemodialysis 3000 ml # Voids 3 3 4 1 # Bowel Movements 1 1 1 Result Diagram: 07/12/17 1255 07/12/17 1255 Objective Remarks GENERAL: SKIN: Warm and dry. HEAD: Normocephalic. EYES: No scleral icterus. No injection or drainage. NECK: Supple, trachea midline. No JVD or lymphadenopathy. CARDIOVASCULAR: Regular rate and rhythm without murmurs, gallops, or rubs. RESPIRATORY: Breath sounds equal bilaterally. No accessory muscle use. GASTROINTESTINAL: Abdomen soft, non-tender, nondistended. MUSCULOSKELETAL: No cyanosis, or edema. BACK: Nontender without obvious deformity. No CVA tenderness. Procedures Echo 07/04/2017 The left ventricular systolic function is normal with an estimated ejection fraction in the range of 60-65%. Wall thickness is measured at the upper limits of normal. No regional wall motion abnormalities are present. Normal left ventricular size. There is trace tricuspid valve regurgitation. The estimated pulmonary arterial pressure is 33 mmHg. 07/08/2017 -right-sided chest tube placement by interventional radiology. A/P Problem List: (1) Sepsis ICD Code: A41.9 - Sepsis, unspecified organism Status: Acute (2) Pneumonia ICD Code: J18.9 - Pneumonia, unspecified organism Status: Acute (3) Bandemia ICD Code: D72.825 - Bandemia Status: Acute (4) Elevated lipase ICD Code: R74.8 - Abnormal levels of other serum enzymes Status: Acute (5) Hypertension ICD Code: I10 - Essential (primary) hypertension Status: Acute (6) Axillary lymphadenopathy ICD Code: R59.0 - Localized enlarged lymph nodes Assessment and Plan On 07/03/2017, Mr. Wade, a 46 year old male presented to the ED due to flu like symptoms despite being treated for flu by his PCP. He complained of right- sided pleuritic chest pain. He reported fever and chills. Temperature in the emergency department was 101.2F. CT chest showed right pleural effusion with some atelectasis. CT abdomen pelvis showed a liver lesion. Severe sepsis - resolved. MRSA bacteremia MRSA pneumonia Empyema - pleural fluid grew MRSA Pneumonia on CT chest, liver lesion, right axillary lymphadenopathy, possible cellulitis Pleural fluid cx grew MRSA. Blood cx also grew MRSA. Appreciate ID input. Currently patient is on Ceftaroline 200mg Q12hrs to cover MRSA pneumonia and bacteremia. 07/05 - Echo showed no vegetation. Chest tube placed on the right side on 07/08/2017. Pulmonary consulted Cardiothoracic surgery for possible VATS. Acetaminophen, tramadol as needed for pain. acute kidney injury Creatinine 0.8 on 07/04/2017. Cr 5.70 on 07/12/2017. Now on dialysis. Possibly due to vancomycin as well as post infectious Continue dialysis per Nephrology. Thrombocytopenia - improved. PLT 120K on 07/12/2017. Full code. SCDs. Problem Qualifiers (1) Sepsis: Qualified Codes: A41.9 - Sepsis, unspecified organism (2) Pneumonia: Qualified Codes: J18.1 - Lobar pneumonia, unspecified organism (3) Hypertension: Qualified Codes: I10 - Essential (primary) hypertension Keanu Faustin DO Jul 12, 2017 2:28 pm
--- NOTE | 2017-07-12 14:50 | HHI.GIFU ---
Subjective Remarks Pt complaining of generalized pain Denies nausea, vomiting Reports BM Still with poor appetite (Josi Lao) Objective Vitals I&O Vital Signs Date Time Temp Pulse Resp B/P (MAP) Pulse Ox O2 Delivery O2 Flow Rate FiO2 07/12/17 08:32 98.3 81 20 115/59 (77) 92 07/12/17 05:00 97.0 84 18 142/71 (94) 91 07/12/17 00:00 98.5 80 18 130/66 (87) 93 07/11/17 20:00 97.6 75 18 140/81 (100) 95 07/11/17 16:45 97.5 78 20 125/60 (81) 91 I/O 07/11/17 07/11/17 07/11/17 07/12/17 07/12/17 07/12/17 07:00 15:00 23:00 07:00 15:00 23:00 Intake Total 100 ml 660 ml Output Total 100 ml 250 ml 0 ml 3000 ml Balance 0 ml 410 ml 0 ml -3000 ml Intake Oral 660 ml IV Total 100 ml Output Urine Total 100 ml Chest Tube Drainage Total 250 ml 0 ml 0 ml Hemodialysis 3000 ml # Voids 3 3 4 1 # Bowel Movements 1 1 1 Laboratory Laboratory Tests Test 07/12/17 12:55 White Blood Count 10.3 Red Blood Count 3.15 Hemoglobin 11.6 Hematocrit 32.9 Mean Corpuscular Volume 104.5 Mean Corpuscular Hemoglobin 37.0 Mean Corpuscular Hemoglobin Concent 35.4 Red Cell Distribution Width 15.5 Platelet Count 120 Mean Platelet Volume 8.4 Neutrophils (%) (Auto) 82.2 Lymphocytes (%) (Auto) 5.8 Monocytes (%) (Auto) 8.3 Eosinophils (%) (Auto) 3.4 Basophils (%) (Auto) 0.3 Neutrophils # (Auto) 8.5 Lymphocytes # (Auto) 0.6 Monocytes # (Auto) 0.9 Eosinophils # (Auto) 0.4 Basophils # (Auto) 0.0 CBC Comment DIFF FINAL Differential Comment Blood Urea Nitrogen 33 Creatinine 5.70 Random Glucose 59 Calcium Level 7.8 Sodium Level 137 Potassium Level 4.4 Chloride Level 99 Carbon Dioxide Level 31.6 Anion Gap 6 Estimat Glomerular Filtration Rate 11 Date/Time Source Procedure Growth Status 07/07/17 20:14 Blood Peripheral Aerobic Blood Culture - Final NO GROWTH IN 5 DAYS Complete 07/07/17 20:14 Blood Peripheral Anaerobic Blood Culture - Final NO GROWTH IN 5 DAYS Complete 07/07/17 11:00 Fluid Pleural Fluid Fungal Smear - Final NO FUNGAL ELEMENTS SEEN. Resulted 07/07/17 11:00 Fluid Pleural Fluid Fungal Culture Pending Resulted 07/05/17 00:22 Sputum Expectorated Sputum Gram Stain - Final Complete 07/05/17 00:22 Sputum Expectorated Sputum Sputum Culture - Final HEAVY GROWTH NORMAL RESPIRATORY MARISELA Complete 07/11/17 09:10 Urine Catheterized Urine Urine Culture - Preliminary IMMATURE GROWTH - REINCUBATE Resulted Imaging Last Impressions Chest X-Ray 07/12/17 0000 Signed Impressions: Service Date/Time: Wednesday, July 12, 2017 07:57 - CONCLUSION: 1. The small bore right-sided chest tube remains in place with stable right effusion which may be partially loculated. 2. Hazy opacity remains in the right lung. Gato Patino MD Chest CT 07/12/17 0000 Signed Impressions: Service Date/Time: Wednesday, July 12, 2017 12:19 - CONCLUSION: 1. Interval placement of right-sided percutaneous drainage catheter with mild decrease in the size of the right pleural effusion. 2. New small left pleural effusion. 3. Prominent lymph nodes and induration remaining in the right axillary region and 4. The previously noted prominence right paratracheal lymph node is stable. 5. Mild consolidation remains in the right lung base. Gato Patino MD Chest Tube Insertion 07/08/17 0000 Signed Impressions: Service Date/Time: Saturday, July 08, 2017 16:27 - CONCLUSION: Uncomplicated chest tube placement as above. Santiago Mccartney MD Abdomen Ultrasound 07/08/17 0000 Signed Impressions: Service Date/Time: Saturday, July 08, 2017 18:00 - CONCLUSION: 1. Cirrhotic appearing liver with splenomegaly. 2. Extensive cholelithiasis. Santiago Mccartney MD Thoracentesis Ultrasound 07/07/17 0000 Signed Impressions: Service Date/Time: Friday, July 07, 2017 10:32 - CONCLUSION: Uncomplicated ultrasound guided thoracentesis. Santiago Mccartney MD Foot MRI 07/07/17 0000 Signed Impressions: Service Date/Time: Friday, July 07, 2017 15:40 - CONCLUSION: Probable mild cellulitis without osteomyelitis or deep space involvement. Josh Santiago MD FACR Catheter Placement X-Ray 07/07/17 0000 Signed Impressions: Service Date/Time: Friday, July 07, 2017 13:15 - CONCLUSION: Uncomplicated line placement as above. Masoud Lopez MD Renal Ultrasound 07/06/17 0000 Signed Impressions: Service Date/Time: Thursday, July 06, 2017 20:20 - CONCLUSION: 1. Normal appearance the kidneys. 2. Moderate right pleural effusion. Luis Miguel Villegas MD Chest Ultrasound 07/05/17 0000 Signed Impressions: Service Date/Time: Wednesday, July 05, 2017 12:26 - CONCLUSION: Loculated fluid as above. Josh Santiago MD FACR Foot X-Ray 07/04/17 0000 Signed Impressions: Service Date/Time: Tuesday, July 04, 2017 15:35 - CONCLUSION: Negative for fracture or dislocation. Follow up in 7-10 days is suggested if symptoms persist. Josh Santiago MD FACR Abdomen/Pelvis CT 07/03/17 0000 Signed Impressions: Service Date/Time: June 08:43 - CONCLUSION: 1. 1.5 cm low-density lesion within the anterior segment of the right lobe of liver which is indeterminate. Outpatient MRI of the abdomen with contrast would be helpful for further characterization of this indeterminate lesion. 2. Mild splenomegaly and very large intra-abdominal varices draining into the splenic vein suggesting portal hypertension. 3. Perigastric varices and bilateral inguinal varices are also noted. 4. Cholelithiasis. 5. Tiny right pleural effusion. 6. Minimal right basilar atelectasis and/or infiltrate. 7. Degenerative changes and scoliosis of the thoracolumbar spine. Haseeb Helms MD Physical Exam HEENT: Normocephalic; atraumatic CHEST: Even/unlabored- R sided chest tube CARDIAC: RRR ABDOMEN: Obese, soft, nontender, bowel sounds active SKIN: Pale; no rash; no jaundice. 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 Perigastric varices and bilateral inguinal varices are also noted. Cholelithiasis. US abdomen (07/08) --> Cirrhotic appearing liver with splenomegaly. Extensive cholelithiasis. Liver BTARES: ROBERT, ASMA negative. AMA < 20. Iron-94 TIBC-141 %sat-68.6 Ferritin-540 S9N-503 Ceruloplasmin-26 Ammonia-22 HFE negative AFP-3.5 - Liver lesion on CT --> 1.5 cm low-density lesion within the anterior segment of the right lobe of the liver which is indeterminate. Outpatient MRI with contrast suggested. Unable to do at this time, given poor renal function. AFP-3.5 - Elevated lipase- CT states unremarkable pancreas- Lipase 932 on 07/03 now WNL - Thrombocytopenia- improving. platelets currently 148 - Anemia- multifactorial- macrocytic- H/H stable currently 11.1/32.7 - Empyema- pleural fluid (+) MRSA- ID following - RODOLFO on dialysis (07/12) --> No significant change overnight. Remains with generalized pains. Nephrology following, per pt planning for dialysis again on Friday- Differentials for RODOLFO include ATN due to sepsis and post infectious glomerulonephritis. Less likely hepatorenal syndrome. 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 PLAN - MRI to assess liver lesion when renal function improves - Renal diet - Monitor labs - Further recommendations based on clinical course Pt has been seen and examined by myself and Dr. Mondragon and this note is written on his behalf (Josi Lao) Physician Comments Patient seen and examined Agree with above Continue with current supportive care Monitor labs Regarding the liver lesion I doubt that we will be able to get an MRI anytime soon with the acute kidney failure but this is something most likely will follow on outpatient basis In order for the patient to be treated for his hepatitis C he needs to quit substance abuse and again this is something we can pursue and follow on outpatient basis With low albumin I would recommend supplementation at this point and obviously patient will require better nutrition (Roosevetl Mondragon MD) Josi Lao Jul 12, 2017 14:50 Roosevelt Mondragon MD Jul 12, 2017 22:29
[2017-07-12 16:09] VITALS: BP 121/60; PULSE 83; RESP 20; TEMP 97.9; O2SAT 90
[2017-07-12 17:10] VITALS: O2SAT 92
[2017-07-12 22:00] VITALS: BP 119/58; PULSE 71; RESP 17; TEMP 98; O2SAT 96
[2017-07-12] MEDS: ALBUMIN 25% INJ 100 ML IV SCH (22:52)
[2017-07-13] VITALS (8 sets, daily range): BP systolic 111–125; BP diastolic 59–78; PULSE 80–91; RESP 16–20; TEMP 97–99; O2SAT 92–98
[2017-07-13] MEDS: SODIUM CHLORIDE 0.9% IV SCH ×2 (02:17→15:06)
[2017-07-13] MEDS: CEFTAROLINE IV SCH ×2 (02:17→15:06)
[2017-07-13 08:09] LABS: HEMATOCRIT 29.6 % (39.0-51.0); HEMOGLOBIN 10.2 GM/DL (13.0-17.0); MEAN CELL VOLUME 105.6 FL (80.0-100.0); MEAN CORPUSCULAR HEMOGLOBIN 36.3 PG (27.0-34.0); MEAN CORPUSCULAR HGB CONC 34.4 % (32.0-36.0); MEAN PLATELET VOLUME 8.4 FL (7.0-11.0); PLATELET COUNT 93 TH/MM3 (150-450); RED CELL DISTRIBUTION WIDTH 15.6 % (11.6-17.2); WHITE BLOOD COUNT 9.8 TH/MM3 (4.0-11.0)
[2017-07-13 08:19] LABS: INTERNATIONAL NORMALIZED RATIO 1.6 RATIO; PROTHROMBIN TIME - PATIENT 16.1 SEC (9.8-11.6)
[2017-07-13] MEDS: ONDANSETRON HCL 4 MG/2 ML VIAL IVP PRN (08:32)
[2017-07-13] MEDS: traMADol HCL 50 MG TAB PO PRN ×2 (08:32→18:20)
[2017-07-13] MEDS: SODIUM CHLORIDE 0.9% FLUSH 10 ML FLUSH IV FLUSH SCH ×3 (08:32→21:10)
[2017-07-13] MEDS: LACTULOSE SYRUP 20 GM/30 ML CUP PO SCH ×4 (08:32→21:00)
[2017-07-13] MEDS: ALBUMIN 25% INJ 100 ML IV SCH ×2 (08:33→21:10)
[2017-07-13 08:57] LABS: ALBUMIN 1.8 GM/DL (3.4-5.0); ALKALINE PHOSPHATASE 80 U/L (45-117); ALT (GPT) 56 U/L (12-78); AST (GOT) 104 U/L (15-37); BICARBONATE 30.7 MEQ/L (21.0-32.0); BLOOD UREA NITROGEN 41 MG/DL (7-18); CALCIUM 8.1 MG/DL (8.5-10.1); CHLORIDE 98 MEQ/L (98-107); CREATININE 7.13 MG/DL (0.60-1.30); GLOMERULAR FILTRATION RATE 8 ML/MIN (>89); GLUCOSE,RANDOM 72 MG/DL (74-106); SODIUM (NA) 137 MEQ/L (136-145); TOTAL BILIRUBIN ADULT 2.8 MG/DL (0.2-1.0); TOTAL PROTEIN 6.6 GM/DL (6.4-8.2)
--- NOTE | 2017-07-13 09:49 | HHI.NPPN ---
Subjective Renal Failure: Acute Additional Remarks Reports nausea this morning. Mild lower extremity edema. CT to right chest wall. (Thais Lozano) Review of Systems General Constitutional: Fatigue (Thais Lozano) Respiratory Respiratory Remarks On exertion (Thais Lozano) Objective Data Data 07/13/17 07/14/17 19:00 07:00 Output Total 210 ml Balance -210 ml Chest Tube Drainage Total 210 ml Vital Signs Date Time Temp Pulse Resp B/P (MAP) Pulse Ox O2 Delivery O2 Flow Rate FiO2 07/13/17 05:00 99.0 80 19 120/78 (92) 98 07/13/17 01:00 97.0 80 18 125/60 (81) 97 07/12/17 22:00 98.0 71 17 119/58 (78) 96 07/12/17 17:10 92 21 07/12/17 16:09 97.9 83 20 121/60 (80) 90 (Thais Lozano) -: 07/13/17 0632 07/13/17 0632 Tubes & Lines: Vas-Cath Tubes & Lines Comment R chest tube (Thais Lozano) Physical Exam General Appearance: Well Developed, No Acute Distress, Comfortable (Thais Lozano) Eyes Eye Exam: Pupils Equal (Thais Lozano) Pulmonary Resp Exam: Clear Bilaterally, Breath Sounds Equal (Thais Lozano) Cardiology CV Exam: Regular, Normal Sinus Rhythm, Murmur (Thais Lozano) Gastrointestinal/Abdomen GI Exam: Soft, Non-Tender, Bowel Sounds Present (Thais Lozano) Musculoskeletal MS Exam: Joints Intact, Normal Gait, Normal Tone, Good Strength (Thais Lozano) Integumentary Skin Exam: Warm, Dry, Intact (Thais Lozano) Extremeties Extremities Exam: Pedal Pulses Palpable, Moderate Edema (Thais Lozano) Neurologic Neuro Exam: Alert, Awake, Oriented, Speech Clear, Moving All Extremities (Thais Lozano) Psychiatric Psych Exam: Appropriate Responses (Thais oLzano Assessment/Plan Discussed Condition With: Patient Assessment Summary: RODOLFO/Acute Renal Failure Problem List: (1) Acute kidney injury ICD Codes: N17.9 - Acute kidney failure, unspecified Plan: Etiology is uncertain. May have developed Vancomycin induced nephrotoxicity. Vanc was stopped. he was also on Ibuprofen and ANSELMO inhibitor, those were also stopped. Other possibilities: ATN due to sepsis and Post infectious GN. C3 is low Hepatorenal syndrome is less likely. Hepatitis C related Cryoglobulinemic Vasculitis also considered, cryoglobulin level in progress. Vascath placed and HD initiated 07/07 and 47 HD TTS if needed Continue to monitor urine output and BMP Creatinine at 7.13 from 5.70 Hemodialysis yesterday with UF of 3 liters Continue to Avoid IVF and nephrotoxic agents. (2) Sepsis ICD Codes: A41.9 - Sepsis, unspecified organism Status: Acute Plan: ID following s/p thoracentesis 07/07. Has MRSA, empyema. chest tube placed on right. On Teflaro, off Levaquin Monitor clinically. (3) Hypertension ICD Codes: I10 - Essential (primary) hypertension Status: Acute Plan: Hold antihypertensives for now. (4) Hepatitis C infection ICD Codes: B19.20 - Unspecified viral hepatitis C without hepatic coma Status: Acute Plan: Workup is in progress. GI and ID following. (Thais Lozano) Problem List: (1) Acute kidney injury ICD Codes: N17.9 - Acute kidney failure, unspecified Plan: Etiology is uncertain. May have developed Vancomycin induced nephrotoxicity. Vanc was stopped. he was also on Ibuprofen and ANSELMO inhibitor, those were also stopped. Other possibilities: ATN due to sepsis and Post infectious GN. C3 is low Hepatorenal syndrome is less likely. Hepatitis C related Cryoglobulinemic Vasculitis also considered, cryoglobulin level in progress. Vascath placed and HD initiated 07/07 and 47 HD TTS if needed Continue to monitor urine output and BMP Creatinine at 7.13 from 5.70 Hemodialysis yesterday with UF of 3 liters Continue to Avoid IVF and nephrotoxic agents. Patient seen and examined, agree with above. Watch for renal recovery. (2) Sepsis ICD Codes: A41.9 - Sepsis, unspecified organism Status: Acute Plan: ID following s/p thoracentesis 07/07. Has MRSA, empyema. chest tube placed on right. On Teflaro, off Levaquin Monitor clinically. (3) Hypertension ICD Codes: I10 - Essential (primary) hypertension Status: Acute Plan: Hold antihypertensives for now. (4) Hepatitis C infection ICD Codes: B19.20 - Unspecified viral hepatitis C without hepatic coma Status: Acute Plan: Workup is in progress. GI and ID following. (Anne Marie Beltran MD) Problem Qualifiers (1) Sepsis: Qualified Codes: A41.9 - Sepsis, unspecified organism (2) Hypertension: Qualified Codes: I10 - Essential (primary) hypertension Thais Lozano Jul 13, 2017 09:49 Anne Marie Beltran MD Jul 13, 2017 14:49
--- NOTE | 2017-07-13 10:10 | HHI.PR ---
Subjective Remarks Follow-up for MRSA bacteremia, severe sepsis, acute kidney injury, pneumonia. Patient is doing well. No fever, chills. Chest tube in place but not draining. Objective Vitals Vital Signs Date Time Temp Pulse Resp B/P (MAP) Pulse Ox O2 Delivery O2 Flow Rate FiO2 07/13/17 09:46 97.7 81 20 113/59 (77) 96 07/13/17 05:00 99.0 80 19 120/78 (92) 98 07/13/17 01:00 97.0 80 18 125/60 (81) 97 07/12/17 22:00 98.0 71 17 119/58 (78) 96 07/12/17 17:10 92 21 07/12/17 16:09 97.9 83 20 121/60 (80) 90 I/O 07/12/17 07/12/17 07/12/17 07/13/17 07/13/17 07/13/17 07:00 15:00 23:00 07:00 15:00 23:00 Intake Total 1000 ml 450 ml Output Total 0 ml 3000 ml 0 ml 0 ml 210 ml Balance 0 ml -3000 ml 1000 ml 450 ml -210 ml Intake Oral 1000 ml 450 ml Output Urine Total 0 ml 0 ml Chest Tube Drainage Total 0 ml 0 ml 0 ml 210 ml Hemodialysis 3000 ml # Voids 4 1 # Bowel Movements 1 0 0 Result Diagram: 07/13/17 0632 07/13/17 0632 Imaging Last Impressions Chest X-Ray 07/12/17 0000 Signed Impressions: Service Date/Time: Wednesday, July 12, 2017 07:57 - CONCLUSION: 1. The small bore right-sided chest tube remains in place with stable right effusion which may be partially loculated. 2. Hazy opacity remains in the right lung. Gato Patino MD Chest CT 07/12/17 0000 Signed Impressions: Service Date/Time: Wednesday, July 12, 2017 12:19 - CONCLUSION: 1. Interval placement of right-sided percutaneous drainage catheter with mild decrease in the size of the right pleural effusion. 2. New small left pleural effusion. 3. Prominent lymph nodes and induration remaining in the right axillary region and 4. The previously noted prominence right paratracheal lymph node is stable. 5. Mild consolidation remains in the right lung base. Gato Patino MD Chest Tube Insertion 07/08/17 0000 Signed Impressions: Service Date/Time: Saturday, July 08, 2017 16:27 - CONCLUSION: Uncomplicated chest tube placement as above. Santiago Mccartney MD Abdomen Ultrasound 07/08/17 0000 Signed Impressions: Service Date/Time: Saturday, July 08, 2017 18:00 - CONCLUSION: 1. Cirrhotic appearing liver with splenomegaly. 2. Extensive cholelithiasis. Santiago Mccartney MD Thoracentesis Ultrasound 07/07/17 0000 Signed Impressions: Service Date/Time: Friday, July 07, 2017 10:32 - CONCLUSION: Uncomplicated ultrasound guided thoracentesis. Santiago Mccartney MD Foot MRI 07/07/17 0000 Signed Impressions: Service Date/Time: Friday, July 07, 2017 15:40 - CONCLUSION: Probable mild cellulitis without osteomyelitis or deep space involvement. Josh Santiago MD FACR Catheter Placement X-Ray 07/07/17 0000 Signed Impressions: Service Date/Time: Friday, July 07, 2017 13:15 - CONCLUSION: Uncomplicated line placement as above. Masoud Lopez MD Renal Ultrasound 07/06/17 0000 Signed Impressions: Service Date/Time: Thursday, July 06, 2017 20:20 - CONCLUSION: 1. Normal appearance the kidneys. 2. Moderate right pleural effusion. Luis Miguel Villegas MD Chest Ultrasound 07/05/17 0000 Signed Impressions: Service Date/Time: Wednesday, July 05, 2017 12:26 - CONCLUSION: Loculated fluid as above. Josh Santiago MD FACR Foot X-Ray 07/04/17 0000 Signed Impressions: Service Date/Time: Tuesday, July 04, 2017 15:35 - CONCLUSION: Negative for fracture or dislocation. Follow up in 7-10 days is suggested if symptoms persist. Josh Santiago MD FACR Abdomen/Pelvis CT 07/03/17 0000 Signed Impressions: Service Date/Time: June 08:43 - CONCLUSION: 1. 1.5 cm low-density lesion within the anterior segment of the right lobe of liver which is indeterminate. Outpatient MRI of the abdomen with contrast would be helpful for further characterization of this indeterminate lesion. 2. Mild splenomegaly and very large intra-abdominal varices draining into the splenic vein suggesting portal hypertension. 3. Perigastric varices and bilateral inguinal varices are also noted. 4. Cholelithiasis. 5. Tiny right pleural effusion. 6. Minimal right basilar atelectasis and/or infiltrate. 7. Degenerative changes and scoliosis of the thoracolumbar spine. Haseeb Helms MD Objective Remarks GENERAL: SKIN: Warm and dry. HEAD: Normocephalic. EYES: No scleral icterus. No injection or drainage. NECK: Supple, trachea midline. No JVD or lymphadenopathy. CARDIOVASCULAR: Regular rate and rhythm without murmurs, gallops, or rubs. RESPIRATORY: Breath sounds equal bilaterally. No accessory muscle use. GASTROINTESTINAL: Abdomen soft, non-tender, nondistended. MUSCULOSKELETAL: No cyanosis, or edema. BACK: Nontender without obvious deformity. No CVA tenderness. Procedures Echo 07/04/2017 The left ventricular systolic function is normal with an estimated ejection fraction in the range of 60-65%. Wall thickness is measured at the upper limits of normal. No regional wall motion abnormalities are present. Normal left ventricular size. There is trace tricuspid valve regurgitation. The estimated pulmonary arterial pressure is 33 mmHg. 07/08/2017 -right-sided chest tube placement by interventional radiology. A/P Problem List: (1) Sepsis ICD Code: A41.9 - Sepsis, unspecified organism Status: Acute (2) Pneumonia ICD Code: J18.9 - Pneumonia, unspecified organism Status: Acute (3) Bandemia ICD Code: D72.825 - Bandemia Status: Acute (4) Elevated lipase ICD Code: R74.8 - Abnormal levels of other serum enzymes Status: Acute (5) Hypertension ICD Code: I10 - Essential (primary) hypertension Status: Acute (6) Axillary lymphadenopathy ICD Code: R59.0 - Localized enlarged lymph nodes Assessment and Plan On 07/03/2017, Mr. Wade, a 46 year old male presented to the ED due to flu like symptoms despite being treated for flu by his PCP. He complained of right- sided pleuritic chest pain. He reported fever and chills. Temperature in the emergency department was 101.2F. CT chest showed right pleural effusion with some atelectasis. CT abdomen pelvis showed a liver lesion. Severe sepsis - resolved. MRSA bacteremia MRSA pneumonia Empyema - pleural fluid grew MRSA Pneumonia on CT chest, liver lesion, right axillary lymphadenopathy, possible cellulitis Pleural fluid cx grew MRSA. Blood cx also grew MRSA. Appreciate ID input. Currently patient is on Ceftaroline 200mg Q12hrs to cover MRSA pneumonia and bacteremia. 07/05 - Echo showed no vegetation. Chest tube placed on the right side on 07/08/2017. Pulmonary consulted Cardiothoracic surgery for possible VATS. Repeat CT chest done on 07/12/2017, images reviewed - still shows significant right sided pleural effusion and mild right pleural effusion. Acetaminophen, tramadol as needed for pain. acute kidney injury Creatinine 0.8 on 07/04/2017. Cr 5.70 on 07/12/2017. Now on dialysis. Possibly due to vancomycin as well as post infectious Continue dialysis per Nephrology. Liver cirrhosis Hepatitis C genotype 1a Liver lesion 1.5cm GI following. Patient will likely need an MRI study in future. Thrombocytopenia - improved. PLT 120K on 07/12/2017. Full code. SCDs. Discharge plan: Pending further recs from Cardiothoracic surgery consult. Patient will likely need outpatient dialysis set up unless kidney function recovers. Problem Qualifiers (1) Sepsis: Qualified Codes: A41.9 - Sepsis, unspecified organism (2) Pneumonia: Qualified Codes: J18.1 - Lobar pneumonia, unspecified organism (3) Hypertension: Qualified Codes: I10 - Essential (primary) hypertension Keanu Faustin DO Jul 13, 2017 10:10 am
--- NOTE | 2017-07-13 10:47 | HHI.IDPN ---
Subjective Subjective Remarks Patient is a 46-year-old male who presented to the emergency room with complaint of flulike symptoms for about a week. Patient reports he has been having right-sided pleuritic type chest pain. He describes pain as heavy in character, present all the time, worse with coughing and deep breathing. he initially had dry cough but recently started bringing up blood. He was seen by his PCP who was treating him for the flu empirically. he started Tamiflu about 2 days prior to admission. he also has had fevers and [id number]. No abdominal pain, no N/V, no complaints. In the ED, his temp was 102. Influenza testing negative. One of 2 BC now reported as growing MRSA. His temps are better. CXR clear. CT chest with R pleural effusion with some atelectasis. CT A/P with a lesion in liver. evidence of portal hypertension. Infectious Disease consultation has been requested to evaluate patient with MRSA bacteremia. Notes reviewed Temps ok No new complaint Seen by CTS Repeat CT chest still with moderate pleural effusion, has new L effusion Creatinine remains elevated WBC down to normal BC with MRSA 07/03, and 07/04 Pleural fluid C/S MRSA Echo ok MRI foot no deep infection Follow-up BC negative MRSA S to Teflaro Antibiotics Teflaro Current Medications Medications (Trade) Dose Ordered Sig/Cassandra Route Start Time Stop Time Status Last Admin (NS Flush) 2 ml UNSCH PRN IV FLUSH 07/03/17 10:15 07/11/17 02:27 (NS Flush) 2 ml BID IV FLUSH 07/03/17 21:00 07/13/17 08:32 (Tylenol) 650 mg Q4H PRN PO 07/03/17 10:15 07/12/17 02:58 (Zofran Inj) 4 mg Q6H PRN IVP 07/03/17 10:15 07/13/17 08:32 (Narcan Inj) 0.4 mg UNSCH PRN IV PUSH 07/03/17 10:15 (Neurontin) 600 mg BID PO 07/04/17 09:00 Future Hold 07/06/17 09:14 (Tessalon) 200 mg TID PRN PO 07/04/17 11:45 07/12/17 02:57 (Lactulose Liq) 30 ml QID PO 07/06/17 13:00 07/11/17 08:47 Sodium Chloride 1,000 ml @ 0 mls/hr Q0M PRN OTHER 07/07/17 09:15 (Heparin Inj) 8,000 units UNSCH PRN IV FLUSH 07/07/17 09:15 Sodium Chloride 1,000 ml @ 200 mls/hr Q5H PRN IV 07/07/17 09:15 Sodium Chloride 1,000 ml @ 0 mls/hr Q0M PRN OTHER 07/07/17 09:15 (Mannitol Inj) 12.5 gm UNSCH PRN IV 07/07/17 09:15 07/08/17 10:02 Albumin Human 100 ml @ 60 mls/hr UNSCH PRN IV 07/07/17 09:15 07/10/17 09:00 (NS Flush) 5 ml UNSCH PRN IV FLUSH 07/07/17 09:15 (Heparin Inj) UNSCH PRN .XX 07/07/17 09:15 07/10/17 11:37 (Gentamicin Inj) 20 mg UNSCH PRN OTHER 07/07/17 09:15 07/12/17 11:25 (Zofran Inj) 4 mg UNSCH PRN IV PUSH 07/07/17 09:15 07/12/17 11:25 (Tylenol) 650 mg UNSCH PRN PO 07/07/17 09:15 (Benadryl) 25 mg UNSCH PRN PO 07/07/17 09:15 (Nitrostat Sl) 0.4 mg UNSCH PRN SL 07/07/17 09:15 (Catapres) 0.1 mg UNSCH PRN PO 07/07/17 09:15 (Gelfoam 12 Mm/7 Mm Top) 1 foam UNSCH PRN TOP 07/07/17 09:15 (NS Flush) UNSCH PRN IV FLUSH 07/07/17 13:45 (Heparin Inj) UNSCH PRN IV FLUSH 07/07/17 13:45 07/12/17 11:25 (Ultram) 50 mg Q8H PRN PO 07/08/17 13:45 07/13/17 08:32 Ceftaroline Fosamil 200 mg/ Sodium Chloride 100 ml @ 100 mls/hr Q12H IV 07/10/17 14:00 07/13/17 02:17 Albumin Human 100 ml @ 60 mls/hr Q12H IV 07/12/17 22:30 07/15/17 22:29 07/13/17 08:33 Lines Line with no evidence of infection Past Medical History Hypertension Herniated disc Hepatitis C (untreated) Ruptured diverticular abscess Past Surgical History ?Left thoracotomy for pleurisy. Allergies: Coded Allergies: No Known Allergies (Verified Allergy, Unknown, 07/04/17) Objective . Vital Signs Date Time Temp Pulse Resp B/P (MAP) Pulse Ox O2 Delivery O2 Flow Rate FiO2 07/13/17 10:11 96 07/13/17 09:46 97.7 81 20 113/59 (77) 96 07/13/17 05:00 99.0 80 19 120/78 (92) 98 07/13/17 01:00 97.0 80 18 125/60 (81) 97 07/12/17 22:00 98.0 71 17 119/58 (78) 96 07/12/17 17:10 92 21 07/12/17 16:09 97.9 83 20 121/60 (80) 90 07/13/17 07/13/17 07/14/17 15:00 23:00 07:00 Output Total 210 ml Balance -210 ml Chest Tube Drainage Total 210 ml . Laboratory Tests Test 07/12/17 12:55 07/13/17 06:32 White Blood Count 10.3 TH/MM3 9.8 TH/MM3 Red Blood Count 3.15 MIL/MM3 2.80 MIL/MM3 Hemoglobin 11.6 GM/DL 10.2 GM/DL Hematocrit 32.9 % 29.6 % Mean Corpuscular Volume 104.5 FL 105.6 FL Mean Corpuscular Hemoglobin 37.0 PG 36.3 PG Mean Corpuscular Hemoglobin Concent 35.4 % 34.4 % Red Cell Distribution Width 15.5 % 15.6 % Platelet Count 120 TH/MM3 93 TH/MM3 Mean Platelet Volume 8.4 FL 8.4 FL Neutrophils (%) (Auto) 82.2 % Lymphocytes (%) (Auto) 5.8 % Monocytes (%) (Auto) 8.3 % Eosinophils (%) (Auto) 3.4 % Basophils (%) (Auto) 0.3 % Neutrophils # (Auto) 8.5 TH/MM3 Lymphocytes # (Auto) 0.6 TH/MM3 Monocytes # (Auto) 0.9 TH/MM3 Eosinophils # (Auto) 0.4 TH/MM3 Basophils # (Auto) 0.0 TH/MM3 CBC Comment DIFF FINAL Differential Comment Laboratory Tests Test 07/12/17 12:55 07/13/17 06:32 Blood Urea Nitrogen 33 MG/DL 41 MG/DL Creatinine 5.70 MG/DL 7.13 MG/DL Random Glucose 59 MG/DL 72 MG/DL Calcium Level 7.8 MG/DL 8.1 MG/DL Sodium Level 137 MEQ/L 137 MEQ/L Potassium Level 4.4 MEQ/L 4.5 MEQ/L Chloride Level 99 MEQ/L 98 MEQ/L Carbon Dioxide Level 31.6 MEQ/L 30.7 MEQ/L Anion Gap 6 MEQ/L 8 MEQ/L Estimat Glomerular Filtration Rate 11 ML/MIN 8 ML/MIN Total Protein 6.6 GM/DL Albumin 1.8 GM/DL Alkaline Phosphatase 80 U/L Aspartate Amino Transf (AST/SGOT) 104 U/L Alanine Aminotransferase (ALT/SGPT) 56 U/L Total Bilirubin 2.8 MG/DL Microbiology Date/Time Source Procedure Growth Status 07/11/17 09:10 Urine Catheterized Urine Urine Culture - Preliminary IMMATURE GROWTH - REINCUBATE Resulted Imaging Last Impressions Chest X-Ray 07/07/17 0000 Signed Impressions: Service Date/Time: Friday, July 07, 2017 11:23 - CONCLUSION: No pneumothorax. Santiago Mccartney MD Renal Ultrasound 07/06/17 0000 Signed Impressions: Service Date/Time: Thursday, July 06, 2017 20:20 - CONCLUSION: 1. Normal appearance the kidneys. 2. Moderate right pleural effusion. Luis Miguel Villegas MD Chest Ultrasound 07/05/17 0000 Signed Impressions: Service Date/Time: Wednesday, July 05, 2017 12:26 - CONCLUSION: Loculated fluid as above. Josh Santiago MD FACR Foot X-Ray 07/04/17 0000 Signed Impressions: Service Date/Time: Tuesday, July 04, 2017 15:35 - CONCLUSION: Negative for fracture or dislocation. Follow up in 7-10 days is suggested if symptoms persist. Josh Santiago MD FACR Chest CT 07/03/17 0000 Signed Impressions: Service Date/Time: June 12:16 - CONCLUSION: 1. Extensive stranding with prominent lymph nodes in the right axilla measuring upwards of 1.6 cm in diameter. Does the patient have clinical symptomatology to suggest a cellulitis in this area? 2. Mild, generalized anasarca with some interstitial prominence in both lungs as well the visualized portions of the upper mesentery. Findings are nonspecific but can be seen in entity such as overwhelming sepsis. 3. Calcified gallstones. 4. Small right-sided pleural effusion with associated atelectatic changes. 5. Atretic left sixth rib could be congenital or postsurgical. Old healed rib fractures involving the lateral aspect of #3 and 4 on the left. 6. Mild gynecomastia. Again, nonspecific finding that can be seen with certain medications. Masoud Lopez MD Abdomen/Pelvis CT 07/03/17 0000 Signed Impressions: Service Date/Time: , July 03, 2017 08:43 - CONCLUSION: 1. 1.5 cm low-density lesion within the anterior segment of the right lobe of liver which is indeterminate. Outpatient MRI of the abdomen with contrast would be helpful for further characterization of this indeterminate lesion. 2. Mild splenomegaly and very large intra-abdominal varices draining into the splenic vein suggesting portal hypertension. 3. Perigastric varices and bilateral inguinal varices are also noted. 4. Cholelithiasis. 5. Tiny right pleural effusion. 6. Minimal right basilar atelectasis and/or infiltrate. 7. Degenerative changes and scoliosis of the thoracolumbar spine. Haseeb Helms MD Physical Exam GENERAL: awake and alert, NAD SKIN: Cool and dry. No generalized rash, no ecchymoses and no evidence of embolic lesions. Has spider angiomatas HEAD: Atraumatic. Normocephalic. No temporal wasting, or tenderness. EYES: [place] conjunctiva. No petechia or hemorrhage. Pupils equal, round and reactive to light. Extraocular movements full and intact. Mild scleral icterus. No injection or drainage. EARS, NOSE AND THROAT: Nose without bleeding or purulent nasal discharge. Mucous membranes pink and moist. No oral lesions noted. NECK: Trachea midline. Supple and not tender, no meningeal signs CARDIOVASCULAR: Regular rate and rhythm. No murmurs, rubs or gallops heard RESPIRATORY: Clear to auscultation. Decreased at bases. No rales, wheezing or rhonchi. R CT in place with serous fluid ABDOMEN: Soft, non-tender, nondistended. Bowel sounds present and normoactive. No guarding. No rebound. No organomegaly. EXTREMITIES: No clubbing, cyanosis, or edema. R foot stable. No calf tenderness. Well perfused and warm. NEUROLOGICAL: Grossly nonfocal. PSYCHIATRIC: Normal affect, calm and cooperative. LINE: No evidence of infection Assessment & Plan Remarks IMPRESSION MRSA bacteremia, source - due to PNA, and empyema - has CT in place placed 07/08 - also with redness on his R foot, cellulitis on MRI Pneumonia, with empyema Known liver cirrhosis, previous ETOH, and also He p C Acute renal failure, etiology? RECOMMENDATION Continue IV Teflaro which will cover PNA/empyema and bacteremia Monitor progress Follow progress Seen by CT and will likely need surgery Natividad Sanchez MD Jul 13, 2017 10:47
--- NOTE | 2017-07-13 12:35 | HHI.PR ---
Subjective Remarks doing ok Objective Vital Signs Date Time Temp Pulse Resp B/P (MAP) Pulse Ox O2 Delivery O2 Flow Rate FiO2 07/13/17 11:37 97.9 84 20 117/60 (79) 95 07/13/17 10:11 96 07/13/17 09:46 97.7 81 20 113/59 (77) 96 07/13/17 05:00 99.0 80 19 120/78 (92) 98 07/13/17 01:00 97.0 80 18 125/60 (81) 97 07/12/17 22:00 98.0 71 17 119/58 (78) 96 07/12/17 17:10 92 21 07/12/17 16:09 97.9 83 20 121/60 (80) 90 I/O 07/12/17 07/12/17 07/12/17 07/13/17 07/13/17 07/13/17 07:00 15:00 23:00 07:00 15:00 23:00 Intake Total 1000 ml 450 ml Output Total 0 ml 3000 ml 0 ml 0 ml 210 ml Balance 0 ml -3000 ml 1000 ml 450 ml -210 ml Intake Oral 1000 ml 450 ml Output Urine Total 0 ml 0 ml Chest Tube Drainage Total 0 ml 0 ml 0 ml 210 ml Hemodialysis 3000 ml # Voids 4 1 # Bowel Movements 1 0 0 Result Diagram: 07/13/17 0632 07/13/1732 Objective Remarks General appearance no acute distress Lungs decreased heart sounds over both bases Heart S1-S2 abdomen is soft obese Extremities mild edema Neurologic alert oriented 3 Assessment and Plan Assessment and Plan Pneumonia Empyema MRSA bacteremia I reviewed the CT chest. He needs surgical intervention. i dont think we will be able to resolve his empyema without surgery. cont abx as per Tramaine Montanez MD Jul 13, 2017 12:35
[2017-07-13] MEDS: MUPIROCIN 2% OINT 1 APPLIC/GM SYR EACH NARE SCH ×2 (13:00→21:10)
[2017-07-13] MEDS ORDERED: VANCOMYCIN INJ 1,000 MG in SODIUM CHLOR 0.9% 250 ML INJ 250 ML IV SCH ×4 (13:00)
[2017-07-13] MEDS ORDERED: CHLORHEXIDINE GLUCONATE 4% SOLN 120 ML BTL TOPICAL SCH (13:00)
[2017-07-13] MEDS ORDERED: VANCOMYCIN 1,500 MG/NS 500 ML IV SCH ×2 (13:45)
[2017-07-13] MEDS ORDERED: VANCOMYCIN INJ 2,000 MG in SODIUM CHLORID 0.9% 500 ML INJ 500 ML IV SCH (13:45)
--- NOTE | 2017-07-13 14:41 | HHI.GIFU ---
Subjective Remarks Pt resting in bed Generalized pain Poor PO intake (Josi Lao) Objective Vitals I&O Vital Signs Date Time Temp Pulse Resp B/P (MAP) Pulse Ox O2 Delivery O2 Flow Rate FiO2 07/13/17 11:37 97.9 84 20 117/60 (79) 95 07/13/17 10:11 96 07/13/17 09:46 97.7 81 20 113/59 (77) 96 07/13/17 05:00 99.0 80 19 120/78 (92) 98 07/13/17 01:00 97.0 80 18 125/60 (81) 97 07/12/17 22:00 98.0 71 17 119/58 (78) 96 07/12/17 17:10 92 21 07/12/17 16:09 97.9 83 20 121/60 (80) 90 I/O 07/12/17 07/12/17 07/12/17 07/13/17 07/13/17 07/13/17 07:00 15:00 23:00 07:00 15:00 23:00 Intake Total 1000 ml 450 ml Output Total 0 ml 3000 ml 0 ml 0 ml 210 ml Balance 0 ml -3000 ml 1000 ml 450 ml -210 ml Intake Oral 1000 ml 450 ml Output Urine Total 0 ml 0 ml Chest Tube Drainage Total 0 ml 0 ml 0 ml 210 ml Hemodialysis 3000 ml # Voids 4 1 # Bowel Movements 1 0 0 Laboratory Laboratory Tests Test 07/13/17 06:32 White Blood Count 9.8 Red Blood Count 2.80 Hemoglobin 10.2 Hematocrit 29.6 Mean Corpuscular Volume 105.6 Mean Corpuscular Hemoglobin 36.3 Mean Corpuscular Hemoglobin Concent 34.4 Red Cell Distribution Width 15.6 Platelet Count 93 Mean Platelet Volume 8.4 Prothrombin Time 16.1 Prothromb Time International Ratio 1.6 Blood Urea Nitrogen 41 Creatinine 7.13 Random Glucose 72 Total Protein 6.6 Albumin 1.8 Calcium Level 8.1 Alkaline Phosphatase 80 Aspartate Amino Transf (AST/SGOT) 104 Alanine Aminotransferase (ALT/SGPT) 56 Total Bilirubin 2.8 Sodium Level 137 Potassium Level 4.5 Chloride Level 98 Carbon Dioxide Level 30.7 Anion Gap 8 Estimat Glomerular Filtration Rate 8 Date/Time Source Procedure Growth Status 07/07/17 20:14 Blood Peripheral Aerobic Blood Culture - Final NO GROWTH IN 5 DAYS Complete 07/07/17 20:14 Blood Peripheral Anaerobic Blood Culture - Final NO GROWTH IN 5 DAYS Complete 07/07/17 11:00 Fluid Pleural Fluid Fungal Smear - Final NO FUNGAL ELEMENTS SEEN. Resulted 07/07/17 11:00 Fluid Pleural Fluid Fungal Culture Pending Resulted 07/05/17 00:22 Sputum Expectorated Sputum Gram Stain - Final Complete 07/05/17 00:22 Sputum Expectorated Sputum Sputum Culture - Final HEAVY GROWTH NORMAL RESPIRATORY MARISELA Complete 07/11/17 09:10 Urine Catheterized Urine Urine Culture - Preliminary Yeast-Id To Follow Resulted Imaging Last Impressions Chest X-Ray 07/12/17 0000 Signed Impressions: Service Date/Time: Wednesday, July 12, 2017 07:57 - CONCLUSION: 1. The small bore right-sided chest tube remains in place with stable right effusion which may be partially loculated. 2. Hazy opacity remains in the right lung. Gato Patino MD Chest CT 07/12/17 0000 Signed Impressions: Service Date/Time: Wednesday, July 12, 2017 12:19 - CONCLUSION: 1. Interval placement of right-sided percutaneous drainage catheter with mild decrease in the size of the right pleural effusion. 2. New small left pleural effusion. 3. Prominent lymph nodes and induration remaining in the right axillary region and 4. The previously noted prominence right paratracheal lymph node is stable. 5. Mild consolidation remains in the right lung base. Gato Patino MD Chest Tube Insertion 07/08/17 0000 Signed Impressions: Service Date/Time: Saturday, July 08, 2017 16:27 - CONCLUSION: Uncomplicated chest tube placement as above. Santiago Mccartney MD Abdomen Ultrasound 07/08/17 0000 Signed Impressions: Service Date/Time: Saturday, July 08, 2017 18:00 - CONCLUSION: 1. Cirrhotic appearing liver with splenomegaly. 2. Extensive cholelithiasis. Santiago Mccartney MD Thoracentesis Ultrasound 07/07/17 0000 Signed Impressions: Service Date/Time: Friday, July 07, 2017 10:32 - CONCLUSION: Uncomplicated ultrasound guided thoracentesis. Santiago Mccartney MD Foot MRI 07/07/17 0000 Signed Impressions: Service Date/Time: Friday, July 07, 2017 15:40 - CONCLUSION: Probable mild cellulitis without osteomyelitis or deep space involvement. Josh Santiago MD FACR Catheter Placement X-Ray 07/07/17 0000 Signed Impressions: Service Date/Time: Friday, July 07, 2017 13:15 - CONCLUSION: Uncomplicated line placement as above. Masoud Lopez MD Renal Ultrasound 07/06/17 0000 Signed Impressions: Service Date/Time: Thursday, July 06, 2017 20:20 - CONCLUSION: 1. Normal appearance the kidneys. 2. Moderate right pleural effusion. Luis Miguel Villegas MD Chest Ultrasound 07/05/17 0000 Signed Impressions: Service Date/Time: Wednesday, July 05, 2017 12:26 - CONCLUSION: Loculated fluid as above. Josh Santiago MD FACR Foot X-Ray 07/04/17 0000 Signed Impressions: Service Date/Time: Tuesday, July 04, 2017 15:35 - CONCLUSION: Negative for fracture or dislocation. Follow up in 7-10 days is suggested if symptoms persist. Josh Santiago MD FACR Abdomen/Pelvis CT 07/03/17 0000 Signed Impressions: Service Date/Time: June 08:43 - CONCLUSION: 1. 1.5 cm low-density lesion within the anterior segment of the right lobe of liver which is indeterminate. Outpatient MRI of the abdomen with contrast would be helpful for further characterization of this indeterminate lesion. 2. Mild splenomegaly and very large intra-abdominal varices draining into the splenic vein suggesting portal hypertension. 3. Perigastric varices and bilateral inguinal varices are also noted. 4. Cholelithiasis. 5. Tiny right pleural effusion. 6. Minimal right basilar atelectasis and/or infiltrate. 7. Degenerative changes and scoliosis of the thoracolumbar spine. Haseeb Helms MD Physical Exam HEENT: Normocephalic; atraumatic CHEST: Even/unlabored- R sided chest tube CARDIAC: RRR ABDOMEN: Obese, soft, nontender, bowel sounds active SKIN: Pale; no rash; no jaundice. STERILE PROCESS TECH: Alert and oriented x 3 (Josi Lao) Assessment and Plan Plan ASSESSMENT/History - Cirrhosis- history of hepatitis C- genotype 1 a- quant 30,900 CT abdomen and pelvis W IV contrast (07/03) --> Mild splenomegaly and very large intra-abdominal varices draining into the splenic vein suggestion portal HTN. Perigastric varices and bilateral inguinal varices are also noted. Cholelithiasis. US abdomen (07/08) --> Cirrhotic appearing liver with splenomegaly. Extensive cholelithiasis. Liver BATRES: ROBERT, ASMA negative. AMA < 20. Iron-94 TIBC-141 %sat-68.6 Ferritin-540 P6K-231 Ceruloplasmin-26 Ammonia-22 HFE negative AFP-3.5 - Liver lesion on CT --> 1.5 cm low-density lesion within the anterior segment of the right lobe of the liver which is indeterminate. Outpatient MRI with contrast suggested. Unable to do at this time, given poor renal function. AFP-3.5 - Elevated lipase- CT states unremarkable pancreas- Lipase 932 on 07/03 now WNL - Thrombocytopenia- improving. platelets currently 148 - Anemia- multifactorial- macrocytic- H/H stable currently 11.1/32.7 - Empyema- pleural fluid (+) MRSA- ID following - RODOLFO on dialysis (07/12) --> No significant change overnight. Remains with generalized pains. Nephrology following, per pt planning for dialysis again on Friday- Differentials for RODOLFO include ATN due to sepsis and post infectious glomerulonephritis. Less likely hepatorenal syndrome. 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 (07/13) No significant changes over night. Continued generalized pain. Poor PO intake. Renal function remains poor. Pet pt, planned for surgery tomorrow for empyema PLAN - Continue with current supportive care - Monitor labs - MRI on outpatient basis for liver lesion - Hepatitis C treatment outpatient- needs to quit substance abuse - Recommend albumin supplementation and encourage PO intake - GI will sign off, please reconsult as needed - Have pt follow up with GI after discharge Pt has been seen and examined by myself and Dr. Mondragon and this note is written on his behalf (Josi Lao) Physician Comments Patient seen and examined Agree with above Continue with current supportive care Monitor labs Not much to add from a GI perspective we will sign off (Roosevelt Mondragon MD) Josi Lao Jul 13, 2017 14:41 Roosevelt Mondragon MD Jul 13, 2017 21:05
[2017-07-13] MEDS ORDERED: LACTATED RINGER'S 1000 ML IV PRN (20:15)
[2017-07-13] MEDS ORDERED: POVIDONE IODINE 5% (ANTISEPSIS KIT) 4 APPLICATIONS EACH NARE PRN (20:15)
[2017-07-13] MEDS ORDERED: SODIUM CHLORID 0.9% 500 ML IV PRN (20:15)
[2017-07-13] MEDS ORDERED: CHLORHEXIDINE GLUCONATE 2 % 1 PACK (2 CLOTHS) TOPICAL PRN (20:15)
[2017-07-14] VITALS (12 sets, daily range): BP systolic 93–130; BP diastolic 48–68; PULSE 76–96; RESP 16–22; TEMP 97.2–98.6; O2SAT 90–97
[2017-07-14] MEDS: CEFTAROLINE IV SCH ×2 (01:52→14:00)
[2017-07-14] MEDS: SODIUM CHLORIDE 0.9% IV SCH ×2 (01:52→14:00)
[2017-07-14] MEDS: traMADol HCL 50 MG TAB PO PRN (01:53)
[2017-07-14] MEDS: LACTULOSE SYRUP 20 GM/30 ML CUP PO SCH ×4 (08:34→21:00)
[2017-07-14] MEDS: MUPIROCIN 2% OINT 1 APPLIC/GM SYR EACH NARE SCH ×2 (08:37→21:00)
[2017-07-14] MEDS: SODIUM CHLORIDE 0.9% FLUSH 10 ML FLUSH IV FLUSH SCH ×3 (08:37→21:00)
[2017-07-14] MEDS: FLUCONAZOLE 100 MG TAB PO SCH (10:01)
[2017-07-14] MEDS: ALBUMIN 25% INJ 100 ML IV SCH (10:01)
[2017-07-14 10:43] LABS: CALCIUM 8.3 MG/DL (8.5-10.1); CREATININE 8.22 MG/DL (0.60-1.30)
--- NOTE | 2017-07-14 11:08 | HHI.PR ---
Subjective Remarks Follow-up for MRSA bacteremia, severe sepsis, acute kidney injury, pneumonia. Patient is doing well. No acute concerns. He is scheduled for VATS by cardiothoracic surgery today. Objective Vitals Vital Signs Date Time Temp Pulse Resp B/P (MAP) Pulse Ox O2 Delivery O2 Flow Rate FiO2 07/14/17 08:00 97.8 83 19 117/66 (83) 94 07/14/17 04:00 98.6 76 16 115/58 (77) 96 07/14/17 00:00 97.2 96 16 130/68 (88) 90 07/13/17 20:00 97.7 88 16 125/60 (81) 92 07/13/17 19:33 96 07/13/17 15:33 97.7 91 20 111/60 (77) 96 07/13/17 11:37 97.9 84 20 117/60 (79) 95 I/O 07/13/17 07/13/17 07/13/17 07/14/17 07/14/17 07/14/17 07:00 15:00 23:00 07:00 15:00 23:00 Intake Total 450 ml 600 ml Output Total 0 ml 210 ml 60 ml 295 ml Balance 450 ml -210 ml 540 ml -295 ml Intake Oral 450 ml 600 ml Output Urine Total 0 ml 225 ml Chest Tube Drainage Total 210 ml 60 ml 70 ml # Voids 0 # Bowel Movements 0 0 Result Diagram: 07/13/17 0632 07/14/17 0955 Objective Remarks GENERAL: SKIN: Warm and dry. HEAD: Normocephalic. EYES: No scleral icterus. No injection or drainage. NECK: Supple, trachea midline. No JVD or lymphadenopathy. CARDIOVASCULAR: Regular rate and rhythm without murmurs, gallops, or rubs. RESPIRATORY: Breath sounds equal bilaterally. No accessory muscle use. GASTROINTESTINAL: Abdomen soft, non-tender, nondistended. MUSCULOSKELETAL: No cyanosis, or edema. BACK: Nontender without obvious deformity. No CVA tenderness. Procedures Echo 07/04/2017 The left ventricular systolic function is normal with an estimated ejection fraction in the range of 60-65%. Wall thickness is measured at the upper limits of normal. No regional wall motion abnormalities are present. Normal left ventricular size. There is trace tricuspid valve regurgitation. The estimated pulmonary arterial pressure is 33 mmHg. 07/08/2017 -right-sided chest tube placement by interventional radiology. A/P Problem List: (1) Sepsis ICD Code: A41.9 - Sepsis, unspecified organism Status: Acute (2) Pneumonia ICD Code: J18.9 - Pneumonia, unspecified organism Status: Acute (3) Bandemia ICD Code: D72.825 - Bandemia Status: Acute (4) Elevated lipase ICD Code: R74.8 - Abnormal levels of other serum enzymes Status: Acute (5) Hypertension ICD Code: I10 - Essential (primary) hypertension Status: Acute (6) Axillary lymphadenopathy ICD Code: R59.0 - Localized enlarged lymph nodes Assessment and Plan On 07/03/2017, Mr. Wade, a 46 year old male presented to the ED due to flu like symptoms despite being treated for flu by his PCP. He complained of right- sided pleuritic chest pain. He reported fever and chills. Temperature in the emergency department was 101.2F. CT chest showed right pleural effusion with some atelectasis. CT abdomen pelvis showed a liver lesion. Severe sepsis - resolved. MRSA bacteremia MRSA pneumonia Empyema - pleural fluid grew MRSA Pneumonia on CT chest, liver lesion, right axillary lymphadenopathy, possible cellulitis Pleural fluid cx grew MRSA. Blood cx also grew MRSA. Appreciate ID input. Currently patient is on Ceftaroline 200mg Q12hrs to cover MRSA pneumonia and bacteremia. 07/05 - Echo showed no vegetation. Chest tube placed on the right side on 07/08/2017. Pulmonary consulted Cardiothoracic surgery for possible VATS which is scheduled to be done today 07/14/2017. Repeat CT chest done on 07/12/2017, images reviewed - still shows significant right sided pleural effusion and mild right pleural effusion. Acetaminophen, tramadol as needed for pain. acute kidney injury Creatinine 0.8 on 07/04/2017. Cr 5.70 on 07/12/2017. Now on dialysis. Possibly due to vancomycin as well as post infectious Continue dialysis per Nephrology. Liver cirrhosis Hepatitis C genotype 1a Liver lesion 1.5cm GI following. Patient will likely need an MRI study in future. Thrombocytopenia - improved. PLT 120K on 07/12/2017. Full code. SCDs. Discharge plan: Pending further recs from Cardiothoracic surgery consult. Patient will likely need outpatient dialysis set up unless kidney function recovers. Problem Qualifiers (1) Sepsis: Qualified Codes: A41.9 - Sepsis, unspecified organism (2) Pneumonia: Qualified Codes: J18.1 - Lobar pneumonia, unspecified organism (3) Hypertension: Qualified Codes: I10 - Essential (primary) hypertension Keanu Faustin DO Jul 14, 2017 11:08 am
--- NOTE | 2017-07-14 11:43 | HHI.NPPN ---
Subjective Renal Failure: Acute Interval History NPO for VATS today. Chest tube still draining. He is oliguric, dialyzed Friday. (Lisa Tovar) Review of Systems General Constitutional: Fatigue (Lisa Tovar) Respiratory Respiratory Remarks On exertion (Lisa Tovar) Objective Data Data Vital Signs Date Time Temp Pulse Resp B/P (MAP) Pulse Ox O2 Delivery O2 Flow Rate FiO2 07/14/17 08:00 97.8 83 19 117/66 (83) 94 07/14/17 04:00 98.6 76 16 115/58 (77) 96 07/14/17 00:00 97.2 96 16 130/68 (88) 90 07/13/17 20:00 97.7 88 16 125/60 (81) 92 07/13/17 19:33 96 07/13/17 15:33 97.7 91 20 111/60 (77) 96 (Lisa Tovar) -: 07/13/17 0632 07/14/17 0955 Imaging Last 72 hours Impressions Chest X-Ray 07/12/17 0000 Signed Impressions: Service Date/Time: Wednesday, July 12, 2017 07:57 - CONCLUSION: 1. The small bore right-sided chest tube remains in place with stable right effusion which may be partially loculated. 2. Hazy opacity remains in the right lung. Gato Patino MD Chest CT 07/12/17 0000 Signed Impressions: Service Date/Time: Wednesday, July 12, 2017 12:19 - CONCLUSION: 1. Interval placement of right-sided percutaneous drainage catheter with mild decrease in the size of the right pleural effusion. 2. New small left pleural effusion. 3. Prominent lymph nodes and induration remaining in the right axillary region and 4. The previously noted prominence right paratracheal lymph node is stable. 5. Mild consolidation remains in the right lung base. Gato Patino MD Tubes & Lines: Vas-Cath Tubes & Lines Comment R chest tube (Lisa Tovar) Physical Exam General Appearance: Well Developed, No Acute Distress, Comfortable (Lisa Tovar) Eyes Eye Exam: Pupils Equal (Guy,Lisa B. OUTREACH ASSISTANT) Pulmonary Resp Exam: Clear Bilaterally, Breath Sounds Equal, Diminished Breath Sounds Resp Remarks chest tube right (Lisa TovarP) Cardiology CV Exam: Regular, Normal Sinus Rhythm, Murmur (Lisa TovarP) Gastrointestinal/Abdomen GI Exam: Soft, Non-Tender, Bowel Sounds Present (Lisa TovarP) Musculoskeletal MS Exam: Joints Intact, Normal Gait, Normal Tone, Good Strength (Lisa TovarP) Integumentary Skin Exam: Warm, Dry, Intact (Lisa Tovar OUTREACH ASSISTANT) Extremeties Extremities Exam: Pedal Pulses Palpable, Moderate Edema (Lisa TovarP) Neurologic Neuro Exam: Alert, Awake, Oriented, Speech Clear, Moving All Extremities (Lisa Tovar) Psychiatric Psych Exam: Appropriate Responses (Lisa Tovar) Assessment/Plan Discussed Condition With: Patient, Parent Assessment Summary: RODOLFO/Acute Renal Failure Problem List: (1) Acute kidney injury ICD Codes: N17.9 - Acute kidney failure, unspecified Plan: Etiology is uncertain. Medication related: Vancomycin induced nephrotoxicity; he was also on NSAIDs and ANSELMO inhibitor prior to admission. All were stopped. He was exposed to IV contrast on 07/03 but JAYDA unlikely Other possibilities: ATN due to sepsis and Post infectious GN. C3 is low Hepatorenal syndrome is less likely. Hepatitis C related Cryoglobulinemic Vasculitis also considered, cryoglobulin level in progress. Vascath placed and HD initiated 07/07 and HD TTS if needed Repeat labs tomorrow, most likely will require HD He is oliguric, follow output Stop albumin Avoid vancomycin Repeat labs, await for renal recovery. Monitor vascath site/function (2) Sepsis ICD Codes: A41.9 - Sepsis, unspecified organism Status: Acute Plan: ID following s/p thoracentesis 07/07. Has MRSA, empyema. chest tube in place on right. To go for VATS with CTS today. On Teflaro, off vancomycin. Monitor clinically. (3) Hypertension ICD Codes: I10 - Essential (primary) hypertension Status: Acute Plan: Hold antihypertensives for now. (4) Hepatitis C infection ICD Codes: B19.20 - Unspecified viral hepatitis C without hepatic coma Status: Acute Plan: Workup is in progress. GI and ID following. (Lisa TovarP) Problem List: (1) Acute kidney injury ICD Codes: N17.9 - Acute kidney failure, unspecified Plan: Etiology is uncertain. Medication related: Vancomycin induced nephrotoxicity; he was also on NSAIDs and ANSELMO inhibitor prior to admission. All were stopped. He was exposed to IV contrast on 07/03 but JAYDA unlikely Other possibilities: ATN due to sepsis and Post infectious GN. C3 is low Hepatorenal syndrome is less likely. Hepatitis C related Cryoglobulinemic Vasculitis also considered, cryoglobulin level in progress. Vascath placed and HD initiated 07/07 and HD TTS if needed Repeat labs tomorrow, most likely will require HD He is oliguric, follow output Stop albumin Avoid vancomycin Repeat labs, await for renal recovery. Monitor vascath site/function (2) Sepsis ICD Codes: A41.9 - Sepsis, unspecified organism Status: Acute Plan: ID following s/p thoracentesis 07/07. Has MRSA, empyema. chest tube in place on right. To go for VATS with CTS today. On Teflaro, off vancomycin. Monitor clinically. (3) Hypertension ICD Codes: I10 - Essential (primary) hypertension Status: Acute Plan: Hold antihypertensives for now. (4) Hepatitis C infection ICD Codes: B19.20 - Unspecified viral hepatitis C without hepatic coma Status: Acute Plan: Workup is in progress. GI and ID following. Plan patient was seen and examined. He is to have decortication for empyema. No signs of renal recovery. (Bj Amaya MD) Problem Qualifiers (1) Sepsis: Qualified Codes: A41.9 - Sepsis, unspecified organism (2) Hypertension: Qualified Codes: I10 - Essential (primary) hypertension Lisa Tovar Jul 14, 2017 11:43 Bj Amaya MD Jul 15, 2017 10:17
[2017-07-14] MEDS ORDERED: LACTATED RINGER'S 1000 ML INJ 1,000 ML IV ONE (12:00)
[2017-07-14] MEDS ORDERED: NORMOSOL R INJ 1,000 ML IV ONE (12:00)
[2017-07-14] MEDS ORDERED: PROPOFOL 200 MG/20 ML AMP IV ONE (12:00)
[2017-07-14] MEDS ORDERED: DEXAMETHASONE SOD PHOS 4 MG/ML VIAL IV ONE (12:00)
[2017-07-14] MEDS ORDERED: GLYCOPYRROLATE 1 MG/5 ML SYRINGE IV PUSH ONE (12:00)
[2017-07-14] MEDS ORDERED: PHENYLEPH/NS 1000 MCG/10 ML SYR IV ONE (12:00)
[2017-07-14] MEDS ORDERED: ROCURONIUM INJ 50 MG/5 ML SYRINGE IV PUSH ONE (12:00)
[2017-07-14] MEDS ORDERED: SODIUM CHLORID 0.9% 500 ML INJ 500 ML IV ONE (12:00)
[2017-07-14] MEDS ORDERED: LIDOCAINE HCL 1% PF 5 ML SYRINGE OTHER ONE (12:00)
[2017-07-14] MEDS ORDERED: NEOSTIGMINE 5 MG/5 ML SYRINGE IV PUSH ONE (12:00)
[2017-07-14] MEDS: BUPIVACAINE HCL PF 0.5% 30 ML VIAL ONE (13:25)
[2017-07-14] MEDS ORDERED: SODIUM CHLORIDE 0.9% FLUSH 10 ML FLUSH IV FLUSH PRN (15:45)
[2017-07-14] MEDS ORDERED: MAGNESIUM HYDROXIDE SUSP 30 ML CUP PO PRN (15:45)
[2017-07-14] MEDS ORDERED: RESP: ALBUTEROL 2.5 MG/3 ML NEB (PRN) NEB (15:45)
[2017-07-14] MEDS ORDERED: ACETAMINOPHEN 325 MG TAB PO PRN (15:45)
[2017-07-14] MEDS ORDERED: Post-op Orders (for Pharmacy) OTHER ONE (15:45)
--- NOTE | 2017-07-14 15:51 | PD.OP ---
cc: Pam Royal MD; Tramaine Smith MD Operative Report Date of Surgery: Jul 14, 2017 Preoperative Diagnosis: (1) Loculated pleural effusion Postoperative Diagnosis: same Procedure: Right thoracoscopic exploration to evacuate right pleural effusion, pleural biopsy Anesthesia: Dr. Sprague Surgeon: Pam Royal Welding Robot Operator(s): Luis Miguel ALMONTE Operation and Findings: After adequate general anesthesia the patient was placed in the left lateral decubitus position and the right chest was prepped and draped in usual manner. A small posterior port incision was performed and electrocautery was used to obtain hemostasis and carry the dissection down through the fascia. A 22G seeker needle was used initially posteriorly and serosanguious fluid was aspirated. A port was initially placed posteriorly followed by the camera. Visualization was somewhat difficult. Overall, ~1000 ml of serosanguineous effusion was drained. A second anterior port was positioned at ~6th intercostal space. Blunt dissection was used to mobilize the lower lobe and drain as much of the effusion as possible. Exploration of the right hemithorax was significant for fibrinopurulent exudate and friable hyperemic pleura . Pleural biopsies were sent to Pathology. Fluid was submitted for lab studies and numerous cultures. A 36F chest tube was positioned through the anterior port, and secured with a 0-silk suture. The lung was ventilated and no significant air leaks were found. The subcutaneous tissues of the posterior port was approximated running 2-0 Vicryl suture and the skin was approximated using running 4-0 Monocryl subcuticular stitch. All sponge and history counts were correct at the close the procedure and the patient was transferred to the PACU for recovery purposes. The patient was somewhat coagulopathic with an INR of 1.6 and platelet count of 93K prior to the procedure. Pam Royal MD Jul 14, 2017 15:51
[2017-07-14] MEDS ORDERED: DO NOT ADM ANY ANTICOAGULANT DRUGS PRN (16:05)
[2017-07-14] MEDS ORDERED: fentaNYL CITRATE 250 MCG/5 ML AMP ONE (16:06)
[2017-07-14] MEDS ORDERED: *morphine SULFATE 8 MG/ML PERIprocedure ONLY ONE (16:31)
[2017-07-14] MEDS: RESP: ALBUTEROL 2.5 MG/3 ML NEB (SCH) NEB ×2 (16:40→21:52)
[2017-07-14] MEDS ORDERED: Hemodialysis Vas Acc Cath PRN Heparin 1000 unit/ml Flush IV FLUSH (16:45)
[2017-07-14] MEDS ORDERED: Hemodialysis Vas Access Cath PRN NS Lock Flush IV FLUSH (16:45)
--- NOTE | 2017-07-14 16:48 | RADRPT ---
EXAM DATE/TIME: 07/14/2017 16:15 [facility] COMPARISON: CT THORAX W/O CONTRAST, July 12, 2017, 12:19. CHEST PA & LAT, July 12, 2017, 7:57. CHEST SINGLE A P, July 03, 2017, 5:25. INDICATIONS : Post thoracotomy right side MEDICAL HISTORY : Cardiovascular disease. Hypertension Cirrhosis. SURGICAL HISTORY : Colostomy. Colectomy, chest tube ENCOUNTER: Initial ACUITY: 1 day PAIN SCORE: Non-responsive. LOCATION: Bilateral chest FINDINGS: A single AP portable erect view of the chest was obtained and demonstrates interval placement of righ t-sided chest tube. The right-sided central line remains in place. There's been interval increase in the abnormal opacity along the right lateral chest wall with blunting of costophrenic angle. The hear t size appears mildly prominent. There is mild motion artifact. The left lung appears grossly clear. The previously noted small bore right-sided chest tube is no longer visualized. CONCLUSION: 1. Placement of right-sided chest tube with no pneumothorax. 2. Interval increase in peripheral opacity in the right lateral lung. This likely represents fluid. 3. Apparent interval removal of small bore right-sided chest tube. Gato Patino MD on July 14, 2017 at 16:43 Board Certified Radiologist. This report was verified electronically.
[2017-07-14 17:24] LABS: TOTAL PROTEIN,PLEURAL FLUID 3.7 GM/DL
[2017-07-14 18:31] LABS: PLEURAL FLUID EOS 1 %; PLEURAL FLUID LYMPHS 1 %; PLEURAL FLUID MONOS 1 %; PLEURAL FLUID POLYS (SEGS) 97 %
[2017-07-14 18:45] LABS: PLEURAL FLUID RBC 62782 /MM3 (0-0); PLEURAL FLUID WBC 1940 /MM3 (0-10)
[2017-07-14] MEDS: DOCUSATE CALCIUM 240 MG CAP PO SCH (21:00)
[2017-07-14] MEDS ORDERED: GABAPENTIN 300 MG CAP PO SCH (21:00)
[2017-07-14] MEDS: PANTOPRAZOLE SOD 40 MG DELAYED RELEASE TAB PO SCH (21:00)
[2017-07-15] VITALS (18 sets, daily range): BP systolic 93–128; BP diastolic 50–60; PULSE 82–102; RESP 14–20; TEMP 97.9–98.6; O2SAT 93–96
[2017-07-15] MEDS: CEFTAROLINE IV SCH ×2 (02:37→14:03)
[2017-07-15] MEDS: SODIUM CHLORIDE 0.9% IV SCH ×2 (02:37→14:03)
--- NOTE | 2017-07-15 04:10 | RADRPT ---
EXAM DATE/TIME: 07/15/2017 03:44 [facility] COMPARISON: CHEST SINGLE AP, July 14, 2017, 16:15. INDICATIONS : Post thoracotomy, short of breath. MEDICAL HISTORY : Cardiovascular disease. Hypertension Cirrhosis SURGICAL HISTORY : Colostomy. Colectomy, chest tube ENCOUNTER: Subsequent ACUITY: 2 days PAIN SCORE: 0/10 LOCATION: Bilateral chest FINDINGS: Right-sided Vas-Cath in superior vena cava. Right chest tube present with loculated right pleural flu id. Bilateral airspace disease, right greater than left relatively stable from July 14. CONCLUSION: 1. Right chest tube remains present. There is loculated right pleural fluid. No pneumothorax. No sign ificant change from July 14. Thompson Cross MD on July 15, 2017 at 4:08 Board Certified Radiologist. This report was verified electronically.
[2017-07-15] MEDS: RESP: ALBUTEROL 2.5 MG/3 ML NEB (SCH) NEB ×4 (04:31→21:51)
[2017-07-15 06:34] LABS: AUTOMATED NEUTROPHIL # 10.8 TH/MM3 (1.8-7.7); BASOPHIL % 0.1 % (0.0-2.0); HEMATOCRIT 21.1 % (39.0-51.0); HEMOGLOBIN 7.2 GM/DL (13.0-17.0); LYMPH % 3.1 % (9.0-44.0); LYMPHOCYTE # 0.4 TH/MM3 (1.0-4.8); MEAN CELL VOLUME 105.4 FL (80.0-100.0); MEAN CORPUSCULAR HEMOGLOBIN 36.1 PG (27.0-34.0); MEAN CORPUSCULAR HGB CONC 34.3 % (32.0-36.0); MEAN PLATELET VOLUME 8.1 FL (7.0-11.0); MONO % 4.2 % (0.0-8.0); MONOCYTE # 0.5 TH/MM3 (0-0.9); NEUT % 92.6 % (16.0-70.0); PLATELET COUNT 52 TH/MM3 (150-450); RED CELL DISTRIBUTION WIDTH 15.3 % (11.6-17.2); WHITE BLOOD COUNT 11.6 TH/MM3 (4.0-11.0)
[2017-07-15 06:53] LABS: CALCIUM 8.3 MG/DL (8.5-10.1); CREATININE 9.4 MG/DL (0.60-1.30)
[2017-07-15] MEDS: SODIUM CHLORIDE 0.9% FLUSH 10 ML FLUSH IV FLUSH SCH ×2 (08:45→21:36)
[2017-07-15] MEDS ORDERED: ALBUMIN 25% INJ 100 ML IV PRN (08:45)
[2017-07-15] MEDS: LACTULOSE SYRUP 20 GM/30 ML CUP PO SCH ×4 (08:46→21:35)
[2017-07-15] MEDS: MUPIROCIN 2% OINT 1 APPLIC/GM SYR EACH NARE SCH ×2 (08:46→21:36)
[2017-07-15] MEDS: BUPIVACAINE HCL PF 0.5% 30 ML VIAL ONE (08:46)
[2017-07-15] MEDS: FLUCONAZOLE 100 MG TAB PO SCH (08:46)
--- NOTE | 2017-07-15 09:38 | HHI.NPPN ---
Subjective Renal Failure: Acute Interval History Hyperkalemic today. Seen during dialysis. S/P VATS yesterday. Chest tube with bloody output. (Lisa Tovar) Review of Systems General Constitutional: Fatigue (Lisa Tovar) Respiratory Lungs: SOB Respiratory Remarks On exertion (Lisa Tovar) Objective Data Data Vital Signs Date Time Temp Pulse Resp B/P (MAP) Pulse Ox O2 Delivery O2 Flow Rate FiO2 07/15/17 05:00 85 07/15/17 04:00 82 07/15/17 04:00 98.1 87 20 95/50 (65) 95 07/15/17 03:00 88 07/15/17 02:00 88 07/15/17 01:00 88 07/15/17 00:00 86 07/15/17 00:00 97.9 89 20 93/50 (64) 96 07/14/17 23:00 88 07/14/17 22:00 86 07/14/17 21:55 94 Nasal Cannula 3.00 07/14/17 21:00 86 07/14/17 20:00 88 07/14/17 20:00 97.6 88 22 93/48 (63) 97 07/14/17 19:00 87 07/14/17 18:01 86 07/14/17 17:26 98.6 93 18 116/56 (76) 95 07/14/17 17:00 97.5 82 16 116/68 (84) 96 Nasal Cannula 3 07/14/17 17:00 90 07/14/17 16:45 89 16 119/66 (83) 95 Nasal Cannula 3 07/14/17 16:30 92 15 120/59 (79) 95 Nasal Cannula 4 07/14/17 16:15 95 15 121/61 (81) 99 Nasal Cannula 4 07/14/17 16:00 97.5 97 20 116/57 (76) 99 Simple Mask 8 (Lisa Tovar) -: 07/15/17 0603 07/15/17 0603 Microbiology 07/14/17 Fungal Smear - Final, Resulted NO FUNGAL ELEMENTS SEEN. 07/14/17 Fungal Culture, Resulted Pending 07/14/17 Acid Fast Stain, Received Pending 07/14/17 Mycobacterial Culture, Received Pending 07/14/17 Gram Stain - Final, Resulted 07/14/17 Body Fluid Culture, Resulted Pending Imaging Last 72 hours Impressions Chest X-Ray 07/15/17 0500 Signed Impressions: Service Date/Time: Saturday, July 15, 2017 03:44 - CONCLUSION: 1. Right chest tube remains present. There is loculated right pleural fluid. No pneumothorax. No significant change from July 14. Thompson Cross MD Chest X-Ray 07/14/17 0000 Signed Impressions: Service Date/Time: Friday, July 14, 2017 16:15 - CONCLUSION: 1. Placement of right-sided chest tube with no pneumothorax. 2. Interval increase in peripheral opacity in the right lateral lung. This likely represents fluid. 3. Apparent interval removal of small bore right-sided chest tube. Gato Patino MD Tubes & Lines: Vas-Cath Tubes & Lines Comment R chest tube (Lisa Tovar) Physical Exam General Appearance: Well Developed, No Acute Distress, Comfortable (Lisa Tovar CERTIFIED MEDICATION AIDE) Eyes Eye Exam: Pupils Equal (Lisa Tovar BJocelynn CERTIFIED MEDICATION AIDE) Pulmonary Resp Exam: Clear Bilaterally, Breath Sounds Equal, Diminished Breath Sounds Resp Remarks chest tube right (Lisa Tovar B. CERTIFIED MEDICATION AIDE) Cardiology CV Exam: Regular, Normal Sinus Rhythm, Murmur (Lisa Tovar B. CERTIFIED MEDICATION AIDE) Gastrointestinal/Abdomen GI Exam: Soft, Non-Tender, Bowel Sounds Present (Lisa Tovar BJocelynn CERTIFIED MEDICATION AIDE) Musculoskeletal MS Exam: Joints Intact, Normal Gait, Normal Tone, Good Strength (Lisa Tovar BJocelynn CERTIFIED MEDICATION AIDE) Integumentary Skin Exam: Warm, Dry, Intact (Lisa Tovar B. CERTIFIED MEDICATION AIDE) Extremeties Extremities Exam: Pedal Pulses Palpable, Moderate Edema (Lisa Tovar BJocelynn CERTIFIED MEDICATION AIDE) Neurologic Neuro Exam: Alert, Awake, Oriented, Speech Clear, Moving All Extremities (Lisa Tovar BJocelynn CERTIFIED MEDICATION AIDE) Psychiatric Psych Exam: Appropriate Responses (Lisa Tovar) Assessment/Plan Discussed Condition With: Patient, Parent Assessment Summary: RODOLFO/Acute Renal Failure Problem List: (1) Acute kidney injury ICD Codes: N17.9 - Acute kidney failure, unspecified Plan: Etiology is uncertain. Medication related: Vancomycin induced nephrotoxicity; he was also on NSAIDs and ANSELMO inhibitor prior to admission. All were stopped. He was exposed to IV contrast on 07/03 but JAYDA unlikely Other possibilities: ATN due to sepsis and Post infectious GN. C3 is low Hepatorenal syndrome is less likely. Hepatitis C related Cryoglobulinemic Vasculitis also considered, cryoglobulin level in progress. Vascath placed and HD initiated 07/07 and 7 Seen during dialysis today on a 1K, 350 BFR, goal 1L UF Repeat labs daily, HD TTS if needed He is oliguric, follow output Stop albumin Avoid vancomycin Repeat labs, await for renal recovery. Monitor vascath site/function, currently working well. PO fluids encouraged (2) Sepsis ICD Codes: A41.9 - Sepsis, unspecified organism Status: Acute Plan: ID following s/p thoracentesis 07/07. Has MRSA, empyema. s/p VATS yesterday, chest tube with bloody output CTS following On Teflaro Monitor clinically. (3) Hypertension ICD Codes: I10 - Essential (primary) hypertension Status: Acute Plan: Hold antihypertensives for now. (4) Hepatitis C infection ICD Codes: B19.20 - Unspecified viral hepatitis C without hepatic coma Status: Acute Plan: GI followint, recommend outpatient imaging (MRI) and Hep C treatmenet Substance abuse cessation encouraged ID following to manage antibiotics (5) Anemia ICD Codes: D64.9 - Anemia, unspecified Plan: Transfusion ordered for today Monitor output from chest tube, hemoglobin Transfuse as needed (Lisa Tovar) Plan patient was seen and examined. Agree with above assessment and plan. Seen during dialysis. Hyperkalemia should improve with dialysis. (Bj Amaya MD) Problem Qualifiers (1) Sepsis: Qualified Codes: A41.9 - Sepsis, unspecified organism (2) Hypertension: Qualified Codes: I10 - Essential (primary) hypertension Lisa Tovar Jul 15, 2017 09:38 Bj Amaya MD Jul 15, 2017 14:38
[2017-07-15] MEDS: HEPARIN SODIUM - IV 10,000 UNITS/10 ML VIAL PRN (10:39)
[2017-07-15] MEDS: GENTAMICIN SULFATE 20 MG/2 ML VIAL OTHER PRN (10:40)
[2017-07-15] MEDS: MANNITOL 12.5 GM/50 ML VIAL IV PRN ×2 (10:40→10:41)
--- NOTE | 2017-07-15 11:04 | HHI.IDPN ---
Subjective Subjective Remarks Patient is a 46-year-old male who presented to the emergency room with complaint of flulike symptoms for about a week. Patient reports he has been having right-sided pleuritic type chest pain. He describes pain as heavy in character, present all the time, worse with coughing and deep breathing. he initially had dry cough but recently started bringing up blood. He was seen by his PCP who was treating him for the flu empirically. he started Tamiflu about 2 days prior to admission. he also has had fevers and nih2ngi. No abdominal pain, no N/V, no complaints. In the ED, his temp was 102. Influenza testing negative. One of 2 BC now reported as growing MRSA. His temps are better. CXR clear. CT chest with R pleural effusion with some atelectasis. CT A/P with a lesion in liver. evidence of portal hypertension. Infectious Disease consultation has been requested to evaluate patient with MRSA bacteremia. Notes reviewed Temps ok Seen in HD Had surgery yesterday and has CT R - output is bloody Getting PRBC transfusion Pain under control No new complaint Antibiotics Teflaro Current Medications Medications (Trade) Dose Ordered Sig/Cassandra Route Start Time Stop Time Status Last Admin (Tylenol) 650 mg Q4H PRN PO 07/03/17 10:15 07/12/17 02:58 (Narcan Inj) 0.4 mg UNSCH PRN IV PUSH 07/03/17 10:15 (Tessalon) 200 mg TID PRN PO 07/04/17 11:45 07/12/17 02:57 (Lactulose Liq) 30 ml QID PO 07/06/17 13:00 07/15/17 08:46 Sodium Chloride 1,000 ml @ 0 mls/hr Q0M PRN OTHER 07/07/17 09:15 07/14/17 12:00 (Heparin Inj) 8,000 units UNSCH PRN IV FLUSH 07/07/17 09:15 Sodium Chloride 1,000 ml @ 200 mls/hr Q5H PRN IV 07/07/17 09:15 Sodium Chloride 1,000 ml @ 0 mls/hr Q0M PRN OTHER 07/07/17 09:15 (Mannitol Inj) 12.5 gm UNSCH PRN IV 07/07/17 09:15 07/15/17 10:41 (NS Flush) 5 ml UNSCH PRN IV FLUSH 07/07/17 09:15 (Heparin Inj) UNSCH PRN .XX 07/07/17 09:15 07/15/17 10:39 (Gentamicin Inj) 20 mg UNSCH PRN OTHER 07/07/17 09:15 07/15/17 10:40 (Zofran Inj) 4 mg UNSCH PRN IV PUSH 07/07/17 09:15 07/12/17 11:25 (Tylenol) 650 mg UNSCH PRN PO 07/07/17 09:15 (Benadryl) 25 mg UNSCH PRN PO 07/07/17 09:15 (Nitrostat Sl) 0.4 mg UNSCH PRN SL 07/07/17 09:15 (Catapres) 0.1 mg UNSCH PRN PO 07/07/17 09:15 (Gelfoam 12 Mm/7 Mm Top) 1 foam UNSCH PRN TOP 07/07/17 09:15 (NS Flush) UNSCH PRN IV FLUSH 07/07/17 13:45 (Heparin Inj) UNSCH PRN IV FLUSH 07/07/17 13:45 07/12/17 11:25 (Ultram) 50 mg Q8H PRN PO 07/08/17 13:45 07/14/17 01:53 Ceftaroline Fosamil 200 mg/ Sodium Chloride 100 ml @ 100 mls/hr Q12H IV 07/10/17 14:00 07/15/17 02:37 (Bactroban Nasal 2% Oint) 1 applic BID EACH NARE 07/13/17 13:00 07/18/17 12:59 07/15/17 08:46 (Hibiclens 4% Top Soln) 1 applic BOWL TURNER TOPICAL 07/13/17 13:00 07/20/17 12:59 Lactated Ringer's 1,000 ml @ 30 mls/hr Q24H PRN IV 07/13/17 20:15 07/16/17 20:14 Sodium Chloride 500 ml @ 30 mls/hr [id number] PRN IV 07/13/17 20:15 07/16/17 20:14 (Betadine 5% Antisepsis Kit) 1 applic BOWL TURNER PRN EACH NARE 07/13/17 20:15 07/16/17 20:14 (Chlorhexidine 2% Cloth) 3 pack BOWL TURNER PRN TOPICAL 07/13/17 20:15 07/16/17 20:14 (Neurontin) 300 mg BID PO 07/14/17 21:00 Future Hold (Diflucan) 100 mg DAILY PO 07/14/17 09:30 07/16/17 10:00 07/15/17 08:46 (Albuterol Neb) 2.5 mg Q6HR NEB NEB 07/14/17 16:00 07/15/17 04:31 (Albuterol Neb) 2.5 mg Q2HR NEB PRN NEB 07/14/17 15:45 (NS Flush) 2 ml BID IV FLUSH 07/14/17 21:00 07/15/17 08:45 (NS Flush) 2 ml UNSCH PRN IV FLUSH 07/14/17 15:45 (Protonix) 40 mg HS PO 07/14/17 21:00 07/14/17 21:00 (Zofran Inj) 4 mg Q6H PRN IV PUSH 07/14/17 15:45 (Surfak) 240 mg HS PO 07/14/17 21:00 07/14/17 21:00 (Milk Of Magnesia Liq) 30 ml DAILY PRN PO 07/14/17 15:45 (Tylenol) 650 mg Q4H PRN PO 07/14/17 15:45 (Percocet 5-325 Mg) 1 tab Q3H PRN PO 07/14/17 15:45 (Percocet 5-325 Mg) 2 tab Q3H PRN PO 07/14/17 15:45 Miscellaneous Information ALL NURSING DEPARTME... UNSCH PRN .XX 07/14/17 16:05 07/15/17 16:04 (NS Flush) 5 ml UNSCH PRN IV FLUSH 07/14/17 16:45 (Heparin Inj) 2,000 units UNSCH PRN IV FLUSH 07/14/17 16:45 07/14/17 16:35 Albumin Human 100 ml @ 60 mls/hr UNSCH PRN IV 07/15/17 08:45 07/15/17 10:41 Lines Line with no evidence of infection Past Medical History Hypertension Herniated disc Hepatitis C (untreated) Ruptured diverticular abscess Past Surgical History ?Left thoracotomy for pleurisy. Allergies: Coded Allergies: No Known Allergies (Verified Allergy, Unknown, 07/04/17) Objective . Vital Signs Date Time Temp Pulse Resp B/P (MAP) Pulse Ox O2 Delivery O2 Flow Rate FiO2 07/15/17 08:45 94 Nasal Cannula 3.00 07/15/17 08:45 88 07/15/17 08:45 98.2 82 18 128/60 (82) 95 07/15/17 05:00 85 07/15/17 04:00 82 07/15/17 04:00 98.1 87 20 95/50 (65) 95 07/15/17 03:00 88 07/15/17 02:00 88 07/15/17 01:00 88 07/15/17 00:00 86 07/15/17 00:00 97.9 89 20 93/50 (64) 96 07/14/17 23:00 88 07/14/17 22:00 86 07/14/17 21:55 94 Nasal Cannula 3.00 07/14/17 21:00 86 07/14/17 20:00 88 07/14/17 20:00 97.6 88 22 93/48 (63) 97 07/14/17 19:00 87 07/14/17 18:01 86 07/14/17 17:26 98.6 93 18 116/56 (76) 95 07/14/17 17:00 97.5 82 16 116/68 (84) 96 Nasal Cannula 3 07/14/17 17:00 90 07/14/17 16:45 89 16 119/66 (83) 95 Nasal Cannula 3 07/14/17 16:30 92 15 120/59 (79) 95 Nasal Cannula 4 07/14/17 16:15 95 15 121/61 (81) 99 Nasal Cannula 4 07/14/17 16:00 97.5 97 20 116/57 (76) 99 Simple Mask 8 07/15/17 07/15/17 07/16/17 15:00 23:00 07:00 Intake Total 800 ml Output Total 3500 ml Balance -2700 ml Packed Cells 800 ml Hemodialysis 3500 ml . Laboratory Tests Test 07/15/17 06:03 White Blood Count 11.6 TH/MM3 Red Blood Count 2.00 MIL/MM3 Hemoglobin 7.2 GM/DL Hematocrit 21.1 % Mean Corpuscular Volume 105.4 FL Mean Corpuscular Hemoglobin 36.1 PG Mean Corpuscular Hemoglobin Concent 34.3 % Red Cell Distribution Width 15.3 % Platelet Count 52 TH/MM3 Mean Platelet Volume 8.1 FL Neutrophils (%) (Auto) 92.6 % Lymphocytes (%) (Auto) 3.1 % Monocytes (%) (Auto) 4.2 % Eosinophils (%) (Auto) 0.0 % Basophils (%) (Auto) 0.1 % Neutrophils # (Auto) 10.8 TH/MM3 Lymphocytes # (Auto) 0.4 TH/MM3 Monocytes # (Auto) 0.5 TH/MM3 Eosinophils # (Auto) 0.0 TH/MM3 Basophils # (Auto) 0.0 TH/MM3 CBC Comment AUTO DIFF Differential Comment AUTO DIFF CONFIRMED Laboratory Tests Test 07/14/17 09:55 07/15/17 06:03 Blood Urea Nitrogen 51 MG/DL 66 MG/DL Creatinine 8.22 MG/DL 9.40 MG/DL Random Glucose 65 MG/DL 123 MG/DL Calcium Level 8.3 MG/DL 8.3 MG/DL Sodium Level 135 MEQ/L 133 MEQ/L Potassium Level 5.1 MEQ/L 6.4 MEQ/L Chloride Level 97 MEQ/L 98 MEQ/L Carbon Dioxide Level 31.0 MEQ/L 26.0 MEQ/L Anion Gap 7 MEQ/L 9 MEQ/L Estimat Glomerular Filtration Rate 7 ML/MIN 6 ML/MIN Microbiology Date/Time Source Procedure Growth Status 07/14/17 14:55 Fluid Pleural Fluid Fungal Smear - Final NO FUNGAL ELEMENTS SEEN. Resulted 07/14/17 14:55 Fluid Pleural Fluid Fungal Culture Pending Resulted 07/14/17 14:55 Fluid Pleural Fluid Acid Fast Stain Pending Received 07/14/17 14:55 Fluid Pleural Fluid Mycobacterial Culture Pending Received 07/14/17 14:55 Fluid Pleural Fluid Gram Stain - Final Resulted 07/14/17 14:55 Fluid Pleural Fluid Body Fluid Culture Pending Resulted Imaging Last Impressions Chest X-Ray 07/07/17 0000 Signed Impressions: Service Date/Time: Friday, July 07, 2017 11:23 - CONCLUSION: No pneumothorax. Santiago Mccartney MD Renal Ultrasound 07/06/17 0000 Signed Impressions: Service Date/Time: Thursday, July 06, 2017 20:20 - CONCLUSION: 1. Normal appearance the kidneys. 2. Moderate right pleural effusion. Luis Miguel Villegas MD Chest Ultrasound 07/05/17 0000 Signed Impressions: Service Date/Time: Wednesday, July 05, 2017 12:26 - CONCLUSION: Loculated fluid as above. Josh Snatiago MD FACR Foot X-Ray 07/04/17 0000 Signed Impressions: Service Date/Time: Tuesday, July 04, 2017 15:35 - CONCLUSION: Negative for fracture or dislocation. Follow up in 7-10 days is suggested if symptoms persist. Josh Santiago MD FACR Chest CT 07/03/17 0000 Signed Impressions: Service Date/Time: June 12:16 - CONCLUSION: 1. Extensive stranding with prominent lymph nodes in the right axilla measuring upwards of 1.6 cm in diameter. Does the patient have clinical symptomatology to suggest a cellulitis in this area? 2. Mild, generalized anasarca with some interstitial prominence in both lungs as well the visualized portions of the upper mesentery. Findings are nonspecific but can be seen in entity such as overwhelming sepsis. 3. Calcified gallstones. 4. Small right-sided pleural effusion with associated atelectatic changes. 5. Atretic left sixth rib could be congenital or postsurgical. Old healed rib fractures involving the lateral aspect of #3 and 4 on the left. 6. Mild gynecomastia. Again, nonspecific finding that can be seen with certain medications. Masoud Lopez MD Abdomen/Pelvis CT 07/03/17 0000 Signed Impressions: Service Date/Time: June 08:43 - CONCLUSION: 1. 1.5 cm low-density lesion within the anterior segment of the right lobe of liver which is indeterminate. Outpatient MRI of the abdomen with contrast would be helpful for further characterization of this indeterminate lesion. 2. Mild splenomegaly and very large intra-abdominal varices draining into the splenic vein suggesting portal hypertension. 3. Perigastric varices and bilateral inguinal varices are also noted. 4. Cholelithiasis. 5. Tiny right pleural effusion. 6. Minimal right basilar atelectasis and/or infiltrate. 7. Degenerative changes and scoliosis of the thoracolumbar spine. Haseeb Helms MD Physical Exam GENERAL: awake and alert, NAD SKIN: Cool and dry. No generalized rash, no ecchymoses and no evidence of embolic lesions. Has spider angiomatas HEAD: Atraumatic. Normocephalic. No temporal wasting, or tenderness. EYES: Dorado conjunctiva. No petechia or hemorrhage. Pupils equal, round and reactive to light. Extraocular movements full and intact. Mild scleral icterus. No injection or drainage. EARS, NOSE AND THROAT: Nose without bleeding or purulent nasal discharge. Mucous membranes pink and moist. No oral lesions noted. NECK: Trachea midline. Supple and not tender, no meningeal signs CARDIOVASCULAR: Regular rate and rhythm. No murmurs, rubs or gallops heard RESPIRATORY: Clear to auscultation. Decreased at bases. No rales, wheezing or rhonchi. R CT in place with serous fluid ABDOMEN: Soft, non-tender, nondistended. Bowel sounds present and normoactive. No guarding. No rebound. No organomegaly. EXTREMITIES: No clubbing, cyanosis, or edema. R foot stable. No calf tenderness. Well perfused and warm. NEUROLOGICAL: Grossly nonfocal. PSYCHIATRIC: Normal affect, calm and cooperative. LINE: No evidence of infection Assessment & Plan Remarks IMPRESSION MRSA bacteremia, source - due to PNA, and empyema - S/P surgery 07/14 Cellulitis R foot Pneumonia, with empyema Known liver cirrhosis, previous ETOH, and also He p C Acute renal failure, etiology? RECOMMENDATION Continue IV Teflaro which will cover PNA/empyema and bacteremia Monitor progress Follow progress Follow new C/S and biopsy results Natividad Sanchez MD Jul 15, 2017 11:04
--- NOTE | 2017-07-15 16:25 | PD.CAR.PN ---
CVT Progress Note Subjective/Hospital Course: 46-year-old male who presented to the emergency room with complaint of flulike symptoms for about a week. Patient reports he has been having right-sided pleuritic type chest pain. He describes pain as heavy in character, present all the time, worse with coughing and deep breathing. Patient states he was having hemoptysis for 3 days. Last episode was yesterday. He coughs up clear to yellow mucus now. He was found to have MRSA in a blood culture and pleural fluid culture s/p right thoracentesis. He has renal failure requiring dialysis since being admitted. He has a small bore chest catheter which is draining serous fluid. He is being considered for VATS exploration and possible decortication. (1) Acute kidney injury Etiology is uncertain. Medication related: Vancomycin induced nephrotoxicity; he was also on NSAIDs and ANSELMO inhibitor prior to admission. All were stopped. He was exposed to IV contrast on 07/03 but JAYDA unlikely Other possibilities: ATN due to sepsis and Post infectious GN. C3 is low Hepatorenal syndrome is less likely. Hepatitis C related Cryoglobulinemic Vasculitis also considered, cryoglobulin level in progress. Vascath placed and HD initiated 07/07 and surgery: 07/14 Right thoracoscopic exploration to evacuate right pleural effusion, pleural biopsy 07/15 HGB 7.2/ HCT 21 PLT now 52 (93) transfuse 2 units PRBC one chris PLT with dialysis today pt on nasal cannula painful needs pulm toileting OOB PT Objective: GENERAL: A&O x 3 SKIN: Warm and dry. dressing to right lateral chest wall saturated with bloody drainage/ changed per nursing HEAD: Normocephalic. EYES: No scleral icterus. No injection or drainage. NECK: Supple, trachea midline. No JVD or lymphadenopathy. CARDIOVASCULAR: Regular rate and rhythm without murmurs, gallops, or rubs. RESPIRATORY: Breath sounds equal bilaterally. No accessory muscle use. chest tube no air leak, to wall suction/ drained 450cc/12 hrs GASTROINTESTINAL: Abdomen soft, non-tender, nondistended. MUSCULOSKELETAL: No cyanosis, or edema. BACK: Nontender without obvious deformity. No CVA tenderness. Vital Signs Date Time Temp Pulse Resp B/P (MAP) Pulse Ox O2 Delivery O2 Flow Rate FiO2 07/15/17 15:12 98.6 95 18 109/55 (73) 93 07/15/17 15:12 96 07/15/17 15:12 93 Nasal Cannula 3.00 07/15/17 14:00 96 07/15/17 13:14 92 07/15/17 12:11 91 07/15/17 11:55 93 Nasal Cannula 3.00 07/15/17 11:55 90 07/15/17 11:55 98.2 102 18 110/59 (76) 93 07/15/17 08:45 94 Nasal Cannula 3.00 07/15/17 08:45 88 07/15/17 08:45 98.2 82 18 128/60 (82) 95 07/15/17 05:00 85 07/15/17 04:00 82 07/15/17 04:00 98.1 87 20 95/50 (65) 95 07/15/17 03:00 88 07/15/17 02:00 88 07/15/17 01:00 88 07/15/17 00:00 86 07/15/17 00:00 97.9 89 20 93/50 (64) 96 07/14/17 23:00 88 07/14/17 22:00 86 07/14/17 21:55 94 Nasal Cannula 3.00 07/14/17 21:00 86 07/14/17 20:00 88 07/14/17 20:00 97.6 88 22 93/48 (63) 97 07/14/17 19:00 87 07/14/17 18:01 86 07/14/17 17:26 98.6 93 18 116/56 (76) 95 07/14/17 17:00 97.5 82 16 116/68 (84) 96 Nasal Cannula 3 07/14/17 17:00 90 07/14/17 16:45 89 16 119/66 (83) 95 Nasal Cannula 3 07/14/17 16:30 92 15 120/59 (79) 95 Nasal Cannula 4 Labs: Laboratory Tests Test 07/15/17 06:03 White Blood Count 11.6 TH/MM3 (4.0-11.0) Red Blood Count 2.00 MIL/MM3 (4.50-5.90) Hemoglobin 7.2 GM/DL (13.0-17.0) Hematocrit 21.1 % (39.0-51.0) Mean Corpuscular Volume 105.4 FL (80.0-100.0) Mean Corpuscular Hemoglobin 36.1 PG (27.0-34.0) Mean Corpuscular Hemoglobin Concent 34.3 % (32.0-36.0) Red Cell Distribution Width 15.3 % (11.6-17.2) Platelet Count 52 TH/MM3 (150-450) Mean Platelet Volume 8.1 FL (7.0-11.0) Neutrophils (%) (Auto) 92.6 % (16.0-70.0) Lymphocytes (%) (Auto) 3.1 % (9.0-44.0) Monocytes (%) (Auto) 4.2 % (0.0-8.0) Eosinophils (%) (Auto) 0.0 % (0.0-4.0) Basophils (%) (Auto) 0.1 % (0.0-2.0) Neutrophils # (Auto) 10.8 TH/MM3 (1.8-7.7) Lymphocytes # (Auto) 0.4 TH/MM3 (1.0-4.8) Monocytes # (Auto) 0.5 TH/MM3 (0-0.9) Eosinophils # (Auto) 0.0 TH/MM3 (0-0.4) Basophils # (Auto) 0.0 TH/MM3 (0-0.2) CBC Comment AUTO DIFF Differential Comment AUTO DIFF CONFIRMED Blood Urea Nitrogen 66 MG/DL (7-18) Creatinine 9.40 MG/DL (0.60-1.30) Random Glucose 123 MG/DL (74-106) Calcium Level 8.3 MG/DL (8.5-10.1) Sodium Level 133 MEQ/L (136-145) Potassium Level 6.4 MEQ/L (3.5-5.1) Chloride Level 98 MEQ/L (98-107) Carbon Dioxide Level 26.0 MEQ/L (21.0-32.0) Anion Gap 9 MEQ/L (5-15) Estimat Glomerular Filtration Rate 6 ML/MIN (>89) Result Diagram: 07/15/1760207/15/17602 Telemetry: NSR (1) right thoracoscopic exploration Plan: pulm toileting OOB/ pain control leave chest tubes in (2) Pneumonia (3) Sepsis (4) Loculated pleural effusion (5) Acute kidney injury (6) Blood loss anemia Plan: acute post op 2 units PRBC with dialysis (7) Thrombocytopenia Plan: plt 52 s/p one chris plt Problem Qualifiers (1) Pneumonia: Qualified Codes: J18.1 - Lobar pneumonia, unspecified organism (2) Sepsis: Qualified Codes: A41.9 - Sepsis, unspecified organism Lubna Irvin Jul 15, 2017 16:25
--- NOTE | 2017-07-15 18:04 | HHI.PR ---
Subjective Remarks Follow-up for MRSA bacteremia, severe sepsis, acute kidney injury, pneumonia. Patient underwent thoracoscopic exploration on 07/14/2017. He is currently doing well. Had dialysis today. Chest tube in place. No fever, chills. Objective Vitals Vital Signs Date Time Temp Pulse Resp B/P (MAP) Pulse Ox O2 Delivery O2 Flow Rate FiO2 07/15/17 16:46 93 Nasal Cannula 2.00 07/15/17 15:12 98.6 95 18 109/55 (73) 93 07/15/17 15:12 96 07/15/17 15:12 93 Nasal Cannula 3.00 07/15/17 14:00 96 07/15/17 13:14 92 07/15/17 12:11 91 07/15/17 11:55 93 Nasal Cannula 3.00 07/15/17 11:55 90 07/15/17 11:55 98.2 102 18 110/59 (76) 93 07/15/17 08:45 94 Nasal Cannula 3.00 07/15/17 08:45 88 07/15/17 08:45 98.2 82 18 128/60 (82) 95 07/15/17 05:00 85 07/15/17 04:00 82 07/15/17 04:00 98.1 87 20 95/50 (65) 95 07/15/17 03:00 88 07/15/17 02:00 88 07/15/17 01:00 88 07/15/17 00:00 86 07/15/17 00:00 97.9 89 20 93/50 (64) 96 07/14/17 23:00 88 07/14/17 22:00 86 07/14/17 21:55 94 Nasal Cannula 3.00 07/14/17 21:00 86 07/14/17 20:00 88 07/14/17 20:00 97.6 88 22 93/48 (63) 97 07/14/17 19:00 87 07/14/17 18:01 86 I/O 07/14/17 07/14/17 07/14/17 07/15/17 07/15/17 07/15/17 07:00 15:00 23:00 07:00 15:00 23:00 Intake Total 1340 ml 240 ml 989 ml Output Total 295 ml 1050 ml 530 ml 3500 ml Balance -295 ml 290 ml -290 ml -2511 ml Intake Oral 240 ml 240 ml Packed Cells 800 ml Platelets 189 ml Other 1100 ml Output Urine Total 225 ml 150 ml 80 ml Chest Tube Drainage Total 70 ml 400 ml 450 ml Hemodialysis 3500 ml Estimated Blood Loss 500 ml # Bowel Movements 1 Result Diagram: 07/15/17 0603 07/15/17 0603 Imaging Last Impressions Chest X-Ray 07/15/17 0500 Signed Impressions: Service Date/Time: Saturday, July 15, 2017 03:44 - CONCLUSION: 1. Right chest tube remains present. There is loculated right pleural fluid. No pneumothorax. No significant change from July 14. Thompson Cross MD Chest CT 07/12/17 0000 Signed Impressions: Service Date/Time: Wednesday, July 12, 2017 12:19 - CONCLUSION: 1. Interval placement of right-sided percutaneous drainage catheter with mild decrease in the size of the right pleural effusion. 2. New small left pleural effusion. 3. Prominent lymph nodes and induration remaining in the right axillary region and 4. The previously noted prominence right paratracheal lymph node is stable. 5. Mild consolidation remains in the right lung base. Gato Patino MD Chest Tube Insertion 07/08/17 0000 Signed Impressions: Service Date/Time: Saturday, July 08, 2017 16:27 - CONCLUSION: Uncomplicated chest tube placement as above. Santiago Mccartney MD Abdomen Ultrasound 07/08/17 0000 Signed Impressions: Service Date/Time: Saturday, July 08, 2017 18:00 - CONCLUSION: 1. Cirrhotic appearing liver with splenomegaly. 2. Extensive cholelithiasis. Santiago Mccartney MD Thoracentesis Ultrasound 07/07/17 0000 Signed Impressions: Service Date/Time: Friday, July 07, 2017 10:32 - CONCLUSION: Uncomplicated ultrasound guided thoracentesis. Santiago Mccartney MD Foot MRI 07/07/17 0000 Signed Impressions: Service Date/Time: Friday, July 07, 2017 15:40 - CONCLUSION: Probable mild cellulitis without osteomyelitis or deep space involvement. Josh Santiago MD FACR Catheter Placement X-Ray 07/07/17 0000 Signed Impressions: Service Date/Time: Friday, July 07, 2017 13:15 - CONCLUSION: Uncomplicated line placement as above. Masoud Lopez MD Renal Ultrasound 07/06/17 0000 Signed Impressions: Service Date/Time: Thursday, July 06, 2017 20:20 - CONCLUSION: 1. Normal appearance the kidneys. 2. Moderate right pleural effusion. Luis Miguel Villegas MD Chest Ultrasound 07/05/17 0000 Signed Impressions: Service Date/Time: Wednesday, July 05, 2017 12:26 - CONCLUSION: Loculated fluid as above. Josh Santiago MD FACR Foot X-Ray 07/04/17 0000 Signed Impressions: Service Date/Time: Tuesday, July 04, 2017 15:35 - CONCLUSION: Negative for fracture or dislocation. Follow up in 7-10 days is suggested if symptoms persist. Josh Santiago MD FACR Abdomen/Pelvis CT 07/03/17 0000 Signed Impressions: Service Date/Time: June 08:43 - CONCLUSION: 1. 1.5 cm low-density lesion within the anterior segment of the right lobe of liver which is indeterminate. Outpatient MRI of the abdomen with contrast would be helpful for further characterization of this indeterminate lesion. 2. Mild splenomegaly and very large intra-abdominal varices draining into the splenic vein suggesting portal hypertension. 3. Perigastric varices and bilateral inguinal varices are also noted. 4. Cholelithiasis. 5. Tiny right pleural effusion. 6. Minimal right basilar atelectasis and/or infiltrate. 7. Degenerative changes and scoliosis of the thoracolumbar spine. Haseeb Helms MD Objective Remarks GENERAL: SKIN: Warm and dry. HEAD: Normocephalic. EYES: No scleral icterus. No injection or drainage. NECK: Supple, trachea midline. No JVD or lymphadenopathy. CARDIOVASCULAR: Regular rate and rhythm without murmurs, gallops, or rubs. RESPIRATORY: Breath sounds equal bilaterally. No accessory muscle use. GASTROINTESTINAL: Abdomen soft, non-tender, nondistended. MUSCULOSKELETAL: No cyanosis, or edema. BACK: Nontender without obvious deformity. No CVA tenderness. Procedures Echo 07/04/2017 The left ventricular systolic function is normal with an estimated ejection fraction in the range of 60-65%. Wall thickness is measured at the upper limits of normal. No regional wall motion abnormalities are present. Normal left ventricular size. There is trace tricuspid valve regurgitation. The estimated pulmonary arterial pressure is 33 mmHg. 07/08/2017 -right-sided chest tube placement by interventional radiology. 07/14/2017 Right thoracoscopic exploration to evacuate right pleural effusion, pleural biopsy A/P Problem List: (1) Sepsis ICD Code: A41.9 - Sepsis, unspecified organism Status: Acute (2) Pneumonia ICD Code: J18.9 - Pneumonia, unspecified organism Status: Acute (3) Bandemia ICD Code: D72.825 - Bandemia Status: Acute (4) Elevated lipase ICD Code: R74.8 - Abnormal levels of other serum enzymes Status: Acute (5) Hypertension ICD Code: I10 - Essential (primary) hypertension Status: Acute (6) Axillary lymphadenopathy ICD Code: R59.0 - Localized enlarged lymph nodes Assessment and Plan On 07/03/2017, Mr. Wade, a 46 year old male presented to the ED due to flu like symptoms despite being treated for flu by his PCP. He complained of right- sided pleuritic chest pain. He reported fever and chills. Temperature in the emergency department was 101.2F. CT chest showed right pleural effusion with some atelectasis. CT abdomen pelvis showed a liver lesion. Severe sepsis - resolved. MRSA bacteremia MRSA pneumonia Empyema - pleural fluid grew MRSA Pneumonia on CT chest, liver lesion, right axillary lymphadenopathy, possible cellulitis Pleural fluid cx grew MRSA. Blood cx also grew MRSA. Appreciate ID input. Currently patient is on Ceftaroline 200mg Q12hrs to cover MRSA pneumonia and bacteremia. 07/05 - Echo showed no vegetation. s/p Right thoracoscopic exploration to evacuate right pleural effusion, pleural biopsy on 07/15/2017. Acetaminophen, tramadol as needed for pain. acute kidney injury Creatinine 0.8 on 07/04/2017. Cr 9.4 on 07/15/2017. Now on dialysis. Possibly due to vancomycin as well as post infectious Continue dialysis per Nephrology. Liver cirrhosis Hepatitis C genotype 1a Liver lesion 1.5cm GI following. Patient will likely need an MRI study in future. Thrombocytopenia - improved. PLT 120K --> 54K on 07/15/2017. Full code. SCDs. Problem Qualifiers (1) Sepsis: Qualified Codes: A41.9 - Sepsis, unspecified organism (2) Pneumonia: Qualified Codes: J18.1 - Lobar pneumonia, unspecified organism (3) Hypertension: Qualified Codes: I10 - Essential (primary) hypertension Ahmed,Shahabuddin DO Jul 15, 2017 18:04
[2017-07-15] MEDS: PANTOPRAZOLE SOD 40 MG DELAYED RELEASE TAB PO SCH (21:35)
[2017-07-15] MEDS: DOCUSATE CALCIUM 240 MG CAP PO SCH (21:35)
[2017-07-15] MEDS: oxyCODONE/ACETAMINOPHEN 5 MG/325 MG TAB PO PRN (21:36)
[2017-07-16] VITALS (19 sets, daily range): BP systolic 101–126; BP diastolic 50–66; PULSE 72–93; RESP 16–18; TEMP 97.7–98.1; O2SAT 94–98
[2017-07-16] MEDS: CEFTAROLINE IV SCH ×2 (02:39→12:52)
[2017-07-16] MEDS: SODIUM CHLORIDE 0.9% IV SCH ×2 (02:39→12:52)
[2017-07-16 04:06] LABS: HEMATOCRIT 23.5 % (39.0-51.0); HEMOGLOBIN 8.1 GM/DL (13.0-17.0); MEAN CELL VOLUME 100.2 FL (80.0-100.0); MEAN CORPUSCULAR HEMOGLOBIN 34.5 PG (27.0-34.0); MEAN CORPUSCULAR HGB CONC 34.4 % (32.0-36.0); MEAN PLATELET VOLUME 8.1 FL (7.0-11.0); PLATELET COUNT 71 TH/MM3 (150-450); RED BLOOD COUNT 2.34 MIL/MM3 (4.50-5.90); WHITE BLOOD COUNT 14.8 TH/MM3 (4.0-11.0)
[2017-07-16 04:45] LABS: BICARBONATE 31.1 MEQ/L (21.0-32.0); CALCIUM 8.5 MG/DL (8.5-10.1); CREATININE 6.96 MG/DL (0.60-1.30)
[2017-07-16] MEDS: RESP: ALBUTEROL 2.5 MG/3 ML NEB (SCH) NEB ×4 (04:49→21:03)
[2017-07-16] MEDS: MUPIROCIN 2% OINT 1 APPLIC/GM SYR EACH NARE SCH ×2 (09:32→20:35)
[2017-07-16] MEDS: FLUCONAZOLE 100 MG TAB PO SCH (09:33)
[2017-07-16] MEDS: LACTULOSE SYRUP 20 GM/30 ML CUP PO SCH ×4 (09:33→20:35)
[2017-07-16] MEDS: SODIUM CHLORIDE 0.9% FLUSH 10 ML FLUSH IV FLUSH SCH ×2 (09:33→20:35)
[2017-07-16] MEDS: oxyCODONE/ACETAMINOPHEN 5 MG/325 MG TAB PO PRN ×4 (09:34→20:36)
--- NOTE | 2017-07-16 10:25 | RADRPT ---
EXAM DATE/TIME: 07/16/2017 09:34 [place] COMPARISON: No previous studies available for comparison. INDICATIONS : Shortness of breath; Pleural effusion. MEDICAL HISTORY : Cardiovascular disease. Hypertension Cirrhosis SURGICAL HISTORY : Colostomy. Colectomy, chest tube ENCOUNTER: Subsequent ACUITY: 2 weeks PAIN SCORE: 0/10 LOCATION: Bilateral chest FINDINGS: A single view of the chest demonstrates the multi-lumen IJ catheter in good position. There is diffu se pulmonary vascular congestion. Right-sided chest tube and moderate sized right pleural effusion a re unchanged. There is bilateral perihilar vascular congestion. There is no visible pneumothorax. There are a number of healed right-sided rib fractures. CONCLUSION: Pulmonary vascular congestion remains. Moderate pleural effusion, chest tube and IJ catheter all in good position. Tino Albarado MD on July 16, 2017 at 10:09 Board Certified Radiologist. This report was verified electronically.
--- NOTE | 2017-07-16 10:30 | HHI.NPPN ---
Subjective Renal Failure: Acute Interval History Sitting in a chair. Mother at bedside. He has not made any urine. Dialyzed yesterday. Chest tube remains in place with sanguinous output. (Lisa Tovar) Review of Systems General Constitutional: Fatigue (Lisa Tovar) Respiratory Lungs: SOB Respiratory Remarks On exertion (Lisa Tovar) Skin Skin: Skin Rash (Lisa Tovar) Objective Data Data Vital Signs Date Time Temp Pulse Resp B/P (MAP) Pulse Ox O2 Delivery O2 Flow Rate FiO2 07/16/17 09:01 96 Nasal Cannula 2.00 07/16/17 05:00 16 07/16/17 03:00 85 07/16/17 03:00 97.7 82 18 101/60 (74) 94 07/16/17 03:00 95 Nasal Cannula 2.00 07/15/17 23:00 95 Nasal Cannula 2.00 07/15/17 23:00 95 07/15/17 23:00 98.0 82 18 96/50 (65) 93 07/15/17 21:55 94 Nasal Cannula 2.00 07/15/17 19:00 98.3 94 14 102/51 (68) 94 07/15/17 19:00 100 07/15/17 19:00 98 Nasal Cannula 2.00 07/15/17 18:16 102 07/15/17 16:46 93 Nasal Cannula 2.00 07/15/17 16:00 94 07/15/17 15:12 98.6 95 18 109/55 (73) 93 07/15/17 15:12 96 07/15/17 15:12 93 Nasal Cannula 3.00 07/15/17 14:00 96 07/15/17 13:14 92 07/15/17 12:11 91 07/15/17 11:55 93 Nasal Cannula 3.00 07/15/17 11:55 90 07/15/17 11:55 98.2 102 18 110/59 (76) 93 (Lisa Tovar) -: 07/16/17 0353 07/16/17 0353 Imaging Last 72 hours Impressions Chest X-Ray 07/15/17 0500 Signed Impressions: Service Date/Time: Saturday, July 15, 2017 03:44 - CONCLUSION: 1. Right chest tube remains present. There is loculated right pleural fluid. No pneumothorax. No significant change from July 14. Thompson Cross MD Chest X-Ray 07/14/17 0000 Signed Impressions: Service Date/Time: Friday, July 14, 2017 16:15 - CONCLUSION: 1. Placement of right-sided chest tube with no pneumothorax. 2. Interval increase in peripheral opacity in the right lateral lung. This likely represents fluid. 3. Apparent interval removal of small bore right-sided chest tube. Gato Patino MD Tubes & Lines: Vas-Cath Tubes & Lines Comment R chest tube (Lisa Tovar B. [employer]ECKT[employer]INTER) Physical Exam General Appearance: Well Developed, No Acute Distress, Comfortable (Lisa Tovar B. [employer]) Eyes Eye Exam: Pupils Equal (Lisa Tovar B. [employer]ECKT[employer]) Pulmonary Resp Exam: Clear Bilaterally, Breath Sounds Equal, Diminished Breath Sounds Resp Remarks chest tube right (Lisa Tovar B. [employer]ECKT[employer] PAINTER) Cardiology CV Exam: Regular, Normal Sinus Rhythm, Murmur (Lisa Tovar B. [employer]KT[employer] PA[employer]) Gastrointestinal/Abdomen GI Exam: Soft, Non-Tender, Bowel Sounds Present (Lisa Tovar B. [employer]ECKT[employer] PA[employer]) Musculoskeletal MS Exam: Joints Intact, Normal Gait, Normal Tone, Good Strength (Lisa Tovar B. [employer]EC[employer] PAINTER) Integumentary Skin Exam: Warm, Dry, Intact Skin Remarks rash on arm, left upper back; non painful, no itching; looks like petechiae (Lisa Tovar B. [employer] PAINTER) Extremeties Extremities Exam: Pedal Pulses Palpable, Moderate Edema (Lisa Tovar B. [employer]ECKT[employer] PAINTER) Neurologic Neuro Exam: Alert, Awake, Oriented, Speech Clear, Moving All Extremities (Lisa Tovar B. [employer]EC[employer] PAINTER) Psychiatric Psych Exam: Appropriate Responses (Lisa Tovar BJocelynn SOTOP) Assessment/Plan Discussed Condition With: Patient, Parent Assessment Summary: RODOLFO/Acute Renal Failure, Acute Tubular Necrosis Problem List: (1) Acute kidney injury ICD Codes: N17.9 - Acute kidney failure, unspecified Plan: He suffered ATN and is dialysis dependent -Etiology is still uncertain. Cryoglobulin pending to rule out Hepatitis C related Cryoglobulinemic Vasculitis Vascath placed and HD initiated 07/07 and 07/08 HD TTS if needed, due tomorrow 500 ml UF yesterday Hyperkalemia has improved. He has become anuric, have asked the RN to obtain bladder scan Off IVF and albumin Avoid nephrotoxic agents Renally dose appropriate to renal status Will need Permcath exchange at a later date. Repeat labs, await for renal recovery. he also had UTI (juanita), treated with PO Diflucan (2) Sepsis ICD Codes: A41.9 - Sepsis, unspecified organism Status: Acute Plan: ID following s/p thoracentesis 07/07. Has MRSA, empyema. chest tube in place on right. To go for VATS with CTS today. On Teflaro, off vancomycin. Monitor clinically. (3) Hypertension ICD Codes: I10 - Essential (primary) hypertension Status: Acute Plan: Borderline hypotensive, not on antihypertensives. (4) Hepatitis C infection ICD Codes: B19.20 - Unspecified viral hepatitis C without hepatic coma Status: Acute Plan: Workup is in progress. GI and ID following. (Lisa Tovar) Plan patient was seen and examined. Agree with above assessment and plan. (Bj Amaya MD) Problem Qualifiers (1) Sepsis: Qualified Codes: A41.9 - Sepsis, unspecified organism (2) Hypertension: Qualified Codes: I10 - Essential (primary) hypertension Lisa Tovar Jul 16, 2017 10:30 Bj Amaya MD Jul 17, 2017 14:29
[2017-07-16 13:16] LABS: AMYLASE BODY FLUID 35 U/L; AMYLASE BODY FLUID TYPE PLEURAL; LIPASE BODY FLUID 43 U/L; LIPASE SOURCE PLEURAL
[2017-07-16] MEDS: ONDANSETRON HCL 4 MG/2 ML VIAL IV PUSH PRN (13:39)
--- NOTE | 2017-07-16 13:47 | PD.CAR.PN ---
CVT Progress Note Subjective/Hospital Course: 46-year-old male who presented to the emergency room with complaint of flulike symptoms for about a week. Patient reports he has been having right-sided pleuritic type chest pain. He describes pain as heavy in character, present all the time, worse with coughing and deep breathing. Patient states he was having hemoptysis for 3 days. Last episode was yesterday. He coughs up clear to yellow mucus now. He was found to have MRSA in a blood culture and pleural fluid culture s/p right thoracentesis. He has renal failure requiring dialysis since being admitted. He has a small bore chest catheter which is draining serous fluid. He is being considered for VATS exploration and possible decortication. (1) Acute kidney injury Etiology is uncertain. Medication related: Vancomycin induced nephrotoxicity; he was also on NSAIDs and ANSELMO inhibitor prior to admission. All were stopped. He was exposed to IV contrast on 07/03 but JAYDA unlikely Other possibilities: ATN due to sepsis and Post infectious GN. C3 is low Hepatorenal syndrome is less likely. Hepatitis C related Cryoglobulinemic Vasculitis also considered, cryoglobulin level in progress. Vascath placed and HD initiated 07/07 and surgery: 07/14 Right thoracoscopic exploration to evacuate right pleural effusion, pleural biopsy path pending, cytology pending OOB/ ambulate 07/15 HGB 7.2/ HCT 21 PLT now 52 (93) transfuse 2 units PRBC one chris PLT with dialysis today pt on nasal cannula painful needs pulm toileting OOB PT 07/16 PLT now 71, HGB 8.1 post 2 units 07/15 chest tube drained 70cc/ in 12 hrs/ will eval for removal in am Objective: GENERAL: A&O x 3 SKIN: Warm and dry. incision intact right postero lateral chest wall HEAD: Normocephalic. EYES: No scleral icterus. No injection or drainage. NECK: Supple, trachea midline. No JVD or lymphadenopathy. CARDIOVASCULAR: Regular rate and rhythm without murmurs, gallops, or rubs. RESPIRATORY: Breath sounds equal bilaterally. No accessory muscle use. chest tube to wall suction / no air leak GASTROINTESTINAL: Abdomen soft, non-tender, nondistended. MUSCULOSKELETAL: No cyanosis, or edema. BACK: Nontender without obvious deformity. No CVA tenderness. Vital Signs Date Time Temp Pulse Resp B/P (MAP) Pulse Ox O2 Delivery O2 Flow Rate FiO2 07/16/17 13:00 84 07/16/17 12:00 72 07/16/17 11:30 97 Nasal Cannula 2.00 07/16/17 11:30 83 07/16/17 11:30 98.1 86 18 111/50 (70) 97 07/16/17 10:00 82 07/16/17 09:01 96 Nasal Cannula 2.00 07/16/17 09:00 84 07/16/17 08:00 92 07/16/17 07:00 82 07/16/17 07:00 98.0 89 16 114/63 (80) 98 07/16/17 07:00 98 Nasal Cannula 2.00 07/16/17 05:00 16 07/16/17 03:00 85 07/16/17 03:00 97.7 82 18 101/60 (74) 94 07/16/17 03:00 95 Nasal Cannula 2.00 07/15/17 23:00 95 Nasal Cannula 2.00 07/15/17 23:00 95 07/15/17 23:00 98.0 82 18 96/50 (65) 93 07/15/17 21:55 94 Nasal Cannula 2.00 07/15/17 19:00 98.3 94 14 102/51 (68) 94 07/15/17 19:00 100 07/15/17 19:00 98 Nasal Cannula 2.00 07/15/17 18:16 102 07/15/17 16:46 93 Nasal Cannula 2.00 07/15/17 16:00 94 07/15/17 15:12 98.6 95 18 109/55 (73) 93 07/15/17 15:12 96 07/15/17 15:12 93 Nasal Cannula 3.00 07/15/17 14:00 96 Labs: Laboratory Tests Test 07/16/17 03:53 White Blood Count 14.8 TH/MM3 (4.0-11.0) Red Blood Count 2.34 MIL/MM3 (4.50-5.90) Hemoglobin 8.1 GM/DL (13.0-17.0) Hematocrit 23.5 % (39.0-51.0) Mean Corpuscular Volume 100.2 FL (80.0-100.0) Mean Corpuscular Hemoglobin 34.5 PG (27.0-34.0) Mean Corpuscular Hemoglobin Concent 34.4 % (32.0-36.0) Red Cell Distribution Width 18.0 % (11.6-17.2) Platelet Count 71 TH/MM3 (150-450) Mean Platelet Volume 8.1 FL (7.0-11.0) Blood Urea Nitrogen 56 MG/DL (7-18) Creatinine 6.96 MG/DL (0.60-1.30) Random Glucose 124 MG/DL (74-106) Calcium Level 8.5 MG/DL (8.5-10.1) Sodium Level 138 MEQ/L (136-145) Potassium Level 4.7 MEQ/L (3.5-5.1) Chloride Level 100 MEQ/L (98-107) Carbon Dioxide Level 31.1 MEQ/L (21.0-32.0) Anion Gap 7 MEQ/L (5-15) Estimat Glomerular Filtration Rate 9 ML/MIN (>89) Vitamin B12 Level 1790 PG/ML (193-986) Result Diagram: 07/16/17 0353 07/16/17 0353 Telemetry: NSR (1) right thoracoscopic exploration Plan: pulm toileting OOB/ pain control leave chest tubes in (2) Pneumonia (3) Sepsis (4) Loculated pleural effusion (5) Acute kidney injury (6) Blood loss anemia Plan: acute post op 2 units PRBC with dialysis (7) Thrombocytopenia Plan: plt 52 s/p one chris plt Problem Qualifiers (1) Pneumonia: Qualified Codes: J18.1 - Lobar pneumonia, unspecified organism (2) Sepsis: Qualified Codes: A41.9 - Sepsis, unspecified organism Lubna Irvin Jul 16, 2017 13:47
[2017-07-16] MEDS: DOCUSATE CALCIUM 240 MG CAP PO SCH (20:35)
[2017-07-16] MEDS: PANTOPRAZOLE SOD 40 MG DELAYED RELEASE TAB PO SCH (20:35)
--- NOTE | 2017-07-16 22:57 | HHI.PR ---
Subjective Remarks Patient says he is feeling all right. Denies any chest pain or shortness of breath. Says he's feeling better every day. Objective Vital Signs Date Time Temp Pulse Resp B/P (MAP) Pulse Ox O2 Delivery O2 Flow Rate FiO2 07/16/17 18:00 93 07/16/17 17:00 93 07/16/17 16:00 89 07/16/17 15:21 96 Nasal Cannula 2.00 07/16/17 15:00 98.1 86 18 111/50 (70) 97 07/16/17 15:00 98 Nasal Cannula 2.00 07/16/17 15:00 87 07/16/17 14:00 80 07/16/17 13:00 84 07/16/17 12:00 72 07/16/17 11:30 97 Nasal Cannula 2.00 07/16/17 11:30 83 07/16/17 11:30 98.1 86 18 111/50 (70) 97 07/16/17 10:00 82 07/16/17 09:01 96 Nasal Cannula 2.00 07/16/17 09:00 84 07/16/17 08:00 92 07/16/17 07:00 82 07/16/17 07:00 98.0 89 16 114/63 (80) 98 07/16/17 07:00 98 Nasal Cannula 2.00 07/16/17 05:00 16 07/16/17 03:00 85 07/16/17 03:00 97.7 82 18 101/60 (74) 94 07/16/17 03:00 95 Nasal Cannula 2.00 07/15/17 23:00 95 Nasal Cannula 2.00 07/15/17 23:00 95 07/15/17 23:00 98.0 82 18 96/50 (65) 93 I/O 07/15/17 07/15/17 07/15/17 07/16/17 07/16/17 07/16/17 07:00 15:00 23:00 07:00 15:00 23:00 Intake Total 240 ml 989 ml 580 ml 480 ml 100 ml 960 ml Output Total 530 ml 3500 ml 200 ml 70 ml 370 ml Balance -290 ml -2511 ml 380 ml 410 ml 100 ml 590 ml Intake Oral 240 ml 480 ml 480 ml 960 ml IV Total 100 ml 100 ml Packed Cells 800 ml Platelets 189 ml Output Urine Total 80 ml 0 ml 0 ml 300 ml Chest Tube Drainage Total 450 ml 200 ml 70 ml 70 ml Hemodialysis 3500 ml # Bowel Movements 1 0 0 2 Result Diagram: 07/16/1735207/16/17352 Objective Remarks GENERAL: Patient sitting up in bed. Appears comfortable. SKIN: Warm and dry. HEAD: Normocephalic. EYES: No scleral icterus. No injection or drainage. NECK: Supple, trachea midline. No JVD. CARDIOVASCULAR: Regular rate and rhythm without murmurs, gallops, or rubs. RESPIRATORY: Breath sounds equal bilaterally. No accessory muscle use. GASTROINTESTINAL: Abdomen soft, non-tender, nondistended. MUSCULOSKELETAL: No cyanosis, or edema. BACK: Nontender without obvious deformity. No CVA tenderness. A/P Assessment and Plan On 07/03/2017, Mr. Wade, a 46 year old male presented to the ED due to flu like symptoms despite being treated for flu by his PCP. He complained of right- sided pleuritic chest pain. He reported fever and chills. Temperature in the emergency department was 101.2F. CT chest showed right pleural effusion with some atelectasis. CT abdomen pelvis showed a liver lesion. //Severe sepsis - resolved. //MRSA bacteremia //MRSA pneumonia //Empyema - pleural fluid grew MRSA Pneumonia on CT chest, liver lesion, right axillary lymphadenopathy, possible cellulitis Pleural fluid cx grew MRSA. Blood cx also grew MRSA. Appreciate ID input. Currently patient is on Ceftaroline 200mg Q12hrs to cover MRSA pneumonia and bacteremia. 07/05 - Echo showed no vegetation. s/p Right thoracoscopic exploration to evacuate right pleural effusion, pleural biopsy on 07/15/2017. Acetaminophen, tramadol as needed for pain. = 07/16. White count still elevated at 14.8. Continue antibiotics as per ID. //acute kidney injury Creatinine 0.8 on 07/04/2017. Cr 9.4 on 07/15/2017. Now on dialysis. Possibly due to vancomycin as well as post infectious Continue dialysis per Nephrology. //Liver cirrhosis //Hepatitis C genotype 1a //Liver lesion 1.5cm GI following. Patient will likely need an MRI study in future. //Thrombocytopenia - improved. PLT 120K --> 54K==>71 on 07/16/2017. //Full code. SCDs. Discharge Planning Continue treatment for sepsis, MRSA bacteremia, empyema, acute kidney injury. Juanjose Ramsay MD Jul 16, 2017 22:57
[2017-07-16 23:53] LABS: CRYOGLOBULIN QUALITATIVE NEGATIVE (NEGATIVE)
[2017-07-17] VITALS (24 sets, daily range): BP systolic 84–120; BP diastolic 43–68; PULSE 88–102; RESP 16–18; TEMP 97.6–98.1; O2SAT 92–99
[2017-07-17] MEDS: SODIUM CHLORIDE 0.9% IV SCH ×2 (01:10→15:48)
[2017-07-17] MEDS: CEFTAROLINE IV SCH ×2 (01:10→15:48)
[2017-07-17] MEDS: oxyCODONE/ACETAMINOPHEN 5 MG/325 MG TAB PO PRN (01:11)
[2017-07-17] MEDS: RESP: ALBUTEROL 2.5 MG/3 ML NEB (SCH) NEB ×4 (02:13→21:07)
[2017-07-17 04:42] LABS: AUTOMATED NEUTROPHIL # 11.7 TH/MM3 (1.8-7.7); BASOPHIL % 0.1 % (0.0-2.0); EOSINOPHIL # 0.1 TH/MM3 (0-0.4); EOSINOPHIL % 0.8 % (0.0-4.0); HEMATOCRIT 27.5 % (39.0-51.0); HEMOGLOBIN 9.5 GM/DL (13.0-17.0); LYMPH % 5.7 % (9.0-44.0); LYMPHOCYTE # 0.8 TH/MM3 (1.0-4.8); MEAN CELL VOLUME 101.9 FL (80.0-100.0); MEAN CORPUSCULAR HGB CONC 34.4 % (32.0-36.0); MEAN PLATELET VOLUME 8.4 FL (7.0-11.0); MONO % 10.4 % (0.0-8.0); MONOCYTE # 1.5 TH/MM3 (0-0.9); PLATELET COUNT 83 TH/MM3 (150-450); RED CELL DISTRIBUTION WIDTH 17.7 % (11.6-17.2); WHITE BLOOD COUNT 14.1 TH/MM3 (4.0-11.0)
[2017-07-17 05:16] LABS: BICARBONATE 30.2 MEQ/L (21.0-32.0); BLOOD UREA NITROGEN 67 MG/DL (7-18); CALCIUM 9.5 MG/DL (8.5-10.1); CHLORIDE 97 MEQ/L (98-107); CREATININE 7.96 MG/DL (0.60-1.30); GLUCOSE,RANDOM 102 MG/DL (74-106); SODIUM (NA) 136 MEQ/L (136-145)
[2017-07-17] MEDS: LACTULOSE SYRUP 20 GM/30 ML CUP PO SCH ×4 (08:56→21:00)
[2017-07-17] MEDS: ONDANSETRON HCL 4 MG/2 ML VIAL IV PUSH PRN (08:58)
[2017-07-17] MEDS: MUPIROCIN 2% OINT 1 APPLIC/GM SYR EACH NARE SCH ×2 (08:59→21:00)
[2017-07-17] MEDS: SODIUM CHLORIDE 0.9% FLUSH 10 ML FLUSH IV FLUSH SCH ×2 (09:00→20:39)
[2017-07-17] MEDS ORDERED: ALBUMIN 25% INJ 50 ML IV ONE (09:30)
[2017-07-17] MEDS ORDERED: SODIUM CHLOR 0.9% 250 ML INJ 250 ML IV ONE (09:30)
--- NOTE | 2017-07-17 09:36 | HHI.NPPN ---
Subjective Renal Failure: Acute Interval History Was to go to HD this am but became lethargic and hypotensive. Afebrile. Having diarrhea but no pain. Respirations unlabored. (Lisa Tovar) Review of Systems General Constitutional: Fatigue (Lisa Tovar) Respiratory Lungs: SOB Respiratory Remarks On exertion (Lisa Tovar) Skin Skin: Skin Rash (Lisa Tovar) Objective Data Data Vital Signs Date Time Temp Pulse Resp B/P (MAP) Pulse Ox O2 Delivery O2 Flow Rate FiO2 07/17/17 06:00 88 07/17/17 05:00 88 07/17/17 04:00 97.6 95 16 105/65 (78) 96 07/17/17 04:00 95 07/17/17 04:00 96 Nasal Cannula 2.00 07/17/17 03:00 92 07/17/17 02:00 88 07/17/17 01:00 91 07/17/17 00:00 96 Nasal Cannula 2.00 07/17/17 00:00 97.7 93 16 120/68 (85) 96 07/17/17 00:00 93 07/16/17 23:00 92 07/16/17 22:00 92 07/16/17 21:00 90 07/16/17 20:00 95 Nasal Cannula 2.00 07/16/17 20:00 93 07/16/17 20:00 97.8 93 16 126/66 (86) 95 07/16/17 18:00 93 07/16/17 17:00 93 07/16/17 16:00 89 07/16/17 15:21 96 Nasal Cannula 2.00 07/16/17 15:00 98.1 86 18 111/50 (70) 97 07/16/17 15:00 98 Nasal Cannula 2.00 07/16/17 15:00 87 07/16/17 14:00 80 07/16/17 13:00 84 07/16/17 12:00 72 07/16/17 11:30 97 Nasal Cannula 2.00 07/16/17 11:30 83 07/16/17 11:30 98.1 86 18 111/50 (70) 97 07/16/17 10:00 82 (Lisa Tovar) -: 07/17/17 0357 07/17/17 0357 Imaging Last 72 hours Impressions Chest X-Ray 07/16/17 0000 Signed Impressions: Service Date/Time: Sunday, July 16, 2017 09:34 - CONCLUSION: Pulmonary vascular congestion remains. Moderate pleural effusion, chest tube and IJ catheter all in good position. Tino Albarado MD Chest X-Ray 07/15/17 0500 Signed Impressions: Service Date/Time: Saturday, July 15, 2017 03:44 - CONCLUSION: 1. Right chest tube remains present. There is loculated right pleural fluid. No pneumothorax. No significant change from July 14. Thompson Cross MD Tubes & Lines: Vas-Cath Tubes & Lines Comment R chest tube (Lisa Tovar) Physical Exam General Appearance: Well Developed, No Acute Distress, Comfortable (Lisa Tovar) Eyes Eye Exam: Pupils Equal (Lisa Tovar) Pulmonary Resp Exam: Clear Bilaterally, Breath Sounds Equal, Diminished Breath Sounds Resp Remarks chest tube right (Lisa Tovar) Cardiology CV Exam: Regular, Normal Sinus Rhythm, Murmur (Lisa Tovar) Gastrointestinal/Abdomen GI Exam: Soft, Non-Tender, Bowel Sounds Present (Lisa Tovar) Musculoskeletal MS Exam: Joints Intact, Normal Gait, Normal Tone, Good Strength (Lisa Tovar) Integumentary Skin Exam: Warm, Dry, Intact Skin Remarks rash on arm, left upper back; non painful, no itching; looks like petechiae (Lisa Tovar) Extremeties Extremities Exam: Pedal Pulses Palpable, Moderate Edema (Lisa Tovar) Neurologic Neuro Exam: Alert, Awake, Oriented, Speech Clear, Moving All Extremities (Lisa Tovar) Psychiatric Psych Exam: Appropriate Responses (Lisa Tovar) Assessment/Plan Discussed Condition With: Patient, Parent Assessment Summary: RODOLFO/Acute Renal Failure, Acute Tubular Necrosis Problem List: (1) Acute kidney injury ICD Codes: N17.9 - Acute kidney failure, unspecified Plan: He suffered ATN and is dialysis dependent -Etiology is still uncertain. Cryoglobulin negative; not Hepatitis C related Cryoglobulinemic Vasculitis Vascath placed and HD initiated 07/07 and 07/08 HD TTS if needed, due today Hypotensive, given 250 ml fluid bolus with albumin He is oliguric. Post void bladder scan zero yesteray Avoid nephrotoxic agents Renally dose appropriate to renal status Will need Permcath exchange at a later date. Repeat labs, await for renal recovery. he also had UTI (juanita), treated with PO Diflucan Start Renvela for hyperphosphatemia (2) Sepsis ICD Codes: A41.9 - Sepsis, unspecified organism Status: Acute Plan: ID following s/p thoracentesis 07/07. Has MRSA, empyema. chest tube in place on right. To go for VATS with CTS today. On Teflaro Monitor clinically. Check stool for c diff given diarrhea on antibiotics (3) Hypertension ICD Codes: I10 - Essential (primary) hypertension Status: Acute Plan: He is hypotensive, not on antihypertensives. (4) Hepatitis C infection ICD Codes: B19.20 - Unspecified viral hepatitis C without hepatic coma Status: Acute Plan: Workup is in progress. GI and ID following. (Lisa Tovar) Plan patient was seen and examined. Agree with above assessment and plan. Urine output may be improving. Hypotensive today, IVF given. Dialysis later today. (Bj Amaya MD) Problem Qualifiers (1) Sepsis: Qualified Codes: A41.9 - Sepsis, unspecified organism (2) Hypertension: Qualified Codes: I10 - Essential (primary) hypertension Lisa Tovar Jul 17, 2017 09:35 Bj Amaya MD Jul 17, 2017 14:48
[2017-07-17] MEDS: SEVELAMER CARBONATE 800 MG TAB PO SCH ×2 (12:52→17:00)
--- NOTE | 2017-07-17 13:40 | HHI.IDPN ---
Subjective Subjective Remarks Patient is a 46-year-old male who presented to the emergency room with complaint of flulike symptoms for about a week. Patient reports he has been having right-sided pleuritic type chest pain. He describes pain as heavy in character, present all the time, worse with coughing and deep breathing. he initially had dry cough but recently started bringing up blood. He was seen by his PCP who was treating him for the flu empirically. he started Tamiflu about 2 days prior to admission. he also has had fevers and [id number]. No abdominal pain, no N/V, no complaints. In the ED, his temp was 102. Influenza testing negative. One of 2 BC now reported as growing MRSA. His temps are better. CXR clear. CT chest with R pleural effusion with some atelectasis. CT A/P with a lesion in liver. evidence of portal hypertension. Infectious Disease consultation has been requested to evaluate patient with MRSA bacteremia. Notes reviewed Temps ok CT removed today Started coughing a lot then has now developed nausea and vomiting BP low briefly better now Unable to take anything by mouth HD on hold today Antibiotics Teflaro Current Medications Medications (Trade) Dose Ordered Sig/Cassandra Route Start Time Stop Time Status Last Admin (Tylenol) 650 mg Q4H PRN PO 07/03/17 10:15 07/12/17 02:58 (Narcan Inj) 0.4 mg UNSCH PRN IV PUSH 07/03/17 10:15 (Tessalon) 200 mg TID PRN PO 07/04/17 11:45 07/12/17 02:57 (Lactulose Liq) 30 ml QID PO 07/06/17 13:00 07/16/17 17:12 Sodium Chloride 1,000 ml @ 0 mls/hr Q0M PRN OTHER 07/07/17 09:15 07/14/17 12:00 (Heparin Inj) 8,000 units UNSCH PRN IV FLUSH 07/07/17 09:15 Sodium Chloride 1,000 ml @ 200 mls/hr Q5H PRN IV 07/07/17 09:15 Sodium Chloride 1,000 ml @ 0 mls/hr Q0M PRN OTHER 07/07/17 09:15 (Mannitol Inj) 12.5 gm UNSCH PRN IV 07/07/17 09:15 07/15/17 10:41 (NS Flush) 5 ml UNSCH PRN IV FLUSH 07/07/17 09:15 (Heparin Inj) UNSCH PRN .XX 07/07/17 09:15 07/15/17 10:39 (Gentamicin Inj) 20 mg UNSCH PRN OTHER 07/07/17 09:15 07/15/17 10:40 (Zofran Inj) 4 mg UNSCH PRN IV PUSH 07/07/17 09:15 07/16/17 13:39 (Tylenol) 650 mg UNSCH PRN PO 07/07/17 09:15 (Benadryl) 25 mg UNSCH PRN PO 07/07/17 09:15 (Nitrostat Sl) 0.4 mg UNSCH PRN SL 07/07/17 09:15 (Catapres) 0.1 mg UNSCH PRN PO 07/07/17 09:15 (Gelfoam 12 Mm/7 Mm Top) 1 foam UNSCH PRN TOP 07/07/17 09:15 (NS Flush) UNSCH PRN IV FLUSH 07/07/17 13:45 (Heparin Inj) UNSCH PRN IV FLUSH 07/07/17 13:45 07/12/17 11:25 (Ultram) 50 mg Q8H PRN PO 07/08/17 13:45 07/14/17 01:53 Ceftaroline Fosamil 200 mg/ Sodium Chloride 100 ml @ 100 mls/hr Q12H IV 07/10/17 14:00 07/17/17 01:10 (Bactroban Nasal 2% Oint) 1 applic BID EACH NARE 07/13/17 13:00 07/18/17 12:59 07/17/17 08:59 (Hibiclens 4% Top Soln) 1 applic [employer] ASSIST[employer] TOPICAL 07/13/17 13:00 07/20/17 12:59 (Neurontin) 300 mg BID PO 07/14/17 21:00 Future Hold (Albuterol Neb) 2.5 mg Q6HR NEB NEB 07/14/17 16:00 07/17/17 02:13 (Albuterol Neb) 2.5 mg Q2HR NEB PRN NEB 07/14/17 15:45 (NS Flush) 2 ml BID IV FLUSH 07/14/17 21:00 07/17/17 09:00 (NS Flush) 2 ml UNSCH PRN IV FLUSH 07/14/17 15:45 (Protonix) 40 mg HS PO 07/14/17 21:00 07/16/17 20:35 (Zofran Inj) 4 mg Q6H PRN IV PUSH 07/14/17 15:45 07/17/17 08:58 (Surfak) 240 mg HS PO 07/14/17 21:00 07/16/17 20:35 (Milk Of Magnesia Liq) 30 ml DAILY PRN PO 07/14/17 15:45 (Tylenol) 650 mg Q4H PRN PO 07/14/17 15:45 (Percocet 5-325 Mg) 1 tab Q3H PRN PO 07/14/17 15:45 07/16/17 09:34 (NS Flush) 5 ml UNSCH PRN IV FLUSH 07/14/17 16:45 (Heparin Inj) 2,000 units UNSCH PRN IV FLUSH 07/14/17 16:45 07/14/17 16:35 Albumin Human 100 ml @ 60 mls/hr UNSCH PRN IV 07/15/17 08:45 07/15/17 10:41 (Renvela) 1,600 mg TIDAC PO 07/17/17 12:00 07/17/17 12:52 Lines Line with no evidence of infection Past Medical History Hypertension Herniated disc Hepatitis C (untreated) Ruptured diverticular abscess Past Surgical History ?Left thoracotomy for pleurisy. Allergies: Coded Allergies: No Known Allergies (Verified Allergy, Unknown, 07/04/17) Objective . Vital Signs Date Time Temp Pulse Resp B/P (MAP) Pulse Ox O2 Delivery O2 Flow Rate FiO2 07/17/17 11:00 89 07/17/17 11:00 97.8 98 18 101/52 (68) 96 07/17/17 10:00 90 07/17/17 09:00 88 07/17/17 08:00 92 07/17/17 07:00 97.7 98 16 87/50 (62) 96 07/17/17 07:00 91 07/17/17 07:00 96 Nasal Cannula 2.00 07/17/17 06:00 88 07/17/17 05:00 88 07/17/17 04:00 97.6 95 16 105/65 (78) 96 07/17/17 04:00 95 07/17/17 04:00 96 Nasal Cannula 2.00 07/17/17 03:00 92 07/17/17 02:00 88 07/17/17 01:00 91 07/17/17 00:00 96 Nasal Cannula 2.00 07/17/17 00:00 97.7 93 16 120/68 (85) 96 07/17/17 00:00 93 07/16/17 23:00 92 07/16/17 22:00 92 07/16/17 21:00 90 07/16/17 20:00 95 Nasal Cannula 2.00 07/16/17 20:00 93 07/16/17 20:00 97.8 93 16 126/66 (86) 95 07/16/17 18:00 93 07/16/17 17:00 93 07/16/17 16:00 89 07/16/17 15:21 96 Nasal Cannula 2.00 07/16/17 15:00 98.1 86 18 111/50 (70) 97 07/16/17 15:00 98 Nasal Cannula 2.00 07/16/17 15:00 87 07/16/17 14:00 80 07/17/17 07/17/17 07/18/17 15:00 23:00 07:00 Intake Total 300 ml Balance 300 ml IV Total 300 ml . Laboratory Tests Test 07/16/17 03:53 07/17/17 03:57 White Blood Count 14.8 TH/MM3 14.1 TH/MM3 Red Blood Count 2.34 MIL/MM3 2.70 MIL/MM3 Hemoglobin 8.1 GM/DL 9.5 GM/DL Hematocrit 23.5 % 27.5 % Mean Corpuscular Volume 100.2 FL 101.9 FL Mean Corpuscular Hemoglobin 34.5 PG 35.0 PG Mean Corpuscular Hemoglobin Concent 34.4 % 34.4 % Red Cell Distribution Width 18.0 % 17.7 % Platelet Count 71 TH/MM3 83 TH/MM3 Mean Platelet Volume 8.1 FL 8.4 FL Neutrophils (%) (Auto) 83.0 % Lymphocytes (%) (Auto) 5.7 % Monocytes (%) (Auto) 10.4 % Eosinophils (%) (Auto) 0.8 % Basophils (%) (Auto) 0.1 % Neutrophils # (Auto) 11.7 TH/MM3 Lymphocytes # (Auto) 0.8 TH/MM3 Monocytes # (Auto) 1.5 TH/MM3 Eosinophils # (Auto) 0.1 TH/MM3 Basophils # (Auto) 0.0 TH/MM3 CBC Comment DIFF FINAL Differential Comment Laboratory Tests Test 07/16/17 03:53 07/17/17 03:57 Blood Urea Nitrogen 56 MG/DL 67 MG/DL Creatinine 6.96 MG/DL 7.96 MG/DL Random Glucose 124 MG/DL 102 MG/DL Calcium Level 8.5 MG/DL 9.5 MG/DL Sodium Level 138 MEQ/L 136 MEQ/L Potassium Level 4.7 MEQ/L 4.8 MEQ/L Chloride Level 100 MEQ/L 97 MEQ/L Carbon Dioxide Level 31.1 MEQ/L 30.2 MEQ/L Anion Gap 7 MEQ/L 9 MEQ/L Estimat Glomerular Filtration Rate 9 ML/MIN Vitamin B12 Level 1790 PG/ML Phosphorus Level 9.0 MG/DL Microbiology Date/Time Source Procedure Growth Status 07/14/17 14:55 Fluid Pleural Fluid Fungal Smear - Final NO FUNGAL ELEMENTS SEEN. Resulted 07/14/17 14:55 Fluid Pleural Fluid Fungal Culture Pending Resulted 07/14/17 14:55 Fluid Pleural Fluid Acid Fast Stain - Final NO ACID FAST BACILLI SEEN Resulted 07/14/17 14:55 Fluid Pleural Fluid Mycobacterial Culture Pending Resulted 07/14/17 14:55 Fluid Pleural Fluid Gram Stain - Final Complete 07/14/17 14:55 Fluid Pleural Fluid Body Fluid Culture - Final NO GROWTH IN 72 HRS.--AEROBICALLY OR ... Complete Imaging Last 72 hours Impressions Chest X-Ray 07/16/17 0000 Signed Impressions: Service Date/Time: Sunday, July 16, 2017 09:34 - CONCLUSION: Pulmonary vascular congestion remains. Moderate pleural effusion, chest tube and IJ catheter all in good position. Tino Albarado MD Chest X-Ray 07/15/17 0500 Signed Impressions: Service Date/Time: Saturday, July 15, 2017 03:44 - CONCLUSION: 1. Right chest tube remains present. There is loculated right pleural fluid. No pneumothorax. No significant change from July 14. Thompson Cross MD Last Impressions Chest X-Ray 07/07/17 0000 Signed Impressions: Service Date/Time: Friday, July 07, 2017 11:23 - CONCLUSION: No pneumothorax. Santiago Mccartney MD Renal Ultrasound 07/06/17 0000 Signed Impressions: Service Date/Time: Thursday, July 06, 2017 20:20 - CONCLUSION: 1. Normal appearance the kidneys. 2. Moderate right pleural effusion. Luis Miguel Villegas MD Chest Ultrasound 07/05/17 0000 Signed Impressions: Service Date/Time: Wednesday, July 05, 2017 12:26 - CONCLUSION: Loculated fluid as above. Josh Santiago MD FACR Foot X-Ray 07/04/17 0000 Signed Impressions: Service Date/Time: Tuesday, July 04, 2017 15:35 - CONCLUSION: Negative for fracture or dislocation. Follow up in 7-10 days is suggested if symptoms persist. Josh Santiago MD FACR Chest CT 07/03/17 0000 Signed Impressions: Service Date/Time: June 12:16 - CONCLUSION: 1. Extensive stranding with prominent lymph nodes in the right axilla measuring upwards of 1.6 cm in diameter. Does the patient have clinical symptomatology to suggest a cellulitis in this area? 2. Mild, generalized anasarca with some interstitial prominence in both lungs as well the visualized portions of the upper mesentery. Findings are nonspecific but can be seen in entity such as overwhelming sepsis. 3. Calcified gallstones. 4. Small right-sided pleural effusion with associated atelectatic changes. 5. Atretic left sixth rib could be congenital or postsurgical. Old healed rib fractures involving the lateral aspect of #3 and 4 on the left. 6. Mild gynecomastia. Again, nonspecific finding that can be seen with certain medications. Masoud Lopez MD Abdomen/Pelvis CT 07/03/17 0000 Signed Impressions: Service Date/Time: June 08:43 - CONCLUSION: 1. 1.5 cm low-density lesion within the anterior segment of the right lobe of liver which is indeterminate. Outpatient MRI of the abdomen with contrast would be helpful for further characterization of this indeterminate lesion. 2. Mild splenomegaly and very large intra-abdominal varices draining into the splenic vein suggesting portal hypertension. 3. Perigastric varices and bilateral inguinal varices are also noted. 4. Cholelithiasis. 5. Tiny right pleural effusion. 6. Minimal right basilar atelectasis and/or infiltrate. 7. Degenerative changes and scoliosis of the thoracolumbar spine. Haseeb Helms MD Physical Exam GENERAL: awake and alert, NAD SKIN: Cool and dry. Has petechia both feet and in legs/thighs HEAD: Atraumatic. Normocephalic. No temporal wasting, or tenderness. EYES: [place] conjunctiva. No petechia or hemorrhage. Pupils equal, round and reactive to light. Extraocular movements full and intact. Mild scleral icterus. No injection or drainage. EARS, NOSE AND THROAT: Nose without bleeding or purulent nasal discharge. Mucous membranes pink and moist. No oral lesions noted. NECK: Trachea midline. Supple and not tender, no meningeal signs CARDIOVASCULAR: Regular rate and rhythm. No murmurs, rubs or gallops heard RESPIRATORY: Clear to auscultation. Decreased at bases. No rales, wheezing or rhonchi. ABDOMEN: Soft, non-tender, nondistended. Bowel sounds present and normoactive. No guarding. No rebound. No organomegaly. EXTREMITIES: No clubbing, cyanosis, or edema. R foot stable. No calf tenderness. Well perfused and warm. NEUROLOGICAL: Grossly nonfocal. PSYCHIATRIC: Normal affect, calm and cooperative. LINE: No evidence of infection Assessment & Plan Remarks IMPRESSION MRSA bacteremia, source - due to PNA, and empyema - S/P surgery 07/14 Cellulitis R foot Pneumonia, with empyema Known liver cirrhosis, previous ETOH, and also He p C Acute renal failure, etiology? N/V etiology? RECOMMENDATION Continue IV Teflaro which will cover PNA/empyema and bacteremia Check LFT, amylase and lipase Monitor progress Follow progress Dr Hawkins covering pr 07/18-07/20 Natividad Sanchez MD Jul 17, 2017 13:40
[2017-07-17 15:09] LABS: ALBUMIN 2.5 GM/DL (3.4-5.0); DIRECT BILIRUBIN ADULT 1.1 MG/DL (0.0-0.2); INDIRECT BILIRUBIN 1.2 MG/DL (0.0-0.8); TOTAL BILIRUBIN ADULT 2.3 MG/DL (0.2-1.0); TOTAL PROTEIN 7.6 GM/DL (6.4-8.2)
--- NOTE | 2017-07-17 16:09 | HHI.PR ---
Subjective Remarks doing ok in dialysis now feels tired Objective Vital Signs Date Time Temp Pulse Resp B/P (MAP) Pulse Ox O2 Delivery O2 Flow Rate FiO2 07/17/17 14:17 98 Nasal Cannula 4.00 07/17/17 13:00 94 07/17/17 12:00 92 07/17/17 11:00 89 07/17/17 11:00 97.8 98 18 101/52 (68) 96 07/17/17 11:00 96 Nasal Cannula 2.00 07/17/17 10:00 90 07/17/17 09:00 88 07/17/17 08:00 92 07/17/17 07:00 97.7 98 16 87/50 (62) 96 07/17/17 07:00 91 07/17/17 07:00 96 Nasal Cannula 2.00 07/17/17 06:00 88 07/17/17 05:00 88 07/17/17 04:00 97.6 95 16 105/65 (78) 96 07/17/17 04:00 95 07/17/17 04:00 96 Nasal Cannula 2.00 07/17/17 03:00 92 07/17/17 02:00 88 07/17/17 01:00 91 07/17/17 00:00 96 Nasal Cannula 2.00 07/17/17 00:00 97.7 93 16 120/68 (85) 96 07/17/17 00:00 93 07/16/17 23:00 92 07/16/17 22:00 92 07/16/17 21:00 90 07/16/17 20:00 95 Nasal Cannula 2.00 07/16/17 20:00 93 07/16/17 20:00 97.8 93 16 126/66 (86) 95 07/16/17 18:00 93 07/16/17 17:00 93 I/O 07/16/17 07/16/17 07/16/17 07/17/17 07/17/17 07/17/17 07:00 15:00 23:00 07:00 15:00 23:00 Intake Total 480 ml 100 ml 960 ml 280 ml 300 ml Output Total 70 ml 370 ml 10 ml Balance 410 ml 100 ml 590 ml 270 ml 300 ml Intake Oral 480 ml 960 ml 180 ml IV Total 100 ml 100 ml 300 ml Output Urine Total 0 ml 300 ml 0 ml Chest Tube Drainage Total 70 ml 70 ml 10 ml # Bowel Movements 0 2 1 Result Diagram: 07/17/177 07/17/17 035 Objective Remarks General appearance no acute distress Lungs decreased heart sounds over both bases Heart S1-S2 abdomen is soft obese Extremities mild edema Neurologic alert oriented 3 Assessment and Plan Assessment and Plan Pneumonia Empyema MRSA bacteremia doing well from pulm perspective on. cont abx as per ID no new pulm recs i will sign off.. he will need outpxt follow up nyasia rec ct chest in 4-6 weeks.. call if needed thank you Tramaine Smith MD Jul 17, 2017 16:09
--- NOTE | 2017-07-17 16:21 | PD.CAR.PN ---
CVT Progress Note Subjective/Hospital Course: 46-year-old male who presented to the emergency room with complaint of flulike symptoms for about a week. Patient reports he has been having right-sided pleuritic type chest pain. He describes pain as heavy in character, present all the time, worse with coughing and deep breathing. Patient states he was having hemoptysis for 3 days. Last episode was yesterday. He coughs up clear to yellow mucus now. He was found to have MRSA in a blood culture and pleural fluid culture s/p right thoracentesis. He has renal failure requiring dialysis since being admitted. He has a small bore chest catheter which is draining serous fluid. He is being considered for VATS exploration and possible decortication. (1) Acute kidney injury Etiology is uncertain. Medication related: Vancomycin induced nephrotoxicity; he was also on NSAIDs and ANSELMO inhibitor prior to admission. All were stopped. He was exposed to IV contrast on 07/03 but JAYDA unlikely Other possibilities: ATN due to sepsis and Post infectious GN. C3 is low Hepatorenal syndrome is less likely. Hepatitis C related Cryoglobulinemic Vasculitis also considered, cryoglobulin level in progress. Vascath placed and HD initiated 07/07 and surgery: 07/14 Right thoracoscopic exploration to evacuate right pleural effusion, pleural biopsy path pending, cytology pending OOB/ ambulate 07/15 HGB 7.2/ HCT 21 PLT now 52 (93) transfuse 2 units PRBC one chris PLT with dialysis today pt on nasal cannula painful needs pulm toileting OOB PT 07/16 PLT now 71, HGB 8.1 post 2 units 07/15 chest tube drained 70cc/ in 12 hrs/ will eval for removal in am 07/17 pt sleepy lethargic last night also received 2 percocet at 0100 dose decreased, also had diarrhea last pm BP low this am, improved after albumin and NS chest tube dc without difficulty consult PT Objective: GENERAL: sleepy lethargic this am SKIN: Warm and dry. dressing to right lateral chest HEAD: Normocephalic. EYES: No scleral icterus. No injection or drainage. NECK: Supple, trachea midline. No JVD or lymphadenopathy. CARDIOVASCULAR: Regular rate and rhythm without murmurs, gallops, or rubs. RESPIRATORY: Breath sounds equal bilaterally. No accessory muscle use. diminished right lower lobe GASTROINTESTINAL: Abdomen soft, non-tender, nondistended. MUSCULOSKELETAL: No cyanosis, or edema. BACK: Nontender without obvious deformity. No CVA tenderness. Vital Signs Date Time Temp Pulse Resp B/P (MAP) Pulse Ox O2 Delivery O2 Flow Rate FiO2 07/17/17 14:17 98 Nasal Cannula 4.00 07/17/17 13:00 94 07/17/17 12:00 92 07/17/17 11:00 89 07/17/17 11:00 97.8 98 18 101/52 (68) 96 07/17/17 11:00 96 Nasal Cannula 2.00 07/17/17 10:00 90 07/17/17 09:00 88 07/17/17 08:00 92 07/17/17 07:00 97.7 98 16 87/50 (62) 96 07/17/17 07:00 91 07/17/17 07:00 96 Nasal Cannula 2.00 07/17/17 06:00 88 07/17/17 05:00 88 07/17/17 04:00 97.6 95 16 105/65 (78) 96 07/17/17 04:00 95 07/17/17 04:00 96 Nasal Cannula 2.00 07/17/17 03:00 92 07/17/17 02:00 88 07/17/17 01:00 91 07/17/17 00:00 96 Nasal Cannula 2.00 07/17/17 00:00 97.7 93 16 120/68 (85) 96 07/17/17 00:00 93 07/16/17 23:00 92 07/16/17 22:00 92 07/16/17 21:00 90 07/16/17 20:00 95 Nasal Cannula 2.00 07/16/17 20:00 93 07/16/17 20:00 97.8 93 16 126/66 (86) 95 07/16/17 18:00 93 07/16/17 17:00 93 Result Diagram: 07/17/17 0357 07/17/17 035 (1) right thoracoscopic exploration Plan: pulm toileting OOB/ pain control chest tube removed pain meds reduced OOB / consult PT (2) Pneumonia (3) Sepsis (4) Loculated pleural effusion (5) Acute kidney injury Plan: on dialysis T-Thur sat (6) Blood loss anemia Plan: acute post op s/p 2 units PRBC with dialysis on (7) Thrombocytopenia Plan: plt 52 > 83 Problem Qualifiers (1) Pneumonia: Qualified Codes: J18.1 - Lobar pneumonia, unspecified organism (2) Sepsis: Qualified Codes: A41.9 - Sepsis, unspecified organism Lubna Irvin Jul 17, 2017 16:21
[2017-07-17] MEDS ORDERED: MIDODRINE 5 MG TAB PO ONE (19:45)
[2017-07-17] MEDS: PANTOPRAZOLE SOD 40 MG DELAYED RELEASE TAB PO SCH (20:38)
[2017-07-17] MEDS: DOCUSATE CALCIUM 240 MG CAP PO SCH (21:00)
--- NOTE | 2017-07-17 23:46 | HHI.PR ---
Subjective Remarks Patient says he is feeling all right. Denies any chest pain or shortness of breath. Says he's feeling better every day. Objective Vital Signs Date Time Temp Pulse Resp B/P (MAP) Pulse Ox O2 Delivery O2 Flow Rate FiO2 07/17/17 21:07 96 Nasal Cannula 3.00 07/17/17 19:00 92 Nasal Cannula 2.00 07/17/17 19:00 98.0 101 94/47 (63) 92 07/17/17 18:27 99 Nasal Cannula 4.00 07/17/17 18:27 98.1 93 18 84/43 (57) 99 07/17/17 18:00 93 07/17/17 14:17 98 Nasal Cannula 4.00 07/17/17 14:00 90 07/17/17 13:00 94 07/17/17 12:00 92 07/17/17 11:00 89 07/17/17 11:00 97.8 98 18 101/52 (68) 96 07/17/17 11:00 96 Nasal Cannula 2.00 07/17/17 10:00 90 07/17/17 09:00 88 07/17/17 08:00 92 07/17/17 07:00 97.7 98 16 87/50 (62) 96 07/17/17 07:00 91 07/17/17 07:00 96 Nasal Cannula 2.00 07/17/17 06:00 88 07/17/17 05:00 88 07/17/17 04:00 97.6 95 16 105/65 (78) 96 07/17/17 04:00 95 07/17/17 04:00 96 Nasal Cannula 2.00 07/17/17 03:00 92 07/17/17 02:00 88 07/17/17 01:00 91 07/17/17 00:00 96 Nasal Cannula 2.00 07/17/17 00:00 97.7 93 16 120/68 (85) 96 07/17/17 00:00 93 I/O 07/17/17 07/17/17 07/17/17 07/18/17 07/18/17 07/18/17 07:00 15:00 23:00 07:00 15:00 23:00 Intake Total 280 ml 300 ml 480 ml Output Total 10 ml Balance 270 ml 300 ml 480 ml Intake Oral 180 ml 480 ml IV Total 100 ml 300 ml Output Urine Total 0 ml Chest Tube Drainage Total 10 ml # Voids 2 # Bowel Movements 1 4 Result Diagram: 07/17/17 0357 07/17/17 0357 Objective Remarks GENERAL: Patient sitting up in bed. Appears comfortable. no change on exam. SKIN: Warm and dry. HEAD: Normocephalic. EYES: No scleral icterus. No injection or drainage. NECK: Supple, trachea midline. No JVD. CARDIOVASCULAR: Regular rate and rhythm without murmurs, gallops, or rubs. RESPIRATORY: Breath sounds equal bilaterally. No accessory muscle use. GASTROINTESTINAL: Abdomen soft, non-tender, nondistended. MUSCULOSKELETAL: No cyanosis, or edema. BACK: Nontender without obvious deformity. No CVA tenderness. A/P Assessment and Plan ========07/17/17. ======= Continue antibiotics as per infectious disease. Discussed with nursing. On 07/03/2017, Mr. Wade, a 46 year old male presented to the ED due to flu like symptoms despite being treated for flu by his PCP. He complained of right- sided pleuritic chest pain. He reported fever and chills. Temperature in the emergency department was 101.2F. CT chest showed right pleural effusion with some atelectasis. CT abdomen pelvis showed a liver lesion. //Severe sepsis - resolved. //MRSA bacteremia //MRSA pneumonia //Empyema - pleural fluid grew MRSA Pneumonia on CT chest, liver lesion, right axillary lymphadenopathy, possible cellulitis Pleural fluid cx grew MRSA. Blood cx also grew MRSA. Appreciate ID input. Currently patient is on Ceftaroline 200mg Q12hrs to cover MRSA pneumonia and bacteremia. 07/05 - Echo showed no vegetation. s/p Right thoracoscopic exploration to evacuate right pleural effusion, pleural biopsy on 07/15/2017. Acetaminophen, tramadol as needed for pain. = 07/16. White count still elevated at 14.8. Continue antibiotics as per ID. = 07/17. White count continues elevated 14.1. Continue to monitor. //acute kidney injury Creatinine 0.8 on 07/04/2017. Cr 9.4 on 07/15/2017. Now on dialysis. Possibly due to vancomycin as well as post infectious Continue dialysis per Nephrology. //Liver cirrhosis //Hepatitis C genotype 1a //Liver lesion 1.5cm GI following. Patient will likely need an MRI study in future. //Thrombocytopenia - improved. PLT 120K --> 54K==>71 on 07/16/2017. = 07/17. Platelets 83. Improved. //Full code. SCDs. Discharge Planning Continue treatment for sepsis, MRSA bacteremia, empyema, acute kidney injury. Juanjose Ramsay MD Jul 17, 2017 23:46
[2017-07-18] VITALS (12 sets, daily range): BP systolic 92–129; BP diastolic 48–65; PULSE 88–102; RESP 16–22; TEMP 98–98.6; O2SAT 93–100
[2017-07-18] MEDS: SODIUM CHLORIDE 0.9% IV SCH ×2 (02:53→13:50)
[2017-07-18] MEDS: CEFTAROLINE IV SCH ×2 (02:53→13:50)
[2017-07-18] MEDS: RESP: ALBUTEROL 2.5 MG/3 ML NEB (SCH) NEB ×3 (03:58→13:44)
--- NOTE | 2017-07-18 05:32 | RADRPT ---
EXAM DATE/TIME: 07/18/2017 05:12 [facility] COMPARISON: CHEST SINGLE AP, July 16, 2017, 9:34. INDICATIONS : Status post chest tube removal. MEDICAL HISTORY : Cardiovascular disease. Hypertension Cirrhosis SURGICAL HISTORY : Colostomy. Colectomy. Chest tube. ENCOUNTER: Subsequent ACUITY: 2 weeks PAIN SCORE: Non-responsive. LOCATION: chest FINDINGS: Interval removal of right chest tube. No evidence of pneumothorax. There is persistent thickening o f the pleura laterally in the right chest apex to base characteristic of pleural effusion, stable. P atchy areas of acinar infiltrate in both lungs without consolidation, stable from prior. Heart is up per limits normal size. There is blunting of the right costophrenic angle. Right internal jugular c atheter tip at cavoatrial junction. CONCLUSION: 1. No evidence of pneumothorax status post right chest tube removal. 2. Persistent right pleural effusion and vascular congestion. Prabhakar Lynch MD on July 18, 2017 at 5:28 Board Certified Radiologist. This report was verified electronically.
[2017-07-18] MEDS: FLUCONAZOLE 100 MG TAB PO SCH (08:01)
[2017-07-18] MEDS: SEVELAMER CARBONATE 800 MG TAB PO SCH ×3 (08:01→17:01)
[2017-07-18] MEDS: LACTULOSE SYRUP 20 GM/30 ML CUP PO SCH (08:02)
[2017-07-18] MEDS: SODIUM CHLORIDE 0.9% FLUSH 10 ML FLUSH IV FLUSH SCH ×2 (08:02→21:00)
[2017-07-18] MEDS: MUPIROCIN 2% OINT 1 APPLIC/GM SYR EACH NARE SCH (09:00)
[2017-07-18] MEDS ORDERED: LACTULOSE SYRUP 20 GM/30 ML CUP PO PRN (10:15)
--- NOTE | 2017-07-18 11:57 | HHI.PR ---
Subjective Remarks Patient seen this morning around 9:30 AM. Says he is feeling all right. Objective Vital Signs Date Time Temp Pulse Resp B/P (MAP) Pulse Ox O2 Delivery O2 Flow Rate FiO2 07/18/17 11:00 98.6 92 16 112/59 (76) 97 07/18/17 06:21 102 07/18/17 05:33 88 07/18/17 05:06 93 Nasal Cannula 2.00 07/18/17 05:05 98.0 98 93/50 (64) 93 07/18/17 04:00 98 07/18/17 03:00 98 07/18/17 02:00 88 07/18/17 01:00 96 07/18/17 00:41 94 Nasal Cannula 3.00 07/18/17 00:40 98.2 102 92/48 (63) 94 07/18/17 00:00 95 07/17/17 23:00 98 07/17/17 22:00 100 07/17/17 21:07 96 Nasal Cannula 3.00 07/17/17 21:00 100 07/17/17 20:00 102 07/17/17 19:00 92 Nasal Cannula 2.00 07/17/17 19:00 98.0 101 94/47 (63) 92 07/17/17 19:00 101 07/17/17 18:27 99 Nasal Cannula 4.00 07/17/17 18:27 98.1 93 18 84/43 (57) 99 07/17/17 18:00 93 07/17/17 14:17 98 Nasal Cannula 4.00 07/17/17 14:00 90 07/17/17 13:00 94 07/17/17 12:00 92 I/O 07/17/17 07/17/17 07/17/17 07/18/17 07/18/17 07/18/17 07:00 15:00 23:00 07:00 15:00 23:00 Intake Total 280 ml 300 ml 480 ml 600 ml Output Total 10 ml 0 ml Balance 270 ml 300 ml 480 ml 600 ml Intake Oral 180 ml 480 ml 500 ml IV Total 100 ml 300 ml 100 ml Output Urine Total 0 ml 0 ml Chest Tube Drainage Total 10 ml # Voids 2 # Bowel Movements 1 4 1 Result Diagram: 07/17/17 0357 07/17/17 0357 Objective Remarks GENERAL: Patient sitting up in bed. Appears comfortable. no change on exam. SKIN: Warm and dry. HEAD: Normocephalic. EYES: No scleral icterus. No injection or drainage. NECK: Supple, trachea midline. No JVD. CARDIOVASCULAR: Regular rate and rhythm without murmurs, gallops, or rubs. RESPIRATORY: Breath sounds equal bilaterally. No accessory muscle use. Right chest with dressing, slight leakage of serosanguineous fluid.. GASTROINTESTINAL: Abdomen soft, non-tender, nondistended. MUSCULOSKELETAL: No cyanosis, or edema. BACK: Nontender without obvious deformity. No CVA tenderness. A/P Assessment and Plan ========06/23/17. ======= Continue antibiotics as per infectious disease. Chest tube is been removed. Appreciate CT surgery assistance. TB testing pending. On 07/03/2017, Mr. Wade, a 46 year old male presented to the ED due to flu like symptoms despite being treated for flu by his PCP. He complained of right- sided pleuritic chest pain. He reported fever and chills. Temperature in the emergency department was 101.2F. CT chest showed right pleural effusion with some atelectasis. CT abdomen pelvis showed a liver lesion. //Severe sepsis - resolved. //MRSA bacteremia //MRSA pneumonia //Empyema - pleural fluid grew MRSA Pneumonia on CT chest, liver lesion, right axillary lymphadenopathy, possible cellulitis Pleural fluid cx grew MRSA. Blood cx also grew MRSA. Appreciate ID input. Currently patient is on Ceftaroline 200mg Q12hrs to cover MRSA pneumonia and bacteremia. 07/05 - Echo showed no vegetation. s/p Right thoracoscopic exploration to evacuate right pleural effusion, pleural biopsy on 07/15/2017. Acetaminophen, tramadol as needed for pain. = 07/16. White count still elevated at 14.8. Continue antibiotics as per ID. = 07/17. White count continues elevated 14.1. Continue to monitor. //acute kidney injury Creatinine 0.8 on 07/04/2017. Cr 9.4 on 07/15/2017. Now on dialysis. Possibly due to vancomycin as well as post infectious Continue dialysis per Nephrology. //Liver cirrhosis //Hepatitis C genotype 1a //Liver lesion 1.5cm GI following. Patient will likely need an MRI study in future. //Thrombocytopenia - improved. PLT 120K --> 54K==>71 on 07/16/2017. = 07/17. Platelets 83. Improved. //Full code. SCDs. Discharge Planning Continue treatment for sepsis, MRSA bacteremia, empyema, acute kidney injury. Juanjose Ramsay MD Jul 18, 2017 11:57
[2017-07-18 13:08] LABS: MITOGEN MINUS NIL RESULT 0.05 IU/mL; NIL RESULT 0.01 IU/mL; QUANTIFERON TB GOLD + RESULT Indeterminate (Negative); TB ANTIGEN MINUS NIL 0.01 IU/mL
--- NOTE | 2017-07-18 13:55 | HHI.NPPN ---
Subjective Renal Failure: Acute Interval History Having liquid green colored diarrhea. C diff has been ordered, RN to collect. He was dialyzed yesterday, 500 ml UF. (Lisa Tovar) Review of Systems General Constitutional: Fatigue (Lisa Tovar) Respiratory Lungs: SOB Respiratory Remarks On exertion (Lisa Tovar) Skin Skin: Skin Rash (Lisa Tovar) Objective Data Data Vital Signs Date Time Temp Pulse Resp B/P (MAP) Pulse Ox O2 Delivery O2 Flow Rate FiO2 07/18/17 11:00 98.6 92 16 112/59 (76) 97 07/18/17 11:00 94 Nasal Cannula 2.00 07/18/17 07:00 94 Nasal Cannula 2.00 07/18/17 06:21 102 07/18/17 05:33 88 07/18/17 05:06 93 Nasal Cannula 2.00 07/18/17 05:05 98.0 98 93/50 (64) 93 07/18/17 04:00 98 07/18/17 03:00 98 07/18/17 02:00 88 07/18/17 01:00 96 07/18/17 00:41 94 Nasal Cannula 3.00 07/18/17 00:40 98.2 102 92/48 (63) 94 07/18/17 00:00 95 07/17/17 23:00 98 07/17/17 22:00 100 07/17/17 21:07 96 Nasal Cannula 3.00 07/17/17 21:00 100 07/17/17 20:00 102 07/17/17 19:00 92 Nasal Cannula 2.00 07/17/17 19:00 98.0 101 94/47 (63) 92 07/17/17 19:00 101 07/17/17 18:27 99 Nasal Cannula 4.00 07/17/17 18:27 98.1 93 18 84/43 (57) 99 07/17/17 18:00 93 07/17/17 14:17 98 Nasal Cannula 4.00 07/17/17 14:00 90 (Lisa Tovar) -: 07/17/17 0357 07/17/17 0357 Imaging Last 72 hours Impressions Chest X-Ray 07/18/17 0600 Signed Impressions: Service Date/Time: Tuesday, July 18, 2017 05:12 - CONCLUSION: 1. No evidence of pneumothorax status post right chest tube removal. 2. Persistent right pleural effusion and vascular congestion. Prabhakar Lynch MD Chest X-Ray 07/16/17 0000 Signed Impressions: Service Date/Time: Sunday, July 16, 2017 09:34 - CONCLUSION: Pulmonary vascular congestion remains. Moderate pleural effusion, chest tube and IJ catheter all in good position. Tino Albarado MD Tubes & Lines: Vas-Cath Tubes & Lines Comment R chest tube (Lisa TovarP) Physical Exam General Appearance: Well Developed, No Acute Distress, Comfortable (Lisa Tovar B. SALES AND SERVICE ENGINEER) Eyes Eye Exam: Pupils Equal (Lisa Tovar BJocelynn SALES AND SERVICE ENGINEER) Pulmonary Resp Exam: Clear Bilaterally, Breath Sounds Equal, Diminished Breath Sounds Resp Remarks chest tube right (Lisa Tovar B. SALES AND SERVICE ENGINEER) Cardiology CV Exam: Regular, Normal Sinus Rhythm, Murmur (Lisa Tovar B. SALES AND SERVICE ENGINEER) Gastrointestinal/Abdomen GI Exam: Soft, Non-Tender, Bowel Sounds Present (Lisa Tovar B. SALES AND SERVICE ENGINEER) Musculoskeletal MS Exam: Joints Intact, Normal Gait, Normal Tone, Good Strength (Lisa Tovar B. SALES AND SERVICE ENGINEER) Integumentary Skin Exam: Warm, Dry, Intact Skin Remarks rash on arm, left upper back; non painful, no itching; looks like petechiae (Lisa Tovar B. SALES AND SERVICE ENGINEER) Extremeties Extremities Exam: Pedal Pulses Palpable, Moderate Edema (Lisa Tovar BJocelynn SALES AND SERVICE ENGINEER) Neurologic Neuro Exam: Alert, Awake, Oriented, Speech Clear, Moving All Extremities (Lisa Tovar B. SALES AND SERVICE ENGINEER) Psychiatric Psych Exam: Appropriate Responses (Lisa TovarP) Assessment/Plan Discussed Condition With: Patient, Parent Assessment Summary: RODOLFO/Acute Renal Failure, Acute Tubular Necrosis Problem List: (1) Acute kidney injury ICD Codes: N17.9 - Acute kidney failure, unspecified Plan: He suffered ATN and is dialysis dependent -Etiology is still uncertain. Most likely either ATN due to sepsis or Post infectious GN. Vancomycin induced nephrotoxicity is also a possibility. Vascath placed and HD initiated 4/16 and 07/08 HD TTS if needed, 500 ml UF BP is better He is oliguric. Monitor output. Avoid nephrotoxic agents and renally dose appropriate to his renal status Will need Permcath exchange at a later date. Repeat labs, await for renal recovery. Treated for UTI (juanita) with PO Diflucan On Renvela for hyperphosphatemia (2) Sepsis ICD Codes: A41.9 - Sepsis, unspecified organism Status: Acute Plan: ID following s/p thoracentesis 07/07. Has MRSA, empyema. chest tube in place on right. To go for VATS with CTS today. On Teflaro Monitor clinically. Check stool for c diff given diarrhea on antibiotics (3) Hypertension ICD Codes: I10 - Essential (primary) hypertension Status: Acute Plan: BP better, still marginally hypotensive. (4) Hepatitis C infection ICD Codes: B19.20 - Unspecified viral hepatitis C without hepatic coma Status: Acute Plan: Workup is in progress. GI and ID following. (Lisa Tovar) Problem List: (1) Acute kidney injury ICD Codes: N17.9 - Acute kidney failure, unspecified Plan: He suffered ATN and is dialysis dependent -Etiology is still uncertain. Most likely either ATN due to sepsis or Post infectious GN. Vancomycin induced nephrotoxicity is also a possibility. Vascath placed and HD initiated 07/07 and 07/08 HD TTS if needed, 500 ml UF BP is better He is oliguric. Monitor output. Avoid nephrotoxic agents and renally dose appropriate to his renal status Will need Permcath exchange at a later date. Repeat labs, await for renal recovery. Treated for UTI (juanita) with PO Diflucan On Renvela for hyperphosphatemia (2) Sepsis ICD Codes: A41.9 - Sepsis, unspecified organism Status: Acute Plan: ID following s/p thoracentesis 07/07. Has MRSA, empyema. chest tube in place on right. To go for VATS with CTS today. On Teflaro Monitor clinically. Check stool for c diff given diarrhea on antibiotics (3) Hypertension ICD Codes: I10 - Essential (primary) hypertension Status: Acute Plan: BP better, still marginally hypotensive. (4) Hepatitis C infection ICD Codes: B19.20 - Unspecified viral hepatitis C without hepatic coma Status: Acute Plan: Workup is in progress. GI and ID following. Plan patient was seen and examined. Agree with above assessment and plan. Remains oliguric, will need dialysis tomorrow. PermCath next week. (Bj Amaya MD) Problem Qualifiers (1) Sepsis: Qualified Codes: A41.9 - Sepsis, unspecified organism (2) Hypertension: Qualified Codes: I10 - Essential (primary) hypertension Lisa Tovar [facility] Jul 18, 2017 13:55 Bj Amaya MD Jul 18, 2017 15:42
--- NOTE | 2017-07-18 14:04 | HHI.GIFU ---
Subjective Remarks GI reconsulted for n/v/diarrhea. Pt has been having diarrhea for 2-3 days. Had episode nausea and nonbloody emesis yesterday and he is feeling nauseous currently. No blood in vomit or stool. No abd pain. (Stefani Hui) Objective Vitals I&O Vital Signs Date Time Temp Pulse Resp B/P (MAP) Pulse Ox O2 Delivery O2 Flow Rate FiO2 07/18/17 11:00 98.6 92 16 112/59 (76) 97 07/18/17 11:00 94 Nasal Cannula 2.00 07/18/17 07:00 94 Nasal Cannula 2.00 07/18/17 06:21 102 07/18/17 05:33 88 07/18/17 05:06 93 Nasal Cannula 2.00 07/18/17 05:05 98.0 98 93/50 (64) 93 07/18/17 04:00 98 07/18/17 03:00 98 07/18/17 02:00 88 07/18/17 01:00 96 07/18/17 00:41 94 Nasal Cannula 3.00 07/18/17 00:40 98.2 102 92/48 (63) 94 07/18/17 00:00 95 07/17/17 23:00 98 07/17/17 22:00 100 07/17/17 21:07 96 Nasal Cannula 3.00 07/17/17 21:00 100 07/17/17 20:00 102 07/17/17 19:00 92 Nasal Cannula 2.00 07/17/17 19:00 98.0 101 94/47 (63) 92 07/17/17 19:00 101 07/17/17 18:27 99 Nasal Cannula 4.00 07/17/17 18:27 98.1 93 18 84/43 (57) 99 07/17/17 18:00 93 07/17/17 14:17 98 Nasal Cannula 4.00 07/17/17 14:00 90 I/O 07/17/17 07/17/17 07/17/17 07/18/17 07/18/17 07/18/17 07:00 15:00 23:00 07:00 15:00 23:00 Intake Total 280 ml 300 ml 480 ml 600 ml Output Total 10 ml 500 ml 0 ml Balance 270 ml 300 ml -20 ml 600 ml Intake Oral 180 ml 480 ml 500 ml IV Total 100 ml 300 ml 100 ml Output Urine Total 0 ml 0 ml Chest Tube Drainage Total 10 ml Hemodialysis 500 ml # Voids 2 # Bowel Movements 1 4 1 Laboratory Date/Time Source Procedure Growth Status 07/07/17 20:14 Blood Peripheral Aerobic Blood Culture - Final NO GROWTH IN 5 DAYS Complete 07/07/17 20:14 Blood Peripheral Anaerobic Blood Culture - Final NO GROWTH IN 5 DAYS Complete 07/14/17 14:55 Fluid Pleural Fluid Fungal Smear - Final NO FUNGAL ELEMENTS SEEN. Resulted 07/14/17 14:55 Fluid Pleural Fluid Fungal Culture Pending Resulted 07/05/17 00:22 Sputum Expectorated Sputum Gram Stain - Final Complete 07/05/17 00:22 Sputum Expectorated Sputum Sputum Culture - Final HEAVY GROWTH NORMAL RESPIRATORY MARISELA Complete 07/11/17 09:10 Urine Catheterized Urine Urine Culture - Final Dori Glabrata Dori Albicans Complete Imaging Last Impressions Chest X-Ray 07/18/17 0600 Signed Impressions: Service Date/Time: Tuesday, July 18, 2017 05:12 - CONCLUSION: 1. No evidence of pneumothorax status post right chest tube removal. 2. Persistent right pleural effusion and vascular congestion. Prabhakar Lynch MD Chest CT 07/12/17 0000 Signed Impressions: Service Date/Time: Wednesday, July 12, 2017 12:19 - CONCLUSION: 1. Interval placement of right-sided percutaneous drainage catheter with mild decrease in the size of the right pleural effusion. 2. New small left pleural effusion. 3. Prominent lymph nodes and induration remaining in the right axillary region and 4. The previously noted prominence right paratracheal lymph node is stable. 5. Mild consolidation remains in the right lung base. Gato Patino MD Chest Tube Insertion 07/08/17 0000 Signed Impressions: Service Date/Time: Saturday, July 08, 2017 16:27 - CONCLUSION: Uncomplicated chest tube placement as above. Santiago Mccartney MD Abdomen Ultrasound 07/08/17 0000 Signed Impressions: Service Date/Time: Saturday, July 08, 2017 18:00 - CONCLUSION: 1. Cirrhotic appearing liver with splenomegaly. 2. Extensive cholelithiasis. Santiago Mccartney MD Thoracentesis Ultrasound 07/07/17 0000 Signed Impressions: Service Date/Time: Friday, July 07, 2017 10:32 - CONCLUSION: Uncomplicated ultrasound guided thoracentesis. Santiago Mccartney MD Foot MRI 07/07/17 0000 Signed Impressions: Service Date/Time: Friday, July 07, 2017 15:40 - CONCLUSION: Probable mild cellulitis without osteomyelitis or deep space involvement. Josh Santiago MD FACR Catheter Placement X-Ray 07/07/17 0000 Signed Impressions: Service Date/Time: Friday, July 07, 2017 13:15 - CONCLUSION: Uncomplicated line placement as above. Masoud Lopez MD Renal Ultrasound 07/06/17 0000 Signed Impressions: Service Date/Time: Thursday, July 06, 2017 20:20 - CONCLUSION: 1. Normal appearance the kidneys. 2. Moderate right pleural effusion. Luis Miguel Villegas MD Chest Ultrasound 07/05/17 0000 Signed Impressions: Service Date/Time: Wednesday, July 05, 2017 12:26 - CONCLUSION: Loculated fluid as above. Josh Santiago MD FACR Foot X-Ray 07/04/17 0000 Signed Impressions: Service Date/Time: Tuesday, July 04, 2017 15:35 - CONCLUSION: Negative for fracture or dislocation. Follow up in 7-10 days is suggested if symptoms persist. Josh Santiago MD FACR Abdomen/Pelvis CT 07/03/17 0000 Signed Impressions: Service Date/Time: June 08:43 - CONCLUSION: 1. 1.5 cm low-density lesion within the anterior segment of the right lobe of liver which is indeterminate. Outpatient MRI of the abdomen with contrast would be helpful for further characterization of this indeterminate lesion. 2. Mild splenomegaly and very large intra-abdominal varices draining into the splenic vein suggesting portal hypertension. 3. Perigastric varices and bilateral inguinal varices are also noted. 4. Cholelithiasis. 5. Tiny right pleural effusion. 6. Minimal right basilar atelectasis and/or infiltrate. 7. Degenerative changes and scoliosis of the thoracolumbar spine. Haseeb Helms MD Physical Exam HEENT: Normocephalic; atraumatic mild icterus CHEST: coarse, rhonchi. dressing right chest d&i. SOB to conversation. CARDIAC: RRR ABDOMEN: Obese, soft, nontender, bowel sounds active SKIN: Pale; no rash; subtle jaundice HOUSING GRANT ANALYST: Alert and oriented x 3 (Stefani Hui BUZZSAW OPERATOR HELPER) Assessment and Plan Plan ASSESSMENT/History - Cirrhosis- history of hepatitis C- genotype 1 a- quant 30,900 CT abdomen and pelvis W IV contrast (07/03) --> Mild splenomegaly and very large intra-abdominal varices draining into the splenic vein suggestion portal HTN. Perigastric varices and bilateral inguinal varices are also noted. Cholelithiasis. US abdomen (07/08) --> Cirrhotic appearing liver with splenomegaly. Extensive cholelithiasis. Liver BATRES: ROBERT, ASMA negative. AMA < 20. Iron-94 TIBC-141 %sat-68.6 Ferritin-540 B4V-944 Ceruloplasmin-26 Ammonia-22 HFE negative AFP-3.5 - Liver lesion on CT --> 1.5 cm low-density lesion within the anterior segment of the right lobe of the liver which is indeterminate. Outpatient MRI with contrast suggested. Unable to do at this time, given poor renal function. AFP-3.5 - Elevated lipase- CT states unremarkable pancreas- Lipase 932 on 07/03 now WNL - Thrombocytopenia- improving. platelets currently 148 - Anemia- multifactorial- macrocytic- H/H stable currently 11.1/32.7 - Empyema- pleural fluid (+) MRSA- ID following - RODOLFO on dialysis (07/12) --> No significant change overnight. Remains with generalized pains. Nephrology following, per pt planning for dialysis again on Friday- Differentials for RODOLFO include ATN due to sepsis and post infectious glomerulonephritis. Less likely hepatorenal syndrome. 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 (07/13) No significant changes over night. Continued generalized pain. Poor PO intake. Renal function remains poor. Pet pt, planned for surgery tomorrow for empyema 07/18/17 GI reconsulted for n/v/diarrhea for last 2 days. Is on teflaro for PNA , empyema. ID following. currently also on airborne precautions for poss TB. c diff is pending. re testing for hemochromatosis - C282Y: Not detected.H63D: Not detected. could be c diff vs gastroenteritis vs 2/2 abx. last colonoscopy [address] Velazquez, prior to ileostomy reversal. PLAN - await c diff - stool studies - monitor labs - lactulose d/c'd - supportive care Pt has been seen and examined by myself and Dr. Mondragon and this note is written on his behalf (Stefani Hui) Physician Comments Patient seen and examined Continue with current supportive care Monitor labs Rather than discontinue lactulose the better approach would be to reduce the dose so as to titrate to 3 bowel movements a day mainly because patient with underlying cirrhosis and hepatic encephalopathy but I will defer to attending physician at this point (Roosevelt Mondragon MD) Stefani Hui Jul 18, 2017 14:04 Roosevelt Mondragon MD Jul 18, 2017 18:22
--- NOTE | 2017-07-18 14:39 | PD.CAR.PN ---
CVT Progress Note Subjective/Hospital Course: 46-year-old male who presented to the emergency room with complaint of flulike symptoms for about a week. Patient reports he has been having right-sided pleuritic type chest pain. He describes pain as heavy in character, present all the time, worse with coughing and deep breathing. Patient states he was having hemoptysis for 3 days. Last episode was yesterday. He coughs up clear to yellow mucus now. He was found to have MRSA in a blood culture and pleural fluid culture s/p right thoracentesis. He has renal failure requiring dialysis since being admitted. He has a small bore chest catheter which is draining serous fluid. He is being considered for VATS exploration and possible decortication. (1) Acute kidney injury Etiology is uncertain. Medication related: Vancomycin induced nephrotoxicity; he was also on NSAIDs and ANSELMO inhibitor prior to admission. All were stopped. He was exposed to IV contrast on 07/03 but JAYDA unlikely Other possibilities: ATN due to sepsis and Post infectious GN. C3 is low Hepatorenal syndrome is less likely. Hepatitis C related Cryoglobulinemic Vasculitis also considered, cryoglobulin level in progress. Vascath placed and HD initiated 07/07 and surgery: 07/14 Right thoracoscopic exploration to evacuate right pleural effusion, pleural biopsy path pending, cytology pending OOB/ ambulate 07/15 HGB 7.2/ HCT 21 PLT now 52 (93) transfuse 2 units PRBC one chris PLT with dialysis today pt on nasal cannula painful needs pulm toileting OOB PT 07/16 PLT now 71, HGB 8.1 post 2 units 07/15 chest tube drained 70cc/ in 12 hrs/ will eval for removal in am 07/17 pt sleepy lethargic last night also received 2 percocet at 0100 dose decreased, also had diarrhea last pm BP low this am, improved after albumin and NS chest tube dc without difficulty consult PT 07/18 pt more alert today but having N/V and diarrhea lactulose changed to prn draining at chest tube site / CXR no PTX now on airborne precautions Objective: GENERAL: A&O x 3 , c/o of being weak SKIN: Warm and dry. dressing to right chest wall, with some sero pérez drainage / changed per nursing HEAD: Normocephalic. EYES: No scleral icterus. No injection or drainage. NECK: Supple, trachea midline. No JVD or lymphadenopathy. CARDIOVASCULAR: Regular rate and rhythm without murmurs, gallops, or rubs. RESPIRATORY: Breath sounds equal bilaterally. No accessory muscle use. coarse breath sounds GASTROINTESTINAL: Abdomen soft, non-tender, nondistended. / + N/V diarrhea MUSCULOSKELETAL: No cyanosis, or edema. BACK: Nontender without obvious deformity. No CVA tenderness. Vital Signs Date Time Temp Pulse Resp B/P (MAP) Pulse Ox O2 Delivery O2 Flow Rate FiO2 07/18/17 11:00 98.6 92 16 112/59 (76) 97 07/18/17 11:00 94 Nasal Cannula 2.00 07/18/17 07:00 94 Nasal Cannula 2.00 07/18/17 06:21 102 07/18/17 05:33 88 07/18/17 05:06 93 Nasal Cannula 2.00 07/18/17 05:05 98.0 98 93/50 (64) 93 07/18/17 04:00 98 07/18/17 03:00 98 07/18/17 02:00 88 07/18/17 01:00 96 07/18/17 00:41 94 Nasal Cannula 3.00 07/18/17 00:40 98.2 102 92/48 (63) 94 07/18/17 00:00 95 07/17/17 23:00 98 07/17/17 22:00 100 07/17/17 21:07 96 Nasal Cannula 3.00 07/17/17 21:00 100 07/17/17 20:00 102 07/17/17 19:00 92 Nasal Cannula 2.00 07/17/17 19:00 98.0 101 94/47 (63) 92 07/17/17 19:00 101 07/17/17 18:27 99 Nasal Cannula 4.00 07/17/17 18:27 98.1 93 18 84/43 (57) 99 07/17/17 18:00 93 Result Diagram: 07/17/17 0357 07/17/17 0357 (1) right thoracoscopic exploration Plan: pulm toileting OOB/ pain control chest tube removed pain meds reduced OOB / consult PT will see prn has f/u appointment ok to transfer out of [facility] (2) Pneumonia (3) Sepsis (4) Loculated pleural effusion (5) Acute kidney injury Plan: on dialysis T-Fri (6) Blood loss anemia Plan: acute post op s/p 2 units PRBC with dialysis on (7) Thrombocytopenia Plan: plt 52 > 83 (8) Hepatitis C infection (9) Diarrhea Plan: cdiff pending / on isolation Problem Qualifiers (1) Pneumonia: Qualified Codes: J18.1 - Lobar pneumonia, unspecified organism (2) Sepsis: Qualified Codes: A41.9 - Sepsis, unspecified organism Lubna Irvin Jul 18, 2017 14:39
[2017-07-18] MEDS: PANTOPRAZOLE SOD 40 MG DELAYED RELEASE TAB PO SCH (21:00)
[2017-07-18] MEDS: DOCUSATE CALCIUM 240 MG CAP PO SCH (21:00)
[2017-07-19] VITALS (10 sets, daily range): BP systolic 122–133; BP diastolic 58–73; PULSE 86–96; RESP 17–20; TEMP 97.4–98.1; O2SAT 90–94
[2017-07-19] MEDS: CEFTAROLINE IV SCH ×2 (02:16→13:02)
[2017-07-19] MEDS: SODIUM CHLORIDE 0.9% IV SCH ×2 (02:16→13:02)
[2017-07-19 04:27] LABS: AUTOMATED NEUTROPHIL # 6.5 TH/MM3 (1.8-7.7); BASOPHIL % 0.4 % (0.0-2.0); EOSINOPHIL # 0.4 TH/MM3 (0-0.4); EOSINOPHIL % 4.3 % (0.0-4.0); HEMATOCRIT 21.6 % (39.0-51.0); HEMOGLOBIN 7.5 GM/DL (13.0-17.0); LYMPH % 8.2 % (9.0-44.0); LYMPHOCYTE # 0.7 TH/MM3 (1.0-4.8); MEAN CELL VOLUME 101.9 FL (80.0-100.0); MEAN CORPUSCULAR HEMOGLOBIN 35.5 PG (27.0-34.0); MEAN CORPUSCULAR HGB CONC 34.9 % (32.0-36.0); MEAN PLATELET VOLUME 8.8 FL (7.0-11.0); MONO % 12.1 % (0.0-8.0); MONOCYTE # 1.1 TH/MM3 (0-0.9); PLATELET COUNT 79 TH/MM3 (150-450); RED BLOOD COUNT 2.12 MIL/MM3 (4.50-5.90); RED CELL DISTRIBUTION WIDTH 16.9 % (11.6-17.2); WHITE BLOOD COUNT 8.7 TH/MM3 (4.0-11.0)
[2017-07-19 04:37] LABS: ALBUMIN 2.1 GM/DL (3.4-5.0); BICARBONATE 30.2 MEQ/L (21.0-32.0); CALCIUM 8.6 MG/DL (8.5-10.1); CREATININE 6.16 MG/DL (0.60-1.30); MAGNESIUM 2.3 MG/DL (1.5-2.5)
[2017-07-19 04:38] LABS: PHOSPHORUS 6.9 MG/DL (2.5-4.9)
[2017-07-19] MEDS: FLUCONAZOLE 100 MG TAB PO SCH (08:27)
[2017-07-19] MEDS: SEVELAMER CARBONATE 800 MG TAB PO SCH ×3 (08:27→17:49)
[2017-07-19] MEDS: ACETAMINOPHEN/HYDROcodone 325 MG/5 MG TAB PO PRN ×4 (08:28→16:25)
[2017-07-19] MEDS: SODIUM CHLORIDE 0.9% FLUSH 10 ML FLUSH IV FLUSH SCH ×2 (08:28→21:29)
[2017-07-19] MEDS: LACTULOSE SYRUP 20 GM/30 ML CUP PO SCH ×3 (09:00→17:49)
[2017-07-19] MEDS ORDERED: SODIUM CHLOR 0.9% 250 ML INJ 250 ML IV ONE (09:15)
--- NOTE | 2017-07-19 09:19 | HHI.PR ---
Subjective Remarks Follow-up pneumonia. States he is weak. No nausea, vomiting or diarrhea. Agrees with blood transfusion discussed with hemodialysis nurse. Objective Vitals Vital Signs Date Time Temp Pulse Resp B/P (MAP) Pulse Ox O2 Delivery O2 Flow Rate FiO2 07/19/17 04:00 87 07/19/17 00:00 95 07/18/17 20:35 Nasal Cannula 2.00 21 07/18/17 20:00 100 07/18/17 20:00 98.5 98 22 129/60 (83) 100 07/18/17 13:12 98.2 97 20 125/65 (85) 99 07/18/17 11:00 98.6 92 16 112/59 (76) 97 07/18/17 11:00 92 07/18/17 11:00 94 Nasal Cannula 2.00 I/O 07/18/17 07/18/17 07/18/17 07/19/17 07/19/17 07/19/17 07:00 15:00 23:00 07:00 15:00 23:00 Intake Total 600 ml 480 ml Output Total 0 ml 450 ml Balance 600 ml 30 ml Intake Oral 500 ml 480 ml IV Total 100 ml Output Urine Total 0 ml 150 ml Stool Total 300 ml # Voids 2 # Bowel Movements 1 2 Result Diagram: 07/19/17 0355 07/19/17 0355 Imaging Last Impressions Chest X-Ray 07/18/17 0600 Signed Impressions: Service Date/Time: Tuesday, July 18, 2017 05:12 - CONCLUSION: 1. No evidence of pneumothorax status post right chest tube removal. 2. Persistent right pleural effusion and vascular congestion. Prabhakar Lynch MD Chest CT 07/12/17 0000 Signed Impressions: Service Date/Time: Wednesday, July 12, 2017 12:19 - CONCLUSION: 1. Interval placement of right-sided percutaneous drainage catheter with mild decrease in the size of the right pleural effusion. 2. New small left pleural effusion. 3. Prominent lymph nodes and induration remaining in the right axillary region and 4. The previously noted prominence right paratracheal lymph node is stable. 5. Mild consolidation remains in the right lung base. Gato Patino MD Chest Tube Insertion 07/08/17 0000 Signed Impressions: Service Date/Time: Saturday, July 08, 2017 16:27 - CONCLUSION: Uncomplicated chest tube placement as above. Santiago Mccartney MD Abdomen Ultrasound 07/08/17 0000 Signed Impressions: Service Date/Time: Saturday, July 08, 2017 18:00 - CONCLUSION: 1. Cirrhotic appearing liver with splenomegaly. 2. Extensive cholelithiasis. Santiago Mccartney MD Thoracentesis Ultrasound 07/07/17 0000 Signed Impressions: Service Date/Time: Friday, July 07, 2017 10:32 - CONCLUSION: Uncomplicated ultrasound guided thoracentesis. Santiago Mccarteny MD Foot MRI 07/07/17 0000 Signed Impressions: Service Date/Time: Friday, July 07, 2017 15:40 - CONCLUSION: Probable mild cellulitis without osteomyelitis or deep space involvement. Josh Santiago MD FACR Catheter Placement X-Ray 07/07/17 0000 Signed Impressions: Service Date/Time: Friday, July 07, 2017 13:15 - CONCLUSION: Uncomplicated line placement as above. Masoud Lopez MD Renal Ultrasound 07/06/17 0000 Signed Impressions: Service Date/Time: Thursday, July 06, 2017 20:20 - CONCLUSION: 1. Normal appearance the kidneys. 2. Moderate right pleural effusion. Luis Miguel Villegas MD Chest Ultrasound 07/05/17 0000 Signed Impressions: Service Date/Time: Wednesday, July 05, 2017 12:26 - CONCLUSION: Loculated fluid as above. Josh Santiago MD FACR Foot X-Ray 07/04/17 0000 Signed Impressions: Service Date/Time: Tuesday, July 04, 2017 15:35 - CONCLUSION: Negative for fracture or dislocation. Follow up in 7-10 days is suggested if symptoms persist. Josh Santiago MD FACR Abdomen/Pelvis CT 07/03/17 0000 Signed Impressions: Service Date/Time: June 08:43 - CONCLUSION: 1. 1.5 cm low-density lesion within the anterior segment of the right lobe of liver which is indeterminate. Outpatient MRI of the abdomen with contrast would be helpful for further characterization of this indeterminate lesion. 2. Mild splenomegaly and very large intra-abdominal varices draining into the splenic vein suggesting portal hypertension. 3. Perigastric varices and bilateral inguinal varices are also noted. 4. Cholelithiasis. 5. Tiny right pleural effusion. 6. Minimal right basilar atelectasis and/or infiltrate. 7. Degenerative changes and scoliosis of the thoracolumbar spine. Haseeb Helms MD Objective Remarks GENERAL: Patient sitting up in bed. Appears comfortable. SKIN: Warm and dry. CARDIOVASCULAR: Regular rate and rhythm without murmurs, gallops, or rubs. RESPIRATORY: Breath sounds equal bilaterally. No accessory muscle use. Right chest with dressing GASTROINTESTINAL: Abdomen soft, non-tender, nondistended. MUSCULOSKELETAL: No cyanosis, or edema. BACK: Nontender without obvious deformity. No CVA tenderness. Procedures Echo 07/04/2017 The left ventricular systolic function is normal with an estimated ejection fraction in the range of 60-65%. Wall thickness is measured at the upper limits of normal. No regional wall motion abnormalities are present. Normal left ventricular size. There is trace tricuspid valve regurgitation. The estimated pulmonary arterial pressure is 33 mmHg. 07/08/2017 -right-sided chest tube placement by interventional radiology. 07/14/2017 Right thoracoscopic exploration to evacuate right pleural effusion, pleural biopsy Vascath A/P Problem List: (1) Sepsis ICD Code: A41.9 - Sepsis, unspecified organism Status: Acute (2) Pneumonia ICD Code: J18.9 - Pneumonia, unspecified organism Status: Acute (3) Bandemia ICD Code: D72.825 - Bandemia Status: Acute (4) Elevated lipase ICD Code: R74.8 - Abnormal levels of other serum enzymes Status: Acute (5) Hypertension ICD Code: I10 - Essential (primary) hypertension Status: Acute (6) Axillary lymphadenopathy ICD Code: R59.0 - Localized enlarged lymph nodes Assessment and Plan On 07/03/2017, Mr. Wade, a 46 year old male presented to the ED due to flu like symptoms despite being treated for flu by his PCP. He complained of right- sided pleuritic chest pain. He reported fever and chills. Temperature in the emergency department was 101.2F. CT chest showed right pleural effusion with some atelectasis. CT abdomen pelvis showed a liver lesion. Severe sepsis - resolved. MRSA bacteremia MRSA pneumonia Empyema - pleural fluid grew MRSA Pneumonia on CT chest, liver lesion, right axillary lymphadenopathy, possible cellulitis, rpt CT in 4 weeks Pleural fluid cx grew MRSA. Blood cx also grew MRSA. Appreciate ID input. Currently patient is on Ceftaroline 200mg Q12hrs to cover MRSA pneumonia and bacteremia. 07/05 - Echo showed no vegetation. s/p Right thoracoscopic exploration to evacuate right pleural effusion, pleural biopsy on 07/15/2017. CT removed Acetaminophen, tramadol as needed for pain. Acute kidney injury Creatinine 0.8 on 07/04/2017. Cr 9.4 on 07/15/2017. Now on dialysis. Possibly due to vancomycin as well as post infectious Continue dialysis per Nephrology. Permacath exchange per renal Liver cirrhosis Hepatitis C genotype 1a Liver lesion 1.5cm GI following. Patient will likely need an MRI study in future. Thrombocytopenia. Stable Symptomatic anemia. Transfuse 1 unit RBC Full code. SCDs. No chemical prophylaxis secondary to thrombocytopenia Discharge Planning Rehab when cleared by ID and renal Problem Qualifiers (1) Sepsis: Qualified Codes: A41.9 - Sepsis, unspecified organism (2) Pneumonia: Qualified Codes: J18.1 - Lobar pneumonia, unspecified organism (3) Hypertension: Qualified Codes: I10 - Essential (primary) hypertension Santana Grijalva MD Jul 19, 2017 09:19
--- NOTE | 2017-07-19 11:04 | HHI.NPPN ---
Subjective Renal Failure: Acute Additional Remarks Seen on HD today, tired. No acute complaints Review of Systems General Constitutional: Fatigue Respiratory Lungs: SOB Respiratory Remarks On exertion Skin Skin: Skin Rash Objective Data Data Vital Signs Date Time Temp Pulse Resp B/P (MAP) Pulse Ox O2 Delivery O2 Flow Rate FiO2 07/19/17 09:24 Nasal Cannula 2.00 07/19/17 08:00 88 07/19/17 04:00 87 07/19/17 00:00 95 07/18/17 20:35 Nasal Cannula 2.00 21 07/18/17 20:00 100 07/18/17 20:00 98.5 98 22 129/60 (83) 100 07/18/17 13:12 98.2 97 20 125/65 (85) 99 -: 07/19/17 0355 07/19/17 0355 Microbiology 07/18/17 Stool Pus (CLARITA) - Final, Complete Tubes & Lines: Vas-Cath Tubes & Lines Comment R chest tube Physical Exam General Appearance: Well Developed, No Acute Distress, Comfortable Eyes Eye Exam: Pupils Equal Pulmonary Resp Exam: Clear Bilaterally, Breath Sounds Equal, Diminished Breath Sounds Cardiology CV Exam: Regular, Normal Sinus Rhythm, Murmur Gastrointestinal/Abdomen GI Exam: Soft, Non-Tender, Bowel Sounds Present Musculoskeletal MS Exam: Joints Intact, Normal Gait, Normal Tone, Good Strength Integumentary Skin Exam: Warm, Dry, Intact Extremeties Extremities Exam: Pedal Pulses Palpable, Moderate Edema Neurologic Neuro Exam: Alert, Awake, Oriented, Speech Clear, Moving All Extremities Psychiatric Psych Exam: Appropriate Responses Assessment/Plan Discussed Condition With: Patient, Parent Assessment Summary: RODOLFO/Acute Renal Failure, Acute Tubular Necrosis Problem List: (1) Acute kidney injury ICD Codes: N17.9 - Acute kidney failure, unspecified Plan: He suffered ATN and is dialysis dependent -Etiology is still uncertain. Most likely either ATN due to sepsis or Post infectious GN. Vancomycin induced nephrotoxicity is also a possibility. Vascath placed and HD initiated 07/07 HD TTS 500 ml UF Seen on HD today, plan for 2 u PRBCs with HD. BP is better He is oliguric. Monitor output. Avoid nephrotoxic agents and renally dose appropriate to his renal status Will need Permcath exchange this week. Repeat labs, await for renal recovery. Treated for UTI (juanita) with PO Diflucan On Renvela for hyperphosphatemia (2) Sepsis ICD Codes: A41.9 - Sepsis, unspecified organism Status: Acute Plan: ID following s/p thoracentesis 07/07. Has MRSA, empyema. chest tube in place on right. To go for VATS with CTS today. On Teflaro Monitor clinically. Ongoing diarrhea, stool cultures pending. (3) Hypertension ICD Codes: I10 - Essential (primary) hypertension Status: Acute Plan: BP better, still marginally hypotensive. (4) Hepatitis C infection ICD Codes: B19.20 - Unspecified viral hepatitis C without hepatic coma Status: Acute Plan: Workup is in progress. GI and ID following. Problem Qualifiers (1) Sepsis: Qualified Codes: A41.9 - Sepsis, unspecified organism (2) Hypertension: Qualified Codes: I10 - Essential (primary) hypertension Jae Russell MD Jul 19, 2017 11:04
--- NOTE | 2017-07-19 19:33 | HHI.GIFU ---
Subjective Remarks Patient laying in bed, complaining of abdominal discomfort, some discharge bloody discharge from the site of paracentesis patient stated he has to change dressings 2 times today, less diarrhea today Objective Vitals I&O Vital Signs Date Time Temp Pulse Resp B/P (MAP) Pulse Ox O2 Delivery O2 Flow Rate FiO2 07/19/17 16:00 98.0 88 20 126/70 (88) 90 07/19/17 16:00 90 07/19/17 15:00 Nasal Cannula 2.00 07/19/17 12:01 97.5 90 20 128/72 (90) 94 07/19/17 12:00 88 07/19/17 11:45 98.0 90 18 131/63 07/19/17 11:32 98.1 86 17 133/69 07/19/17 09:24 Nasal Cannula 2.00 07/19/17 08:01 97.4 92 20 127/73 (91) 93 07/19/17 08:00 88 07/19/17 08:00 Nasal Cannula 2.00 07/19/17 04:00 87 07/19/17 00:00 95 07/18/17 20:35 Nasal Cannula 2.00 21 07/18/17 20:00 100 07/18/17 20:00 98.5 98 22 129/60 (83) 100 I/O 07/18/17 07/18/17 07/18/17 07/19/17 07/19/17 07/19/17 07:00 15:00 23:00 07:00 15:00 23:00 Intake Total 600 ml 480 ml 415 ml 360 ml Output Total 0 ml 450 ml 3500 ml Balance 600 ml 30 ml -3085 ml 360 ml Intake Oral 500 ml 480 ml 360 ml IV Total 100 ml Packed Cells 400 ml Blood Product IV Normal Saline Flush 15 ml Output Urine Total 0 ml 150 ml Stool Total 300 ml Hemodialysis 3500 ml # Voids 2 5 # Bowel Movements 1 2 0 Laboratory Laboratory Tests Test 07/19/17 03:55 White Blood Count 8.7 Red Blood Count 2.12 Hemoglobin 7.5 Hematocrit 21.6 Mean Corpuscular Volume 101.9 Mean Corpuscular Hemoglobin 35.5 Mean Corpuscular Hemoglobin Concent 34.9 Red Cell Distribution Width 16.9 Platelet Count 79 Mean Platelet Volume 8.8 Neutrophils (%) (Auto) 75.0 Lymphocytes (%) (Auto) 8.2 Monocytes (%) (Auto) 12.1 Eosinophils (%) (Auto) 4.3 Basophils (%) (Auto) 0.4 Neutrophils # (Auto) 6.5 Lymphocytes # (Auto) 0.7 Monocytes # (Auto) 1.1 Eosinophils # (Auto) 0.4 Basophils # (Auto) 0.0 CBC Comment AUTO DIFF Differential Comment AUTO DIFF CONFIRMED Platelet Estimate LOW Platelet Morphology Comment NORMAL Basophilic Stippling FAINT Blood Urea Nitrogen 57 Creatinine 6.16 Random Glucose 103 Albumin 2.1 Calcium Level 8.6 Phosphorus Level 6.9 Magnesium Level 2.3 Sodium Level 137 Potassium Level 4.5 Chloride Level 99 Carbon Dioxide Level 30.2 Anion Gap 8 Estimat Glomerular Filtration Rate 10 Date/Time Source Procedure Growth Status 07/07/17 20:14 Blood Peripheral Aerobic Blood Culture - Final NO GROWTH IN 5 DAYS Complete 07/07/17 20:14 Blood Peripheral Anaerobic Blood Culture - Final NO GROWTH IN 5 DAYS Complete 07/14/17 14:55 Fluid Pleural Fluid Fungal Smear - Final NO FUNGAL ELEMENTS SEEN. Resulted 07/14/17 14:55 Fluid Pleural Fluid Fungal Culture Pending Resulted 07/18/17 23:59 Stool Stool Stool Pus (CLARITA) - Final Complete 07/05/17 00:22 Sputum Expectorated Sputum Gram Stain - Final Complete 07/05/17 00:22 Sputum Expectorated Sputum Sputum Culture - Final HEAVY GROWTH NORMAL RESPIRATORY MARISELA Complete 07/11/17 09:10 Urine Catheterized Urine Urine Culture - Final Dori Glabrata Dori Albicans Complete Physical Exam HEENT: Normocephalic; atraumatic mild icterus CHEST: coarse, rhonchi. dressing right chest d&i. SOB to conversation. 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
--- NOTE | 2017-07-19 20:27 | RADRPT ---
EXAM DATE/TIME: 07/19/2017 20:04 [facility] COMPARISON: CT ABDOMEN & PELVIS W CONTRAST, July 03, 2017, 8:43. CT ABDOMEN & PELVIS W/O CONTRAST, November, 21:37. INDICATIONS : Diffuse abdomen pain and decreased hemoglobin. ORAL CONTRAST: No oral contrast ingested. RADIATION DOSE: 16.53 CTDIvol (mGy) ; Patient body habitus MEDICAL HISTORY : Hepatitis C. Hypertension. Diverticulitis. SURGICAL HISTORY : None. colectomy ENCOUNTER: Initial ACUITY: 1 day PAIN SCALE: 7/10 LOCATION: Bilateral abdomen TECHNIQUE: Volumetric scanning of the abdomen and pelvis was performed. Using automated exposure control and ad justment of the mA and/or kV according to patient size, radiation dose was kept as low as reasonably achievable to obtain optimal diagnostic quality images. DICOM format image data is available electro nically for review and comparison. FINDINGS: LOWER LUNGS: Small right pleural effusion containing a drop of air. Tiny left pleural effusion. LIVER: Homogeneous density without lesion. There is no dilation of the biliary tree. Multiple are calcified gallstones. SPLEEN: Normal size without lesion. PANCREAS: Within normal limits. KIDNEYS: Normal in size and shape. There is no mass, stone, or hydronephrosis. ADRENAL GLANDS: Within normal limits. VASCULAR: There is no aortic aneurysm. BOWEL/MESENTERY: Anastomotic sutures in the rectum. There is no free intraperitoneal air or fluid. ABDOMINAL WALL: Within normal limits. RETROPERITONEUM: There is no lymphadenopathy. BLADDER: No wall thickening or mass. The bladder likely iatrogenic. REPRODUCTIVE: Within normal limits. INGUINAL: There is no lymphadenopathy or hernia. MUSCULOSKELETAL: Anasarca in the soft tissues are. CONCLUSION: 1. Small right pleural effusion containing air, could be iatrogenic or possible infection. 2. Cholelithiasis. 3. No retroperitoneal hemorrhage. 4. Anasarca soft tissues. 5. Air in the bladder could be iatrogenic or infection. Santiago Mccartney MD on July 19, 2017 at 20:20 Board Certified Radiologist. This report was verified electronically.
[2017-07-19] MEDS: PANTOPRAZOLE SOD 40 MG DELAYED RELEASE TAB PO SCH (21:29)
[2017-07-20] VITALS (7 sets, daily range): BP systolic 101–132; BP diastolic 56–67; PULSE 76–92; RESP 16–20; TEMP 97.4–98.7; O2SAT 94–99
[2017-07-20] MEDS: SODIUM CHLORIDE 0.9% IV SCH ×2 (01:42→14:30)
[2017-07-20] MEDS: CEFTAROLINE IV SCH ×2 (01:42→14:30)
[2017-07-20] MEDS: ACETAMINOPHEN/HYDROcodone 325 MG/5 MG TAB PO PRN ×3 (01:46→20:27)
[2017-07-20 05:58] LABS: AUTOMATED NEUTROPHIL # 7.7 TH/MM3 (1.8-7.7); BASOPHIL % 0.5 % (0.0-2.0); EOSINOPHIL # 0.3 TH/MM3 (0-0.4); EOSINOPHIL % 3.4 % (0.0-4.0); HEMATOCRIT 24.5 % (39.0-51.0); HEMOGLOBIN 8.6 GM/DL (13.0-17.0); LYMPH % 7.1 % (9.0-44.0); LYMPHOCYTE # 0.7 TH/MM3 (1.0-4.8); MEAN CELL VOLUME 99.6 FL (80.0-100.0); MEAN CORPUSCULAR HEMOGLOBIN 34.8 PG (27.0-34.0); MEAN PLATELET VOLUME 8.5 FL (7.0-11.0); MONO % 11.3 % (0.0-8.0); MONOCYTE # 1.1 TH/MM3 (0-0.9); NEUT % 77.7 % (16.0-70.0); PLATELET COUNT 92 TH/MM3 (150-450); RED BLOOD COUNT 2.46 MIL/MM3 (4.50-5.90); RED CELL DISTRIBUTION WIDTH 17.2 % (11.6-17.2); WHITE BLOOD COUNT 9.8 TH/MM3 (4.0-11.0)
[2017-07-20 06:34] LABS: ALBUMIN 2.1 GM/DL (3.4-5.0); ALKALINE PHOSPHATASE 72 U/L (45-117); ALT (GPT) 134 U/L (12-78); AST (GOT) 213 U/L (15-37); BICARBONATE 32.8 MEQ/L (21.0-32.0); BLOOD UREA NITROGEN 34 MG/DL (7-18); CHLORIDE 99 MEQ/L (98-107); CREATININE 3.51 MG/DL (0.60-1.30); GLOMERULAR FILTRATION RATE 19 ML/MIN (>89); GLUCOSE,RANDOM 107 MG/DL (74-106); SODIUM (NA) 137 MEQ/L (136-145); TOTAL BILIRUBIN ADULT 2.9 MG/DL (0.2-1.0); TOTAL PROTEIN 6.8 GM/DL (6.4-8.2)
[2017-07-20 07:31] LABS: BANDS 6 % (0-6); BASOPHILS 1 % (0-2); LYMPHOCYTES 20 % (9-44); MONOCYTES 6 % (0-8); MYELOCYTES 1 % (0-0); NEUTROPHIL # MANUAL DIFF 6.8 TH/MM3 (1.8-7.7); POLYS (SEG NEUTROPHILS) 62 % (16-70)
[2017-07-20] MEDS: LACTULOSE SYRUP 20 GM/30 ML CUP PO SCH ×3 (07:40→18:00)
[2017-07-20] MEDS: SODIUM CHLORIDE 0.9% FLUSH 10 ML FLUSH IV FLUSH SCH ×2 (07:40→20:27)
[2017-07-20] MEDS: SEVELAMER CARBONATE 800 MG TAB PO SCH ×3 (07:40→17:26)
[2017-07-20] MEDS: FLUCONAZOLE 100 MG TAB PO SCH (07:40)
--- NOTE | 2017-07-20 08:18 | HHI.PR ---
Subjective Remarks F/U anemia and sepsis. No complaints. States he will eat more. Seen with mother discussed with nursing Objective Vitals Vital Signs Date Time Temp Pulse Resp B/P (MAP) Pulse Ox O2 Delivery O2 Flow Rate FiO2 07/20/17 04:00 Nasal Cannula 2.00 07/20/17 04:00 97.5 87 20 119/64 (82) 95 07/20/17 03:50 80 07/20/17 00:00 Nasal Cannula 2.00 07/20/17 00:00 84 07/20/17 00:00 98.0 86 20 115/67 (83) 97 07/19/17 20:00 Nasal Cannula 2.00 07/19/17 20:00 92 07/19/17 20:00 94 Nasal Cannula 2.00 07/19/17 20:00 97.7 96 20 122/58 (79) 93 07/19/17 16:00 98.0 88 20 126/70 (88) 90 07/19/17 16:00 90 07/19/17 15:00 Nasal Cannula 2.00 07/19/17 12:01 97.5 90 20 128/72 (90) 94 07/19/17 12:00 88 07/19/17 11:45 98.0 90 18 131/63 07/19/17 11:32 98.1 86 17 133/69 07/19/17 09:24 Nasal Cannula 2.00 I/O 07/19/17 07/19/17 07/19/17 07/20/17 07/20/17 07/20/17 07:00 15:00 23:00 07:00 15:00 23:00 Intake Total 415 ml 360 ml 100 ml Output Total 3500 ml Balance -3085 ml 360 ml 100 ml Intake Oral 360 ml 0 ml IV Total 100 ml Packed Cells 400 ml Blood Product IV Normal Saline Flush 15 ml Hemodialysis 3500 ml # Voids 5 2 # Bowel Movements 0 2 Result Diagram: 07/20/17 0450 07/20/17 0450 Imaging Last Impressions Abdomen/Pelvis CT 07/19/17 0000 Signed Impressions: Service Date/Time: Wednesday, July 19, 2017 20:04 - CONCLUSION: 1. Small right pleural effusion containing air, could be iatrogenic or possible infection. 2. Cholelithiasis. 3. No retroperitoneal hemorrhage. 4. Anasarca soft tissues. 5. Air in the bladder could be iatrogenic or infection. Santiago Mccartney MD Chest X-Ray 07/18/17 0600 Signed Impressions: Service Date/Time: Tuesday, July 18, 2017 05:12 - CONCLUSION: 1. No evidence of pneumothorax status post right chest tube removal. 2. Persistent right pleural effusion and vascular congestion. Prabhakar Lynch MD Chest CT 07/12/17 0000 Signed Impressions: Service Date/Time: Wednesday, July 12, 2017 12:19 - CONCLUSION: 1. Interval placement of right-sided percutaneous drainage catheter with mild decrease in the size of the right pleural effusion. 2. New small left pleural effusion. 3. Prominent lymph nodes and induration remaining in the right axillary region and 4. The previously noted prominence right paratracheal lymph node is stable. 5. Mild consolidation remains in the right lung base. Gato Patino MD Chest Tube Insertion 07/08/17 0000 Signed Impressions: Service Date/Time: Saturday, July 08, 2017 16:27 - CONCLUSION: Uncomplicated chest tube placement as above. Santiago Mccartney MD Abdomen Ultrasound 07/08/17 0000 Signed Impressions: Service Date/Time: Saturday, July 08, 2017 18:00 - CONCLUSION: 1. Cirrhotic appearing liver with splenomegaly. 2. Extensive cholelithiasis. Santiago Mccartney MD Thoracentesis Ultrasound 07/07/17 0000 Signed Impressions: Service Date/Time: Friday, July 07, 2017 10:32 - CONCLUSION: Uncomplicated ultrasound guided thoracentesis. Santiago Mccartney MD Foot MRI 07/07/17 0000 Signed Impressions: Service Date/Time: Friday, July 07, 2017 15:40 - CONCLUSION: Probable mild cellulitis without osteomyelitis or deep space involvement. Josh Santiago MD FACR Catheter Placement X-Ray 07/07/17 0000 Signed Impressions: Service Date/Time: Friday, July 07, 2017 13:15 - CONCLUSION: Uncomplicated line placement as above. Masoud Lopez MD Renal Ultrasound 07/06/17 0000 Signed Impressions: Service Date/Time: Thursday, July 06, 2017 20:20 - CONCLUSION: 1. Normal appearance the kidneys. 2. Moderate right pleural effusion. Luis Miguel Villegas MD Chest Ultrasound 07/05/17 0000 Signed Impressions: Service Date/Time: Wednesday, July 05, 2017 12:26 - CONCLUSION: Loculated fluid as above. Josh Santiago MD FACR Foot X-Ray 07/04/17 0000 Signed Impressions: Service Date/Time: Tuesday, July 04, 2017 15:35 - CONCLUSION: Negative for fracture or dislocation. Follow up in 7-10 days is suggested if symptoms persist. Josh Santiago MD FACR Objective Remarks GENERAL: Patient sitting up in bed. Appears comfortable. SKIN: Warm and dry. CARDIOVASCULAR: Regular rate and rhythm without murmurs, gallops, or rubs. RESPIRATORY: Breath sounds equal bilaterally. No accessory muscle use. Right chest with dressing GASTROINTESTINAL: Abdomen soft, non-tender, nondistended. MUSCULOSKELETAL: No cyanosis, or edema. BACK: Nontender without obvious deformity. No CVA tenderness. Procedures Echo 07/04/2017 The left ventricular systolic function is normal with an estimated ejection fraction in the range of 60-65%. Wall thickness is measured at the upper limits of normal. No regional wall motion abnormalities are present. Normal left ventricular size. There is trace tricuspid valve regurgitation. The estimated pulmonary arterial pressure is 33 mmHg. 07/08/2017 -right-sided chest tube placement by interventional radiology. 07/14/2017 Right thoracoscopic exploration to evacuate right pleural effusion, pleural biopsy Vascath A/P Problem List: (1) Sepsis ICD Code: A41.9 - Sepsis, unspecified organism Status: Acute (2) Pneumonia ICD Code: J18.9 - Pneumonia, unspecified organism Status: Acute (3) Bandemia ICD Code: D72.825 - Bandemia Status: Acute (4) Elevated lipase ICD Code: R74.8 - Abnormal levels of other serum enzymes Status: Acute (5) Hypertension ICD Code: I10 - Essential (primary) hypertension Status: Acute (6) Axillary lymphadenopathy ICD Code: R59.0 - Localized enlarged lymph nodes Assessment and Plan On 07/03/2017, Mr. Wade, a 46 year old male presented to the ED due to flu like symptoms despite being treated for flu by his PCP. He complained of right- sided pleuritic chest pain. He reported fever and chills. Temperature in the emergency department was 101.2F. CT chest showed right pleural effusion with some atelectasis. CT abdomen pelvis showed a liver lesion. Severe sepsis - resolved. MRSA bacteremia MRSA pneumonia Empyema - pleural fluid grew MRSA Pneumonia on CT chest, liver lesion, right axillary lymphadenopathy, possible cellulitis, rpt CT in [address] July 19, 2017 showed right pleural effusion containing air s/p chest tube insertion Pleural fluid cx grew MRSA. Blood cx also grew MRSA. Appreciate ID input. Currently patient is on Ceftaroline 200mg Q12hrs to cover MRSA pneumonia and bacteremia. 07/05 - Echo showed no vegetation. s/p Right thoracoscopic exploration to evacuate right pleural effusion, pleural biopsy on 07/15/2017. CT removed. Will alert cardiothoracic surgery with continued bleeding from previous CT site Acetaminophen, tramadol as needed for pain. Indeterminate QFT TB testing. AFB smear negative. AFB culture pending. Continue isolation will discuss with infectious disease Acute kidney injury Creatinine 0.8 on 07/04/2017. Cr 9.4 on 07/15/2017. Now on dialysis. Possibly due to vancomycin as well as post infectious Continue dialysis per Nephrology. Permacath exchange per renal Air in the urinary bladder history of Em catheter insertion. Will discuss with Liver cirrhosis Hepatitis C genotype 1a Liver lesion 1.5cm GI following. Patient will likely need an MRI study in future. Thrombocytopenia. Stable Symptomatic anemia. Hemoglobin improved s/p packed RBC transfusion. We will continue to monitor Full code. SCDs. No chemical prophylaxis secondary to thrombocytopenia Discharge Planning Rehab when cleared by ID and renal Problem Qualifiers (1) Sepsis: Qualified Codes: A41.9 - Sepsis, unspecified organism (2) Pneumonia: Qualified Codes: J18.1 - Lobar pneumonia, unspecified organism (3) Hypertension: Qualified Codes: I10 - Essential (primary) hypertension Santana Grijalva MD Jul 20, 2017 08:18
--- NOTE | 2017-07-20 13:07 | HHI.NPPN ---
Subjective Renal Failure: Acute Additional Remarks Tolerated HD yesterday, no acute complaints, ongoing poor appetite Review of Systems General Constitutional: Fatigue Respiratory Lungs: SOB Respiratory Remarks On exertion Skin Skin: Skin Rash Objective Data Data Vital Signs Date Time Temp Pulse Resp B/P (MAP) Pulse Ox O2 Delivery O2 Flow Rate FiO2 07/20/17 12:00 97.4 85 18 125/63 (83) 95 07/20/17 08:00 98.3 76 18 129/66 (87) 99 07/20/17 04:00 Nasal Cannula 2.00 07/20/17 04:00 97.5 87 20 119/64 (82) 95 07/20/17 03:50 80 07/20/17 00:00 Nasal Cannula 2.00 07/20/17 00:00 84 07/20/17 00:00 98.0 86 20 115/67 (83) 97 07/19/17 20:00 Nasal Cannula 2.00 07/19/17 20:00 92 07/19/17 20:00 94 Nasal Cannula 2.00 07/19/17 20:00 97.7 96 20 122/58 (79) 93 07/19/17 16:00 98.0 88 20 126/70 (88) 90 07/19/17 16:00 90 07/19/17 15:00 Nasal Cannula 2.00 -: 07/20/17 0450 07/20/17 0450 Tubes & Lines: Vas-Cath Tubes & Lines Comment R chest tube Physical Exam General Appearance: Well Developed, No Acute Distress, Comfortable Eyes Eye Exam: Pupils Equal Pulmonary Resp Exam: Clear Bilaterally, Breath Sounds Equal, Diminished Breath Sounds Cardiology CV Exam: Regular, Normal Sinus Rhythm, Murmur Gastrointestinal/Abdomen GI Exam: Soft, Non-Tender, Bowel Sounds Present Musculoskeletal MS Exam: Joints Intact, Normal Gait, Normal Tone, Good Strength Integumentary Skin Exam: Warm, Dry, Intact Extremeties Extremities Exam: Pedal Pulses Palpable, Moderate Edema Neurologic Neuro Exam: Alert, Awake, Oriented, Speech Clear, Moving All Extremities Psychiatric Psych Exam: Appropriate Responses Assessment/Plan Discussed Condition With: Patient, Parent Assessment Summary: RODOLFO/Acute Renal Failure, Acute Tubular Necrosis Problem List: (1) Acute kidney injury ICD Codes: N17.9 - Acute kidney failure, unspecified Plan: He suffered ATN and is dialysis dependent -Etiology is still uncertain. Most likely either ATN due to sepsis or Post infectious GN. Vancomycin induced nephrotoxicity is also a possibility. Vascath placed and HD initiated 07/07 HD TTS Tolerated HD yesterday, 3.5L UF Remains anuric. Avoid nephrotoxic agents and renally dose appropriate to his renal status Will need Permcath exchange this week. Repeat labs, await for renal recovery. Treated for UTI (juanita) with PO Diflucan On Renvela for hyperphosphatemia (2) Sepsis ICD Codes: A41.9 - Sepsis, unspecified organism Status: Acute Plan: ID following s/p thoracentesis 07/07. Has MRSA, empyema. chest tube in place, s/p VATS. On Teflaro Monitor clinically. (3) Hypertension ICD Codes: I10 - Essential (primary) hypertension Status: Acute Plan: BP better, still marginally hypotensive. (4) Hepatitis C infection ICD Codes: B19.20 - Unspecified viral hepatitis C without hepatic coma Status: Acute Plan: Workup is in progress. GI and ID following. Problem Qualifiers (1) Sepsis: Qualified Codes: A41.9 - Sepsis, unspecified organism (2) Hypertension: Qualified Codes: I10 - Essential (primary) hypertension Jae Russell MD Jul 20, 2017 13:07
--- NOTE | 2017-07-20 15:40 | HHI.GIFU ---
Subjective Remarks Pt resting in bed, friend at bedside. Had very large liquid stool today. (Stefani Hui) Objective Vitals I&O Vital Signs Date Time Temp Pulse Resp B/P (MAP) Pulse Ox O2 Delivery O2 Flow Rate FiO2 07/20/17 12:00 97.4 85 18 125/63 (83) 95 07/20/17 08:00 98.3 76 18 129/66 (87) 99 07/20/17 04:00 Nasal Cannula 2.00 07/20/17 04:00 97.5 87 20 119/64 (82) 95 07/20/17 03:50 80 07/20/17 00:00 Nasal Cannula 2.00 07/20/17 00:00 84 07/20/17 00:00 98.0 86 20 115/67 (83) 97 07/19/17 20:00 Nasal Cannula 2.00 07/19/17 20:00 92 07/19/17 20:00 94 Nasal Cannula 2.00 07/19/17 20:00 97.7 96 20 122/58 (79) 93 07/19/17 16:00 98.0 88 20 126/70 (88) 90 07/19/17 16:00 90 I/O 07/19/17 07/19/17 07/19/17 07/20/17 07/20/17 07/20/17 07:00 15:00 23:00 07:00 15:00 23:00 Intake Total 415 ml 360 ml 100 ml Output Total 3500 ml Balance -3085 ml 360 ml 100 ml Intake Oral 360 ml 0 ml IV Total 100 ml Packed Cells 400 ml Blood Product IV Normal Saline Flush 15 ml Hemodialysis 3500 ml # Voids 5 2 # Bowel Movements 0 2 Laboratory Laboratory Tests Test 07/20/17 04:50 White Blood Count 9.8 Red Blood Count 2.46 Hemoglobin 8.6 Hematocrit 24.5 Mean Corpuscular Volume 99.6 Mean Corpuscular Hemoglobin 34.8 Mean Corpuscular Hemoglobin Concent 35.0 Red Cell Distribution Width 17.2 Platelet Count 92 Mean Platelet Volume 8.5 Neutrophils (%) (Auto) 77.7 Lymphocytes (%) (Auto) 7.1 Monocytes (%) (Auto) 11.3 Eosinophils (%) (Auto) 3.4 Basophils (%) (Auto) 0.5 Neutrophils # (Auto) 7.7 Lymphocytes # (Auto) 0.7 Monocytes # (Auto) 1.1 Eosinophils # (Auto) 0.3 Basophils # (Auto) 0.0 CBC Comment AUTO DIFF Differential Total Cells Counted 100 Neutrophils % (Manual) 62 Band Neutrophils % 6 Lymphocytes % 20 Monocytes % 6 Eosinophils % 4 Basophils % 1 Neutrophils # (Manual) 6.8 Myelocytes 1 Differential Comment FINAL DIFF MANUAL Platelet Estimate LOW Platelet Morphology Comment NORMAL Red Cell Morphology Comment NORMAL Blood Urea Nitrogen 34 Creatinine 3.51 Random Glucose 107 Total Protein 6.8 Albumin 2.1 Calcium Level 8.0 Magnesium Level 2.0 Alkaline Phosphatase 72 Aspartate Amino Transf (AST/SGOT) 213 Alanine Aminotransferase (ALT/SGPT) 134 Total Bilirubin 2.9 Sodium Level 137 Potassium Level 4.0 Chloride Level 99 Carbon Dioxide Level 32.8 Anion Gap 5 Estimat Glomerular Filtration Rate 19 Date/Time Source Procedure Growth Status 07/07/17 20:14 Blood Peripheral Aerobic Blood Culture - Final NO GROWTH IN 5 DAYS Complete 07/07/17 20:14 Blood Peripheral Anaerobic Blood Culture - Final NO GROWTH IN 5 DAYS Complete 07/14/17 14:55 Fluid Pleural Fluid Fungal Smear - Final NO FUNGAL ELEMENTS SEEN. Resulted 07/14/17 14:55 Fluid Pleural Fluid Fungal Culture Pending Resulted 07/18/17 23:59 Stool Stool Stool Pus (CLARITA) - Final Complete 07/05/17 00:22 Sputum Expectorated Sputum Gram Stain - Final Complete 07/05/17 00:22 Sputum Expectorated Sputum Sputum Culture - Final HEAVY GROWTH NORMAL RESPIRATORY MARISELA Complete 07/11/17 09:10 Urine Catheterized Urine Urine Culture - Final Dori Glabrata Dori Albicans Complete Imaging Last Impressions Abdomen/Pelvis CT 07/19/17 0000 Signed Impressions: Service Date/Time: Wednesday, July 19, 2017 20:04 - CONCLUSION: 1. Small right pleural effusion containing air, could be iatrogenic or possible infection. 2. Cholelithiasis. 3. No retroperitoneal hemorrhage. 4. Anasarca soft tissues. 5. Air in the bladder could be iatrogenic or infection. Santiago Mccartney MD Chest X-Ray 07/18/17 0600 Signed Impressions: Service Date/Time: Tuesday, July 18, 2017 05:12 - CONCLUSION: 1. No evidence of pneumothorax status post right chest tube removal. 2. Persistent right pleural effusion and vascular congestion. Prabhakar Lynch MD Chest CT 07/12/17 0000 Signed Impressions: Service Date/Time: Wednesday, July 12, 2017 12:19 - CONCLUSION: 1. Interval placement of right-sided percutaneous drainage catheter with mild decrease in the size of the right pleural effusion. 2. New small left pleural effusion. 3. Prominent lymph nodes and induration remaining in the right axillary region and 4. The previously noted prominence right paratracheal lymph node is stable. 5. Mild consolidation remains in the right lung base. Gato Patino MD Chest Tube Insertion 07/08/17 0000 Signed Impressions: Service Date/Time: Saturday, July 08, 2017 16:27 - CONCLUSION: Uncomplicated chest tube placement as above. Santiago Mccartney MD Abdomen Ultrasound 07/08/17 0000 Signed Impressions: Service Date/Time: Saturday, July 08, 2017 18:00 - CONCLUSION: 1. Cirrhotic appearing liver with splenomegaly. 2. Extensive cholelithiasis. Santiago Mccartney MD Thoracentesis Ultrasound 07/07/17 0000 Signed Impressions: Service Date/Time: Friday, July 07, 2017 10:32 - CONCLUSION: Uncomplicated ultrasound guided thoracentesis. Santiago Mccartney MD Foot MRI 07/07/17 0000 Signed Impressions: Service Date/Time: Friday, July 07, 2017 15:40 - CONCLUSION: Probable mild cellulitis without osteomyelitis or deep space involvement. Josh Santiago MD FACR Catheter Placement X-Ray 07/07/17 0000 Signed Impressions: Service Date/Time: Friday, July 07, 2017 13:15 - CONCLUSION: Uncomplicated line placement as above. Masoud Lopez MD Renal Ultrasound 07/06/17 0000 Signed Impressions: Service Date/Time: Thursday, July 06, 2017 20:20 - CONCLUSION: 1. Normal appearance the kidneys. 2. Moderate right pleural effusion. Luis Miguel Villegas MD Chest Ultrasound 07/05/17 0000 Signed Impressions: Service Date/Time: Wednesday, July 05, 2017 12:26 - CONCLUSION: Loculated fluid as above. Josh Santiago MD FACR Foot X-Ray 07/04/17 0000 Signed Impressions: Service Date/Time: Tuesday, July 04, 2017 15:35 - CONCLUSION: Negative for fracture or dislocation. Follow up in 7-10 days is suggested if symptoms persist. Josh Santiago MD FACR Physical Exam HEENT: Normocephalic; atraumatic mild icterus CHEST: coarse, rhonchi. CARDIAC: RRR ABDOMEN: Obese, soft, nontender, bowel sounds active SKIN: Pale; no rash; subtle jaundice FEATHER SAWYER: Alert and oriented x 3 (Korina,Stefani S COMBAT CONTROL) Assessment and Plan Plan ASSESSMENT/History - Cirrhosis- history of hepatitis C- genotype 1 a- quant 30,900 CT abdomen and pelvis W IV contrast (07/03) --> Mild splenomegaly and very large intra-abdominal varices draining into the splenic vein suggestion portal HTN. Perigastric varices and bilateral inguinal varices are also noted. Cholelithiasis. US abdomen (07/08) --> Cirrhotic appearing liver with splenomegaly. Extensive cholelithiasis. Liver BATRES: ROBERT, ASMA negative. AMA < 20. Iron-94 TIBC-141 %sat-68.6 Ferritin-540 G5O-317 Ceruloplasmin-26 Ammonia-22 HFE negative AFP-3.5 - Liver lesion on CT --> 1.5 cm low-density lesion within the anterior segment of the right lobe of the liver which is indeterminate. Outpatient MRI with contrast suggested. Unable to do at this time, given poor renal function. AFP-3.5 - Elevated lipase- CT states unremarkable pancreas- Lipase 932 on 07/03 now WNL - Thrombocytopenia- improving. platelets currently 148 - Anemia- multifactorial- macrocytic- H/H stable currently 11.1/32.7 - Empyema- pleural fluid (+) MRSA- ID following - RODOLFO on dialysis (07/12) --> No significant change overnight. Remains with generalized pains. Nephrology following, per pt planning for dialysis again on Friday- Differentials for RODOLFO include ATN due to sepsis and post infectious glomerulonephritis. Less likely hepatorenal syndrome. 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 (07/13) No significant changes over night. Continued generalized pain. Poor PO intake. Renal function remains poor. Pet pt, planned for surgery tomorrow for empyema 07/18/17 GI reconsulted for n/v/diarrhea for last 2 days. Is on teflaro for PNA , empyema. ID following. currently also on airborne precautions for poss TB. c diff is pending. re testing for hemochromatosis - C282Y: Not detected.H63D: Not detected. could be c diff vs gastroenteritis vs 2/2 abx. last colonoscopy [address] Velazquez, prior to ileostomy reversal. 07/19/2017 patient having some bloody discharge from the paracentesis site, dropped his hemoglobin 2 g since the day before yesterday, his diarrhea improved since the lactulose was on oh he does not have appetite 07/20/17 CT showed no retroperitoneal hemorrhage. hgb 8.6 today, s/p x prbc yesterday. Had 1 large liquid BM today. c diff neg. stool studies showed rare wbc, moderate budding yeast cells. further stool studies not done per lab protocol. PLAN - lactulose for 2-3 bm daily - monitor labs - abx per ID pt seen by myself and Dr Andrade and this note is on his behalf (Stefani Hui) Plan patient was seen and examined, agree with above note, had retro peritoneal bleed on CT, HGB stable now and no abdominal pain, continue current care (Rigoberto Andrade MD) Stefani Hui Jul 20, 2017 15:40 Rigoberto Andrade MD Jul 20, 2017 20:27
[2017-07-20] MEDS: ACETAMINOPHEN 325 MG TAB PO PRN (17:33)
[2017-07-20] MEDS: PANTOPRAZOLE SOD 40 MG DELAYED RELEASE TAB PO SCH (20:27)
[2017-07-21] VITALS (12 sets, daily range): BP systolic 114–132; BP diastolic 56–72; PULSE 80–93; RESP 17–19; TEMP 98–98.6; O2SAT 92–98
[2017-07-21] MEDS: CEFTAROLINE IV SCH ×2 (01:55→14:21)
[2017-07-21] MEDS: SODIUM CHLORIDE 0.9% IV SCH ×2 (01:55→14:21)
[2017-07-21] MEDS: ACETAMINOPHEN/HYDROcodone 325 MG/5 MG TAB PO PRN ×3 (01:58→17:31)
[2017-07-21] MEDS: FLUCONAZOLE 100 MG TAB PO SCH (08:55)
[2017-07-21] MEDS: LACTULOSE SYRUP 20 GM/30 ML CUP PO SCH ×3 (08:55→17:31)
[2017-07-21] MEDS: SEVELAMER CARBONATE 800 MG TAB PO SCH ×3 (08:55→17:00)
[2017-07-21] MEDS: SODIUM CHLORIDE 0.9% FLUSH 10 ML FLUSH IV FLUSH SCH ×2 (08:58→20:35)
[2017-07-21 09:04] LABS: AUTOMATED NEUTROPHIL # 7.2 TH/MM3 (1.8-7.7); BASOPHIL # 0.1 TH/MM3 (0-0.2); BASOPHIL % 0.8 % (0.0-2.0); EOSINOPHIL # 0.6 TH/MM3 (0-0.4); EOSINOPHIL % 5.6 % (0.0-4.0); HEMATOCRIT 22.8 % (39.0-51.0); LYMPH % 6.9 % (9.0-44.0); LYMPHOCYTE # 0.7 TH/MM3 (1.0-4.8); MEAN CELL VOLUME 100.8 FL (80.0-100.0); MEAN CORPUSCULAR HEMOGLOBIN 35.4 PG (27.0-34.0); MEAN CORPUSCULAR HGB CONC 35.1 % (32.0-36.0); MEAN PLATELET VOLUME 8.3 FL (7.0-11.0); MONO % 12.7 % (0.0-8.0); MONOCYTE # 1.2 TH/MM3 (0-0.9); PLATELET COUNT 101 TH/MM3 (150-450); RED BLOOD COUNT 2.26 MIL/MM3 (4.50-5.90); RED CELL DISTRIBUTION WIDTH 17.9 % (11.6-17.2); WHITE BLOOD COUNT 9.8 TH/MM3 (4.0-11.0)
[2017-07-21] MEDS: ONDANSETRON HCL 4 MG/2 ML VIAL IV PUSH PRN (09:05)
[2017-07-21 09:31] LABS: AST (GOT) 113 U/L (15-37); BICARBONATE 30.8 MEQ/L (21.0-32.0); BLOOD UREA NITROGEN 32 MG/DL (7-18); CALCIUM 8.4 MG/DL (8.5-10.1); CHLORIDE 98 MEQ/L (98-107); CREATININE 2.73 MG/DL (0.60-1.30); GLOMERULAR FILTRATION RATE 25 ML/MIN (>89); GLUCOSE,RANDOM 100 MG/DL (74-106); MAGNESIUM 1.5 MG/DL (1.5-2.5); SODIUM (NA) 134 MEQ/L (136-145)
[2017-07-21 09:33] LABS: ALT (GPT) 95 U/L (12-78)
[2017-07-21 09:36] LABS: ALKALINE PHOSPHATASE 67 U/L (45-117); TOTAL BILIRUBIN ADULT 2.9 MG/DL (0.2-1.0); TOTAL PROTEIN 6.6 GM/DL (6.4-8.2)
--- NOTE | 2017-07-21 09:54 | HHI.IDPN ---
Subjective Subjective Remarks Patient is a 46-year-old male who presented to the emergency room with complaint of flulike symptoms for about a week. Patient reports he has been having right-sided pleuritic type chest pain. He describes pain as heavy in character, present all the time, worse with coughing and deep breathing. he initially had dry cough but recently started bringing up blood. He was seen by his PCP who was treating him for the flu empirically. he started Tamiflu about 2 days prior to admission. he also has had fevers and [id number]. No abdominal pain, no N/V, no complaints. In the ED, his temp was 102. Influenza testing negative. One of 2 BC now reported as growing MRSA. His temps are better. CXR clear. CT chest with R pleural effusion with some atelectasis. CT A/P with a lesion in liver. evidence of portal hypertension. Infectious Disease consultation has been requested to evaluate patient with MRSA bacteremia. Notes reviewed Afebrile Making more urine Still on HD TB quantiferon ordered as baseline for HD - came back indeterminate - now on AFB isolation Had drop in Hgb - no retroperitoneal hemorrhage seen on CT Has liquid stool - C diff negative Has been on IV Abx for MRSA bacteremia Had surgery for empyema 07/[address] removed 07/17 Path report noted Not coughing much First CT chest on admission - findings not suggestive of PTB Antibiotics Teflaro Current Medications Medications (Trade) Dose Ordered Sig/Cassandra Route Start Time Stop Time Status Last Admin (Tylenol) 650 mg Q4H PRN PO 07/03/17 10:15 07/20/17 17:33 (Narcan Inj) 0.4 mg UNSCH PRN IV PUSH 07/03/17 10:15 (Tessalon) 200 mg TID PRN PO 07/04/17 11:45 07/12/17 02:57 Sodium Chloride 1,000 ml @ 0 mls/hr Q0M PRN OTHER 07/07/17 09:15 07/14/17 12:00 (Heparin Inj) 8,000 units UNSCH PRN IV FLUSH 07/07/17 09:15 Sodium Chloride 1,000 ml @ 200 mls/hr Q5H PRN IV 07/07/17 09:15 Sodium Chloride 1,000 ml @ 0 mls/hr Q0M PRN OTHER 07/07/17 09:15 (Mannitol Inj) 12.5 gm UNSCH PRN IV 07/07/17 09:15 07/15/17 10:41 (NS Flush) 5 ml UNSCH PRN IV FLUSH 07/07/17 09:15 (Heparin Inj) UNSCH PRN .XX 07/07/17 09:15 07/15/17 10:39 (Gentamicin Inj) 20 mg UNSCH PRN OTHER 07/07/17 09:15 07/15/17 10:40 (Zofran Inj) 4 mg UNSCH PRN IV PUSH 07/07/17 09:15 07/16/17 13:39 (Tylenol) 650 mg UNSCH PRN PO 07/07/17 09:15 (Benadryl) 25 mg UNSCH PRN PO 07/07/17 09:15 (Nitrostat Sl) 0.4 mg UNSCH PRN SL 07/07/17 09:15 (Catapres) 0.1 mg UNSCH PRN PO 07/07/17 09:15 (Gelfoam 12 Mm/7 Mm Top) 1 foam UNSCH PRN TOP 07/07/17 09:15 (NS Flush) UNSCH PRN IV FLUSH 07/07/17 13:45 (Heparin Inj) UNSCH PRN IV FLUSH 07/07/17 13:45 07/12/17 11:25 (Ultram) 50 mg Q8H PRN PO 07/08/17 13:45 07/14/17 01:53 Ceftaroline Fosamil 200 mg/ Sodium Chloride 100 ml @ 100 mls/hr Q12H IV 07/10/17 14:00 07/21/17 01:55 (Neurontin) 300 mg BID PO 07/14/17 21:00 Future Hold (Albuterol Neb) 2.5 mg Q2HR NEB PRN NEB 07/14/17 15:45 (NS Flush) 2 ml BID IV FLUSH 07/14/17 21:00 07/21/17 08:58 (NS Flush) 2 ml UNSCH PRN IV FLUSH 07/14/17 15:45 (Protonix) 40 mg HS PO 07/14/17 21:00 07/20/17 20:27 (Zofran Inj) 4 mg Q6H PRN IV PUSH 4/23/18 15:45 07/21/17 09:05 (Milk Of Magnesia Liq) 30 ml DAILY PRN PO 07/14/17 15:45 (Tylenol) 650 mg Q4H PRN PO 07/14/17 15:45 (NS Flush) 5 ml UNSCH PRN IV FLUSH 07/14/17 16:45 (Heparin Inj) 2,000 units UNSCH PRN IV FLUSH 07/14/17 16:45 07/14/17 16:35 Albumin Human 100 ml @ 60 mls/hr UNSCH PRN IV 07/15/17 08:45 07/15/17 10:41 (Renvela) 1,600 mg TIDAC PO 07/17/17 12:00 07/21/17 08:55 (Diflucan) 100 mg DAILY PO 07/17/17 13:45 07/21/17 08:55 (Moffat 5-325 Mg) 1 tab Q6H PRN PO 07/17/17 16:30 07/21/17 09:02 (Lactulose Liq) 30 ml TID PO 07/19/17 09:00 07/21/17 08:55 Lines Line with no evidence of infection Past Medical History Hypertension Herniated disc Hepatitis C (untreated) Ruptured diverticular abscess Past Surgical History ?Left thoracotomy for pleurisy. Allergies: Coded Allergies: No Known Allergies (Verified Allergy, Unknown, 07/04/17) Objective . Vital Signs Date Time Temp Pulse Resp B/P (MAP) Pulse Ox O2 Delivery O2 Flow Rate FiO2 07/21/17 08:01 98.2 85 17 124/61 (82) 96 07/21/17 04:00 85 07/21/17 04:00 98.3 90 19 122/56 (78) 94 07/21/17 04:00 Nasal Cannula 2.00 07/21/17 00:00 98.6 92 18 114/58 (76) 96 07/21/17 00:00 Nasal Cannula 2.00 07/21/17 00:00 93 07/20/17 20:36 Nasal Cannula 3.00 07/20/17 20:00 98.7 88 16 127/64 (85) 94 07/20/17 20:00 88 07/20/17 20:00 Nasal Cannula 2.00 07/20/17 16:00 97.5 88 18 132/62 (85) 97 07/20/17 16:00 87 07/20/17 15:00 Nasal Cannula 2.00 07/20/17 12:00 81 07/20/17 12:00 97.4 85 18 125/63 (83) 95 07/20/17 11:00 Nasal Cannula 2.00 . Laboratory Tests Test 07/20/17 04:50 07/21/17 08:43 White Blood Count 9.8 TH/MM3 9.8 TH/MM3 Red Blood Count 2.46 MIL/MM3 2.26 MIL/MM3 Hemoglobin 8.6 GM/DL 8.0 GM/DL Hematocrit 24.5 % 22.8 % Mean Corpuscular Volume 99.6 FL 100.8 FL Mean Corpuscular Hemoglobin 34.8 PG 35.4 PG Mean Corpuscular Hemoglobin Concent 35.0 % 35.1 % Red Cell Distribution Width 17.2 % 17.9 % Platelet Count 92 TH/MM3 101 TH/MM3 Mean Platelet Volume 8.5 FL 8.3 FL Neutrophils (%) (Auto) 77.7 % 74.0 % Lymphocytes (%) (Auto) 7.1 % 6.9 % Monocytes (%) (Auto) 11.3 % 12.7 % Eosinophils (%) (Auto) 3.4 % 5.6 % Basophils (%) (Auto) 0.5 % 0.8 % Neutrophils # (Auto) 7.7 TH/MM3 7.2 TH/MM3 Lymphocytes # (Auto) 0.7 TH/MM3 0.7 TH/MM3 Monocytes # (Auto) 1.1 TH/MM3 1.2 TH/MM3 Eosinophils # (Auto) 0.3 TH/MM3 0.6 TH/MM3 Basophils # (Auto) 0.0 TH/MM3 0.1 TH/MM3 CBC Comment AUTO DIFF AUTO DIFF Differential Total Cells Counted 100 Neutrophils % (Manual) 62 % Band Neutrophils % 6 % Lymphocytes % 20 % Monocytes % 6 % Eosinophils % 4 % Basophils % 1 % Neutrophils # (Manual) 6.8 TH/MM3 Myelocytes 1 % Differential Comment FINAL DIFF MANUAL Platelet Estimate LOW Platelet Morphology Comment NORMAL Red Cell Morphology Comment NORMAL Laboratory Tests Test 07/20/17 04:50 07/21/17 08:43 Blood Urea Nitrogen 34 MG/DL 32 MG/DL Creatinine 3.51 MG/DL 2.73 MG/DL Random Glucose 107 MG/DL 100 MG/DL Total Protein 6.8 GM/DL 6.6 GM/DL Albumin 2.1 GM/DL 2.0 GM/DL Calcium Level 8.0 MG/DL 8.4 MG/DL Magnesium Level 2.0 MG/DL 1.5 MG/DL Alkaline Phosphatase 72 U/L 67 U/L Aspartate Amino Transf (AST/SGOT) 213 U/L 113 U/L Alanine Aminotransferase (ALT/SGPT) 134 U/L 95 U/L Total Bilirubin 2.9 MG/DL 2.9 MG/DL Sodium Level 137 MEQ/L 134 MEQ/L Potassium Level 4.0 MEQ/L 3.9 MEQ/L Chloride Level 99 MEQ/L 98 MEQ/L Carbon Dioxide Level 32.8 MEQ/L 30.8 MEQ/L Anion Gap 5 MEQ/L 5 MEQ/L Estimat Glomerular Filtration Rate 19 ML/MIN 25 ML/MIN Microbiology Date/Time Source Procedure Growth Status 07/18/17 23:59 Stool Stool Stool Pus (CLARITA) - Final Complete Imaging Abdomen/Pelvis CT 07/19/17 0000 Signed Impressions: Service Date/Time: Wednesday, July 19, 2017 20:04 - CONCLUSION: 1. Small right pleural effusion containing air, could be iatrogenic or possible infection. 2. Cholelithiasis. 3. No retroperitoneal hemorrhage. 4. Anasarca soft tissues. 5. Air in the bladder could be iatrogenic or infection. Santiago Mccartney MD Chest X-Ray 07/16/17 0000 Signed Impressions: Service Date/Time: Sunday, July 16, 2017 09:34 - CONCLUSION: Pulmonary vascular congestion remains. Moderate pleural effusion, chest tube and IJ catheter all in good position. Tino Albarado MD Chest X-Ray 07/15/17 0500 Signed Impressions: Service Date/Time: Saturday, July 15, 2017 03:44 - CONCLUSION: 1. Right chest tube remains present. There is loculated right pleural fluid. No pneumothorax. No significant change from July 14. Thompson Cross MD Chest X-Ray 07/07/17 0000 Signed Impressions: Service Date/Time: Friday, July 07, 2017 11:23 - CONCLUSION: No pneumothorax. Santiago Mccartney MD Renal Ultrasound 07/06/17 0000 Signed Impressions: Service Date/Time: Thursday, July 06, 2017 20:20 - CONCLUSION: 1. Normal appearance the kidneys. 2. Moderate right pleural effusion. Luis Miguel Villegas MD Chest Ultrasound 07/05/17 0000 Signed Impressions: Service Date/Time: Wednesday, July 05, 2017 12:26 - CONCLUSION: Loculated fluid as above. Josh Santiago MD FACR Foot X-Ray 07/04/17 0000 Signed Impressions: Service Date/Time: Tuesday, July 04, 2017 15:35 - CONCLUSION: Negative for fracture or dislocation. Follow up in 7-10 days is suggested if symptoms persist. Josh Santiago MD FACR Chest CT 07/03/17 0000 Signed Impressions: Service Date/Time: June 12:16 - CONCLUSION: 1. Extensive stranding with prominent lymph nodes in the right axilla measuring upwards of 1.6 cm in diameter. Does the patient have clinical symptomatology to suggest a cellulitis in this area? 2. Mild, generalized anasarca with some interstitial prominence in both lungs as well the visualized portions of the upper mesentery. Findings are nonspecific but can be seen in entity such as overwhelming sepsis. 3. Calcified gallstones. 4. Small right-sided pleural effusion with associated atelectatic changes. 5. Atretic left sixth rib could be congenital or postsurgical. Old healed rib fractures involving the lateral aspect of #3 and 4 on the left. 6. Mild gynecomastia. Again, nonspecific finding that can be seen with certain medications. Masoud Lopez MD Abdomen/Pelvis CT 07/03/17 0000 Signed Impressions: Service Date/Time: June 08:43 - CONCLUSION: 1. 1.5 cm low-density lesion within the anterior segment of the right lobe of liver which is indeterminate. Outpatient MRI of the abdomen with contrast would be helpful for further characterization of this indeterminate lesion. 2. Mild splenomegaly and very large intra-abdominal varices draining into the splenic vein suggesting portal hypertension. 3. Perigastric varices and bilateral inguinal varices are also noted. 4. Cholelithiasis. 5. Tiny right pleural effusion. 6. Minimal right basilar atelectasis and/or infiltrate. 7. Degenerative changes and scoliosis of the thoracolumbar spine. Haseeb Helms MD Physical Exam GENERAL: awake and alert, NAD SKIN: Cool and dry. Has petechia both feet and in legs/thighs HEAD: Atraumatic. Normocephalic. No temporal wasting, or tenderness. EYES: Cat[place] conjunctiva. No petechia or hemorrhage. Pupils equal, round and reactive to light. Extraocular movements full and intact. Mild scleral icterus. No injection or drainage. EARS, NOSE AND THROAT: Nose without bleeding or purulent nasal discharge. Mucous membranes pink and moist. No oral lesions noted. NECK: Trachea midline. Supple and not tender, no meningeal signs CARDIOVASCULAR: Regular rate and rhythm. No murmurs, rubs or gallops heard RESPIRATORY: Clear to auscultation. Decreased at bases. No rales, wheezing or rhonchi. ABDOMEN: Soft, non-tender, nondistended. Bowel sounds present and normoactive. No guarding. No rebound. No organomegaly. EXTREMITIES: No clubbing, cyanosis, or edema. R foot stable. No calf tenderness. Well perfused and warm. NEUROLOGICAL: Grossly nonfocal. PSYCHIATRIC: Normal affect, calm and cooperative. LINE: No evidence of infection Assessment & Plan Remarks IMPRESSION MRSA bacteremia, source - due to PNA, and empyema - S/P surgery 07/14 Cellulitis R foot, better Pneumonia, with empyema Known liver cirrhosis, previous ETOH, and also He p C Acute renal failure, etiology? - requiring HD N/V etiology? Indeterminate TB quantiferon - clinically and radiographically as well as path report not indicating any evidence of PTB RECOMMENDATION Continue IV Teflaro which will cover PNA/empyema and bacteremia - give at least 3-4 weeks - then can switch to po Zyvox to complete Rx until August 13 Monitor progress OK to D/C isolation from ID standpoint Natividad Sanchez MD Jul 21, 2017 09:53
--- NOTE | 2017-07-21 10:51 | HHI.NPPN ---
Subjective Renal Failure: Acute Interval History He is resting, not in distress. Chest tube has been removed. Urine output seems to be increasing. He has lower extremity edema. (Lisa Tovar) Review of Systems General Constitutional: Fatigue (Lisa Tovar) Respiratory Lungs: SOB Respiratory Remarks On exertion (Lisa Tovar) Cardiovascular Cardiac: Edema (Lisa Tovar) Objective Data Data Vital Signs Date Time Temp Pulse Resp B/P (MAP) Pulse Ox O2 Delivery O2 Flow Rate FiO2 07/21/17 08:01 98.2 85 17 124/61 (82) 96 07/21/17 08:00 80 07/21/17 04:00 85 07/21/17 04:00 98.3 90 19 122/56 (78) 94 07/21/17 04:00 Nasal Cannula 2.00 07/21/17 00:00 98.6 92 18 114/58 (76) 96 07/21/17 00:00 Nasal Cannula 2.00 07/21/17 00:00 93 07/20/17 20:36 Nasal Cannula 3.00 07/20/17 20:00 98.7 88 16 127/64 (85) 94 07/20/17 20:00 88 07/20/17 20:00 Nasal Cannula 2.00 07/20/17 16:00 97.5 88 18 132/62 (85) 97 07/20/17 16:00 87 07/20/17 15:00 Nasal Cannula 2.00 07/20/17 12:00 81 07/20/17 12:00 97.4 85 18 125/63 (83) 95 07/20/17 11:00 Nasal Cannula 2.00 (Lisa Tovar) -: 07/21/17 0843 07/21/17 0843 Imaging Last Impressions Abdomen/Pelvis CT 07/19/17 0000 Signed Impressions: Service Date/Time: Wednesday, July 19, 2017 20:04 - CONCLUSION: 1. Small right pleural effusion containing air, could be iatrogenic or possible infection. 2. Cholelithiasis. 3. No retroperitoneal hemorrhage. 4. Anasarca soft tissues. 5. Air in the bladder could be iatrogenic or infection. Santiago Mccartney MD Chest X-Ray 07/18/17 0600 Signed Impressions: Service Date/Time: Tuesday, July 18, 2017 05:12 - CONCLUSION: 1. No evidence of pneumothorax status post right chest tube removal. 2. Persistent right pleural effusion and vascular congestion. Prabhakar Lynch MD Chest CT 07/12/17 0000 Signed Impressions: Service Date/Time: Wednesday, July 12, 2017 12:19 - CONCLUSION: 1. Interval placement of right-sided percutaneous drainage catheter with mild decrease in the size of the right pleural effusion. 2. New small left pleural effusion. 3. Prominent lymph nodes and induration remaining in the right axillary region and 4. The previously noted prominence right paratracheal lymph node is stable. 5. Mild consolidation remains in the right lung base. Gato Patino MD Chest Tube Insertion 07/08/17 0000 Signed Impressions: Service Date/Time: Saturday, July 08, 2017 16:27 - CONCLUSION: Uncomplicated chest tube placement as above. Santiago Mccartney MD Abdomen Ultrasound 07/08/17 0000 Signed Impressions: Service Date/Time: Saturday, July 08, 2017 18:00 - CONCLUSION: 1. Cirrhotic appearing liver with splenomegaly. 2. Extensive cholelithiasis. Santiago Mccartney MD Thoracentesis Ultrasound 07/07/17 0000 Signed Impressions: Service Date/Time: Friday, July 07, 2017 10:32 - CONCLUSION: Uncomplicated ultrasound guided thoracentesis. Santiago Mccartney MD Foot MRI 07/07/17 0000 Signed Impressions: Service Date/Time: Friday, July 07, 2017 15:40 - CONCLUSION: Probable mild cellulitis without osteomyelitis or deep space involvement. Josh Santiago MD FACR Catheter Placement X-Ray 07/07/17 0000 Signed Impressions: Service Date/Time: Friday, July 07, 2017 13:15 - CONCLUSION: Uncomplicated line placement as above. Masoud Lopez MD Renal Ultrasound 07/06/17 0000 Signed Impressions: Service Date/Time: Thursday, July 06, 2017 20:20 - CONCLUSION: 1. Normal appearance the kidneys. 2. Moderate right pleural effusion. Luis Miguel Villegas MD Chest Ultrasound 07/05/17 0000 Signed Impressions: Service Date/Time: Wednesday, July 05, 2017 12:26 - CONCLUSION: Loculated fluid as above. Josh Santiago MD FACR Foot X-Ray 07/04/17 0000 Signed Impressions: Service Date/Time: Tuesday, July 04, 2017 15:35 - CONCLUSION: Negative for fracture or dislocation. Follow up in 7-10 days is suggested if symptoms persist. Josh Santiago MD FACR Tubes & Lines: Vas-Cath (Dominic Tovaron B. FISHER) Physical Exam General Appearance: Well Developed, No Acute Distress, Comfortable (GuyLisa B. FISHER) Eyes Eye Exam: Pupils Equal (Guy,Lisa B. FISHER) Throat Throat Exam: Oral Mucosa [place] & Moist (Guy,Lisa B. FISHER) Pulmonary Resp Exam: Breath Sounds Equal, Crackles, Decreased Bases, Diminished Breath Sounds (Guy,Lisa B. FISHER) Cardiology CV Exam: Regular, Normal Sinus Rhythm, Murmur (Guy,Lisa B. FISHER) Gastrointestinal/Abdomen GI Exam: Soft, Non-Tender, Bowel Sounds Present (Guy,Lisa B. FISHER) Musculoskeletal MS Exam: Joints Intact, Normal Gait, Normal Tone, Good Strength (Guy,Lisa B. FISHER) Integumentary Skin Exam: Warm, Dry, Intact (Guy,Lisa B. FISHER) Extremeties Extremities Exam: Pedal Pulses Palpable, Moderate Edema (Guy,Lisa B. FISHER) Neurologic Neuro Exam: Alert, Awake, Oriented, Speech Clear, Moving All Extremities (Guy,Lisa B. FISHER) Psychiatric Psych Exam: Appropriate Responses (GuyLisa B. FISHER) Assessment/Plan Discussed Condition With: Patient Assessment Summary: RODOLFO/Acute Renal Failure, Acute Tubular Necrosis Problem List: (1) Acute kidney injury ICD Codes: N17.9 - Acute kidney failure, unspecified Plan: He suffered ATN and is dialysis dependent, oliguric renal failure -Etiology is still uncertain. Most likely either ATN due to sepsis or Post infectious GN. Vancomycin induced nephrotoxicity is also a possibility. Vascath placed and HD initiated 07/07 -Will need Permcath exchange this week. HD TTS , due tomorrow Urine output may be improving. Start Lasix 40 mg IV daily. Monitor fluid status , has lower extremity edema Avoid nephrotoxic agents and renally dose appropriate to his renal status Obtain serial labs, await for renal recovery. On Renvela for hyperphosphatemia (2) Sepsis ICD Codes: A41.9 - Sepsis, unspecified organism Status: Acute Plan: ID following s/p thoracentesis 07/07. Treated for MRSA, empyema. chest tube removed, s/p VATS. On Teflaro Monitor clinically. (3) Hypertension ICD Codes: I10 - Essential (primary) hypertension Status: Acute Plan: Hypotension improved, monitor and start antihypertensives as needed (4) Hepatitis C infection ICD Codes: B19.20 - Unspecified viral hepatitis C without hepatic coma Status: Acute Plan: Workup is in progress. GI and ID following. (Lisa Tovar) Plan patient was seen and examined. Start Lasix. Urine output appears to be increasing. Monitor for signs of renal recovery. (Bj Amaya MD) Problem Qualifiers (1) Sepsis: Qualified Codes: A41.9 - Sepsis, unspecified organism (2) Hypertension: Qualified Codes: I10 - Essential (primary) hypertension Lisa Tovar Jul 21, 2017 10:51 Bj Amaya MD Jul 21, 2017 11:04
--- NOTE | 2017-07-21 11:00 | HHI.PR ---
Subjective Remarks Patient states he is breathing a little better Taken off by isolation by infectious disease Discussed with RN and patient Await placement for hemodialysis Will probably need a permacath before discharge A.m. labs Discussed with RN and patient and welfare case worker Objective Vitals Vital Signs Date Time Temp Pulse Resp B/P (MAP) Pulse Ox O2 Delivery O2 Flow Rate FiO2 07/21/17 08:01 98.2 85 17 124/61 (82) 96 07/21/17 08:00 80 07/21/17 04:00 85 07/21/17 04:00 98.3 90 19 122/56 (78) 94 07/21/17 04:00 Nasal Cannula 2.00 07/21/17 00:00 98.6 92 18 114/58 (76) 96 07/21/17 00:00 Nasal Cannula 2.00 07/21/17 00:00 93 07/20/17 20:36 Nasal Cannula 3.00 07/20/17 20:00 98.7 88 16 127/64 (85) 94 07/20/17 20:00 88 07/20/17 20:00 Nasal Cannula 2.00 07/20/17 16:00 97.5 88 18 132/62 (85) 97 07/20/17 16:00 87 07/20/17 15:00 Nasal Cannula 2.00 07/20/17 12:00 81 07/20/17 12:00 97.4 85 18 125/63 (83) 95 07/20/17 11:00 Nasal Cannula 2.00 I/O 07/20/17 07/20/17 07/20/17 07/21/17 07/21/17 07/21/17 07:00 15:00 23:00 07:00 15:00 23:00 Intake Total 100 ml 560 ml 240 ml Output Total 650 ml Balance 100 ml 560 ml -410 ml Intake Oral 0 ml 560 ml 240 ml IV Total 100 ml Output Urine Total 650 ml # Voids 2 4 # Bowel Movements 2 3 2 Result Diagram: 07/21/17 0843 07/21/17 0843 Other Results Laboratory Tests Test 07/19/17 03:55 07/20/17 04:50 07/21/17 08:43 White Blood Count 8.7 TH/MM3 9.8 TH/MM3 9.8 TH/MM3 Red Blood Count 2.12 MIL/MM3 2.46 MIL/MM3 2.26 MIL/MM3 Hemoglobin 7.5 GM/DL 8.6 GM/DL 8.0 GM/DL Hematocrit 21.6 % 24.5 % 22.8 % Mean Corpuscular Volume 101.9 FL 99.6 FL 100.8 FL Mean Corpuscular Hemoglobin 35.5 PG 34.8 PG 35.4 PG Mean Corpuscular Hemoglobin Concent 34.9 % 35.0 % 35.1 % Red Cell Distribution Width 16.9 % 17.2 % 17.9 % Platelet Count 79 TH/MM3 92 TH/MM3 101 TH/MM3 Mean Platelet Volume 8.8 FL 8.5 FL 8.3 FL Neutrophils (%) (Auto) 75.0 % 77.7 % 74.0 % Lymphocytes (%) (Auto) 8.2 % 7.1 % 6.9 % Monocytes (%) (Auto) 12.1 % 11.3 % 12.7 % Eosinophils (%) (Auto) 4.3 % 3.4 % 5.6 % Basophils (%) (Auto) 0.4 % 0.5 % 0.8 % Neutrophils # (Auto) 6.5 TH/MM3 7.7 TH/MM3 7.2 TH/MM3 Lymphocytes # (Auto) 0.7 TH/MM3 0.7 TH/MM3 0.7 TH/MM3 Monocytes # (Auto) 1.1 TH/MM3 1.1 TH/MM3 1.2 TH/MM3 Eosinophils # (Auto) 0.4 TH/MM3 0.3 TH/MM3 0.6 TH/MM3 Basophils # (Auto) 0.0 TH/MM3 0.0 TH/MM3 0.1 TH/MM3 CBC Comment AUTO DIFF AUTO DIFF AUTO DIFF Differential Comment AUTO DIFF CONFIRMED FINAL DIFF MANUAL AUTO DIFF CONFIRMED Platelet Estimate LOW LOW LOW Platelet Morphology Comment NORMAL NORMAL NORMAL Basophilic Stippling FAINT Blood Urea Nitrogen 57 MG/DL 34 MG/DL 32 MG/DL Creatinine 6.16 MG/DL 3.51 MG/DL 2.73 MG/DL Random Glucose 103 MG/DL 107 MG/DL 100 MG/DL Albumin 2.1 GM/DL 2.1 GM/DL 2.0 GM/DL Calcium Level 8.6 MG/DL 8.0 MG/DL 8.4 MG/DL Phosphorus Level 6.9 MG/DL Magnesium Level 2.3 MG/DL 2.0 MG/DL 1.5 MG/DL Sodium Level 137 MEQ/L 137 MEQ/L 134 MEQ/L Potassium Level 4.5 MEQ/L 4.0 MEQ/L 3.9 MEQ/L Chloride Level 99 MEQ/L 99 MEQ/L 98 MEQ/L Carbon Dioxide Level 30.2 MEQ/L 32.8 MEQ/L 30.8 MEQ/L Anion Gap 8 MEQ/L 5 MEQ/L 5 MEQ/L Estimat Glomerular Filtration Rate 10 ML/MIN 19 ML/MIN 25 ML/MIN Differential Total Cells Counted 100 Neutrophils % (Manual) 62 % Band Neutrophils % 6 % Lymphocytes % 20 % Monocytes % 6 % Eosinophils % 4 % Basophils % 1 % Neutrophils # (Manual) 6.8 TH/MM3 Myelocytes 1 % Red Cell Morphology Comment NORMAL Total Protein 6.8 GM/DL 6.6 GM/DL Alkaline Phosphatase 72 U/L 67 U/L Aspartate Amino Transf (AST/SGOT) 213 U/L 113 U/L Alanine Aminotransferase (ALT/SGPT) 134 U/L 95 U/L Total Bilirubin 2.9 MG/DL 2.9 MG/DL Imaging Last Impressions Abdomen/Pelvis CT 07/19/17 0000 Signed Impressions: Service Date/Time: Wednesday, July 19, 2017 20:04 - CONCLUSION: 1. Small right pleural effusion containing air, could be iatrogenic or possible infection. 2. Cholelithiasis. 3. No retroperitoneal hemorrhage. 4. Anasarca soft tissues. 5. Air in the bladder could be iatrogenic or infection. Santiago Mccartney MD Chest X-Ray 07/18/17 0600 Signed Impressions: Service Date/Time: Tuesday, July 18, 2017 05:12 - CONCLUSION: 1. No evidence of pneumothorax status post right chest tube removal. 2. Persistent right pleural effusion and vascular congestion. Prabhakar Lynch MD Chest CT 07/12/17 0000 Signed Impressions: Service Date/Time: Wednesday, July 12, 2017 12:19 - CONCLUSION: 1. Interval placement of right-sided percutaneous drainage catheter with mild decrease in the size of the right pleural effusion. 2. New small left pleural effusion. 3. Prominent lymph nodes and induration remaining in the right axillary region and 4. The previously noted prominence right paratracheal lymph node is stable. 5. Mild consolidation remains in the right lung base. Gato Patino MD Chest Tube Insertion 07/08/17 0000 Signed Impressions: Service Date/Time: Saturday, July 08, 2017 16:27 - CONCLUSION: Uncomplicated chest tube placement as above. Santiago Mccartney MD Abdomen Ultrasound 07/08/17 0000 Signed Impressions: Service Date/Time: Saturday, July 08, 2017 18:00 - CONCLUSION: 1. Cirrhotic appearing liver with splenomegaly. 2. Extensive cholelithiasis. Santiago Mccartney MD Thoracentesis Ultrasound 07/07/17 0000 Signed Impressions: Service Date/Time: Friday, July 07, 2017 10:32 - CONCLUSION: Uncomplicated ultrasound guided thoracentesis. Santiago Mccartney MD Foot MRI 07/07/17 0000 Signed Impressions: Service Date/Time: Friday, July 07, 2017 15:40 - CONCLUSION: Probable mild cellulitis without osteomyelitis or deep space involvement. Josh Santiago MD FACR Catheter Placement X-Ray 07/07/17 0000 Signed Impressions: Service Date/Time: Friday, July 07, 2017 13:15 - CONCLUSION: Uncomplicated line placement as above. Masoud Lopez MD Renal Ultrasound 07/06/17 0000 Signed Impressions: Service Date/Time: Thursday, July 06, 2017 20:20 - CONCLUSION: 1. Normal appearance the kidneys. 2. Moderate right pleural effusion. Luis Miguel Villegas MD Chest Ultrasound 07/05/17 0000 Signed Impressions: Service Date/Time: Wednesday, July 05, 2017 12:26 - CONCLUSION: Loculated fluid as above. Josh Santiago MD FACR Foot X-Ray 07/04/17 0000 Signed Impressions: Service Date/Time: Tuesday, July 04, 2017 15:35 - CONCLUSION: Negative for fracture or dislocation. Follow up in 7-10 days is suggested if symptoms persist. Josh Santiago MD FACR Objective Remarks GENERAL: Awake alert and oriented 3 talkative and cooperative SKIN: Warm and dry. HEAD: Atraumatic. Normocephalic. EYES: Pupils equal and round. No scleral icterus. No injection or drainage. Extraocular muscles intact ENT: No nasal bleeding or discharge. Mucous membranes pink and moist. Tongue is midlin NECK: Trachea midline. No JVD. Supple CARDIOVASCULAR: Regular rate and rhythm. S1-S2 no S3 or S4 RESPIRATORY: No accessory muscle use. Few scattered rhonchi and some coarse breath sounds breath sounds equal bilaterally. GASTROINTESTINAL: Abdomen soft, non-tender, nondistended. Hepatic and splenic margins not palpable. MUSCULOSKELETAL: Extremities without clubbing, cyanosis, bilateral lower extremity edema plus no obvious deformities. NEUROLOGICAL: Awake and alert. No obvious cranial nerve deficits. Motor grossly within normal limits. 4 out of 5 muscle strength in the arms and legs. Normal speech. PSYCHIATRIC: Appropriate mood and affect; insight and judgment normal. Procedures Echo 07/04/2017 The left ventricular systolic function is normal with an estimated ejection fraction in the range of 60-65%. Wall thickness is measured at the upper limits of normal. No regional wall motion abnormalities are present. Normal left ventricular size. There is trace tricuspid valve regurgitation. The estimated pulmonary arterial pressure is 33 mmHg. 07/08/2017 -right-sided chest tube placement by interventional radiology. 07/14/2017 Right thoracoscopic exploration to evacuate right pleural effusion, pleural biopsy Vascath Medications and IVs Current Medications Acetaminophen (Tylenol) 650 mg ONCE ONCE PO Last administered on 07/03/17at 07: 10; Start 07/03/17 at 05:15; Stop 07/03/17 at 05:17; Status DC Sodium Chloride 1,000 ml @ 1,000 mls/hr Q1H ONCE IV Last administered on at 05:15; Start 07/03/17 at 05:15; Stop 07/03/17 at 06:14; Status DC Guaifenesin/ Codeine Phosphate (Robitussin Ac 200-20 Mg/10 ml Liq) 10 ml ONCE ONCE PO Last administered on 07/03/17at 05:39; Start 07/03/17 at 05:15; Stop 03/10 at 05:17; Status DC Vancomycin HCl 1000 mg/Sodium Chloride 250 ml @ 250 mls/hr ONCE STAT IV Last administered on 07/03/17at 08:10; Start 07/03/17 at 07:47; Stop 07/03/17 at 08:46 ; Status DC Piperacillin Sod/ Tazobactam Sod 100 ml @ 200 mls/hr ONCE STAT IV Last administered on 07/03/17at 08:09; Start 07/03/17 at 07:47; Stop 07/03/17 at 08:16 ; Status DC Sodium Chloride 1,000 ml @ 999 mls/hr BOLUS ONCE IV Last administered on 07/03at 08:10; Start 07/03/17 at 08:00; Stop 07/03/17 at 09:00; Status DC Iohexol (Omnipaque 350 Inj) 97 ml STK-MED ONCE IVCONTRAST Last administered on 07/03/17at 08:52; Start 07/03/17 at 08:52; Stop 07/03/17 at 08:53; Status DC Sodium Chloride 1,000 ml @ 100 mls/hr Q10H IV Last administered on 07/07/17at 00:00; Start 07/03/17 at 10:02; Stop 07/07/17 at 09:17; Status DC Sodium Chloride (NS Flush) 2 ml UNSCH PRN IV FLUSH FLUSH AFTER USING IV ACCESS Last administered on 07/11/17at 02:27; Start 07/03/17 at 10:15; Stop 07/14/17 at 15:53; Status DC Sodium Chloride (NS Flush) 2 ml BID IV FLUSH Last administered on 07/14/17at 08: 37; Start 07/03/17 at 21:00; Stop 07/14/17 at 15:53; Status DC Acetaminophen (Tylenol) 650 mg Q4H PRN PO HEADACHE, PAIN SCALE 1 TO 2 Last administered on 07/20/17at 17:33; Start 07/03/17 at 10:15 Ondansetron HCl (Zofran Inj) 4 mg Q6H PRN IVP NAUSEA OR VOMITING Last administered on 07/13/17at 08:32; Start 07/03/17 at 10:15; Stop 07/14/17 at 15:55 ; Status DC Naloxone HCl (Narcan Inj) 0.4 mg UNSCH PRN IV PUSH SEE LABEL COMMENTS; Start at 10:15 Ceftriaxone Sodium 1000 mg/ Sodium Chloride 100 ml @ 200 mls/hr Q12H IV Last administered on 07/04/17at 09:30; Start 07/03/17 at 21:00; Stop 07/04/17 at 13:38 ; Status DC Ibuprofen (Motrin) 600 mg Q6H PRN PO PAIN > 3 Last administered on 07/06/17at 09 :19; Start 07/03/17 at 18:15; Stop 07/06/17 at 14:27; Status DC Guaifenesin/ Dextromethorphan (Robitussin Dm 200-20 Mg/10 ml Liq) 10 ml ONCE ONCE PO Last administered on 07/03/17at 20:21; Start 07/03/17 at 20:30; Stop 03/10 at 20:31; Status DC Gabapentin (Neurontin) 600 mg BID PO Last administered on 07/06/17at 09:14; Start 07/04/17 at 09:00; Stop 07/14/17 at 09:29; Status DC Lisinopril (Prinivil) 40 mg DAILY PO Last administered on 07/06/17at 09:00; Start 07/04/17 at 09:00; Stop 07/06/17 at 14:27; Status DC Azithromycin (Zithromax) 500 mg DAILY PO Last administered on 07/04/17at 09:34; Start 07/04/17 at 09:00; Stop 07/04/17 at 14:21; Status DC Pharmacy Profile Note 0 ml @ 0 mls/hr UNSCH OTHER ; Start 07/04/17 at 09:15; Stop 07/07/17 at 10:10; Status DC Vancomycin HCl 1000 mg/Sodium Chloride 250 ml @ 250 mls/hr Q12H IV ; Start at 09:15; Status UNV Vancomycin HCl 2000 mg/Sodium Chloride 520 ml @ 250 mls/hr Q12H IV Last administered on 07/06/17at 01:55; Start 07/04/17 at 13:00; Stop 07/07/17 at 10:10 ; Status DC Miscellaneous Information SPECIFIC LAB TO BE DRAWN:VANCOMYCIN TROUGH DATE TO... ONCE ONCE .XX Last administered on 07/06/17at 01:45; Start 07/06/17 at 00:45; Stop 07/06/17 at 00:46; Status DC Benzonatate (Tessalon) 200 mg TID PRN PO COUGH Last administered on 07/12/17at 02:57; Start 07/04/17 at 11:45 Ceftriaxone Sodium 2000 mg/ Sodium Chloride 100 ml @ 200 mls/hr DAILY IV ; Start 07/05/17 at 09:00; Stop 07/05/17 at 09:00; Status DC Levofloxacin (Levaquin) 750 mg DAILY@1600 PO Last administered on 07/05/17at 15: 19; Start 07/04/17 at 16:00; Stop 07/06/17 at 12:42; Status DC Senna/Docusate Sodium (Krysten-Colace) 2 tab ONCE ONCE PO Last administered on at 18:46; Start 07/05/17 at 18:00; Stop 07/05/17 at 18:11; Status DC Magnesium Hydroxide (Milk Of Magnesia Liq) 30 ml ONCE ONCE PO Last administered on 07/05/17at 18:46; Start 07/05/17 at 18:00; Stop 07/05/17 at 18:11 ; Status DC Sodium Chloride 500 ml @ 500 mls/hr BOLUS ONCE IV Last administered on at 11:00; Start 07/06/17 at 11:00; Stop 07/06/17 at 11:59; Status DC Lactulose (Lactulose Liq) 30 ml QID PO Last administered on 07/16/17at 17:12; Start 07/06/17 at 13:00; Stop 07/18/17 at 10:03; Status DC Levofloxacin (Levaquin) 250 mg DAILY@1600 PO Last administered on 07/09/17at 17: 02; Start 07/06/17 at 16:00; Stop 07/10/17 at 12:30; Status DC Sodium Chloride 1,000 ml @ 999 mls/hr BOLUS ONCE IV Last administered on 07/06at 13:45; Start 07/06/17 at 13:45; Stop 07/06/17 at 14:45; Status DC Sodium Chloride 1,000 ml @ 0 mls/hr Q0M PRN OTHER For Prime & Rinse Back Last administered on 07/14/17at 12:00; Start 07/07/17 at 09:15 Heparin Sodium (Porcine) (Heparin Inj) 8,000 units UNSCH PRN IV FLUSH WITH DIALYSIS; Start 07/07/17 at 09:15 Sodium Chloride 1,000 ml @ 200 mls/hr Q5H PRN IV WITH DIALYSIS; Start 07/07/17 at 09:15 Sodium Chloride 1,000 ml @ 0 mls/hr Q0M PRN OTHER WITH DIALYSIS; Start at 09:15 Mannitol (Mannitol Inj) 12.5 gm UNSCH PRN IV WITH DIALYSIS Last administered on 07/15/17 10:41; Start 07/07/17 at 09:15 Albumin Human 100 ml @ 60 mls/hr UNSCH PRN IV WITH DIALYSIS Last administered on 07/10/17at 09:00; Start 07/07/17 at 09:15; Stop 07/14/17 at 11:02; Status DC Sodium Chloride (NS Flush) 5 ml UNSCH PRN IV FLUSH WITH DIALYSIS; Start at 09:15 Heparin Sodium (Porcine) (Heparin Inj) UNSCH PRN .XX WITH DIALYSIS Last administered on 07/15/17 10:39; Start 07/07/17 at 09:15 Gentamicin Sulfate (Gentamicin Inj) 20 mg UNSCH PRN OTHER WITH DIALYSIS Last administered on 07/15/17 10:40; Start 07/07/17 at 09:15 Ondansetron HCl (Zofran Inj) 4 mg UNSCH PRN IV PUSH WITH DIALYSIS Last administered on 07/16/17 13:39; Start 07/07/17 at 09:15 Acetaminophen (Tylenol) 650 mg UNSCH PRN PO for headach, pain, temp > 101F; Start 07/07/17 at 09:15 Diphenhydramine HCl (Benadryl) 25 mg UNSCH PRN PO for hives/itching/anaphylaxis ; Start 07/07/17 at 09:15 Nitroglycerin (Nitrostat Sl) 0.4 mg UNSCH PRN SL CHEST PAIN; Start 07/07/17 at 09:15 Clonidine (Catapres) 0.1 mg UNSCH PRN PO for BP > 180/100 X 2 readings; Start 07/07/17 at 09:15 Gelatin (Gelfoam 12 Mm/7 Mm Top) 1 foam UNSCH PRN TOP SEE LABEL COMMENTS; Start 07/07/17 at 09:15 Daptomycin 600 mg/ Sodium Chloride 100 ml @ 200 mls/hr Q48H IV Last administered on 07/09/17 13:32; Start 07/07/17 at 12:00; Stop 07/10/17 at 12:30 ; Status DC Lidocaine HCl (Xylocaine 1% Inj) 20 ml STK-MED ONCE .ROUTE Last administered on 07/07/17at 11:46; Start 07/07/17 at 11:46; Stop 07/07/17 at 11:47; Status DC Heparin Sodium (Porcine) (*HEPARIN INJ Periprocedural ONLY) 10,000 units STK- MED ONCE .ROUTE Last administered on 07/07/17at 13:05; Start 07/07/17 at 12:39; Stop 07/07/17 at 12:40; Status DC Sodium Chloride (NS Flush) UNSCH PRN IV FLUSH SEE PROTOCOL; Start 07/07/17 at 13:45 Heparin Sodium (Porcine) (Heparin Inj) UNSCH PRN IV FLUSH SEE PROTOCOL Last administered on 07/12/17at 11:25; Start 07/07/17 at 13:45 Linezolid (Zyvox) 600 mg Q12HR PO Last administered on 07/10/17at 08:12; Start 07/07/17 at 14:00; Stop 07/10/17 at 12:30; Status DC Ferrous Sulfate (Ferrous Sulfate) 325 mg BID PO Last administered on 07/08/17at 12:00; Start 07/07/17 at 21:00; Stop 07/08/17 at 13:33; Status DC Tramadol HCl (Ultram) 50 mg Q8H PRN PO PAIN SCALE 6 TO 10 Last administered on 07/14/17at 01:53; Start 07/08/17 at 13:45 Fentanyl Citrate (fentaNYL INJ) 100 mcg STK-MED ONCE .ROUTE Last administered on 07/08/17at 15:53; Start 07/08/17 at 15:53; Stop 07/08/17 at 15:54; Status DC Lorazepam (Ativan Inj) 2 mg STK-MED ONCE .ROUTE Last administered on 07/08/17at 15:53; Start 07/08/17 at 15:53; Stop 07/08/17 at 15:54; Status DC Lidocaine HCl (Xylocaine 1% Inj) 10 ml STK-MED ONCE OTHER ; Start 07/08/17 at 16 :30; Stop 07/08/17 at 17:22; Status DC Ceftaroline Fosamil 200 mg/ Sodium Chloride 100 ml @ 100 mls/hr Q12H IV Last administered on 07/21/17at 01:55; Start 07/10/17 at 14:00 Albumin Human 100 ml @ 60 mls/hr Q12H IV Last administered on 4/23/18at 10:01 ; Start 07/12/17 at 22:30; Stop 07/14/17 at 11:02; Status DC Sodium Chloride (NS Flush) 2 ml BID IV FLUSH ; Start 07/13/17 at 21:00; Stop at 15:54; Status DC Vancomycin HCl 1000 mg/Sodium Chloride 250 ml @ 250 mls/hr ANNUAL CAMPAIGN MANAGER IV ; Start 07/13/17 at 13:00; Stop 07/20/17 at 12:59; Status UNV Mupirocin (Bactroban Nasal 2% Oint) 1 applic BID EACH NARE Last administered on 07/18/17at 09:00; Start 07/13/17 at 13:00; Stop 07/18/17 at 12:59; Status DC Chlorhexidine Gluconate (Hibiclens 4% Top Soln) 1 applic ANNUAL CAMPAIGN MANAGER TOPICAL ; Start 07/13/17 at 13:00; Stop 07/20/17 at 12:59; Status DC Vancomycin HCl 1000 mg/Sodium Chloride 250 ml @ 250 mls/hr ANNUAL CAMPAIGN MANAGER IV ; Start 07/13/17 at 13:00; Stop 07/20/17 at 12:59; Status UNV Vancomycin HCl 2000 mg/Sodium Chloride 520 ml @ 250 mls/hr ANNUAL CAMPAIGN MANAGER IV ; Start 07/13/17 at 13:45; Stop 07/20/17 at 13:44; Status Cancel Vancomycin HCl 1500 mg/Sodium Chloride 515 ml @ 257.5 mls/ hr ANNUAL CAMPAIGN MANAGER IV ; Start 07/13/17 at 13:45; Stop 07/14/17 at 11:02; Status DC Lactated Ringer's 1,000 ml @ 30 mls/hr Q24H PRN IV SEE LABEL COMMENTS; Start at 20:15; Stop 07/16/17 at 20:14; Status DC Sodium Chloride 500 ml @ 30 mls/hr [id number] PRN IV SEE LABEL COMMENTS; Start at 20:15; Stop 07/16/17 at 20:14; Status DC Povidone Iodine (Betadine 5% Antisepsis Kit) 1 applic ANNUAL CAMPAIGN MANAGER PRN EACH NARE SEE LABEL COMMENTS; Start 07/13/17 at 20:15; Stop 07/16/17 at 20:14; Status DC Chlorhexidine Gluconate (Chlorhexidine 2% Cloth) 3 pack ANNUAL CAMPAIGN MANAGER PRN TOPICAL SEE LABEL COMMENTS; Start 07/13/17 at 20:15; Stop 07/16/17 at 20:14; Status DC Gabapentin (Neurontin) 300 mg BID PO ; Start 07/14/17 at 21:00; Status Future Hold Fluconazole (Diflucan) 100 mg DAILY PO Last administered on 07/16/17at 09:33; Start 07/14/17 at 09:30; Stop 07/16/17 at 10:00; Status DC Bupivacaine HCl (Marcaine Pf 0.5% Inj) 30 ml STK-MED ONCE .ROUTE ; Start at 13:25; Stop 07/14/17 at 13:26; Status DC Albuterol Sulfate (Albuterol Neb) 2.5 mg Q6HR NEB NEB Last administered on at 13:44; Start 07/14/17 at 16:00; Stop 07/18/17 at 15:59; Status DC Albuterol Sulfate (Albuterol Neb) 2.5 mg Q2HR NEB PRN NEB WHEEZING; Start 07/14 at 15:45 Sodium Chloride (NS Flush) 2 ml BID IV FLUSH Last administered on 07/21/17at 08: 58; Start 07/14/17 at 21:00 Sodium Chloride (NS Flush) 2 ml UNSCH PRN IV FLUSH FLUSH AFTER USING IV ACCESS ; Start 07/14/17 at 15:45 Miscellaneous Information (Post-op Orders (for Pharmacy)) STAT ONCE OTHER ; Start 07/14/17 at 15:45; Stop 07/14/17 at 15:56; Status DC Pantoprazole Sodium (Protonix) 40 mg HS PO Last administered on 07/20/17at 20:27 ; Start 07/14/17 at 21:00 Ondansetron HCl (Zofran Inj) 4 mg Q6H PRN IV PUSH NAUSEA OR VOMITING Last administered on 07/21/17at 09:05; Start 07/14/17 at 15:45 Docusate Calcium (Surfak) 240 mg HS PO Last administered on 07/16/17at 20:35; Start 07/14/17 at 21:00; Stop 07/19/17 at 07:34; Status DC Magnesium Hydroxide (Milk Of Magnesia Liq) 30 ml DAILY PRN PO CONSTIPATION; Start 07/14/17 at 15:45 Acetaminophen (Tylenol) 650 mg Q4H PRN PO TEMPERATURE > 101 F; Start 07/14/17 at 15:45 Oxycodone/ Acetaminophen (Percocet 5-325 Mg) 1 tab Q3H PRN PO PAIN SCALE 3 TO 5 Last administered on 07/16/17at 09:34; Start 07/14/17 at 15:45; Stop 07/17/17 at 16:23; Status DC Oxycodone/ Acetaminophen (Percocet 5-325 Mg) 2 tab Q3H PRN PO PAIN SCALE 6 TO 10 Last administered on 07/17/17at 01:11; Start 07/14/17 at 15:45; Stop 07/17/17 at 09:28; Status DC Fentanyl Citrate (fentaNYL INJ) 500 mcg STK-MED ONCE .ROUTE ; Start 07/14/17 at 16:06; Stop 07/14/17 at 16:07; Status DC Morphine Sulfate (*morphine INJ PERIprocedure ONLY) 8 mg STK-MED ONCE .ROUTE Last administered on 07/14/17at 16:31; Start 07/14/17 at 16:31; Stop 07/14/17 at 16:32; Status DC Miscellaneous Information ALL NURSING DEPARTME... UNSCH PRN .XX SEE LABEL COMMENTS; Start 07/14/17 at 16:05; Stop 07/15/17 at 16:04; Status DC Sodium Chloride (NS Flush) 5 ml UNSCH PRN IV FLUSH SEE PROTOCOL TABLE; Start at 16:45 Heparin Sodium (Porcine) (Heparin Inj) 2,000 units UNSCH PRN IV FLUSH SEE PROTOCOL TABLE Last administered on 07/14/17at 16:35; Start 07/14/17 at 16:45 Albumin Human 100 ml @ 60 mls/hr UNSCH PRN IV WITH DIALYSIS Last administered on 07/15/17at 10:41; Start 07/15/17 at 08:45 Lactated Ringer's 1,000 ml @ As Directed STK-MED ONCE IV ; Start 07/14/17 at 12 :00; Stop 07/17/17 at 08:44; Status DC Sodium Chloride 500 ml @ As Directed STK-MED ONCE IV ; Start 07/14/17 at 12:00 ; Stop 07/17/17 at 08:44; Status DC Parenteral Electrolytes 1,000 ml @ As Directed STK-MED ONCE IV ; Start at 12:00; Stop 07/17/17 at 08:44; Status DC Lidocaine HCl (Xylocaine-Mpf 1% Inj) 5 ml STK-MED ONCE OTHER ; Start 07/14/17 at 12:00; Stop 07/17/17 at 08:44; Status DC Rocuronium [place] (Zemuron Inj) 50 mg STK-MED ONCE IV PUSH ; Start 07/14/17 at 12:00; Stop 07/17/17 at 08:44; Status DC Neostigmine Methylsulfate (Prostigmine Inj) 5 mg STK-MED ONCE IV PUSH ; Start at 12:00; Stop 07/17/17 at 08:44; Status DC Glycopyrrolate (Robinul Inj) 1 mg STK-MED ONCE IV PUSH ; Start 07/14/17 at 12:00 ; Stop 07/17/17 at 08:44; Status DC Phenylephrine HCl (Neosynephrine/ NS 1000 Mcg/10ml Syr) 1,000 mcg STK-MED ONCE IV ; Start 07/14/17 at 12:00; Stop 07/17/17 at 08:44; Status DC Dexamethasone Sodium Phosphate (Decadron Inj) 8 mg STK-MED ONCE IV ; Start 07/14 at 12:00; Stop 07/17/17 at 08:44; Status DC Propofol (Diprivan 200 Mg/20 ml Inj) 200 mg STK-MED ONCE IV ; Start 07/14/17 at 12:00; Stop 07/17/17 at 08:44; Status DC Sevelamer Carbonate (Renvela) 1,600 mg TIDAC PO Last administered on 07/21/17at 08:55; Start 07/17/17 at 12:00 Albumin Human 50 ml @ 60 mls/hr ONCE ONCE IV Last administered on 07/17/17at 10 :04; Start 07/17/17 at 09:30; Stop 07/17/17 at 10:19; Status DC Sodium Chloride 250 ml @ 100 mls/hr BOLUS ONCE IV Last administered on at 10:05; Start 07/17/17 at 09:30; Stop 07/17/17 at 11:59; Status DC Fluconazole (Diflucan) 100 mg DAILY PO Last administered on 07/21/17at 08:55; Start 07/17/17 at 13:45 Acetaminophen/ Hydrocodone Bitart ([place] 5-325 Mg) 1 tab Q6H PRN PO PAIN SCALE 3 TO 5 Last administered on 07/21/17at 09:02; Start 07/17/17 at 16:30 Midodrine (Proamatine) 5 mg ONCE ONCE PO Last administered on 07/17/17at 20:39 ; Start 07/17/17 at 19:45; Stop 07/17/17 at 19:46; Status DC Lactulose (Lactulose Liq) 30 ml QID PRN PO CONSTIPATION; Start 07/18/17 at 10: 15; Stop 07/19/17 at 06:20; Status DC Lactulose (Lactulose Liq) 30 ml TID PO Last administered on 07/21/17at 08:55; Start 07/19/17 at 09:00 Sodium Chloride 250 ml @ 15 mls/hr ONCE ONCE IV Last administered on at 13:02; Start 07/19/17 at 09:15; Stop 07/20/17 at 01:54; Status DC Furosemide (Lasix Inj) 40 mg DAILY IV PUSH ; Start 07/21/17 at 11:00; Status UNV A/P Problem List: (1) Sepsis ICD Code: A41.9 - Sepsis, unspecified organism Status: Acute (2) Pneumonia ICD Code: J18.9 - Pneumonia, unspecified organism Status: Acute Plan: Antibiotics as above. If no improvement by tomorrow, would plan to broaden antibiotics coverage. (3) Bandemia ICD Code: D72.825 - Bandemia Status: Acute Plan: Secondary to sepsis as above. Monitor progress. (4) Elevated lipase ICD Code: R74.8 - Abnormal levels of other serum enzymes Status: Acute Plan: May be due to dehydration and sepsis. Asymptomatic. (5) Hypertension ICD Code: I10 - Essential (primary) hypertension Status: Acute Plan: Continue lisinopril. (6) Axillary lymphadenopathy ICD Code: R59.0 - Localized enlarged lymph nodes Assessment and Plan On 07/03/2017, Mr. Wade, a 46 year old male presented to the ED due to flu like symptoms despite being treated for flu by his PCP. He complained of right- sided pleuritic chest pain. He reported fever and chills. Temperature in the emergency department was 101.2F. CT chest showed right pleural effusion with some atelectasis. CT abdomen pelvis showed a liver lesion. Severe sepsis - resolved. MRSA bacteremia MRSA pneumonia Empyema - pleural fluid grew MRSA Pneumonia on CT chest, liver lesion, right axillary lymphadenopathy, possible cellulitis, rpt CT in [address] July 19, 2017 showed right pleural effusion containing air s/p chest tube insertion Pleural fluid cx grew MRSA. Blood cx also grew MRSA. Appreciate ID input. Currently patient is on Ceftaroline 200mg Q12hrs to cover MRSA pneumonia and bacteremia. And will need Zyvox at discharge 07/05 - Echo showed no vegetation. s/p Right thoracoscopic exploration to evacuate right pleural effusion, pleural biopsy on 07/15/2017. CT removed. Will alert cardiothoracic surgery with continued bleeding from previous CT site Acetaminophen, tramadol as needed for pain. Indeterminate QFT TB testing. AFB smear negative. AFB culture pending. Cleared for isolation discontinuation by infectious disease Acute kidney injury Creatinine 0.8 on 07/04/2017. Cr 9.4 on 07/15/2017. Now on dialysis. Possibly due to vancomycin as well as post infectious Continue dialysis per Nephrology. Permacath exchange per renal Air in the urinary bladder history of Em catheter insertion. Will discuss with Liver cirrhosis Hepatitis C genotype 1a Liver lesion 1.5cm GI following. Patient will likely need an MRI study in future. Thrombocytopenia. Stable Symptomatic anemia. Hemoglobin improved s/p packed RBC transfusion. We will continue to monitor Full code. SCDs. No chemical prophylaxis secondary to thrombocytopenia Discharge Planning Will need hemodialysis set up before he can be discharged Problem Qualifiers (1) Sepsis: Qualified Codes: A41.9 - Sepsis, unspecified organism (2) Pneumonia: Qualified Codes: J18.1 - Lobar pneumonia, unspecified organism (3) Hypertension: Qualified Codes: I10 - Essential (primary) hypertension Josh Mendosa DO Jul 21, 2017 11:00
--- NOTE | 2017-07-21 12:20 | HHI.GIFU ---
Subjective Remarks Abdomen is taut, mild bloating Mild nausea and vomiting yesterday more improved today but patient took anti- medic medications prophylactically Diarrhea brown stool no blood Resting in the bed Hemoglobin 8. (Esperanza Duenas) Objective Vitals I&O Vital Signs Date Time Temp Pulse Resp B/P (MAP) Pulse Ox O2 Delivery O2 Flow Rate FiO2 07/21/17 12:04 98.0 84 17 132/72 (92) 96 07/21/17 08:01 98.2 85 17 124/61 (82) 96 07/21/17 08:00 80 07/21/17 07:00 Nasal Cannula 2.00 07/21/17 04:00 85 07/21/17 04:00 98.3 90 19 122/56 (78) 94 07/21/17 04:00 Nasal Cannula 2.00 07/21/17 00:00 98.6 92 18 114/58 (76) 96 07/21/17 00:00 Nasal Cannula 2.00 07/21/17 00:00 93 07/20/17 20:36 Nasal Cannula 3.00 07/20/17 20:00 98.7 88 16 127/64 (85) 94 07/20/17 20:00 88 07/20/17 20:00 Nasal Cannula 2.00 07/20/17 16:00 97.5 88 18 132/62 (85) 97 07/20/17 16:00 87 07/20/17 15:00 Nasal Cannula 2.00 I/O 07/20/17 07/20/17 07/20/17 07/21/17 07/21/17 07/21/17 07:00 15:00 23:00 07:00 15:00 23:00 Intake Total 100 ml 560 ml 240 ml Output Total 650 ml Balance 100 ml 560 ml -410 ml Intake Oral 0 ml 560 ml 240 ml IV Total 100 ml Output Urine Total 650 ml # Voids 2 4 # Bowel Movements 2 3 2 Laboratory Laboratory Tests Test 07/21/17 08:43 White Blood Count 9.8 Red Blood Count 2.26 Hemoglobin 8.0 Hematocrit 22.8 Mean Corpuscular Volume 100.8 Mean Corpuscular Hemoglobin 35.4 Mean Corpuscular Hemoglobin Concent 35.1 Red Cell Distribution Width 17.9 Platelet Count 101 Mean Platelet Volume 8.3 Neutrophils (%) (Auto) 74.0 Lymphocytes (%) (Auto) 6.9 Monocytes (%) (Auto) 12.7 Eosinophils (%) (Auto) 5.6 Basophils (%) (Auto) 0.8 Neutrophils # (Auto) 7.2 Lymphocytes # (Auto) 0.7 Monocytes # (Auto) 1.2 Eosinophils # (Auto) 0.6 Basophils # (Auto) 0.1 CBC Comment AUTO DIFF Differential Comment AUTO DIFF CONFIRMED Platelet Estimate LOW Platelet Morphology Comment NORMAL Blood Urea Nitrogen 32 Creatinine 2.73 Random Glucose 100 Total Protein 6.6 Albumin 2.0 Calcium Level 8.4 Magnesium Level 1.5 Alkaline Phosphatase 67 Aspartate Amino Transf (AST/SGOT) 113 Alanine Aminotransferase (ALT/SGPT) 95 Total Bilirubin 2.9 Sodium Level 134 Potassium Level 3.9 Chloride Level 98 Carbon Dioxide Level 30.8 Anion Gap 5 Estimat Glomerular Filtration Rate 25 Date/Time Source Procedure Growth Status 07/07/17 20:14 Blood Peripheral Aerobic Blood Culture - Final NO GROWTH IN 5 DAYS Complete 07/07/17 20:14 Blood Peripheral Anaerobic Blood Culture - Final NO GROWTH IN 5 DAYS Complete 07/14/17 14:55 Fluid Pleural Fluid Fungal Smear - Final NO FUNGAL ELEMENTS SEEN. Resulted 07/14/17 14:55 Fluid Pleural Fluid Fungal Culture Pending Resulted 07/18/17 23:59 Stool Stool Stool Pus (CLARITA) - Final Complete 07/05/17 00:22 Sputum Expectorated Sputum Gram Stain - Final Complete 07/05/17 00:22 Sputum Expectorated Sputum Sputum Culture - Final HEAVY GROWTH NORMAL RESPIRATORY MARISELA Complete 07/11/17 09:10 Urine Catheterized Urine Urine Culture - Final Dori Glabrata Dori Albicans Complete Imaging Last Impressions Abdomen/Pelvis CT 07/19/17 0000 Signed Impressions: Service Date/Time: Wednesday, July 19, 2017 20:04 - CONCLUSION: 1. Small right pleural effusion containing air, could be iatrogenic or possible infection. 2. Cholelithiasis. 3. No retroperitoneal hemorrhage. 4. Anasarca soft tissues. 5. Air in the bladder could be iatrogenic or infection. Santiago Mccartney MD Chest X-Ray 07/18/17 0600 Signed Impressions: Service Date/Time: Tuesday, July 18, 2017 05:12 - CONCLUSION: 1. No evidence of pneumothorax status post right chest tube removal. 2. Persistent right pleural effusion and vascular congestion. Prabhakar Lynch MD Chest CT 07/12/17 0000 Signed Impressions: Service Date/Time: Wednesday, July 12, 2017 12:19 - CONCLUSION: 1. Interval placement of right-sided percutaneous drainage catheter with mild decrease in the size of the right pleural effusion. 2. New small left pleural effusion. 3. Prominent lymph nodes and induration remaining in the right axillary region and 4. The previously noted prominence right paratracheal lymph node is stable. 5. Mild consolidation remains in the right lung base. Gato Patino MD Chest Tube Insertion 07/08/17 0000 Signed Impressions: Service Date/Time: Saturday, July 08, 2017 16:27 - CONCLUSION: Uncomplicated chest tube placement as above. Santiago Mccartney MD Abdomen Ultrasound 07/08/17 0000 Signed Impressions: Service Date/Time: Saturday, July 08, 2017 18:00 - CONCLUSION: 1. Cirrhotic appearing liver with splenomegaly. 2. Extensive cholelithiasis. Santiago Mccartney MD Thoracentesis Ultrasound 07/07/17 0000 Signed Impressions: Service Date/Time: Friday, July 07, 2017 10:32 - CONCLUSION: Uncomplicated ultrasound guided thoracentesis. Santiago Mccartney MD Foot MRI 07/07/17 0000 Signed Impressions: Service Date/Time: Friday, July 07, 2017 15:40 - CONCLUSION: Probable mild cellulitis without osteomyelitis or deep space involvement. Josh Santiago MD FACR Catheter Placement X-Ray 07/07/17 0000 Signed Impressions: Service Date/Time: Friday, July 07, 2017 13:15 - CONCLUSION: Uncomplicated line placement as above. Masoud Lopez MD Renal Ultrasound 07/06/17 0000 Signed Impressions: Service Date/Time: Thursday, July 06, 2017 20:20 - CONCLUSION: 1. Normal appearance the kidneys. 2. Moderate right pleural effusion. Luis Miguel Villegas MD Chest Ultrasound 07/05/17 0000 Signed Impressions: Service Date/Time: Wednesday, July 05, 2017 12:26 - CONCLUSION: Loculated fluid as above. Josh Santiago MD FACR Foot X-Ray 07/04/17 0000 Signed Impressions: Service Date/Time: Tuesday, July 04, 2017 15:35 - CONCLUSION: Negative for fracture or dislocation. Follow up in 7-10 days is suggested if symptoms persist. Josh Santiago MD FACR Physical Exam HEENT: Normocephalic; atraumatic , skin dry CHEST: Diminished breath sounds, no audible rhonchi today CARDIAC: RRR ABDOMEN: Obese, round, mild bloating, soft, nontender, bowel sounds active SKIN: Pale; no rash; mild icterus LOOP CUTTER: Alert and oriented x 3, mild anxiety (Esperanza Duenas) Assessment and Plan Plan Plan ASSESSMENT/History - Cirrhosis- history of hepatitis C- genotype 1 a- quant 30,900 CT abdomen and pelvis W IV contrast (07/03) --> Mild splenomegaly and very large intra-abdominal varices draining into the splenic vein suggestion portal HTN. Perigastric varices and bilateral inguinal varices are also noted. Cholelithiasis. US abdomen (07/08) --> Cirrhotic appearing liver with splenomegaly. Extensive cholelithiasis. Liver BATRES: ROBERT, ASMA negative. AMA < 20. Iron-94 TIBC-141 %sat-68.6 Ferritin-540 N9N-[id number] Ceruloplasmin-26 Ammonia-22 HFE negative AFP-3.5 - Liver lesion on CT --> 1.5 cm low-density lesion within the anterior segment of the right lobe of the liver which is indeterminate. Outpatient MRI with contrast suggested. Unable to do at this time, given poor renal function. AFP-3.5 - Elevated lipase- CT states unremarkable pancreas- Lipase 932 on 07/03 now WNL - Thrombocytopenia- improving. platelets currently 148 - Anemia- multifactorial- macrocytic- H/H stable currently 11.132.7 - Empyema- pleural fluid (+) MRSA- ID following - RODOLFO on dialysis (07/12) --> No significant change overnight. Remains with generalized pains. Nephrology following, per pt planning for dialysis again on Friday- Differentials for RODOLFO include ATN due to sepsis and post infectious glomerulonephritis. Less likely hepatorenal syndrome. 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 (07/13) No significant changes over night. Continued generalized pain. Poor PO intake. Renal function remains poor. Pet pt, planned for surgery tomorrow for empyema 07/18/17 GI reconsulted for n/v/diarrhea for last 2 days. Is on teflaro for PNA , empyema. ID following. currently also on airborne precautions for poss TB. c diff is pending. re testing for hemochromatosis - C282Y: Not detected.H63D: Not detected. could be c diff vs gastroenteritis vs 2/2 abx. last colonoscopy [address] Velazquez, prior to ileostomy reversal. 07/19/2017 patient having some bloody discharge from the paracentesis site, dropped his hemoglobin 2 g since the day before yesterday, his diarrhea improved since the lactulose was on oh he does not have appetite 07/20/17 CT showed no retroperitoneal hemorrhage. hgb 8.6 today, s/p x prbc yesterday. Had 1 large liquid BM today. c diff neg. stool studies showed rare wbc, moderate budding yeast cells. further stool studies not done per lab protocol. 07/21/2017 mild gradual resolution of nausea and vomiting. Patient had no obvious nausea and vomiting but did take anti-medics today for prophylaxis, mild abdominal bloating and tautness, diarrhea brown stool but no obvious blood this is probably secondary to taking his lactulose which he needs [address] scan done on 428 did show cholelithiasis. Patient states last colonoscopy was Dr. Velazquez 2 years ago and patient did have colonoscopy in the past that was reversed approximately 2 years ago. Patient denies any alcohol usage and no family history of colon cancer. Patient had retroperitoneal bleed seen on CT scan, bloody discharge from 07/19/2017 paracentesis site but none seen today. Labs stool shows negative C. difficile toxin, bilirubin 2.9 elevated LFTs 113/95, reactive to hep C which probably explains he is elevated LFTs, hemoglobin 8, no obvious bleeding. Continue current regimen. PLAN - lactulose, goal 3 bowel movements daily - Protonix - Lasix - intake and output monitor number of BMs and encourage p.o. intake -Supportive care -Anti-emetics - monitor labs pt seen by myself and Dr Andrade and this note is on his behalf (Esperanza Duenas) Plan Patient was seen and examined, agree with above note, he is tolerating some food , his abdomen is soft no pain at this time, bowel movement, no sign of bleeding , continue current management (Rigoberto Andrade MD) Esperanza Duenas Jul 21, 2017 12:20 Rigoberto Andrade MD Jul 21, 2017 17:44
[2017-07-21] MEDS: FUROSEMIDE 40 MG/4 ML VIAL IV PUSH SCH (12:44)
--- NOTE | 2017-07-21 15:30 | PD.CAR.PN ---
CVT Progress Note Subjective/Hospital Course: 46-year-old male who presented to the emergency room with complaint of flulike symptoms for about a week. Patient reports he has been having right-sided pleuritic type chest pain. He describes pain as heavy in character, present all the time, worse with coughing and deep breathing. Patient states he was having hemoptysis for 3 days. Last episode was yesterday. He coughs up clear to yellow mucus now. He was found to have MRSA in a blood culture and pleural fluid culture s/p right thoracentesis. He has renal failure requiring dialysis since being admitted. He has a small bore chest catheter which is draining serous fluid. He is being considered for VATS exploration and possible decortication. (1) Acute kidney injury Etiology is uncertain. Medication related: Vancomycin induced nephrotoxicity; he was also on NSAIDs and ANSELMO inhibitor prior to admission. All were stopped. He was exposed to IV contrast on 07/03 but JAYDA unlikely Other possibilities: ATN due to sepsis and Post infectious GN. C3 is low Hepatorenal syndrome is less likely. Hepatitis C related Cryoglobulinemic Vasculitis also considered, cryoglobulin level in progress. Vascath placed and HD initiated 07/07 and surgery: 07/14 Right thoracoscopic exploration to evacuate right pleural effusion, pleural biopsy path pending, cytology pending OOB/ ambulate 07/15 HGB 7.2/ HCT 21 PLT now 52 (93) transfuse 2 units PRBC one chris PLT with dialysis today pt on nasal cannula painful needs pulm toileting OOB PT 07/16 PLT now 71, HGB 8.1 post 2 units 07/15 chest tube drained 70cc/ in 12 hrs/ will eval for removal in am 07/17 pt sleepy lethargic last night also received 2 percocet at 0100 dose decreased, also had diarrhea last pm BP low this am, improved after albumin and NS chest tube dc without difficulty consult PT 07/18 pt more alert today but having N/V and diarrhea lactulose changed to prn draining at chest tube site / CXR no PTX now on airborne precautions 07/21 incision intact right posterior chest wall chest tube site still with small amount of serous drainage on room air Objective: GENERAL: A&O x 3 SKIN: Warm and dry. incision intact right postero lateral chest wall/ chest tube site still with some serous drainage HEAD: Normocephalic. EYES: No scleral icterus. No injection or drainage. NECK: Supple, trachea midline. No JVD or lymphadenopathy. CARDIOVASCULAR: Regular rate and rhythm without murmurs, gallops, or rubs. RESPIRATORY: Breath sounds equal bilaterally. No accessory muscle use. coarse bilateral breath sounds GASTROINTESTINAL: Abdomen soft, non-tender, nondistended. MUSCULOSKELETAL: No cyanosis, or edema. BACK: Nontender without obvious deformity. No CVA tenderness. Vital Signs Date Time Temp Pulse Resp B/P (MAP) Pulse Ox O2 Delivery O2 Flow Rate FiO2 07/21/17 12:04 98.0 84 17 132/72 (92) 96 07/21/17 11:30 Nasal Cannula 2.00 21 07/21/17 08:01 98.2 85 17 124/61 (82) 96 07/21/17 08:00 80 07/21/17 07:00 Nasal Cannula 2.00 07/21/17 04:00 85 07/21/17 04:00 98.3 90 19 122/56 (78) 94 07/21/17 04:00 Nasal Cannula 2.00 07/21/17 00:00 98.6 92 18 114/58 (76) 96 07/21/17 00:00 Nasal Cannula 2.00 07/21/17 00:00 93 07/20/17 20:36 Nasal Cannula 3.00 07/20/17 20:00 98.7 88 16 127/64 (85) 94 07/20/17 20:00 88 07/20/17 20:00 Nasal Cannula 2.00 07/20/17 16:00 97.5 88 18 132/62 (85) 97 07/20/17 16:00 87 Labs: Laboratory Tests Test 07/21/17 08:43 White Blood Count 9.8 TH/MM3 (4.0-11.0) Red Blood Count 2.26 MIL/MM3 (4.50-5.90) Hemoglobin 8.0 GM/DL (13.0-17.0) Hematocrit 22.8 % (39.0-51.0) Mean Corpuscular Volume 100.8 FL (80.0-100.0) Mean Corpuscular Hemoglobin 35.4 PG (27.0-34.0) Mean Corpuscular Hemoglobin Concent 35.1 % (32.0-36.0) Red Cell Distribution Width 17.9 % (11.6-17.2) Platelet Count 101 TH/MM3 (150-450) Mean Platelet Volume 8.3 FL (7.0-11.0) Neutrophils (%) (Auto) 74.0 % (16.0-70.0) Lymphocytes (%) (Auto) 6.9 % (9.0-44.0) Monocytes (%) (Auto) 12.7 % (0.0-8.0) Eosinophils (%) (Auto) 5.6 % (0.0-4.0) Basophils (%) (Auto) 0.8 % (0.0-2.0) Neutrophils # (Auto) 7.2 TH/MM3 (1.8-7.7) Lymphocytes # (Auto) 0.7 TH/MM3 (1.0-4.8) Monocytes # (Auto) 1.2 TH/MM3 (0-0.9) Eosinophils # (Auto) 0.6 TH/MM3 (0-0.4) Basophils # (Auto) 0.1 TH/MM3 (0-0.2) CBC Comment AUTO DIFF Differential Comment AUTO DIFF CONFIRMED Platelet Estimate LOW (NORMAL) Platelet Morphology Comment NORMAL (NORMAL) Blood Urea Nitrogen 32 MG/DL (7-18) Creatinine 2.73 MG/DL (0.60-1.30) Random Glucose 100 MG/DL (74-106) Total Protein 6.6 GM/DL (6.4-8.2) Albumin 2.0 GM/DL (3.4-5.0) Calcium Level 8.4 MG/DL (8.5-10.1) Magnesium Level 1.5 MG/DL (1.5-2.5) Alkaline Phosphatase 67 U/L (45-117) Aspartate Amino Transf (AST/SGOT) 113 U/L (15-37) Alanine Aminotransferase (ALT/SGPT) 95 U/L (12-78) Total Bilirubin 2.9 MG/DL (0.2-1.0) Sodium Level 134 MEQ/L (136-145) Potassium Level 3.9 MEQ/L (3.5-5.1) Chloride Level 98 MEQ/L (98-107) Carbon Dioxide Level 30.8 MEQ/L (21.0-32.0) Anion Gap 5 MEQ/L (5-15) Estimat Glomerular Filtration Rate 25 ML/MIN (>89) Result Diagram: 07/21/17 0843 07/21/17 0843 (1) right thoracoscopic exploration Plan: pulm toileting OOB/ pain control OB / PT will see prn has f/u appointment (2) Pneumonia (3) Sepsis (4) Loculated pleural effusion (5) Acute kidney injury Plan: on dialysis T-Thur sat (6) Blood loss anemia (7) Thrombocytopenia Plan: (8) Hepatitis C infection (9) Diarrhea Plan: cdiff pending / on isolation Problem Qualifiers (1) Pneumonia: Qualified Codes: J18.1 - Lobar pneumonia, unspecified organism (2) Sepsis: Qualified Codes: A41.9 - Sepsis, unspecified organism Lubna Irvin Jul 21, 2017 15:30
[2017-07-21] MEDS: PANTOPRAZOLE SOD 40 MG DELAYED RELEASE TAB PO SCH (20:34)
[2017-07-22] VITALS (20 sets, daily range): BP systolic 116–165; BP diastolic 54–100; PULSE 66–95; RESP 16–24; TEMP 96.8–99.6; O2SAT 92–99
[2017-07-22] MEDS: CEFTAROLINE IV SCH ×2 (01:58→12:31)
[2017-07-22] MEDS: SODIUM CHLORIDE 0.9% IV SCH ×2 (01:58→12:31)
[2017-07-22] MEDS: ONDANSETRON HCL 4 MG/2 ML VIAL IV PUSH PRN ×2 (01:58→07:43)
[2017-07-22 07:45] LABS: BASOPHIL % 0.6 % (0.0-2.0); EOSINOPHIL # 0.4 TH/MM3 (0-0.4); EOSINOPHIL % 5.3 % (0.0-4.0); HEMATOCRIT 22.3 % (39.0-51.0); HEMOGLOBIN 7.7 GM/DL (13.0-17.0); LYMPH % 7.8 % (9.0-44.0); LYMPHOCYTE # 0.6 TH/MM3 (1.0-4.8); MEAN CELL VOLUME 102.1 FL (80.0-100.0); MEAN CORPUSCULAR HEMOGLOBIN 35.4 PG (27.0-34.0); MEAN CORPUSCULAR HGB CONC 34.7 % (32.0-36.0); MEAN PLATELET VOLUME 8.5 FL (7.0-11.0); MONO % 14.3 % (0.0-8.0); MONOCYTE # 1.2 TH/MM3 (0-0.9); PLATELET COUNT 91 TH/MM3 (150-450); RED BLOOD COUNT 2.19 MIL/MM3 (4.50-5.90); RED CELL DISTRIBUTION WIDTH 17.9 % (11.6-17.2); WHITE BLOOD COUNT 8.3 TH/MM3 (4.0-11.0)
[2017-07-22 07:57] LABS: ALBUMIN 1.8 GM/DL (3.4-5.0); BICARBONATE 30.4 MEQ/L (21.0-32.0); BLOOD UREA NITROGEN 29 MG/DL (7-18); CALCIUM 8.1 MG/DL (8.5-10.1); CHLORIDE 98 MEQ/L (98-107); CREATININE 2.32 MG/DL (0.60-1.30); GLOMERULAR FILTRATION RATE 30 ML/MIN (>89); GLUCOSE,RANDOM 95 MG/DL (74-106); MAGNESIUM 1.3 MG/DL (1.5-2.5); SODIUM (NA) 134 MEQ/L (136-145)
[2017-07-22 08:13] LABS: FREE T4 0.98 NG/DL (0.76-1.46); PHOSPHORUS 3.1 MG/DL (2.5-4.9)
[2017-07-22] MEDS: FLUCONAZOLE 100 MG TAB PO SCH (08:23)
[2017-07-22] MEDS: SEVELAMER CARBONATE 800 MG TAB PO SCH (08:23)
[2017-07-22] MEDS: ACETAMINOPHEN/HYDROcodone 325 MG/5 MG TAB PO PRN ×2 (08:24→20:51)
[2017-07-22] MEDS: FUROSEMIDE 40 MG/4 ML VIAL IV PUSH SCH (08:25)
[2017-07-22] MEDS: SODIUM CHLORIDE 0.9% FLUSH 10 ML FLUSH IV FLUSH SCH ×2 (08:25→20:52)
[2017-07-22] MEDS: LACTULOSE SYRUP 20 GM/30 ML CUP PO SCH ×3 (08:25→18:00)
[2017-07-22] MEDS ORDERED: MAGNESIUM OXIDE 400 MG TAB PO ONE (09:00)
[2017-07-22] MEDS ORDERED: SODIUM CHLOR 0.9% 250 ML INJ 250 ML IV ONE (10:15)
[2017-07-22] MEDS ORDERED: ACETAMINOPHEN 325 MG TAB PO PRN (10:15)
[2017-07-22] MEDS ORDERED: diphenhydrAMINE HCL 25 MG CAP PO PRN (10:15)
--- NOTE | 2017-07-22 10:29 | HHI.PR ---
Subjective Remarks Patient states he is breathing a little better Taken off by isolation by infectious disease Discussed with RN and patient Await placement for hemodialysis Will probably need a permacath before discharge A.m. labs Discussed with RN and patient and rn case manager hospice 5-1 hemoglobin dropped will transfuse 2 units prbc will get pt and ot to eval and treat daily am labs hd on hold for today kidney functions continue to be stable DW RN AND PT AND CM AND FAMILY AND GI Objective Vitals Vital Signs Date Time Temp Pulse Resp B/P (MAP) Pulse Ox O2 Delivery O2 Flow Rate FiO2 07/22/17 08:01 98.3 93 16 142/66 (91) 93 07/22/17 08:00 87 07/22/17 08:00 Nasal Cannula 2.00 07/22/17 06:17 98.1 90 17 131/54 (79) 97 07/22/17 04:57 99.0 81 17 136/69 (91) 99 07/22/17 04:02 99.6 88 18 131/69 (89) 99 07/22/17 04:00 88 07/22/17 03:55 98.0 93 24 133/71 (91) 94 07/22/17 03:24 95 3.00 07/22/17 00:00 85 07/21/17 23:25 98.4 90 18 117/65 (82) 92 07/21/17 20:51 95 Nasal Cannula 2.00 07/21/17 20:41 Nasal Cannula 2.00 07/21/17 20:00 84 07/21/17 19:42 98.3 86 18 118/70 (86) 98 07/21/17 17:36 Nasal Cannula 2.00 07/21/17 16:01 98.4 92 18 125/68 (87) 95 07/21/17 16:00 82 07/21/17 12:04 98.0 84 17 132/72 (92) 96 07/21/17 12:00 85 07/21/17 11:30 Nasal Cannula 2.00 21 I/O 07/21/17 07/21/17 07/21/17 07/22/17 07/22/17 07/22/17 07:00 15:00 23:00 07:00 15:00 23:00 Intake Total 240 ml 831 ml 840 ml Output Total 650 ml 1500 ml Balance -410 ml 831 ml -660 ml Intake Oral 240 ml 831 ml 840 ml Output Urine Total 650 ml 1500 ml # Voids 2 # Bowel Movements 2 1 1 Result Diagram: 07/22/1762607/22/17626 Other Results Laboratory Tests Test 07/20/17 04:50 07/21/17 08:43 07/22/17 06:27 White Blood Count 9.8 TH/MM3 9.8 TH/MM3 8.3 TH/MM3 Red Blood Count 2.46 MIL/MM3 2.26 MIL/MM3 2.19 MIL/MM3 Hemoglobin 8.6 GM/DL 8.0 GM/DL 7.7 GM/DL Hematocrit 24.5 % 22.8 % 22.3 % Mean Corpuscular Volume 99.6 FL 100.8 FL 102.1 FL Mean Corpuscular Hemoglobin 34.8 PG 35.4 PG 35.4 PG Mean Corpuscular Hemoglobin Concent 35.0 % 35.1 % 34.7 % Red Cell Distribution Width 17.2 % 17.9 % 17.9 % Platelet Count 92 TH/MM3 101 TH/MM3 91 TH/MM3 Mean Platelet Volume 8.5 FL 8.3 FL 8.5 FL Neutrophils (%) (Auto) 77.7 % 74.0 % 72.0 % Lymphocytes (%) (Auto) 7.1 % 6.9 % 7.8 % Monocytes (%) (Auto) 11.3 % 12.7 % 14.3 % Eosinophils (%) (Auto) 3.4 % 5.6 % 5.3 % Basophils (%) (Auto) 0.5 % 0.8 % 0.6 % Neutrophils # (Auto) 7.7 TH/MM3 7.2 TH/MM3 6.0 TH/MM3 Lymphocytes # (Auto) 0.7 TH/MM3 0.7 TH/MM3 0.6 TH/MM3 Monocytes # (Auto) 1.1 TH/MM3 1.2 TH/MM3 1.2 TH/MM3 Eosinophils # (Auto) 0.3 TH/MM3 0.6 TH/MM3 0.4 TH/MM3 Basophils # (Auto) 0.0 TH/MM3 0.1 TH/MM3 0.0 TH/MM3 CBC Comment AUTO DIFF AUTO DIFF AUTO DIFF Differential Total Cells Counted 100 Neutrophils % (Manual) 62 % Band Neutrophils % 6 % Lymphocytes % 20 % Monocytes % 6 % Eosinophils % 4 % Basophils % 1 % Neutrophils # (Manual) 6.8 TH/MM3 Myelocytes 1 % Differential Comment FINAL DIFF MANUAL AUTO DIFF CONFIRMED AUTO DIFF CONFIRMED Platelet Estimate LOW LOW LOW Platelet Morphology Comment NORMAL NORMAL NORMAL Red Cell Morphology Comment NORMAL Blood Urea Nitrogen 34 MG/DL 32 MG/DL 29 MG/DL Creatinine 3.51 MG/DL 2.73 MG/DL 2.32 MG/DL Random Glucose 107 MG/DL 100 MG/DL 95 MG/DL Total Protein 6.8 GM/DL 6.6 GM/DL Albumin 2.1 GM/DL 2.0 GM/DL 1.8 GM/DL Calcium Level 8.0 MG/DL 8.4 MG/DL 8.1 MG/DL Magnesium Level 2.0 MG/DL 1.5 MG/DL 1.3 MG/DL Alkaline Phosphatase 72 U/L 67 U/L Aspartate Amino Transf (AST/SGOT) 213 U/L 113 U/L Alanine Aminotransferase (ALT/SGPT) 134 U/L 95 U/L Total Bilirubin 2.9 MG/DL 2.9 MG/DL Sodium Level 137 MEQ/L 134 MEQ/L 134 MEQ/L Potassium Level 4.0 MEQ/L 3.9 MEQ/L 4.0 MEQ/L Chloride Level 99 MEQ/L 98 MEQ/L 98 MEQ/L Carbon Dioxide Level 32.8 MEQ/L 30.8 MEQ/L 30.4 MEQ/L Anion Gap 5 MEQ/L 5 MEQ/L 6 MEQ/L Estimat Glomerular Filtration Rate 19 ML/MIN 25 ML/MIN 30 ML/MIN Phosphorus Level 3.1 MG/DL Free Thyroxine 0.98 NG/DL Thyroid Stimulating Hormone 3rd Gen 9.180 uIU/ML Imaging Last Impressions Abdomen/Pelvis CT 07/19/17 0000 Signed Impressions: Service Date/Time: Wednesday, July 19, 2017 20:04 - CONCLUSION: 1. Small right pleural effusion containing air, could be iatrogenic or possible infection. 2. Cholelithiasis. 3. No retroperitoneal hemorrhage. 4. Anasarca soft tissues. 5. Air in the bladder could be iatrogenic or infection. Santiago Mccartney MD Chest X-Ray 07/18/17 0600 Signed Impressions: Service Date/Time: Tuesday, July 18, 2017 05:12 - CONCLUSION: 1. No evidence of pneumothorax status post right chest tube removal. 2. Persistent right pleural effusion and vascular congestion. Prabhakar Lynch MD Chest CT 07/12/17 0000 Signed Impressions: Service Date/Time: Wednesday, July 12, 2017 12:19 - CONCLUSION: 1. Interval placement of right-sided percutaneous drainage catheter with mild decrease in the size of the right pleural effusion. 2. New small left pleural effusion. 3. Prominent lymph nodes and induration remaining in the right axillary region and 4. The previously noted prominence right paratracheal lymph node is stable. 5. Mild consolidation remains in the right lung base. aGto Patino MD Chest Tube Insertion 07/08/17 0000 Signed Impressions: Service Date/Time: Saturday, July 08, 2017 16:27 - CONCLUSION: Uncomplicated chest tube placement as above. Santiago Mccartney MD Abdomen Ultrasound 07/08/17 0000 Signed Impressions: Service Date/Time: Saturday, July 08, 2017 18:00 - CONCLUSION: 1. Cirrhotic appearing liver with splenomegaly. 2. Extensive cholelithiasis. Santiago Mccartney MD Thoracentesis Ultrasound 07/07/17 0000 Signed Impressions: Service Date/Time: Friday, July 07, 2017 10:32 - CONCLUSION: Uncomplicated ultrasound guided thoracentesis. Santiago Mccartney MD Foot MRI 07/07/17 0000 Signed Impressions: Service Date/Time: Friday, July 07, 2017 15:40 - CONCLUSION: Probable mild cellulitis without osteomyelitis or deep space involvement. Josh Santiago MD FACR Catheter Placement X-Ray 07/07/17 0000 Signed Impressions: Service Date/Time: Friday, July 07, 2017 13:15 - CONCLUSION: Uncomplicated line placement as above. Masoud Lopez MD Renal Ultrasound 07/06/17 0000 Signed Impressions: Service Date/Time: Thursday, July 06, 2017 20:20 - CONCLUSION: 1. Normal appearance the kidneys. 2. Moderate right pleural effusion. Luis Miguel Villegas MD Chest Ultrasound 07/05/17 0000 Signed Impressions: Service Date/Time: Wednesday, July 05, 2017 12:26 - CONCLUSION: Loculated fluid as above. Josh Santiago MD FACR Foot X-Ray 07/04/17 0000 Signed Impressions: Service Date/Time: Tuesday, July 04, 2017 15:35 - CONCLUSION: Negative for fracture or dislocation. Follow up in 7-10 days is suggested if symptoms persist. Josh Santiago MD FACR Objective Remarks GENERAL: Awake alert and oriented 3 talkative and cooperative SKIN: Warm and dry. HEAD: Atraumatic. Normocephalic. EYES: Pupils equal and round. No scleral icterus. No injection or drainage. Extraocular muscles intact ENT: No nasal bleeding or discharge. Mucous membranes pink and moist. Tongue is midlin NECK: Trachea midline. No JVD. Supple CARDIOVASCULAR: Regular rate and rhythm. S1-S2 no S3 or S4 RESPIRATORY: No accessory muscle use. Few scattered rhonchi and some coarse breath sounds breath sounds equal bilaterally. GASTROINTESTINAL: Abdomen soft, non-tender, nondistended. Hepatic and splenic margins not palpable. MUSCULOSKELETAL: Extremities without clubbing, cyanosis, bilateral lower extremity edema plus no obvious deformities. NEUROLOGICAL: Awake and alert. No obvious cranial nerve deficits. Motor grossly within normal limits. 4 out of 5 muscle strength in the arms and legs. Normal speech. PSYCHIATRIC: Appropriate mood and affect; insight and judgment normal. Procedures Echo 07/04/2017 The left ventricular systolic function is normal with an estimated ejection fraction in the range of 60-65%. Wall thickness is measured at the upper limits of normal. No regional wall motion abnormalities are present. Normal left ventricular size. There is trace tricuspid valve regurgitation. The estimated pulmonary arterial pressure is 33 mmHg. 07/08/2017 -right-sided chest tube placement by interventional radiology. 07/14/2017 Right thoracoscopic exploration to evacuate right pleural effusion, pleural biopsy Vascath Medications and IVs Current Medications Acetaminophen (Tylenol) 650 mg ONCE ONCE PO Last administered on 07/03/17at 07: 10; Start 07/03/17 at 05:15; Stop 07/03/17 at 05:17; Status DC Sodium Chloride 1,000 ml @ 1,000 mls/hr Q1H ONCE IV Last administered on at 05:15; Start 07/03/17 at 05:15; Stop 07/03/17 at 06:14; Status DC Guaifenesin/ Codeine Phosphate (Robitussin Ac 200-20 Mg/10 ml Liq) 10 ml ONCE ONCE PO Last administered on 07/03/17at 05:39; Start 07/03/17 at 05:15; Stop 03/10 at 05:17; Status DC Vancomycin HCl 1000 mg/Sodium Chloride 250 ml @ 250 mls/hr ONCE STAT IV Last administered on 07/03/17at 08:10; Start 07/03/17 at 07:47; Stop 07/03/17 at 08:46 ; Status DC Piperacillin Sod/ Tazobactam Sod 100 ml @ 200 mls/hr ONCE STAT IV Last administered on 07/03/17at 08:09; Start 07/03/17 at 07:47; Stop 07/03/17 at 08:16 ; Status DC Sodium Chloride 1,000 ml @ 999 mls/hr BOLUS ONCE IV Last administered on 07/03at 08:10; Start 07/03/17 at 08:00; Stop 07/03/17 at 09:00; Status DC Iohexol (Omnipaque 350 Inj) 97 ml STK-MED ONCE IVCONTRAST Last administered on 07/03/17at 08:52; Start 07/03/17 at 08:52; Stop 07/03/17 at 08:53; Status DC Sodium Chloride 1,000 ml @ 100 mls/hr Q10H IV Last administered on 07/07/17at 00:00; Start 07/03/17 at 10:02; Stop 07/07/17 at 09:17; Status DC Sodium Chloride (NS Flush) 2 ml UNSCH PRN IV FLUSH FLUSH AFTER USING IV ACCESS Last administered on 07/11/17at 02:27; Start 07/03/17 at 10:15; Stop 07/14/17 at 15:53; Status DC Sodium Chloride (NS Flush) 2 ml BID IV FLUSH Last administered on 07/14/17at 08: 37; Start 07/03/17 at 21:00; Stop 07/14/17 at 15:53; Status DC Acetaminophen (Tylenol) 650 mg Q4H PRN PO HEADACHE, PAIN SCALE 1 TO 2 Last administered on 07/20/17at 17:33; Start 07/03/17 at 10:15 Ondansetron HCl (Zofran Inj) 4 mg Q6H PRN IVP NAUSEA OR VOMITING Last administered on 07/13/17at 08:32; Start 07/03/17 at 10:15; Stop 07/14/17 at 15:55 ; Status DC Naloxone HCl (Narcan Inj) 0.4 mg UNSCH PRN IV PUSH SEE LABEL COMMENTS; Start at 10:15 Ceftriaxone Sodium 1000 mg/ Sodium Chloride 100 ml @ 200 mls/hr Q12H IV Last administered on 07/04/17at 09:30; Start 07/03/17 at 21:00; Stop 07/04/17 at 13:38 ; Status DC Ibuprofen (Motrin) 600 mg Q6H PRN PO PAIN > 3 Last administered on 07/06/17at 09 :19; Start 07/03/17 at 18:15; Stop 07/06/17 at 14:27; Status DC Guaifenesin/ Dextromethorphan (Robitussin Dm 200-20 Mg/10 ml Liq) 10 ml ONCE ONCE PO Last administered on 07/03/17at 20:21; Start 07/03/17 at 20:30; Stop 03/10 at 20:31; Status DC Gabapentin (Neurontin) 600 mg BID PO Last administered on 07/06/17at 09:14; Start 07/04/17 at 09:00; Stop 07/14/17 at 09:29; Status DC Lisinopril (Prinivil) 40 mg DAILY PO Last administered on 07/06/17at 09:00; Start 07/04/17 at 09:00; Stop 07/06/17 at 14:27; Status DC Azithromycin (Zithromax) 500 mg DAILY PO Last administered on 07/04/17at 09:34; Start 07/04/17 at 09:00; Stop 07/04/17 at 14:21; Status DC Pharmacy Profile Note 0 ml @ 0 mls/hr UNSCH OTHER ; Start 07/04/17 at 09:15; Stop 07/07/17 at 10:10; Status DC Vancomycin HCl 1000 mg/Sodium Chloride 250 ml @ 250 mls/hr Q12H IV ; Start at 09:15; Status UNV Vancomycin HCl 2000 mg/Sodium Chloride 520 ml @ 250 mls/hr Q12H IV Last administered on 07/06/17at 01:55; Start 07/04/17 at 13:00; Stop 07/07/17 at 10:10 ; Status DC Miscellaneous Information SPECIFIC LAB TO BE DRAWN:VANCOMYCIN TROUGH DATE TO... ONCE ONCE .XX Last administered on 07/06/17at 01:45; Start 07/06/17 at 00:45; Stop 07/06/17 at 00:46; Status DC Benzonatate (Tessalon) 200 mg TID PRN PO COUGH Last administered on 07/12/17at 02:57; Start 07/04/17 at 11:45 Ceftriaxone Sodium 2000 mg/ Sodium Chloride 100 ml @ 200 mls/hr DAILY IV ; Start 07/05/17 at 09:00; Stop 07/05/17 at 09:00; Status DC Levofloxacin (Levaquin) 750 mg DAILY@1600 PO Last administered on 07/05/17 15: 19; Start 07/04/17 at 16:00; Stop 07/06/17 at 12:42; Status DC Senna/Docusate Sodium (Krysten-Colace) 2 tab ONCE ONCE PO Last administered on at 18:46; Start 07/05/17 at 18:00; Stop 07/05/17 at 18:11; Status DC Magnesium Hydroxide (Milk Of Magnesia Liq) 30 ml ONCE ONCE PO Last administered on 07/05/17at 18:46; Start 07/05/17 at 18:00; Stop 07/05/17 at 18:11 ; Status DC Sodium Chloride 500 ml @ 500 mls/hr BOLUS ONCE IV Last administered on at 11:00; Start 07/06/17 at 11:00; Stop 07/06/17 at 11:59; Status DC Lactulose (Lactulose Liq) 30 ml QID PO Last administered on 07/16/17at 17:12; Start 07/06/17 at 13:00; Stop 07/18/17 at 10:03; Status DC Levofloxacin (Levaquin) 250 mg DAILY@1600 PO Last administered on 07/09/17at 17: 02; Start 07/06/17 at 16:00; Stop 07/10/17 at 12:30; Status DC Sodium Chloride 1,000 ml @ 999 mls/hr BOLUS ONCE IV Last administered on 07/06at 13:45; Start 07/06/17 at 13:45; Stop 07/06/17 at 14:45; Status DC Sodium Chloride 1,000 ml @ 0 mls/hr Q0M PRN OTHER For Prime & Rinse Back Last administered on 07/14/17at 12:00; Start 07/07/17 at 09:15 Heparin Sodium (Porcine) (Heparin Inj) 8,000 units UNSCH PRN IV FLUSH WITH DIALYSIS; Start 07/07/17 at 09:15 Sodium Chloride 1,000 ml @ 200 mls/hr Q5H PRN IV WITH DIALYSIS; Start 07/07/17 at 09:15 Sodium Chloride 1,000 ml @ 0 mls/hr Q0M PRN OTHER WITH DIALYSIS; Start at 09:15 Mannitol (Mannitol Inj) 12.5 gm UNSCH PRN IV WITH DIALYSIS Last administered on 07/15/17at 10:41; Start 07/07/17 at 09:15 Albumin Human 100 ml @ 60 mls/hr UNSCH PRN IV WITH DIALYSIS Last administered on 07/10/17at 09:00; Start 07/07/17 at 09:15; Stop 07/14/17 at 11:02; Status DC Sodium Chloride (NS Flush) 5 ml UNSCH PRN IV FLUSH WITH DIALYSIS; Start at 09:15 Heparin Sodium (Porcine) (Heparin Inj) UNSCH PRN .XX WITH DIALYSIS Last administered on 07/15/17at 10:39; Start 07/07/17 at 09:15 Gentamicin Sulfate (Gentamicin Inj) 20 mg UNSCH PRN OTHER WITH DIALYSIS Last administered on 07/15/17at 10:40; Start 07/07/17 at 09:15 Ondansetron HCl (Zofran Inj) 4 mg UNSCH PRN IV PUSH WITH DIALYSIS Last administered on 07/16/17at 13:39; Start 07/07/17 at 09:15 Acetaminophen (Tylenol) 650 mg UNSCH PRN PO for headach, pain, temp > 101F; Start 07/07/17 at 09:15 Diphenhydramine HCl (Benadryl) 25 mg UNSCH PRN PO for hives/itching/anaphylaxis ; Start 07/07/17 at 09:15 Nitroglycerin (Nitrostat Sl) 0.4 mg UNSCH PRN SL CHEST PAIN; Start 07/07/17 at 09:15 Clonidine (Catapres) 0.1 mg UNSCH PRN PO for BP > 180/100 X 2 readings; Start 07/07/17 at 09:15 Gelatin (Gelfoam 12 Mm/7 Mm Top) 1 foam UNSCH PRN TOP SEE LABEL COMMENTS; Start 07/07/17 at 09:15 Daptomycin 600 mg/ Sodium Chloride 100 ml @ 200 mls/hr Q48H IV Last administered on 07/09/17 13:32; Start 07/07/17 at 12:00; Stop 07/10/17 at 12:30 ; Status DC Lidocaine HCl (Xylocaine 1% Inj) 20 ml STK-MED ONCE .ROUTE Last administered on 07/07/17at 11:46; Start 07/07/17 at 11:46; Stop 07/07/17 at 11:47; Status DC Heparin Sodium (Porcine) (*HEPARIN INJ Periprocedural ONLY) 10,000 units STK- MED ONCE .ROUTE Last administered on 07/07/17at 13:05; Start 07/07/17 at 12:39; Stop 07/07/17 at 12:40; Status DC Sodium Chloride (NS Flush) UNSCH PRN IV FLUSH SEE PROTOCOL; Start 07/07/17 at 13:45 Heparin Sodium (Porcine) (Heparin Inj) UNSCH PRN IV FLUSH SEE PROTOCOL Last administered on 07/12/17at 11:25; Start 07/07/17 at 13:45 Linezolid (Zyvox) 600 mg Q12HR PO Last administered on 07/10/17at 08:12; Start 07/07/17 at 14:00; Stop 07/10/17 at 12:30; Status DC Ferrous Sulfate (Ferrous Sulfate) 325 mg BID PO Last administered on 07/08/17at 12:00; Start 07/07/17 at 21:00; Stop 07/08/17 at 13:33; Status DC Tramadol HCl (Ultram) 50 mg Q8H PRN PO PAIN SCALE 6 TO 10 Last administered on 07/14/17at 01:53; Start 07/08/17 at 13:45 Fentanyl Citrate (fentaNYL INJ) 100 mcg STK-MED ONCE .ROUTE Last administered on 07/08/17at 15:53; Start 07/08/17 at 15:53; Stop 07/08/17 at 15:54; Status DC Lorazepam (Ativan Inj) 2 mg STK-MED ONCE .ROUTE Last administered on 07/08/17at 15:53; Start 07/08/17 at 15:53; Stop 07/08/17 at 15:54; Status DC Lidocaine HCl (Xylocaine 1% Inj) 10 ml STK-MED ONCE OTHER ; Start 07/08/17 at 16 :30; Stop 07/08/17 at 17:22; Status DC Ceftaroline Fosamil 200 mg/ Sodium Chloride 100 ml @ 100 mls/hr Q12H IV Last administered on 07/22/17at 01:58; Start 07/10/17 at 14:00 Albumin Human 100 ml @ 60 mls/hr Q12H IV Last administered on 07/14/17at 10:01 ; Start 07/12/17 at 22:30; Stop 07/14/17 at 11:02; Status DC Sodium Chloride (NS Flush) 2 ml BID IV FLUSH ; Start 07/13/17 at 21:00; Stop at 15:54; Status DC Vancomycin HCl 1000 mg/Sodium Chloride 250 ml @ 250 mls/hr COVERED [employer] IV ; Start 07/13/17 at 13:00; Stop 07/20/17 at 12:59; Status UNV Mupirocin (Bactroban Nasal 2% Oint) 1 applic BID EACH NARE Last administered on 07/18/17at 09:00; Start 07/13/17 at 13:00; Stop 07/18/17 at 12:59; Status DC Chlorhexidine Gluconate (Hibiclens 4% Top Soln) 1 applic [employer] TOPICAL ; Start 07/13/17 at 13:00; Stop 07/20/17 at 12:59; Status DC Vancomycin HCl 1000 mg/Sodium Chloride 250 ml @ 250 mls/hr [employer] IV ; Start 07/13/17 at 13:00; Stop 07/20/17 at 12:59; Status UNV Vancomycin HCl 2000 mg/Sodium Chloride 520 ml @ 250 mls/hr [employer] IV ; Start 07/13/17 at 13:45; Stop 07/20/17 at 13:44; Status Cancel Vancomycin HCl 1500 mg/Sodium Chloride 515 ml @ 257.5 mls/ hr [employer] IV ; Start 07/13/17 at 13:45; Stop 07/14/17 at 11:02; Status DC Lactated Ringer's 1,000 ml @ 30 mls/hr Q24H PRN IV SEE LABEL COMMENTS; Start at 20:15; Stop 07/16/17 at 20:14; Status DC Sodium Chloride 500 ml @ 30 mls/hr [id number] PRN IV SEE LABEL COMMENTS; Start at 20:15; Stop 07/16/17 at 20:14; Status DC Povidone Iodine (Betadine 5% Antisepsis Kit) 1 applic [employer] PRN EACH NARE SEE LABEL COMMENTS; Start 07/13/17 at 20:15; Stop 07/16/17 at 20:14; Status DC Chlorhexidine Gluconate (Chlorhexidine 2% Cloth) 3 pack [employer] PRN TOPICAL SEE LABEL COMMENTS; Start 07/13/17 at 20:15; Stop 07/16/17 at 20:14; Status DC Gabapentin (Neurontin) 300 mg BID PO ; Start 07/14/17 at 21:00; Status Future Hold Fluconazole (Diflucan) 100 mg DAILY PO Last administered on 07/16/17at 09:33; Start 07/14/17 at 09:30; Stop 07/16/17 at 10:00; Status DC Bupivacaine HCl (Marcaine Pf 0.5% Inj) 30 ml STK-MED ONCE .ROUTE ; Start at 13:25; Stop 07/14/17 at 13:26; Status DC Albuterol Sulfate (Albuterol Neb) 2.5 mg Q6HR NEB NEB Last administered on at 13:44; Start 07/14/17 at 16:00; Stop 07/18/17 at 15:59; Status DC Albuterol Sulfate (Albuterol Neb) 2.5 mg Q2HR NEB PRN NEB WHEEZING; Start 07/14 at 15:45 Sodium Chloride (NS Flush) 2 ml BID IV FLUSH Last administered on 07/22/17at 08: 25; Start 07/14/17 at 21:00 Sodium Chloride (NS Flush) 2 ml UNSCH PRN IV FLUSH FLUSH AFTER USING IV ACCESS ; Start 07/14/17 at 15:45 Miscellaneous Information (Post-op Orders (for Pharmacy)) STAT ONCE OTHER ; Start 07/14/17 at 15:45; Stop 07/14/17 at 15:56; Status DC Pantoprazole Sodium (Protonix) 40 mg HS PO Last administered on 07/21/17at 20:34 ; Start 07/14/17 at 21:00 Ondansetron HCl (Zofran Inj) 4 mg Q6H PRN IV PUSH NAUSEA OR VOMITING Last administered on 07/22/17at 07:43; Start 07/14/17 at 15:45 Docusate Calcium (Surfak) 240 mg HS PO Last administered on 07/16/17at 20:35; Start 07/14/17 at 21:00; Stop 07/19/17 at 07:34; Status DC Magnesium Hydroxide (Milk Of Magnesia Liq) 30 ml DAILY PRN PO CONSTIPATION; Start 07/14/17 at 15:45 Acetaminophen (Tylenol) 650 mg Q4H PRN PO TEMPERATURE > 101 F; Start 07/14/17 at 15:45 Oxycodone/ Acetaminophen (Percocet 5-325 Mg) 1 tab Q3H PRN PO PAIN SCALE 3 TO 5 Last administered on 07/16/17at 09:34; Start 07/14/17 at 15:45; Stop 07/17/17 at 16:23; Status DC Oxycodone/ Acetaminophen (Percocet 5-325 Mg) 2 tab Q3H PRN PO PAIN SCALE 6 TO 10 Last administered on 07/17/17at 01:11; Start 07/14/17 at 15:45; Stop 07/17/17 at 09:28; Status DC Fentanyl Citrate (fentaNYL INJ) 500 mcg STK-MED ONCE .ROUTE ; Start 07/14/17 at 16:06; Stop 07/14/17 at 16:07; Status DC Morphine Sulfate (*morphine INJ PERIprocedure ONLY) 8 mg STK-MED ONCE .ROUTE Last administered on 07/14/17at 16:31; Start 07/14/17 at 16:31; Stop 07/14/17 at 16:32; Status DC Miscellaneous Information ALL NURSING DEPARTME... UNSCH PRN .XX SEE LABEL COMMENTS; Start 07/14/17 at 16:05; Stop 07/15/17 at 16:04; Status DC Sodium Chloride (NS Flush) 5 ml UNSCH PRN IV FLUSH SEE PROTOCOL TABLE; Start at 16:45 Heparin Sodium (Porcine) (Heparin Inj) 2,000 units UNSCH PRN IV FLUSH SEE PROTOCOL TABLE Last administered on 07/14/17at 16:35; Start 07/14/17 at 16:45 Albumin Human 100 ml @ 60 mls/hr UNSCH PRN IV WITH DIALYSIS Last administered on 07/15/17at 10:41; Start 07/15/17 at 08:45 Lactated Ringer's 1,000 ml @ As Directed STK-MED ONCE IV ; Start 07/14/17 at 12 :00; Stop 07/17/17 at 08:44; Status DC Sodium Chloride 500 ml @ As Directed STK-MED ONCE IV ; Start 07/14/17 at 12:00 ; Stop 07/17/17 at 08:44; Status DC Parenteral Electrolytes 1,000 ml @ As Directed STK-MED ONCE IV ; Start at 12:00; Stop 07/17/17 at 08:44; Status DC Lidocaine HCl (Xylocaine-Mpf 1% Inj) 5 ml STK-MED ONCE OTHER ; Start 07/14/17 at 12:00; Stop 07/17/17 at 08:44; Status DC Rocuronium Parkin (Zemuron Inj) 50 mg STK-MED ONCE IV PUSH ; Start 07/14/17 at 12:00; Stop 07/17/17 at 08:44; Status DC Neostigmine Methylsulfate (Prostigmine Inj) 5 mg STK-MED ONCE IV PUSH ; Start at 12:00; Stop 07/17/17 at 08:44; Status DC Glycopyrrolate (Robinul Inj) 1 mg STK-MED ONCE IV PUSH ; Start 07/14/17 at 12:00 ; Stop 07/17/17 at 08:44; Status DC Phenylephrine HCl (Neosynephrine/ NS 1000 Mcg/10ml Syr) 1,000 mcg STK-MED ONCE IV ; Start 07/14/17 at 12:00; Stop 07/17/17 at 08:44; Status DC Dexamethasone Sodium Phosphate (Decadron Inj) 8 mg STK-MED ONCE IV ; Start 07/14 at 12:00; Stop 07/17/17 at 08:44; Status DC Propofol (Diprivan 200 Mg/20 ml Inj) 200 mg STK-MED ONCE IV ; Start 07/14/17 at 12:00; Stop 07/17/17 at 08:44; Status DC Sevelamer Carbonate (Renvela) 1,600 mg TIDAC PO Last administered on 07/22/17 08:23; Start 07/17/17 at 12:00; Stop 07/22/17 at 08:48; Status DC Albumin Human 50 ml @ 60 mls/hr ONCE ONCE IV Last administered on 07/17/17at 10 :04; Start 07/17/17 at 09:30; Stop 07/17/17 at 10:19; Status DC Sodium Chloride 250 ml @ 100 mls/hr BOLUS ONCE IV Last administered on at 10:05; Start 07/17/17 at 09:30; Stop 07/17/17 at 11:59; Status DC Fluconazole (Diflucan) 100 mg DAILY PO Last administered on 07/22/17at 08:23; Start 07/17/17 at 13:45 Acetaminophen/ Hydrocodone Bitart ([place] 5-325 Mg) 1 tab Q6H PRN PO PAIN SCALE 3 TO 5 Last administered on 07/22/17at 08:24; Start 07/17/17 at 16:30 Midodrine (Proamatine) 5 mg ONCE ONCE PO Last administered on 07/17/17at 20:39 ; Start 07/17/17 at 19:45; Stop 07/17/17 at 19:46; Status DC Lactulose (Lactulose Liq) 30 ml QID PRN PO CONSTIPATION; Start 07/18/17 at 10: 15; Stop 07/19/17 at 06:20; Status DC Lactulose (Lactulose Liq) 30 ml TID PO Last administered on 07/21/17at 12:43; Start 07/19/17 at 09:00 Sodium Chloride 250 ml @ 15 mls/hr ONCE ONCE IV Last administered on at 13:02; Start 07/19/17 at 09:15; Stop 07/20/17 at 01:54; Status DC Furosemide (Lasix Inj) 40 mg DAILY IV PUSH Last administered on 07/22/17at 08:25 ; Start 07/21/17 at 11:00 Magnesium Oxide (Mag-Ox) 400 mg ONCE ONCE PO ; Start 07/22/17 at 09:00; Stop 07/22/17 at 09:01; Status DC A/P Problem List: (1) Sepsis ICD Code: A41.9 - Sepsis, unspecified organism Status: Acute (2) Pneumonia ICD Code: J18.9 - Pneumonia, unspecified organism Status: Acute (3) Bandemia ICD Code: D72.825 - Bandemia Status: Acute (4) Elevated lipase ICD Code: R74.8 - Abnormal levels of other serum enzymes Status: Acute (5) Hypertension ICD Code: I10 - Essential (primary) hypertension Status: Acute (6) Axillary lymphadenopathy ICD Code: R59.0 - Localized enlarged lymph nodes Assessment and Plan On 07/03/2017, Mr. Wade, a 46 year old male presented to the ED due to flu like symptoms despite being treated for flu by his PCP. He complained of right- sided pleuritic chest pain. He reported fever and chills. Temperature in the emergency department was 101.2F. CT chest showed right pleural effusion with some atelectasis. CT abdomen pelvis showed a liver lesion. Severe sepsis - resolved. MRSA bacteremia MRSA pneumonia Empyema - pleural fluid grew MRSA Pneumonia on CT chest, liver lesion, right axillary lymphadenopathy, possible cellulitis, rpt CT in [address] July 19, 2017 showed right pleural effusion containing air s/p chest tube insertion Pleural fluid cx grew MRSA. Blood cx also grew MRSA. Appreciate ID input. Currently patient is on Ceftaroline 200mg Q12hrs to cover MRSA pneumonia and bacteremia. And will need Zyvox at discharge 07/05 - Echo showed no vegetation. s/p Right thoracoscopic exploration to evacuate right pleural effusion, pleural biopsy on 07/15/2017. CT removed. Will alert cardiothoracic surgery with continued bleeding from previous CT site Acetaminophen, tramadol as needed for pain. Indeterminate QFT TB testing. AFB smear negative. AFB culture pending. Cleared for isolation discontinuation by infectious disease Acute kidney injury Creatinine 0.8 on 07/04/2017. Cr 9.4 on 07/15/2017. Now on dialysis. Possibly due to vancomycin as well as post infectious Continue dialysis per Nephrology. Permacath exchange per renal Air in the urinary bladder history of Em catheter insertion. Will discuss with Liver cirrhosis Hepatitis C genotype 1a Liver lesion 1.5cm GI following. Patient will likely need an MRI study in future. Thrombocytopenia. Stable Symptomatic anemia. Hemoglobin improved s/p packed RBC transfusion. We will continue to monitor--WILL TRANSFUSE 2 UNITS PRBC PT AND OT TO EVAL AND TREAT Full code. SCDs. No chemical prophylaxis secondary to thrombocytopenia PT AND OT TO EVAL AND TREAT Discharge Planning Will need hemodialysis set up before he can be discharged IF HE STAYS ON HEMODIALYSIS Problem Qualifiers (1) Sepsis: Qualified Codes: A41.9 - Sepsis, unspecified organism (2) Pneumonia: Qualified Codes: J18.1 - Lobar pneumonia, unspecified organism (3) Hypertension: Qualified Codes: I10 - Essential (primary) hypertension Josh Mendosa DO July 22, 2017 10:29
--- NOTE | 2017-07-22 11:11 | HHI.NPPN ---
Subjective Renal Failure: Acute Interval History Lying in bed. He is ordered two units blood transfusion today. (Lisa Tovar) Review of Systems General Constitutional: Fatigue (Lisa Tovar) Respiratory Lungs: SOB Respiratory Remarks On exertion (Lisa Tovar) Cardiovascular Cardiac: Edema (Lisa Tovar) Objective Data Data Vital Signs Date Time Temp Pulse Resp B/P (MAP) Pulse Ox O2 Delivery O2 Flow Rate FiO2 07/22/17 08:01 98.3 93 16 142/66 (91) 93 07/22/17 08:00 87 07/22/17 08:00 Nasal Cannula 2.00 07/22/17 06:17 98.1 90 17 131/54 (79) 97 07/22/17 04:57 99.0 81 17 136/69 (91) 99 07/22/17 04:02 99.6 88 18 131/69 (89) 99 07/22/17 04:00 88 07/22/17 03:55 98.0 93 24 133/71 (91) 94 07/22/17 03:24 95 3.00 07/22/17 00:00 85 07/21/17 23:25 98.4 90 18 117/65 (82) 92 07/21/17 20:51 95 Nasal Cannula 2.00 07/21/17 20:41 Nasal Cannula 2.00 07/21/17 20:00 84 07/21/17 19:42 98.3 86 18 118/70 (86) 98 07/21/17 17:36 Nasal Cannula 2.00 07/21/17 16:01 98.4 92 18 125/68 (87) 95 07/21/17 16:00 82 07/21/17 12:04 98.0 84 17 132/72 (92) 96 07/21/17 12:00 85 07/21/17 11:30 Nasal Cannula 2.00 21 (Lisa Tovar) -: 07/22/17 0627 07/22/17 06 Tubes & Lines: Vas-Cath (Lisa Tovar) Physical Exam General Appearance: Well Developed, No Acute Distress, Comfortable (Lisa Tovar) Eyes Eye Exam: Pupils Equal (Lisa Tovar TECHNICAL OPERATIONS SPECIALIST) Throat Throat Exam: Oral Mucosa [place] & Moist (Lisa Tovar TECHNICAL OPERATIONS SPECIALIST) Pulmonary Resp Exam: Breath Sounds Equal, Crackles, Decreased Bases, Diminished Breath Sounds (Lisa Tovar TECHNICAL OPERATIONS SPECIALIST) Cardiology CV Exam: Regular, Normal Sinus Rhythm, Murmur (Lisa Tovar. TECHNICAL OPERATIONS SPECIALIST) Gastrointestinal/Abdomen GI Exam: Soft, Non-Tender, Bowel Sounds Present (Lisa Tovar TECHNICAL OPERATIONS SPECIALIST) Musculoskeletal MS Exam: Joints Intact, Normal Gait, Normal Tone, Good Strength (Lisa Tovar. TECHNICAL OPERATIONS SPECIALIST) Integumentary Skin Exam: Warm, Dry, Intact (Lisa Tovar TECHNICAL OPERATIONS SPECIALIST) Extremeties Extremities Exam: Pedal Pulses Palpable, Moderate Edema (Lisa Tovar TECHNICAL OPERATIONS SPECIALIST) Neurologic Neuro Exam: Alert, Awake, Oriented, Speech Clear, Moving All Extremities (Lisa Tovar TECHNICAL OPERATIONS SPECIALIST) Psychiatric Psych Exam: Appropriate Responses (Lisa Tovar) Assessment/Plan Discussed Condition With: Patient, Parent Assessment Summary: RODOLFO/Acute Renal Failure, Acute Tubular Necrosis Problem List: (1) Acute kidney injury ICD Codes: N17.9 - Acute kidney failure, unspecified Plan: He suffered ATN has been on dialysis since 07/07 He is in recovery phase, renal function improved Excellent urine output, is on Lasix daily Hold HD today Repeat labs in AM. If continued improvement will remove vascath. Avoid nephrotoxic agents and renally dose appropriate to his renal status Stop Renvela Replace magnesium Monitor urine output. (2) Sepsis ICD Codes: A41.9 - Sepsis, unspecified organism Status: Acute Plan: ID following s/p thoracentesis 07/07. Treated for MRSA, empyema. chest tube removed, s/p VATS. On Teflaro Monitor clinically. (3) Hypertension ICD Codes: I10 - Essential (primary) hypertension Status: Acute Plan: Hypotension improved Start metoprolol (4) Hepatitis C infection ICD Codes: B19.20 - Unspecified viral hepatitis C without hepatic coma Status: Acute Plan: Workup is in progress. GI and ID following. (5) Anemia ICD Codes: D64.9 - Anemia, unspecified Plan: 2 units ordered for today Limit daily blood draws CT not suggesting Retroperitoneal bleed (Lisa Tovar) Plan patient was seen and examined, agree with above assessment and plan. Renal function has improved, no need for dialysis. Vascath can be removed in 1-2 days. (Bj Amaya MD) Problem Qualifiers (1) Sepsis: Qualified Codes: A41.9 - Sepsis, unspecified organism (2) Hypertension: Qualified Codes: I10 - Essential (primary) hypertension Lisa Tovar July 22, 2017 11:11 Bj Amaya MD July 22, 2017 11:44
[2017-07-22] MEDS ORDERED: FUROSEMIDE 20 MG/2 ML VIAL IV PUSH ONE (11:15)
[2017-07-22] MEDS: METOPROLOL TARTRATE 25 MG TAB PO SCH ×2 (13:37→20:51)
--- NOTE | 2017-07-22 13:40 | HHI.GIFU ---
Subjective Remarks Pt resting in bed, mother at bedside. c/o that PT did not do much with him. Had a fall yesterday. (Stefani Hui) Objective Vitals I&O Vital Signs Date Time Temp Pulse Resp B/P (MAP) Pulse Ox O2 Delivery O2 Flow Rate FiO2 07/22/17 12:01 98.5 90 18 135/64 (87) 92 07/22/17 11:31 94 Nasal Cannula 2.00 07/22/17 08:01 98.3 93 16 142/66 (91) 93 07/22/17 08:00 87 07/22/17 08:00 Nasal Cannula 2.00 07/22/17 06:17 98.1 90 17 131/54 (79) 97 07/22/17 04:57 99.0 81 17 136/69 (91) 99 07/22/17 04:02 99.6 88 18 131/69 (89) 99 07/22/17 04:00 88 07/22/17 03:55 98.0 93 24 133/71 (91) 94 07/22/17 03:24 95 3.00 07/22/17 00:00 85 07/21/17 23:25 98.4 90 18 117/65 (82) 92 07/21/17 20:51 95 Nasal Cannula 2.00 07/21/17 20:41 Nasal Cannula 2.00 07/21/17 20:00 84 07/21/17 19:42 98.3 86 18 118/70 (86) 98 07/21/17 17:36 Nasal Cannula 2.00 07/21/17 16:01 98.4 92 18 125/68 (87) 95 07/21/17 16:00 82 I/O 07/21/17 07/21/17 07/21/17 07/22/17 07/22/17 07/22/17 07:00 15:00 23:00 07:00 15:00 23:00 Intake Total 240 ml 831 ml 840 ml Output Total 650 ml 1500 ml Balance -410 ml 831 ml -660 ml Intake Oral 240 ml 831 ml 840 ml Output Urine Total 650 ml 1500 ml # Voids 2 # Bowel Movements 2 1 1 Laboratory Laboratory Tests Test 07/22/17 06:27 White Blood Count 8.3 Red Blood Count 2.19 Hemoglobin 7.7 Hematocrit 22.3 Mean Corpuscular Volume 102.1 Mean Corpuscular Hemoglobin 35.4 Mean Corpuscular Hemoglobin Concent 34.7 Red Cell Distribution Width 17.9 Platelet Count 91 Mean Platelet Volume 8.5 Neutrophils (%) (Auto) 72.0 Lymphocytes (%) (Auto) 7.8 Monocytes (%) (Auto) 14.3 Eosinophils (%) (Auto) 5.3 Basophils (%) (Auto) 0.6 Neutrophils # (Auto) 6.0 Lymphocytes # (Auto) 0.6 Monocytes # (Auto) 1.2 Eosinophils # (Auto) 0.4 Basophils # (Auto) 0.0 CBC Comment AUTO DIFF Differential Comment AUTO DIFF CONFIRMED Platelet Estimate LOW Platelet Morphology Comment NORMAL Blood Urea Nitrogen 29 Creatinine 2.32 Random Glucose 95 Albumin 1.8 Calcium Level 8.1 Phosphorus Level 3.1 Magnesium Level 1.3 Sodium Level 134 Potassium Level 4.0 Chloride Level 98 Carbon Dioxide Level 30.4 Anion Gap 6 Estimat Glomerular Filtration Rate 30 Free Thyroxine 0.98 Thyroid Stimulating Hormone 3rd Gen 9.180 Date/Time Source Procedure Growth Status 07/07/17 20:14 Blood Peripheral Aerobic Blood Culture - Final NO GROWTH IN 5 DAYS Complete 07/07/17 20:14 Blood Peripheral Anaerobic Blood Culture - Final NO GROWTH IN 5 DAYS Complete 07/14/17 14:55 Fluid Pleural Fluid Fungal Smear - Final NO FUNGAL ELEMENTS SEEN. Resulted 07/14/17 14:55 Fluid Pleural Fluid Fungal Culture - Preliminary NO GROWTH IN 1 WEEK Resulted 07/18/17 23:59 Stool Stool Stool Pus (CLARITA) - Final Complete 07/05/17 00:22 Sputum Expectorated Sputum Gram Stain - Final Complete 07/05/17 00:22 Sputum Expectorated Sputum Sputum Culture - Final HEAVY GROWTH NORMAL RESPIRATORY MARISELA Complete 07/11/17 09:10 Urine Catheterized Urine Urine Culture - Final Dori Glabrata Dori Albicans Complete Imaging Last Impressions Abdomen/Pelvis CT 07/19/17 0000 Signed Impressions: Service Date/Time: Wednesday, July 19, 2017 20:04 - CONCLUSION: 1. Small right pleural effusion containing air, could be iatrogenic or possible infection. 2. Cholelithiasis. 3. No retroperitoneal hemorrhage. 4. Anasarca soft tissues. 5. Air in the bladder could be iatrogenic or infection. Santiago Mccartney MD Chest X-Ray 07/18/17 0600 Signed Impressions: Service Date/Time: Tuesday, July 18, 2017 05:12 - CONCLUSION: 1. No evidence of pneumothorax status post right chest tube removal. 2. Persistent right pleural effusion and vascular congestion. Prabhakar Lynch MD Chest CT 07/12/17 0000 Signed Impressions: Service Date/Time: Wednesday, July 12, 2017 12:19 - CONCLUSION: 1. Interval placement of right-sided percutaneous drainage catheter with mild decrease in the size of the right pleural effusion. 2. New small left pleural effusion. 3. Prominent lymph nodes and induration remaining in the right axillary region and 4. The previously noted prominence right paratracheal lymph node is stable. 5. Mild consolidation remains in the right lung base. Gato Patino MD Chest Tube Insertion 07/08/17 0000 Signed Impressions: Service Date/Time: Saturday, July 08, 2017 16:27 - CONCLUSION: Uncomplicated chest tube placement as above. Santiago Mccartney MD Abdomen Ultrasound 07/08/17 0000 Signed Impressions: Service Date/Time: Saturday, July 08, 2017 18:00 - CONCLUSION: 1. Cirrhotic appearing liver with splenomegaly. 2. Extensive cholelithiasis. Santiago Mccartney MD Thoracentesis Ultrasound 07/07/17 0000 Signed Impressions: Service Date/Time: Friday, July 07, 2017 10:32 - CONCLUSION: Uncomplicated ultrasound guided thoracentesis. Santiago Mccartney MD Foot MRI 07/07/17 0000 Signed Impressions: Service Date/Time: Friday, July 07, 2017 15:40 - CONCLUSION: Probable mild cellulitis without osteomyelitis or deep space involvement. Josh Santiago MD FACR Catheter Placement X-Ray 07/07/17 0000 Signed Impressions: Service Date/Time: Friday, July 07, 2017 13:15 - CONCLUSION: Uncomplicated line placement as above. Masoud Lopez MD Renal Ultrasound 07/06/17 0000 Signed Impressions: Service Date/Time: Thursday, July 06, 2017 20:20 - CONCLUSION: 1. Normal appearance the kidneys. 2. Moderate right pleural effusion. Luis Miguel Villegas MD Chest Ultrasound 07/05/17 0000 Signed Impressions: Service Date/Time: Wednesday, July 05, 2017 12:26 - CONCLUSION: Loculated fluid as above. Josh Santiago MD FACR Foot X-Ray 07/04/17 0000 Signed Impressions: Service Date/Time: Tuesday, July 04, 2017 15:35 - CONCLUSION: Negative for fracture or dislocation. Follow up in 7-10 days is suggested if symptoms persist. Josh Santiago MD FACR Physical Exam HEENT: Normocephalic; atraumatic , skin dry CHEST: Diminished breath sounds CARDIAC: RRR ABDOMEN: distended, soft, nontender, bowel sounds active EXTREMITIES: +2 pitting edema SKIN: Pale; no rash; mild icterus AERODYNAMICS ENGINEER: alert (Stefani Hui) Assessment and Plan Plan ASSESSMENT/History - Cirrhosis- history of hepatitis C- genotype 1 a- quant 30,900 CT abdomen and pelvis W IV contrast (07/03) --> Mild splenomegaly and very large intra-abdominal varices draining into the splenic vein suggestion portal HTN. Perigastric varices and bilateral inguinal varices are also noted. Cholelithiasis. US abdomen (07/08) --> Cirrhotic appearing liver with splenomegaly. Extensive cholelithiasis. Liver BATRES: ROBERT, ASMA negative. AMA < 20. Iron-94 TIBC-141 %sat-68.6 Ferritin-540 E5O-586 Ceruloplasmin-26 Ammonia-22 HFE negative AFP-3.5 - Liver lesion on CT --> 1.5 cm low-density lesion within the anterior segment of the right lobe of the liver which is indeterminate. Outpatient MRI with contrast suggested. Unable to do at this time, given poor renal function. AFP-3.5 - Elevated lipase- CT states unremarkable pancreas- Lipase 932 on 07/03 now WNL - Thrombocytopenia- improving. platelets currently 148 - Anemia- multifactorial- macrocytic- H/H stable currently 11.1/32.7 - Empyema- pleural fluid (+) MRSA- ID following - RODOLFO on dialysis (07/12) --> No significant change overnight. Remains with generalized pains. Nephrology following, per pt planning for dialysis again on Friday- Differentials for RODOLFO include ATN due to sepsis and post infectious glomerulonephritis. Less likely hepatorenal syndrome. 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 (07/13) No significant changes over night. Continued generalized pain. Poor PO intake. Renal function remains poor. Pet pt, planned for surgery tomorrow for empyema 07/18/17 GI reconsulted for n/v/diarrhea for last 2 days. Is on teflaro for PNA , empyema. ID following. currently also on airborne precautions for poss TB. c diff is pending. re testing for hemochromatosis - C282Y: Not detected.H63D: Not detected. could be c diff vs gastroenteritis vs 2/2 abx. last colonoscopy [address]azquez, prior to ileostomy reversal. 07/19/2017 patient having some bloody discharge from the paracentesis site, dropped his hemoglobin 2 g since the day before yesterday, his diarrhea improved since the lactulose was on oh he does not have appetite 07/20/17 CT showed no retroperitoneal hemorrhage. hgb 8.6 today, s/p x prbc yesterday. Had 1 large liquid BM today. c diff neg. stool studies showed rare wbc, moderate budding yeast cells. further stool studies not done per lab protocol. 07/21/2017 mild gradual resolution of nausea and vomiting. Patient had no obvious nausea and vomiting but did take anti-medics today for prophylaxis, mild abdominal bloating and tautness, diarrhea brown stool but no obvious blood this is probably secondary to taking his lactulose which he needs [address] scan done on 428 did show cholelithiasis. Patient states last colonoscopy was Dr. Velazquez 2 years ago and patient did have colonoscopy in the past that was reversed approximately 2 years ago. Patient denies any alcohol usage and no family history of colon cancer. Patient had retroperitoneal bleed seen on CT scan, bloody discharge from 07/19/2017 paracentesis site but none seen today. Labs stool shows negative C. difficile toxin, bilirubin 2.9 elevated LFTs 113/95, reactive to hep C which probably explains he is elevated LFTs, hemoglobin 8, no obvious bleeding. Continue current regimen. 07/22/17 having fewer stools. had a fall yesterday. hgb 7.7. no blood in stool. PLAN - lactulose 2-3 BM daily goal - Protonix - Lasix - needs SCD/ dvt prophylaxis - needs aggressive PT - GI will sign off. please reconsult if needed pt seen by myself and Dr Andrade and this note is on his behalf (Stefani Hui) Plan Patient was seen and examined, agree with above not having diarrhea, patient has cirrhosis secondary to alcohol and to see no further workup needed from GI, overall guarded prognosis, we will sign off at this point (Rigoberto Andrade MD) Stefani Hui July 22, 2017 13:40 Rigoberto Andrade MD July 22, 2017 20:10
[2017-07-22] MEDS: ACETAMINOPHEN 325 MG TAB PO PRN (13:53)
[2017-07-22 16:46] LABS: HEMOGLOBIN A1C 4.2 % (4.3-6.0)
[2017-07-22] MEDS: PANTOPRAZOLE SOD 40 MG DELAYED RELEASE TAB PO SCH (20:51)
[2017-07-23] VITALS (12 sets, daily range): BP systolic 107–128; BP diastolic 58–76; PULSE 60–73; RESP 16–18; TEMP 98–99.6; O2SAT 91–98
[2017-07-23] MEDS: CEFTAROLINE IV SCH ×2 (02:02→13:32)
[2017-07-23] MEDS: SODIUM CHLORIDE 0.9% IV SCH ×2 (02:02→13:32)
[2017-07-23] MEDS: ACETAMINOPHEN/HYDROcodone 325 MG/5 MG TAB PO PRN ×2 (06:35→19:19)
[2017-07-23 07:11] LABS: BASOPHIL # 0.1 TH/MM3 (0-0.2); BASOPHIL % 0.7 % (0.0-2.0); EOSINOPHIL # 0.6 TH/MM3 (0-0.4); EOSINOPHIL % 6.7 % (0.0-4.0); HEMATOCRIT 28.1 % (39.0-51.0); HEMOGLOBIN 9.7 GM/DL (13.0-17.0); LYMPH % 8.1 % (9.0-44.0); LYMPHOCYTE # 0.7 TH/MM3 (1.0-4.8); MEAN CELL VOLUME 99.5 FL (80.0-100.0); MEAN CORPUSCULAR HEMOGLOBIN 34.5 PG (27.0-34.0); MEAN CORPUSCULAR HGB CONC 34.7 % (32.0-36.0); MEAN PLATELET VOLUME 8.8 FL (7.0-11.0); MONO % 15.7 % (0.0-8.0); MONOCYTE # 1.4 TH/MM3 (0-0.9); NEUT % 68.8 % (16.0-70.0); PLATELET COUNT 99 TH/MM3 (150-450); RED BLOOD COUNT 2.82 MIL/MM3 (4.50-5.90); RED CELL DISTRIBUTION WIDTH 18.5 % (11.6-17.2); WHITE BLOOD COUNT 8.8 TH/MM3 (4.0-11.0)
[2017-07-23 07:37] LABS: ALBUMIN 1.9 GM/DL (3.4-5.0); AST (GOT) 72 U/L (15-37); BICARBONATE 31.5 MEQ/L (21.0-32.0); BLOOD UREA NITROGEN 28 MG/DL (7-18); CALCIUM 8.4 MG/DL (8.5-10.1); CHLORIDE 96 MEQ/L (98-107); CREATININE 2.22 MG/DL (0.60-1.30); GLOMERULAR FILTRATION RATE 32 ML/MIN (>89); GLUCOSE,RANDOM 77 MG/DL (74-106); MAGNESIUM 1.2 MG/DL (1.5-2.5); SODIUM (NA) 133 MEQ/L (136-145)
[2017-07-23 07:41] LABS: ALKALINE PHOSPHATASE 73 U/L (45-117); ALT (GPT) 70 U/L (12-78); PHOSPHORUS 3.7 MG/DL (2.5-4.9); TOTAL BILIRUBIN ADULT 4.5 MG/DL (0.2-1.0); TOTAL PROTEIN 7.3 GM/DL (6.4-8.2)
[2017-07-23] MEDS: SODIUM CHLORIDE 0.9% FLUSH 10 ML FLUSH IV FLUSH SCH ×2 (09:00→21:10)
[2017-07-23] MEDS: LACTULOSE SYRUP 20 GM/30 ML CUP PO SCH ×3 (09:00→17:39)
[2017-07-23 09:01] LABS: TARGET CELLS 1+ (NORMAL)
[2017-07-23] MEDS: METOPROLOL TARTRATE 25 MG TAB PO SCH ×2 (09:34→21:11)
[2017-07-23] MEDS: FUROSEMIDE 40 MG/4 ML VIAL IV PUSH SCH (09:35)
[2017-07-23] MEDS: FLUCONAZOLE 100 MG TAB PO SCH (09:35)
--- NOTE | 2017-07-23 10:33 | HHI.IDPN ---
Subjective Subjective Remarks Patient is a 46-year-old male who presented to the emergency room with complaint of flulike symptoms for about a week. Patient reports he has been having right-sided pleuritic type chest pain. He describes pain as heavy in character, present all the time, worse with coughing and deep breathing. he initially had dry cough but recently started bringing up blood. He was seen by his PCP who was treating him for the flu empirically. he started Tamiflu about 2 days prior to admission. he also has had fevers and [id number]. No abdominal pain, no N/V, no complaints. In the ED, his temp was 102. Influenza testing negative. One of 2 BC now reported as growing MRSA. His temps are better. CXR clear. CT chest with R pleural effusion with some atelectasis. CT A/P with a lesion in liver. evidence of portal hypertension. Infectious Disease consultation has been requested to evaluate patient with MRSA bacteremia. Notes reviewed Afebrile Making more urine, has not had HD Creatinine improving Has been on IV Abx for MRSA bacteremia Had surgery for empyema 07/[address] removed 07/17 Path report noted Still weak Antibiotics Teflaro Current Medications Medications (Trade) Dose Ordered Sig/Cassandra Route Start Time Stop Time Status Last Admin (Tylenol) 650 mg Q4H PRN PO 07/03/17 10:15 07/22/17 13:53 (Narcan Inj) 0.4 mg UNSCH PRN IV PUSH 07/03/17 10:15 (Tessalon) 200 mg TID PRN PO 07/04/17 11:45 07/12/17 02:57 Sodium Chloride 1,000 ml @ 0 mls/hr Q0M PRN OTHER 07/07/17 09:15 07/14/17 12:00 (Heparin Inj) 8,000 units UNSCH PRN IV FLUSH 07/07/17 09:15 Sodium Chloride 1,000 ml @ 200 mls/hr Q5H PRN IV 07/07/17 09:15 Sodium Chloride 1,000 ml @ 0 mls/hr Q0M PRN OTHER 07/07/17 09:15 (Mannitol Inj) 12.5 gm UNSCH PRN IV 07/07/17 09:15 07/15/17 10:41 (NS Flush) 5 ml UNSCH PRN IV FLUSH 07/07/17 09:15 (Heparin Inj) UNSCH PRN .XX 07/07/17 09:15 07/15/17 10:39 (Gentamicin Inj) 20 mg UNSCH PRN OTHER 07/07/17 09:15 07/15/17 10:40 (Zofran Inj) 4 mg UNSCH PRN IV PUSH 07/07/17 09:15 07/16/17 13:39 (Tylenol) 650 mg UNSCH PRN PO 07/07/17 09:15 (Benadryl) 25 mg UNSCH PRN PO 07/07/17 09:15 07/22/17 13:53 (Nitrostat Sl) 0.4 mg UNSCH PRN SL 07/07/17 09:15 (Catapres) 0.1 mg UNSCH PRN PO 07/07/17 09:15 (Gelfoam 12 Mm/7 Mm Top) 1 foam UNSCH PRN TOP 07/07/17 09:15 (NS Flush) UNSCH PRN IV FLUSH 07/07/17 13:45 (Heparin Inj) UNSCH PRN IV FLUSH 07/07/17 13:45 07/12/17 11:25 (Ultram) 50 mg Q8H PRN PO 07/08/17 13:45 07/14/17 01:53 Ceftaroline Fosamil 200 mg/ Sodium Chloride 100 ml @ 100 mls/hr Q12H IV 07/10/17 14:00 07/23/17 02:02 (Neurontin) 300 mg BID PO 07/14/17 21:00 Future Hold (Albuterol Neb) 2.5 mg Q2HR NEB PRN NEB 07/14/17 15:45 (NS Flush) 2 ml BID IV FLUSH 07/14/17 21:00 07/23/17 09:00 (NS Flush) 2 ml UNSCH PRN IV FLUSH 07/14/17 15:45 (Protonix) 40 mg HS PO 07/14/17 21:00 07/22/17 20:51 (Zofran Inj) 4 mg Q6H PRN IV PUSH 07/14/17 15:45 07/22/17 07:43 (Milk Of Magnesia Liq) 30 ml DAILY PRN PO 07/14/17 15:45 (Tylenol) 650 mg Q4H PRN PO 07/14/17 15:45 (NS Flush) 5 ml UNSCH PRN IV FLUSH 07/14/17 16:45 (Heparin Inj) 2,000 units UNSCH PRN IV FLUSH 07/14/17 16:45 07/14/17 16:35 Albumin Human 100 ml @ 60 mls/hr UNSCH PRN IV 07/15/17 08:45 07/15/17 10:41 (Diflucan) 100 mg DAILY PO 07/17/17 13:45 07/23/17 09:35 ([place] 5-325 Mg) 1 tab Q6H PRN PO 07/17/17 16:30 07/23/17 06:35 (Lactulose Liq) 30 ml TID PO 07/19/17 09:00 07/21/17 12:43 (Lasix Inj) 40 mg DAILY IV PUSH 07/21/17 11:00 07/23/17 09:35 (Tylenol) 650 mg Q4H PRN PO 07/22/17 10:15 (Benadryl) 25 mg Q4H PRN PO 07/22/17 10:15 (Lopressor) 12.5 mg Q12HR PO 07/22/17 11:15 07/23/17 09:34 Lines Line with no evidence of infection Past Medical History Hypertension Herniated disc Hepatitis C (untreated) Ruptured diverticular abscess Past Surgical History ?Left thoracotomy for pleurisy. Allergies: Coded Allergies: No Known Allergies (Verified Allergy, Unknown, 07/04/17) Objective . Vital Signs Date Time Temp Pulse Resp B/P (MAP) Pulse Ox O2 Delivery O2 Flow Rate FiO2 07/23/17 08:01 98.7 70 18 122/76 (91) 97 07/23/17 08:00 70 07/23/17 05:00 98.6 69 18 120/75 (90) 96 07/23/17 04:00 66 07/23/17 00:33 98.0 68 18 128/75 (92) 91 07/23/17 00:00 66 07/22/17 20:45 Nasal Cannula 2.00 07/22/17 20:00 67 07/22/17 19:55 98.5 66 18 132/73 (92) 96 07/22/17 17:22 99.0 69 20 131/81 97 07/22/17 17:04 98.9 67 20 125/74 99 07/22/17 16:01 97.0 95 18 125/74 (91) 99 07/22/17 16:00 67 07/22/17 14:23 98.9 78 20 116/62 98 07/22/17 14:03 96.8 79 20 127/62 98 07/22/17 12:01 98.5 90 18 135/64 (87) 92 07/22/17 12:00 84 07/22/17 11:31 94 Nasal Cannula 2.00 . Laboratory Tests Test 07/22/17 06:27 07/23/17 05:50 White Blood Count 8.3 TH/MM3 8.8 TH/MM3 Red Blood Count 2.19 MIL/MM3 2.82 MIL/MM3 Hemoglobin 7.7 GM/DL 9.7 GM/DL Hematocrit 22.3 % 28.1 % Mean Corpuscular Volume 102.1 FL 99.5 FL Mean Corpuscular Hemoglobin 35.4 PG 34.5 PG Mean Corpuscular Hemoglobin Concent 34.7 % 34.7 % Red Cell Distribution Width 17.9 % 18.5 % Platelet Count 91 TH/MM3 99 TH/MM3 Mean Platelet Volume 8.5 FL 8.8 FL Neutrophils (%) (Auto) 72.0 % 68.8 % Lymphocytes (%) (Auto) 7.8 % 8.1 % Monocytes (%) (Auto) 14.3 % 15.7 % Eosinophils (%) (Auto) 5.3 % 6.7 % Basophils (%) (Auto) 0.6 % 0.7 % Neutrophils # (Auto) 6.0 TH/MM3 6.0 TH/MM3 Lymphocytes # (Auto) 0.6 TH/MM3 0.7 TH/MM3 Monocytes # (Auto) 1.2 TH/MM3 1.4 TH/MM3 Eosinophils # (Auto) 0.4 TH/MM3 0.6 TH/MM3 Basophils # (Auto) 0.0 TH/MM3 0.1 TH/MM3 CBC Comment AUTO DIFF AUTO DIFF Differential Comment AUTO DIFF CONFIRMED AUTO DIFF CONFIRMED Platelet Estimate LOW LOW Platelet Morphology Comment NORMAL NORMAL Basophilic Stippling FAINT Target Cells 1+ Laboratory Tests Test 07/22/17 06:27 07/23/17 05:50 Blood Urea Nitrogen 29 MG/DL 28 MG/DL Creatinine 2.32 MG/DL 2.22 MG/DL Random Glucose 95 MG/DL 77 MG/DL Albumin 1.8 GM/DL 1.9 GM/DL Calcium Level 8.1 MG/DL 8.4 MG/DL Phosphorus Level 3.1 MG/DL 3.7 MG/DL Magnesium Level 1.3 MG/DL 1.2 MG/DL Sodium Level 134 MEQ/L 133 MEQ/L Potassium Level 4.0 MEQ/L 4.0 MEQ/L Chloride Level 98 MEQ/L 96 MEQ/L Carbon Dioxide Level 30.4 MEQ/L 31.5 MEQ/L Anion Gap 6 MEQ/L 6 MEQ/L Estimat Glomerular Filtration Rate 30 ML/MIN 32 ML/MIN Hemoglobin A1c 4.2 % Free Thyroxine 0.98 NG/DL Thyroid Stimulating Hormone 3rd Gen 9.180 uIU/ML Total Protein 7.3 GM/DL Alkaline Phosphatase 73 U/L Aspartate Amino Transf (AST/SGOT) 72 U/L Alanine Aminotransferase (ALT/SGPT) 70 U/L Total Bilirubin 4.5 MG/DL Imaging Abdomen/Pelvis CT 07/19/17 0000 Signed Impressions: Service Date/Time: Wednesday, July 19, 2017 20:04 - CONCLUSION: 1. Small right pleural effusion containing air, could be iatrogenic or possible infection. 2. Cholelithiasis. 3. No retroperitoneal hemorrhage. 4. Anasarca soft tissues. 5. Air in the bladder could be iatrogenic or infection. Santiago Mccartney MD Chest X-Ray 07/16/17 0000 Signed Impressions: Service Date/Time: Sunday, July 16, 2017 09:34 - CONCLUSION: Pulmonary vascular congestion remains. Moderate pleural effusion, chest tube and IJ catheter all in good position. Tino Albarado MD Chest X-Ray 07/15/17 0500 Signed Impressions: Service Date/Time: Saturday, July 15, 2017 03:44 - CONCLUSION: 1. Right chest tube remains present. There is loculated right pleural fluid. No pneumothorax. No significant change from July 14. Thompson Cross MD Chest X-Ray 07/07/17 0000 Signed Impressions: Service Date/Time: Friday, July 07, 2017 11:23 - CONCLUSION: No pneumothorax. Santiago Mccartney MD Renal Ultrasound 07/06/17 0000 Signed Impressions: Service Date/Time: Thursday, July 06, 2017 20:20 - CONCLUSION: 1. Normal appearance the kidneys. 2. Moderate right pleural effusion. Luis Miguel Villegas MD Chest Ultrasound 07/05/17 0000 Signed Impressions: Service Date/Time: Wednesday, July 05, 2017 12:26 - CONCLUSION: Loculated fluid as above. Josh Santiago MD FACR Foot X-Ray 07/04/17 0000 Signed Impressions: Service Date/Time: Tuesday, July 04, 2017 15:35 - CONCLUSION: Negative for fracture or dislocation. Follow up in 7-10 days is suggested if symptoms persist. Jsoh Santiago MD FACR Chest CT 07/03/17 0000 Signed Impressions: Service Date/Time: June 12:16 - CONCLUSION: 1. Extensive stranding with prominent lymph nodes in the right axilla measuring upwards of 1.6 cm in diameter. Does the patient have clinical symptomatology to suggest a cellulitis in this area? 2. Mild, generalized anasarca with some interstitial prominence in both lungs as well the visualized portions of the upper mesentery. Findings are nonspecific but can be seen in entity such as overwhelming sepsis. 3. Calcified gallstones. 4. Small right-sided pleural effusion with associated atelectatic changes. 5. Atretic left sixth rib could be congenital or postsurgical. Old healed rib fractures involving the lateral aspect of #3 and 4 on the left. 6. Mild gynecomastia. Again, nonspecific finding that can be seen with certain medications. Masoud Lopez MD Abdomen/Pelvis CT 07/03/17 0000 Signed Impressions: Service Date/Time: June 08:43 - CONCLUSION: 1. 1.5 cm low-density lesion within the anterior segment of the right lobe of liver which is indeterminate. Outpatient MRI of the abdomen with contrast would be helpful for further characterization of this indeterminate lesion. 2. Mild splenomegaly and very large intra-abdominal varices draining into the splenic vein suggesting portal hypertension. 3. Perigastric varices and bilateral inguinal varices are also noted. 4. Cholelithiasis. 5. Tiny right pleural effusion. 6. Minimal right basilar atelectasis and/or infiltrate. 7. Degenerative changes and scoliosis of the thoracolumbar spine. Haseeb Helms MD Physical Exam GENERAL: awake and alert, NAD SKIN: Cool and dry. Has petechia both feet and in legs/thighs HEAD: Atraumatic. Normocephalic. No temporal wasting, or tenderness. EYES: [place] conjunctiva. No petechia or hemorrhage. Extraocular movements full and intact. Mild scleral icterus. No injection or drainage. EARS, NOSE AND THROAT: Nose without bleeding or purulent nasal discharge. Mucous membranes pink and moist. No oral lesions noted. NECK: Trachea midline. Supple and not tender, no meningeal signs CARDIOVASCULAR: Regular rate and rhythm. No murmurs, rubs or gallops heard RESPIRATORY: Clear to auscultation. Decreased at bases. No rales, wheezing or rhonchi. ABDOMEN: Soft, non-tender, nondistended. Bowel sounds present and normoactive. No guarding. No rebound. No organomegaly. EXTREMITIES: No clubbing, cyanosis, or edema. R foot stable. No calf tenderness. Well perfused and warm. NEUROLOGICAL: Grossly nonfocal. PSYCHIATRIC: Normal affect, calm and cooperative. LINE: No evidence of infection Assessment & Plan Remarks IMPRESSION MRSA bacteremia, source - due to PNA, and empyema - S/P surgery 07/14 Cellulitis R foot, better Pneumonia, with empyema Known liver cirrhosis, previous ETOH, and also He p C Acute renal failure, etiology? - requiring HD N/V etiology? Indeterminate TB quantiferon - clinically and radiographically as well as path report not indicating any evidence of PTB RECOMMENDATION Continue IV Teflaro which will cover PNA/empyema and bacteremia - possibly D/C IV Teflaro Friday - then can switch to po Zyvox to complete his Rx though this may become problem due to his anemia and thrombocytopenia - another option of Doxycyline x 2-3 more weeks after he finished his IV Abx Monitor progress Clinically doing well from ID standpoint Natividad Sanchez MD July 23, 2017 10:33
--- NOTE | 2017-07-23 11:28 | HHI.NPPN ---
Subjective Renal Failure: Acute Interval History No new issues. Renal function improved. (Lisa Tovar) Review of Systems General Constitutional: Fatigue (Lisa Tovar) Respiratory Lungs: SOB Respiratory Remarks On exertion (Lisa Tovar) Cardiovascular Cardiac: Edema (Lisa Tovar) Objective Data Data Vital Signs Date Time Temp Pulse Resp B/P (MAP) Pulse Ox O2 Delivery O2 Flow Rate FiO2 07/23/17 08:01 98.7 70 18 122/76 (91) 97 07/23/17 08:00 70 07/23/17 05:00 98.6 69 18 120/75 (90) 96 07/23/17 04:00 66 07/23/17 00:33 98.0 68 18 128/75 (92) 91 07/23/17 00:00 66 07/22/17 20:45 Nasal Cannula 2.00 07/22/17 20:00 67 07/22/17 19:55 98.5 66 18 132/73 (92) 96 07/22/17 17:22 99.0 69 20 131/81 97 07/22/17 17:04 98.9 67 20 125/74 99 07/22/17 16:01 97.0 95 18 125/74 (91) 99 07/22/17 16:00 67 07/22/17 14:23 98.9 78 20 116/62 98 07/22/17 14:03 96.8 79 20 127/62 98 07/22/17 12:01 98.5 90 18 135/64 (87) 92 07/22/17 12:00 84 07/22/17 11:31 94 Nasal Cannula 2.00 (Lisa Tovar) -: 07/23/17 0550 07/23/17 0550 Tubes & Lines: Vas-Cath (Lisa Tovar) Physical Exam General Appearance: Well Developed, No Acute Distress, Comfortable (Lisa Tovar) Eyes Eye Exam: Pupils Equal (Lisa Tovar) Throat Throat Exam: Oral Mucosa [place] & Moist (Lisa Tovar) Pulmonary Resp Exam: Breath Sounds Equal, Crackles, Decreased Bases, Diminished Breath Sounds (Lisa Tovar) Cardiology CV Exam: Regular, Normal Sinus Rhythm, Murmur (Lisa Tovar) Gastrointestinal/Abdomen GI Exam: Soft, Non-Tender, Bowel Sounds Present (Lisa Tovar) Musculoskeletal MS Exam: Joints Intact, Normal Gait, Normal Tone, Good Strength (Lisa Tovar) Integumentary Skin Exam: Warm, Dry, Intact (Lisa Tovar) Extremeties Extremities Exam: Pedal Pulses Palpable, Moderate Edema (Lisa Tovar) Neurologic Neuro Exam: Alert, Awake, Oriented, Speech Clear, Moving All Extremities (Lisa Tovar) Psychiatric Psych Exam: Appropriate Responses (Lisa Tovar) Assessment/Plan Discussed Condition With: Patient, Parent Assessment Summary: RODOLFO/Acute Renal Failure, Acute Tubular Necrosis Problem List: (1) Acute kidney injury ICD Codes: N17.9 - Acute kidney failure, unspecified Plan: He suffered ATN has been on dialysis since 07/07, last HD 07/19 He is in recovery phase, renal function improved Excellent urine output, continue Lasix daily Remove vas cath today Avoid nephrotoxic agents and renally dose appropriate to his renal status Off Renvela. PO fluids encouraged. Monitor urine output. (2) Sepsis ICD Codes: A41.9 - Sepsis, unspecified organism Status: Acute Plan: ID following s/p thoracentesis 07/07. Treated for MRSA, empyema. chest tube removed, s/p VATS. On Teflaro Monitor clinically. (3) Hypertension ICD Codes: I10 - Essential (primary) hypertension Status: Acute Plan: Hypotension improved Start metoprolol (4) Hepatitis C infection ICD Codes: B19.20 - Unspecified viral hepatitis C without hepatic coma Status: Acute Plan: Workup is in progress. GI signed off. ID following. (5) Anemia ICD Codes: D64.9 - Anemia, unspecified Plan: 2 units given 07/22, Hb better Limit daily blood draws CT not suggesting Retroperitoneal bleed (Lisa Tovar) Plan patient was seen and examined. Agree with above assessment and plan. Remove Vascath. No need for dialysis. (Bj Amaya MD) Problem Qualifiers (1) Sepsis: Qualified Codes: A41.9 - Sepsis, unspecified organism (2) Hypertension: Qualified Codes: I10 - Essential (primary) hypertension Lisa Tovar July 23, 2017 11:28 Bj Amaya MD July 23, 2017 21:30
--- NOTE | 2017-07-23 18:12 | HHI.PR ---
Subjective Remarks Follow-up for shortness of breath No overnight events, comfortable, afebrile. Shortness of breath better today. No stomach pain. Objective Vitals Vital Signs Date Time Temp Pulse Resp B/P (MAP) Pulse Ox O2 Delivery O2 Flow Rate FiO2 07/23/17 16:01 98.2 72 18 110/70 (83) 98 07/23/17 16:00 67 07/23/17 12:01 98.0 68 18 107/63 (78) 96 07/23/17 12:00 60 07/23/17 08:01 98.7 70 18 122/76 (91) 97 07/23/17 08:00 70 07/23/17 05:00 98.6 69 18 120/75 (90) 96 07/23/17 04:00 66 07/23/17 00:33 98.0 68 18 128/75 (92) 91 07/23/17 00:00 66 07/22/17 20:45 Nasal Cannula 2.00 07/22/17 20:00 67 07/22/17 19:55 98.5 66 18 132/73 (92) 96 I/O 07/22/17 07/22/17 07/22/17 07/23/17 07/23/17 07/23/17 07:00 15:00 23:00 07:00 15:00 23:00 Intake Total 840 ml 1320 ml 340 ml Output Total 1500 ml 1200 ml 350 ml Balance -660 ml 120 ml -10 ml Intake Oral 840 ml 520 ml 240 ml IV Total 100 ml Packed Cells 800 ml Output Urine Total 1500 ml 1200 ml 350 ml # Bowel Movements 1 2 0 Result Diagram: 07/23/17 0550 07/23/17 0550 Objective Remarks GENERAL: Awake alert and oriented 3 talkative and cooperative EYES: Pupils equal and round. Anicteric sclera. CARDIOVASCULAR: Regular rate and rhythm. S1-S2 no S3 or S4 RESPIRATORY: No accessory muscle use. Few scattered rhonchi and some coarse breath sounds breath sounds equal bilaterally. GASTROINTESTINAL: Abdomen soft, non-tender, nondistended. MUSCULOSKELETAL: Extremities without clubbing, cyanosis, bilateral lower extremity 3+ edema. NEUROLOGICAL: Awake and alert. No obvious cranial nerve deficits. Motor grossly within normal limits. 4 out of 5 muscle strength in the arms and legs. Normal speech. Procedures Echo 07/04/2017 The left ventricular systolic function is normal with an estimated ejection fraction in the range of 60-65%. Wall thickness is measured at the upper limits of normal. No regional wall motion abnormalities are present. Normal left ventricular size. There is trace tricuspid valve regurgitation. The estimated pulmonary arterial pressure is 33 mmHg. 07/08/2017 -right-sided chest tube placement by interventional radiology. 07/14/2017 Right thoracoscopic exploration to evacuate right pleural effusion, pleural biopsy Vascath A/P Problem List: (1) Sepsis ICD Code: A41.9 - Sepsis, unspecified organism Status: Acute (2) Pneumonia ICD Code: J18.9 - Pneumonia, unspecified organism Status: Acute (3) Bandemia ICD Code: D72.825 - Bandemia Status: Acute (4) Elevated lipase ICD Code: R74.8 - Abnormal levels of other serum enzymes Status: Acute (5) Hypertension ICD Code: I10 - Essential (primary) hypertension Status: Acute (6) Axillary lymphadenopathy ICD Code: R59.0 - Localized enlarged lymph nodes Assessment and Plan This is a 46 year old male presented to the ED due to flu like symptoms despite being treated for flu by his PCP. He complained of right-sided pleuritic chest pain. He reported fever and chills. Temperature in the emergency department was 101.2F. CT chest showed right pleural effusion with some atelectasis. CT abdomen pelvis showed a liver lesion. Severe sepsis - resolved. MRSA bacteremia MRSA pneumonia Empyema - pleural fluid grew MRSA Pneumonia on CT chest, liver lesion, right axillary lymphadenopathy, possible cellulitis, rpt CT in [address] July 19, 2017 showed right pleural effusion containing air s/p chest tube insertion Pleural fluid cx grew MRSA. Blood cx also grew MRSA. Appreciate ID input. Currently patient is on Ceftaroline 200mg Q12hrs to cover MRSA pneumonia and bacteremia. And will need Zyvox at discharge 07/05 - Echo showed no vegetation. s/p Right thoracoscopic exploration to evacuate right pleural effusion, pleural biopsy on 07/15/2017. CT removed. Acetaminophen, tramadol as needed for pain. Indeterminate QFT TB testing. AFB smear negative. AFB culture pending. Cleared for isolation discontinuation by infectious disease Acute kidney injury Creatinine 0.8 on 07/04/2017. Cr 9.4 on 07/15/2017. Now on dialysis. Possibly due to vancomycin as well as post infectious, no dialysis yesterday and today. Seems like patient is in renal recovery. Creatinine is improving. Liver cirrhosis Hepatitis C genotype 1a Liver lesion 1.5cm GI signed off. Patient will likely need an MRI study in future. Continue Lasix Thrombocytopenia. Stable Symptomatic anemia. Hemoglobin improved s/p packed RBC transfusion. Full code. SCDs. No chemical prophylaxis secondary to thrombocytopenia Discharge Planning Discharge once cleared by nephrology, will likely need rehab. Problem Qualifiers (1) Sepsis: Qualified Codes: A41.9 - Sepsis, unspecified organism (2) Pneumonia: Qualified Codes: J18.1 - Lobar pneumonia, unspecified organism (3) Hypertension: Qualified Codes: I10 - Essential (primary) hypertension Jose M Nayak MD July 23, 2017 18:12
[2017-07-23] MEDS: PANTOPRAZOLE SOD 40 MG DELAYED RELEASE TAB PO SCH (21:11)
[2017-07-24] VITALS (8 sets, daily range): BP systolic 103–125; BP diastolic 56–70; PULSE 61–74; RESP 18–20; TEMP 97.4–98.5; O2SAT 90–98
[2017-07-24] MEDS: SODIUM CHLORIDE 0.9% IV SCH ×2 (01:28→14:16)
[2017-07-24] MEDS: CEFTAROLINE IV SCH ×2 (01:28→14:16)
[2017-07-24] MEDS: ACETAMINOPHEN/HYDROcodone 325 MG/5 MG TAB PO PRN ×3 (06:08→20:23)
[2017-07-24] MEDS: FLUCONAZOLE 100 MG TAB PO SCH (07:32)
[2017-07-24] MEDS: METOPROLOL TARTRATE 25 MG TAB PO SCH ×2 (07:33→20:23)
[2017-07-24] MEDS: SODIUM CHLORIDE 0.9% FLUSH 10 ML FLUSH IV FLUSH SCH ×2 (07:35→20:23)
[2017-07-24] MEDS: LACTULOSE SYRUP 20 GM/30 ML CUP PO SCH ×3 (07:35→18:00)
[2017-07-24] MEDS: FUROSEMIDE 40 MG/4 ML VIAL IV PUSH SCH (07:35)
[2017-07-24 09:29] LABS: ALBUMIN 1.8 GM/DL (3.4-5.0); AST (GOT) 72 U/L (15-37); BICARBONATE 28.8 MEQ/L (21.0-32.0); BLOOD UREA NITROGEN 30 MG/DL (7-18); CHLORIDE 98 MEQ/L (98-107); CREATININE 2.17 MG/DL (0.60-1.30); GLOMERULAR FILTRATION RATE 33 ML/MIN (>89); GLUCOSE,RANDOM 80 MG/DL (74-106); SODIUM (NA) 132 MEQ/L (136-145)
[2017-07-24 09:30] LABS: ALT (GPT) 62 U/L (12-78)
[2017-07-24 09:32] LABS: ALKALINE PHOSPHATASE 74 U/L (45-117); TOTAL BILIRUBIN ADULT 2.8 MG/DL (0.2-1.0)
--- NOTE | 2017-07-24 11:00 | HHI.NPPN ---
Subjective Renal Failure: Acute Interval History Vascath was removed. He is sleepy. Non oliguric, renal function improved. (Lisa Tovar) Review of Systems General Constitutional: Fatigue (Lisa Tovar) Respiratory Lungs: SOB Respiratory Remarks On exertion (Lisa Tovar) Cardiovascular Cardiac: Edema (Lisa Tovar) Objective Data Data Vital Signs Date Time Temp Pulse Resp B/P (MAP) Pulse Ox O2 Delivery O2 Flow Rate FiO2 07/24/17 08:00 67 20 113/61 (78) 95 07/24/17 08:00 Nasal Cannula 2.00 07/24/17 08:00 65 07/24/17 05:44 98.2 71 18 125/70 (88) 92 07/24/17 04:09 Nasal Cannula 2.00 07/24/17 04:00 70 07/24/17 01:08 98.5 64 18 103/56 (72) 90 07/24/17 00:00 66 07/24/17 00:00 Nasal Cannula 2.00 07/23/17 20:38 98 Nasal Cannula 2.00 07/23/17 20:00 Nasal Cannula 2.00 07/23/17 20:00 99.6 73 16 118/58 (78) 94 07/23/17 20:00 69 07/23/17 16:01 98.2 72 18 110/70 (83) 98 07/23/17 16:00 67 07/23/17 12:01 98.0 68 18 107/63 (78) 96 07/23/17 12:00 60 (Lisa Tovar) -: 07/23/17 0550 07/24/17 0830 Physical Exam General Appearance: Well Developed, No Acute Distress, Comfortable (Lisa Tovar) Eyes Eye Exam: Pupils Equal (Lisa Tovar) Throat Throat Exam: Oral Mucosa [place] & Moist (Lisa Tovar) Pulmonary Resp Exam: Breath Sounds Equal, Crackles, Decreased Bases, Diminished Breath Sounds (Lisa Tovar) Cardiology CV Exam: Regular, Normal Sinus Rhythm, Murmur (Lisa Tovar) Gastrointestinal/Abdomen GI Exam: Soft, Non-Tender, Bowel Sounds Present (Lisa Tovar) Musculoskeletal MS Exam: Joints Intact, Normal Gait, Normal Tone, Good Strength (Lisa Tovar) Integumentary Skin Exam: Warm, Dry, Intact (Lisa Tovar) Extremeties Extremities Exam: Pedal Pulses Palpable, Moderate Edema, Dependent Edema (Lisa Tovar) Neurologic Neuro Exam: Alert, Awake, Oriented, Speech Clear, Moving All Extremities (Lisa Tovar) Psychiatric Psych Exam: Appropriate Responses (Lisa Tovar) Assessment/Plan Discussed Condition With: Patient, Parent Assessment Summary: RODOLFO/Acute Renal Failure, Acute Tubular Necrosis Problem List: (1) Acute kidney injury ICD Codes: N17.9 - Acute kidney failure, unspecified Plan: ATN , dialysis dependent 07/07 until 07/19 He is in recovery phase, renal function improved Nonoliguric Continue lasix daily PO fluids encouraged, off IVF Dialysis catheter was removed, expect continued improvement. Remove vas cath today Avoid nephrotoxic agents and renally dose appropriate to his renal status (2) Sepsis ICD Codes: A41.9 - Sepsis, unspecified organism Status: Acute Plan: ID following s/p thoracentesis 07/07. Treated for MRSA, empyema. chest tube removed, s/p VATS. On Teflaro Monitor clinically. (3) Hypertension ICD Codes: I10 - Essential (primary) hypertension Status: Acute Plan: Hypotension improved Start metoprolol (4) Hepatitis C infection ICD Codes: B19.20 - Unspecified viral hepatitis C without hepatic coma Status: Acute Plan: GI signed off. ID following. (5) Anemia ICD Codes: D64.9 - Anemia, unspecified Plan: 2 units given 07/22, Hb better Limit daily blood draws CT not suggesting Retroperitoneal bleed Plan We will sign off at this time, please call us if needed. (Lisa Tovar) Plan Patient was seen and examined on 07/24/17. Agree with above assessment and plan. (Bj Amaya MD) Problem Qualifiers (1) Sepsis: Qualified Codes: A41.9 - Sepsis, unspecified organism (2) Hypertension: Qualified Codes: I10 - Essential (primary) hypertension Lisa Tovar July 24, 2017 11:00 Bj Amaya MD July 25, 2017 15:27
[2017-07-24] MEDS: ONDANSETRON HCL 4 MG/2 ML VIAL IV PUSH PRN (12:48)
--- NOTE | 2017-07-24 13:36 | HHI.PR ---
Subjective Remarks Resting comfortably in bed No event overnight Denied chest and or short of breath No fever or chills Objective Vitals Vital Signs Date Time Temp Pulse Resp B/P (MAP) Pulse Ox O2 Delivery O2 Flow Rate FiO2 07/24/17 12:00 97.8 74 20 111/63 (79) 93 07/24/17 08:00 67 20 113/61 (78) 95 07/24/17 08:00 Nasal Cannula 2.00 07/24/17 08:00 65 07/24/17 05:44 98.2 71 18 125/70 (88) 92 07/24/17 04:09 Nasal Cannula 2.00 07/24/17 04:00 70 07/24/17 01:08 98.5 64 18 103/56 (72) 90 07/24/17 00:00 66 07/24/17 00:00 Nasal Cannula 2.00 07/23/17 20:38 98 Nasal Cannula 2.00 07/23/17 20:00 Nasal Cannula 2.00 07/23/17 20:00 99.6 73 16 118/58 (78) 94 07/23/17 20:00 69 07/23/17 16:01 98.2 72 18 110/70 (83) 98 07/23/17 16:00 67 I/O 07/23/17 07/23/17 07/23/17 07/24/17 07/24/17 07/24/17 06:59 14:59 22:59 06:59 14:59 22:59 Intake Total 340 ml 520 ml Output Total 350 ml Balance -10 ml 520 ml Intake Oral 240 ml 520 ml IV Total 100 ml Output Urine Total 350 ml # Voids 6 # Bowel Movements 0 2 Result Diagram: 07/23/17 0550 07/24/17 0830 Objective Remarks GENERAL: This is a well-nourished, well-developed patient, in no apparent distress. SKIN: No rashes, warm and dry HEAD: Atraumatic. Normocephalic. EYES: Pupils equal round and reactive. Extraocular motions intact. No scleral icterus. ENT: Nose without bleeding, or drainage, Airway patent. NECK: Trachea midline. Supple CARDIOVASCULAR: Regular rate and rhythm with 3 out of 6 systolic murmur RESPIRATORY: Fair air entry bilaterally. No wheezes, rales, or rhonchi. GASTROINTESTINAL: Abdomen soft, non-tender, nondistended. Positive bowel sounds MUSCULOSKELETAL: Extremities +3 edema. Pedal pulses appreciated NEUROLOGICAL: Awake and alert. Moves all extremity. Normal speech.no focal neurological deficit Procedures Echo 07/04/2017 The left ventricular systolic function is normal with an estimated ejection fraction in the range of 60-65%. Wall thickness is measured at the upper limits of normal. No regional wall motion abnormalities are present. Normal left ventricular size. There is trace tricuspid valve regurgitation. The estimated pulmonary arterial pressure is 33 mmHg. 07/08/2017 -right-sided chest tube placement by interventional radiology. 07/14/2017 Right thoracoscopic exploration to evacuate right pleural effusion, pleural biopsy Vascath A/P Problem List: (1) Sepsis ICD Code: A41.9 - Sepsis, unspecified organism Status: Acute (2) Pneumonia ICD Code: J18.9 - Pneumonia, unspecified organism Status: Acute (3) Bandemia ICD Code: D72.825 - Bandemia Status: Acute (4) Elevated lipase ICD Code: R74.8 - Abnormal levels of other serum enzymes Status: Acute (5) Hypertension ICD Code: I10 - Essential (primary) hypertension Status: Acute (6) Axillary lymphadenopathy ICD Code: R59.0 - Localized enlarged lymph nodes Assessment and Plan This is a 46 year old male presented to the ED due to flu like symptoms despite being treated for flu by his PCP. He complained of right-sided pleuritic chest pain. He reported fever and chills. Temperature in the emergency department was 101.2F. CT chest showed right pleural effusion with some atelectasis. CT abdomen pelvis showed a liver lesion. 07/24: Continue current care, appreciate nephrology's recommendation, hemodialysis is stopped Vas-Cath continue monitoring urine output Severe sepsis - resolved. MRSA bacteremia MRSA pneumonia Empyema - pleural fluid grew MRSA Pneumonia on CT chest, liver lesion, right axillary lymphadenopathy, possible cellulitis, rpt CT in [address] July 19, 2017 showed right pleural effusion containing air s/p chest tube insertion Pleural fluid cx grew MRSA. Blood cx also grew MRSA. Appreciate ID input. Currently patient is on Ceftaroline 200mg Q12hrs to cover MRSA pneumonia and bacteremia. And will need Zyvox at discharge 07/05 - Echo showed no vegetation. s/p Right thoracoscopic exploration to evacuate right pleural effusion, pleural biopsy on 07/15/2017. CT removed. Acetaminophen, tramadol as needed for pain. Indeterminate QFT TB testing. AFB smear negative. AFB culture pending. Cleared for isolation discontinuation by infectious disease Acute kidney injury Creatinine 0.8 on 07/04/2017. Cr 9.4 on 07/15/2017. Now on dialysis. Possibly due to vancomycin as well as post infectious, no dialysis yesterday and today. Seems like patient is in renal recovery. Creatinine is improving. Liver cirrhosis Hepatitis C genotype 1a Liver lesion 1.5cm GI signed off. Patient will likely need an MRI study in future. Continue Lasix Thrombocytopenia. Stable Symptomatic anemia. Hemoglobin improved s/p packed RBC transfusion. Full code. SCDs. No chemical prophylaxis secondary to thrombocytopenia Problem Qualifiers (1) Sepsis: Qualified Codes: A41.9 - Sepsis, unspecified organism (2) Pneumonia: Qualified Codes: J18.1 - Lobar pneumonia, unspecified organism (3) Hypertension: Qualified Codes: I10 - Essential (primary) hypertension Caitlin Durham MD July 24, 2017 13:36
[2017-07-24] MEDS: PANTOPRAZOLE SOD 40 MG DELAYED RELEASE TAB PO SCH (20:22)
[2017-07-25] VITALS (12 sets, daily range): BP systolic 109–128; BP diastolic 54–59; PULSE 52–79; RESP 18–24; TEMP 96.4–99.1; O2SAT 93–98
[2017-07-25] MEDS: SODIUM CHLORIDE 0.9% IV SCH (02:04)
[2017-07-25] MEDS: CEFTAROLINE IV SCH (02:04)
[2017-07-25 08:32] LABS: BICARBONATE 29.9 MEQ/L (21.0-32.0); CALCIUM 7.8 MG/DL (8.5-10.1); CREATININE 1.97 MG/DL (0.60-1.30)
[2017-07-25] MEDS: FLUCONAZOLE 100 MG TAB PO SCH (08:42)
[2017-07-25] MEDS: FUROSEMIDE 40 MG/4 ML VIAL IV PUSH SCH (08:42)
[2017-07-25] MEDS: METOPROLOL TARTRATE 25 MG TAB PO SCH ×2 (08:42→22:32)
[2017-07-25] MEDS: LACTULOSE SYRUP 20 GM/30 ML CUP PO SCH ×3 (08:43→17:53)
[2017-07-25] MEDS: SODIUM CHLORIDE 0.9% FLUSH 10 ML FLUSH IV FLUSH SCH ×2 (08:43→22:32)
[2017-07-25] MEDS: ACETAMINOPHEN/HYDROcodone 325 MG/5 MG TAB PO PRN ×2 (08:51→18:31)
--- NOTE | 2017-07-25 10:30 | HHI.IDPN ---
Subjective Subjective Remarks Patient is a 46-year-old male who presented to the emergency room with complaint of flulike symptoms for about a week. Patient reports he has been having right-sided pleuritic type chest pain. He describes pain as heavy in character, present all the time, worse with coughing and deep breathing. he initially had dry cough but recently started bringing up blood. He was seen by his PCP who was treating him for the flu empirically. he started Tamiflu about 2 days prior to admission. he also has had fevers and [id number]. No abdominal pain, no N/V, no complaints. In the ED, his temp was 102. Influenza testing negative. One of 2 BC now reported as growing MRSA. His temps are better. CXR clear. CT chest with R pleural effusion with some atelectasis. CT A/P with a lesion in liver. evidence of portal hypertension. Infectious Disease consultation has been requested to evaluate patient with MRSA bacteremia. Notes reviewed Afebrile Sleepy - but answering all my questions Creatinine improving Good UO Vascath has been removed Not SOB No diarrhea NO vomiting Ambulating in his room, working with PT Has been on IV Abx for MRSA bacteremia Had surgery for empyema 07/[address] removed 07/17 Antibiotics Teflaro Current Medications Medications (Trade) Dose Ordered Sig/Cassandra Route Start Time Stop Time Status Last Admin (Tylenol) 650 mg Q4H PRN PO 07/03/17 10:15 07/22/17 13:53 (Narcan Inj) 0.4 mg UNSCH PRN IV PUSH 07/03/17 10:15 (Tessalon) 200 mg TID PRN PO 07/04/17 11:45 07/12/17 02:57 Sodium Chloride 1,000 ml @ 0 mls/hr Q0M PRN OTHER 07/07/17 09:15 07/14/17 12:00 (Heparin Inj) 8,000 units UNSCH PRN IV FLUSH 07/07/17 09:15 Sodium Chloride 1,000 ml @ 200 mls/hr Q5H PRN IV 07/07/17 09:15 Sodium Chloride 1,000 ml @ 0 mls/hr Q0M PRN OTHER 07/07/17 09:15 (Mannitol Inj) 12.5 gm UNSCH PRN IV 07/07/17 09:15 07/15/17 10:41 (NS Flush) 5 ml UNSCH PRN IV FLUSH 07/07/17 09:15 (Heparin Inj) UNSCH PRN .XX 07/07/17 09:15 07/15/17 10:39 (Gentamicin Inj) 20 mg UNSCH PRN OTHER 07/07/17 09:15 07/15/17 10:40 (Zofran Inj) 4 mg UNSCH PRN IV PUSH 07/07/17 09:15 07/24/17 12:48 (Tylenol) 650 mg UNSCH PRN PO 07/07/17 09:15 (Benadryl) 25 mg UNSCH PRN PO 07/07/17 09:15 07/22/17 13:53 (Nitrostat Sl) 0.4 mg UNSCH PRN SL 07/07/17 09:15 (Catapres) 0.1 mg UNSCH PRN PO 07/07/17 09:15 (Gelfoam 12 Mm/7 Mm Top) 1 foam UNSCH PRN TOP 07/07/17 09:15 (NS Flush) UNSCH PRN IV FLUSH 07/07/17 13:45 (Heparin Inj) UNSCH PRN IV FLUSH 07/07/17 13:45 07/12/17 11:25 (Ultram) 50 mg Q8H PRN PO 07/08/17 13:45 07/14/17 01:53 (Neurontin) 300 mg BID PO 07/14/17 21:00 Future Hold (Albuterol Neb) 2.5 mg Q2HR NEB PRN NEB 07/14/17 15:45 (NS Flush) 2 ml BID IV FLUSH 07/14/17 21:00 07/25/17 08:43 (NS Flush) 2 ml UNSCH PRN IV FLUSH 07/14/17 15:45 (Protonix) 40 mg HS PO 07/14/17 21:00 07/24/17 20:22 (Zofran Inj) 4 mg Q6H PRN IV PUSH 07/14/17 15:45 07/22/17 07:43 (Milk Of Magnesia Liq) 30 ml DAILY PRN PO 07/14/17 15:45 (Tylenol) 650 mg Q4H PRN PO 07/14/17 15:45 (NS Flush) 5 ml UNSCH PRN IV FLUSH 07/14/17 16:45 (Heparin Inj) 2,000 units UNSCH PRN IV FLUSH 07/14/17 16:45 07/14/17 16:35 Albumin Human 100 ml @ 60 mls/hr UNSCH PRN IV 07/15/17 08:45 07/15/17 10:41 (Diflucan) 100 mg DAILY PO 07/17/17 13:45 07/25/17 08:42 ([place]amo 5-325 Mg) 1 tab Q6H PRN PO 07/17/17 16:30 07/25/17 08:51 (Lactulose Liq) 30 ml TID PO 07/19/17 09:00 07/24/17 07:35 (Lasix Inj) 40 mg DAILY IV PUSH 07/21/17 11:00 07/25/17 08:42 (Tylenol) 650 mg Q4H PRN PO 07/22/17 10:15 (Benadryl) 25 mg Q4H PRN PO 07/22/17 10:15 (Lopressor) 12.5 mg Q12HR PO 07/22/17 11:15 07/25/17 08:42 (Zyvox) 600 mg Q12HR PO 07/25/17 11:00 Lines Line with no evidence of infection Past Medical History Hypertension Herniated disc Hepatitis C (untreated) Ruptured diverticular abscess Past Surgical History ?Left thoracotomy for pleurisy. Allergies: Coded Allergies: No Known Allergies (Verified Allergy, Unknown, 07/04/17) Objective . Vital Signs Date Time Temp Pulse Resp B/P (MAP) Pulse Ox O2 Delivery O2 Flow Rate FiO2 07/25/17 08:25 78 07/25/17 08:25 Room Air 07/25/17 08:00 98.2 76 18 111/59 (76) 95 07/25/17 04:24 96.4 73 18 110/54 (72) 93 07/25/17 04:00 Nasal Cannula 2.00 07/25/17 04:00 71 07/25/17 00:07 98.8 73 18 128/58 (81) 94 07/25/17 00:00 69 07/25/17 00:00 Nasal Cannula 2.00 07/24/17 20:31 Nasal Cannula 3.00 07/24/17 20:00 98.0 64 18 113/59 (77) 98 07/24/17 20:00 Nasal Cannula 2.00 07/24/17 20:00 65 07/24/17 16:00 97.4 63 20 119/65 (83) 98 07/24/17 16:00 61 07/24/17 14:37 2.00 07/24/17 12:00 97.8 74 20 111/63 (79) 93 . Laboratory Tests Test 07/24/17 08:30 07/25/17 07:25 Blood Urea Nitrogen 30 MG/DL 29 MG/DL Creatinine 2.17 MG/DL 1.97 MG/DL Random Glucose 80 MG/DL 92 MG/DL Total Protein 7.0 GM/DL Albumin 1.8 GM/DL Calcium Level 8.0 MG/DL 7.8 MG/DL Alkaline Phosphatase 74 U/L Aspartate Amino Transf (AST/SGOT) 72 U/L Alanine Aminotransferase (ALT/SGPT) 62 U/L Total Bilirubin 2.8 MG/DL Sodium Level 132 MEQ/L 135 MEQ/L Potassium Level 3.8 MEQ/L 3.8 MEQ/L Chloride Level 98 MEQ/L 98 MEQ/L Carbon Dioxide Level 28.8 MEQ/L 29.9 MEQ/L Anion Gap 5 MEQ/L 7 MEQ/L Estimat Glomerular Filtration Rate 33 ML/MIN 37 ML/MIN Imaging Abdomen/Pelvis CT 07/19/17 0000 Signed Impressions: Service Date/Time: Wednesday, July 19, 2017 20:04 - CONCLUSION: 1. Small right pleural effusion containing air, could be iatrogenic or possible infection. 2. Cholelithiasis. 3. No retroperitoneal hemorrhage. 4. Anasarca soft tissues. 5. Air in the bladder could be iatrogenic or infection. Santiago Mccartney MD Chest X-Ray 07/16/17 0000 Signed Impressions: Service Date/Time: Sunday, July 16, 2017 09:34 - CONCLUSION: Pulmonary vascular congestion remains. Moderate pleural effusion, chest tube and IJ catheter all in good position. Tino Albarado MD Chest X-Ray 07/15/17 0500 Signed Impressions: Service Date/Time: Saturday, July 15, 2017 03:44 - CONCLUSION: 1. Right chest tube remains present. There is loculated right pleural fluid. No pneumothorax. No significant change from July 14. Thompson Cross MD Chest X-Ray 07/07/17 0000 Signed Impressions: Service Date/Time: Friday, July 07, 2017 11:23 - CONCLUSION: No pneumothorax. Santiago Mccartney MD Renal Ultrasound 07/06/17 0000 Signed Impressions: Service Date/Time: Thursday, July 06, 2017 20:20 - CONCLUSION: 1. Normal appearance the kidneys. 2. Moderate right pleural effusion. Luis Miguel Villegas MD Chest Ultrasound 07/05/17 0000 Signed Impressions: Service Date/Time: Wednesday, July 05, 2017 12:26 - CONCLUSION: Loculated fluid as above. Josh Santiago MD FACR Foot X-Ray 07/04/17 0000 Signed Impressions: Service Date/Time: Tuesday, July 04, 2017 15:35 - CONCLUSION: Negative for fracture or dislocation. Follow up in 7-10 days is suggested if symptoms persist. Josh Santiago MD FACR Chest CT 07/03/17 0000 Signed Impressions: Service Date/Time: June 12:16 - CONCLUSION: 1. Extensive stranding with prominent lymph nodes in the right axilla measuring upwards of 1.6 cm in diameter. Does the patient have clinical symptomatology to suggest a cellulitis in this area? 2. Mild, generalized anasarca with some interstitial prominence in both lungs as well the visualized portions of the upper mesentery. Findings are nonspecific but can be seen in entity such as overwhelming sepsis. 3. Calcified gallstones. 4. Small right-sided pleural effusion with associated atelectatic changes. 5. Atretic left sixth rib could be congenital or postsurgical. Old healed rib fractures involving the lateral aspect of #3 and 4 on the left. 6. Mild gynecomastia. Again, nonspecific finding that can be seen with certain medications. Masoud Lopez MD Abdomen/Pelvis CT 07/03/17 0000 Signed Impressions: Service Date/Time: June 08:43 - CONCLUSION: 1. 1.5 cm low-density lesion within the anterior segment of the right lobe of liver which is indeterminate. Outpatient MRI of the abdomen with contrast would be helpful for further characterization of this indeterminate lesion. 2. Mild splenomegaly and very large intra-abdominal varices draining into the splenic vein suggesting portal hypertension. 3. Perigastric varices and bilateral inguinal varices are also noted. 4. Cholelithiasis. 5. Tiny right pleural effusion. 6. Minimal right basilar atelectasis and/or infiltrate. 7. Degenerative changes and scoliosis of the thoracolumbar spine. Haseeb Helms MD Physical Exam GENERAL: sleepy but answering all my questions, NAD SKIN: Cool and dry. Has petechia both feet and in legs/thighs HEAD: Atraumatic. Normocephalic. No temporal wasting, or tenderness. EYES: [place] conjunctiva. No petechia or hemorrhage. Extraocular movements full and intact. Mild scleral icterus. No injection or drainage. EARS, NOSE AND THROAT: Nose without bleeding or purulent nasal discharge. Mucous membranes pink and moist. No oral lesions noted. NECK: Trachea midline. Supple and not tender, no meningeal signs CARDIOVASCULAR: Regular rate and rhythm. No murmurs, rubs or gallops heard RESPIRATORY: Clear to auscultation. Decreased at bases. No rales, wheezing or rhonchi. ABDOMEN: Soft, non-tender, nondistended. Bowel sounds present and normoactive. No guarding. No rebound. No organomegaly. EXTREMITIES: No clubbing, cyanosis. Has (+) pedal edema. No calf tenderness. . NEUROLOGICAL: Grossly nonfocal. PSYCHIATRIC: Normal affect, calm and cooperative. LINE: No evidence of infection Assessment & Plan Remarks IMPRESSION MRSA bacteremia, source - due to PNA, and empyema - S/P surgery 07/14 Cellulitis R foot, better Pneumonia, with empyema Known liver cirrhosis, previous ETOH, and also He p C Acute renal failure, etiology? - requiring HD N/V etiology? Indeterminate TB quantiferon - clinically and radiographically as well as path report not indicating any evidence of PTB RECOMMENDATION Stop Teflaro Start po Zyvox - follow CBC (he has anemia and thrombocytopenia) - if a problem then may need to switch to Doxycyline - 2 weeks of oral Abx Clinically doing well from ID standpoint Natividad Sanchez MD July 25, 2017 10:29
[2017-07-25] MEDS: LINEZOLID 600 MG TAB PO SCH ×2 (11:00→22:33)
[2017-07-25] MEDS ORDERED: ZYVO600T PO (11:50)
[2017-07-25] MEDS ORDERED: PANT40TA3 PO (11:57)
[2017-07-25] MEDS ORDERED: NEUR300C PO (11:57)
[2017-07-25] MEDS ORDERED: METO25TA3 PO (11:57)
[2017-07-25] MEDS ORDERED: FURO1TAB60 PO (11:57)
--- NOTE | 2017-07-25 20:15 | HHI.PR ---
Subjective Remarks Patient is unpleasant, he wants to go home patient placed on Zyvox for 2 weeks however due to his pancytopenia will continue monitor him overnight check CBC in a.m. Objective Vitals Vital Signs Date Time Temp Pulse Resp B/P (MAP) Pulse Ox O2 Delivery O2 Flow Rate FiO2 07/25/17 17:48 95 Nasal Cannula 3.00 07/25/17 16:01 78 07/25/17 16:01 07/25/17 16:00 98.1 73 18 120/56 (77) 95 07/25/17 12:36 52 07/25/17 12:00 98.3 71 18 109/59 (76) 98 07/25/17 09:00 21 07/25/17 08:25 78 07/25/17 08:25 Room Air 07/25/17 08:00 98.2 76 18 111/59 (76) 95 07/25/17 04:24 96.4 73 18 110/54 (72) 93 07/25/17 04:00 Nasal Cannula 2.00 07/25/17 04:00 71 07/25/17 00:07 98.8 73 18 128/58 (81) 94 07/25/17 00:00 69 07/25/17 00:00 Nasal Cannula 2.00 07/24/17 20:31 Nasal Cannula 3.00 I/O 07/24/17 07/24/17 07/24/17 07/25/17 07/25/17 07/25/17 07:00 15:00 23:00 07:00 15:00 23:00 Intake Total 100 ml 480 ml 680 ml 720 ml Output Total 600 ml 1000 ml Balance 100 ml -120 ml -320 ml 720 ml Intake Oral 480 ml 580 ml 720 ml IV Total 100 ml 100 ml 0 ml Output Urine Total 600 ml 1000 ml # Voids 5 # Bowel Movements 1 Result Diagram: 07/23/17 0550 07/25/17 0725 Objective Remarks GENERAL: This is a well-nourished, well-developed patient, in no apparent distress. SKIN: No rashes, warm and dry HEAD: Atraumatic. Normocephalic. EYES: Pupils equal round and reactive. Extraocular motions intact. No scleral icterus. ENT: Nose without bleeding, or drainage, Airway patent. NECK: Trachea midline. Supple CARDIOVASCULAR: Regular rate and rhythm with 3 out of 6 systolic murmur RESPIRATORY: Fair air entry bilaterally. No wheezes, rales, or rhonchi. GASTROINTESTINAL: Abdomen soft, non-tender, nondistended. Positive bowel sounds MUSCULOSKELETAL: Extremities +3 edema. Pedal pulses appreciated NEUROLOGICAL: Awake and alert. Moves all extremity. Normal speech.no focal neurological deficit Procedures Echo 07/04/2017 The left ventricular systolic function is normal with an estimated ejection fraction in the range of 60-65%. Wall thickness is measured at the upper limits of normal. No regional wall motion abnormalities are present. Normal left ventricular size. There is trace tricuspid valve regurgitation. The estimated pulmonary arterial pressure is 33 mmHg. 07/08/2017 -right-sided chest tube placement by interventional radiology. 07/14/2017 Right thoracoscopic exploration to evacuate right pleural effusion, pleural biopsy Vascath A/P Problem List: (1) Sepsis ICD Code: A41.9 - Sepsis, unspecified organism Status: Acute (2) Pneumonia ICD Code: J18.9 - Pneumonia, unspecified organism Status: Acute (3) Bandemia ICD Code: D72.825 - Bandemia Status: Acute (4) Elevated lipase ICD Code: R74.8 - Abnormal levels of other serum enzymes Status: Acute (5) Hypertension ICD Code: I10 - Essential (primary) hypertension Status: Acute (6) Axillary lymphadenopathy ICD Code: R59.0 - Localized enlarged lymph nodes Assessment and Plan This is a 46 year old male presented to the ED due to flu like symptoms despite being treated for flu by his PCP. He complained of right-sided pleuritic chest pain. He reported fever and chills. Temperature in the emergency department was 101.2F. CT chest showed right pleural effusion with some atelectasis. CT abdomen pelvis showed a liver lesion. 07/24: Continue current care, appreciate nephrology's recommendation, hemodialysis is stopped Vas-Cath continue monitoring urine output 07/25: Appreciate ID follow-up, patient placed on Zyvox for 2 weeks, will keep overnight to monitor his thrombocytopenia if not getting worse will discharge to follow-up with his PCP, CBC in 5 days Severe sepsis - resolved. MRSA bacteremia MRSA pneumonia Empyema - pleural fluid grew MRSA Pneumonia on CT chest, liver lesion, right axillary lymphadenopathy, possible cellulitis, rpt CT in [address] July 19, 2017 showed right pleural effusion containing air s/p chest tube insertion Pleural fluid cx grew MRSA. Blood cx also grew MRSA. Appreciate ID input. Currently patient is on Ceftaroline 200mg Q12hrs to cover MRSA pneumonia and bacteremia. And will need Zyvox at discharge 07/05 - Echo showed no vegetation. s/p Right thoracoscopic exploration to evacuate right pleural effusion, pleural biopsy on 07/15/2017. CT removed. Acetaminophen, tramadol as needed for pain. Indeterminate QFT TB testing. AFB smear negative. AFB culture pending. Cleared for isolation discontinuation by infectious disease Acute kidney injury Creatinine 0.8 on 07/04/2017. Cr 9.4 on 07/15/2017. Now on dialysis. Possibly due to vancomycin as well as post infectious, no dialysis yesterday and today. Seems like patient is in renal recovery. Creatinine is improving. Liver cirrhosis Hepatitis C genotype 1a Liver lesion 1.5cm GI signed off. Patient will likely need an MRI study in future. Continue Lasix Thrombocytopenia. Stable Symptomatic anemia. Hemoglobin improved s/p packed RBC transfusion. Full code. SCDs. No chemical prophylaxis secondary to thrombocytopenia Problem Qualifiers (1) Sepsis: Qualified Codes: A41.9 - Sepsis, unspecified organism (2) Pneumonia: Qualified Codes: J18.1 - Lobar pneumonia, unspecified organism (3) Hypertension: Qualified Codes: I10 - Essential (primary) hypertension Caitlin Durham MD July 25, 2017 20:15
[2017-07-25] MEDS: PANTOPRAZOLE SOD 40 MG DELAYED RELEASE TAB PO SCH (22:32)
[2017-07-26 00:02] VITALS: BP 118/62; PULSE 69; RESP 24; TEMP 97.6; O2SAT 96
[2017-07-26 04:07] VITALS: BP 120/61; PULSE 69; RESP 24; TEMP 97.7; O2SAT 97
[2017-07-26 08:00] VITALS: BP 114/60; PULSE 67; PULSE 72; RESP 20; TEMP 98.2; O2SAT 97
[2017-07-26 08:53] LABS: AUTOMATED NEUTROPHIL # 3.7 TH/MM3 (1.8-7.7); BASOPHIL % 0.7 % (0.0-2.0); EOSINOPHIL # 0.5 TH/MM3 (0-0.4); EOSINOPHIL % 7.5 % (0.0-4.0); HEMATOCRIT 26.5 % (39.0-51.0); HEMOGLOBIN 9.1 GM/DL (13.0-17.0); LYMPH % 16.7 % (9.0-44.0); MEAN CELL VOLUME 99.4 FL (80.0-100.0); MEAN CORPUSCULAR HEMOGLOBIN 34.1 PG (27.0-34.0); MEAN CORPUSCULAR HGB CONC 34.4 % (32.0-36.0); MEAN PLATELET VOLUME 8.7 FL (7.0-11.0); MONO % 14.4 % (0.0-8.0); MONOCYTE # 0.9 TH/MM3 (0-0.9); NEUT % 60.7 % (16.0-70.0); PLATELET COUNT 92 TH/MM3 (150-450); RED BLOOD COUNT 2.66 MIL/MM3 (4.50-5.90); RED CELL DISTRIBUTION WIDTH 17.3 % (11.6-17.2); WHITE BLOOD COUNT 6.1 TH/MM3 (4.0-11.0)
[2017-07-26] MEDS: LACTULOSE SYRUP 20 GM/30 ML CUP PO SCH ×2 (09:00→13:00)
[2017-07-26] MEDS: LINEZOLID 600 MG TAB PO SCH (09:13)
[2017-07-26] MEDS: SODIUM CHLORIDE 0.9% FLUSH 10 ML FLUSH IV FLUSH SCH (09:14)
[2017-07-26] MEDS: ACETAMINOPHEN/HYDROcodone 325 MG/5 MG TAB PO PRN (09:14)
[2017-07-26] MEDS: FUROSEMIDE 40 MG/4 ML VIAL IV PUSH SCH (09:14)
[2017-07-26] MEDS: METOPROLOL TARTRATE 25 MG TAB PO SCH (09:17)
[2017-07-26 12:00] VITALS: BP 102/59; PULSE 61; RESP 20; TEMP 98.5; O2SAT 94
[2017-07-26 12:34] VITALS: O2SAT 93
[2017-07-26] MEDS ORDERED: OXYGENDME NAS.CANULA (13:39)
[2017-07-26 14:51] VITALS: PULSE 61
--- NOTE | 2017-07-27 15:21 | HHI.DS ---
Discharge Summary Admission Date Jul 03, 2017 at 10:05 Discharge Date: July 26, 2017 Admitting Diagnosis bandemia, pneumonia, fever (1) Sepsis ICD Code: A41.9 - Sepsis, unspecified organism Status: Acute (2) Pneumonia ICD Code: J18.9 - Pneumonia, unspecified organism Status: Acute (3) Bandemia ICD Code: D72.825 - Bandemia Status: Acute (4) Elevated lipase ICD Code: R74.8 - Abnormal levels of other serum enzymes Status: Acute (5) Hypertension ICD Code: I10 - Essential (primary) hypertension Status: Acute (6) Axillary lymphadenopathy ICD Code: R59.0 - Localized enlarged lymph nodes Procedures Echo 07/04/2017 The left ventricular systolic function is normal with an estimated ejection fraction in the range of 60-65%. Wall thickness is measured at the upper limits of normal. No regional wall motion abnormalities are present. Normal left ventricular size. There is trace tricuspid valve regurgitation. The estimated pulmonary arterial pressure is 33 mmHg. 07/08/2017 -right-sided chest tube placement by interventional radiology. 07/14/2017 Right thoracoscopic exploration to evacuate right pleural effusion, pleural biopsy Vascath Brief History - From Admission Patiet 46-year-old male who presented to the emergency room with complaint of flulike symptoms for about a week. Patient reports he has been having right-sided pleuritic type chest pain. He was seen by his PCP who was treating him for the flu empirically. However his symptoms did not get any better. His main complaint today is the pain involving the right lower side of his chest. He reports the pain as being constant. Worse with deep breath. He reports occasional cough but denies shortness of breath. He admits to some fevers and chills. Patient had a temperature 101.2 in the emergency room. Workup in the emergency room revealed a pleural effusion on an abdominal CAT scan. Hospitalist service consulted for admission. CBC/BMP: 07/26/17 0619 07/25/17 0725 Significant Findings Laboratory Tests Test 07/25/17 07:25 07/26/17 06:19 Blood Urea Nitrogen 29 MG/DL (7-18) Creatinine 1.97 MG/DL (0.60-1.30) Calcium Level 7.8 MG/DL (8.5-10.1) Sodium Level 135 MEQ/L (136-145) Estimat Glomerular Filtration Rate 37 ML/MIN (>89) Red Blood Count 2.66 MIL/MM3 (4.50-5.90) Hemoglobin 9.1 GM/DL (13.0-17.0) Hematocrit 26.5 % (39.0-51.0) Mean Corpuscular Hemoglobin 34.1 PG (27.0-34.0) Red Cell Distribution Width 17.3 % (11.6-17.2) Platelet Count 92 TH/MM3 (150-450) Monocytes (%) (Auto) 14.4 % (0.0-8.0) Eosinophils (%) (Auto) 7.5 % (0.0-4.0) Eosinophils # (Auto) 0.5 TH/MM3 (0-0.4) Platelet Estimate LOW (NORMAL) PE at Discharge GENERAL: This is a well-nourished, well-developed patient, in no apparent distress. SKIN: No rashes, warm and dry HEAD: Atraumatic. Normocephalic. EYES: Pupils equal round and reactive. Extraocular motions intact. No scleral icterus. ENT: Nose without bleeding, or drainage, Airway patent. NECK: Trachea midline. Supple CARDIOVASCULAR: Regular rate and rhythm with 3 out of 6 systolic murmur RESPIRATORY: Fair air entry bilaterally. No wheezes, rales, or rhonchi. GASTROINTESTINAL: Abdomen soft, non-tender, nondistended. Positive bowel sounds MUSCULOSKELETAL: Extremities +3 edema. Pedal pulses appreciated NEUROLOGICAL: Awake and alert. Moves all extremity. Normal speech.no focal neurological deficit Hospital Course 46 years old male admitted with severe sepsis MRSA bacteremia MRSA pneumonia and empyema status post IV antibiotic right thoracic exploration by CVS and biopsy intermediate QST TB patient had also RODOLFO placed on dialysis, nephrology consulted possibly due to vancomycin versus postinfection, patient has a history of hepatitis C genotype 1 was found to have a liver lesion 1.5 cm GI consulted patient will likely need an MRI study in the future, patient had thrombocytopenia which was monitored has been stable around 70s, patient started on Zyvox prior to discharge per ID recommendation, we monitor his platelet which has been still stable, I ordered CBC in 3-5 days to monitor on the platelet count patient follow-up with his primary care [id number] encounter performed with the patient on discharge day, as well as physical exam, summary of hospitalization course and postdischarge plan has been D/W the patient. D/W nurse D/W protective services case worker. Discharge medications reviewed and printed and signed, post discharge follow up visit with PCP and other specialist as well as Brief hospital course and discharge summary has been placed. Pt Condition on Discharge: Fair Discharge Disposition: Discharge Home Discharge Time: > 30 minutes Discharge Instructions DIET: Follow Instructions for: Heart Healthy Diet Activities you can perform: See Additionl Instruction Other Activity Instructions: pt recs Follow up Referrals: Surgical - 2 Weeks with Pam Royal MD New Orders: CBC NO DIFF - 3-5 Days New Medications: Furosemide (Lasix) 40 Mg Tab 40 MG PO DAILY for chf, #30 TAB 0 Refills Oxygen (O2) (Oxygen (O2)) Device LITER DORETHA.CANULA CONTINUOUS for Prevent Hypoxemia, #2 Oxygen Concentrator Portable Gaseous 2 L/min via Nasal Canula Continuous one month , call pcp for extension Gabapentin (Neurontin) 300 Mg Cap 300 MG PO BID for ., #60 CAP Linezolid (Zyvox) 600 Mg Tab 600 MG PO Q12HR for infx, #28 TAB Metoprolol Tartrate (Metoprolol Tartrate) 25 Mg Tab 12.5 MG PO Q12HR for htn, #60 TAB Pantoprazole (Pantoprazole) 40 Mg Tab 40 MG PO HS for gi, #30 TAB Caitlin Durham MD July 27, 2017 15:21
== END 2017-07-26 16:20 | disposition home or self-care (01) | DRG 853 ==
LOC: NEPC 04:59 → NEDA 09:59 → OBSVTOIN 10:05 → N05A 16:43 → N03B 07-14 11:51 → HCPC 07-14 14:06 → N04A 07-18 15:15
PROVIDERS: ADMIT Hospitalist; ATTEND Hospitalist
PROC: 05HM33Z Insertion of Infusion Device into Right Internal Jugular Vein, Percutaneous Approach (ICD-10-PCS; 2017-07-07)
PROC: 0W993ZX Drainage of Right Pleural Cavity, Percutaneous Approach, Diagnostic (ICD-10-PCS; 2017-07-07)
PROC: 5A1D70Z Performance of Urinary Filtration, Intermittent, Less than 6 Hours Per Day (ICD-10-PCS; 2017-07-07)
PROC: 0W9930Z Drainage of Right Pleural Cavity with Drainage Device, Percutaneous Approach (ICD-10-PCS; 2017-07-08)
PROC: 0W993ZX Drainage of Right Pleural Cavity, Percutaneous Approach, Diagnostic (ICD-10-PCS; 2017-07-14)
PROC: 0BBN4ZX Excision of Right Pleura, Percutaneous Endoscopic Approach, Diagnostic (ICD-10-PCS; principal; 2017-07-14 13:52)
PROC: 6A550Z2 Pheresis of Platelets, Single (ICD-10-PCS; 2017-07-15)
PROC: 30233N1 Transfusion of Nonautologous Red Blood Cells into Peripheral Vein, Percutaneous Approach (ICD-10-PCS; 2017-07-15)
DX: A41.02 Sepsis due to Methicillin resistant Staphylococcus aureus (principal); N17.0 Acute kidney failure with tubular necrosis; J86.9 Pyothorax without fistula; J15.212 Pneumonia due to Methicillin resistant Staphylococcus aureus; J90 Pleural effusion, not elsewhere classified; K76.6 Portal hypertension; E87.1 Hypo-osmolality and hyponatremia; D69.59 Other secondary thrombocytopenia; R04.2 Hemoptysis; K86.1 Other chronic pancreatitis; L03.115 Cellulitis of right lower limb; B37.49 Other urogenital candidiasis; J98.11 Atelectasis; K74.60 Unspecified cirrhosis of liver; E86.0 Dehydration; R65.20 Severe sepsis without septic shock; B19.20 Unspecified viral hepatitis C without hepatic coma; I10 Essential (primary) hypertension; R59.0 Localized enlarged lymph nodes; K80.20 Calculus of gallbladder without cholecystitis without obstruction; I86.8 Varicose veins of other specified sites; B36.0 Pityriasis versicolor; D64.89 Other specified anemias; E83.39 Other disorders of phosphorus metabolism; E87.5 Hyperkalemia; K76.9 Liver disease, unspecified; F19.10 Other psychoactive substance abuse, uncomplicated; R19.7 Diarrhea, unspecified; I07.1 Rheumatic tricuspid insufficiency; Z90.49 Acquired absence of other specified parts of digestive tract
CPT/HCPCS: 32555; 32557; 36430; 36556; 71045; 71046; 71250; 73630; 73718; 74176; 74177; 76604; 76700; 76775; 76937; 77001; 80048; 80053; 80069; 80074; 80076; 80202; 80307; 81001; 81256; 82042; 82103; 82105; 82140; 82150; 82390; 82550; 82570; 82595; 82607; 82728; 82945; 83036; 83520; 83540; 83550; 83605; 83615; 83690; 83735; 83986; 84100; 84157; 84300; 84315; 84439; 84443; 84484; 85007; 85025; 85027; 85610; 85730; 86038; 86160; 86255; 86403; 86480; 86850; 86900; 86901; 86920; 87015; 87040; 87070; 87081; 87086; 87102; 87106; 87116; 87147; 87186; 87205; 87206; 87493; 87522; 87804; 87880; 88112; 88305; 89051; 90935; 93005; 93306; 94150; 94618; 94640; 94664; 94667; 94668; 96374; 96375; 99285; C1729; C1752; C1769; J0696; J0712; J0878; J1100; J1580; J1644; J1940; J2060; J2150; J2270; J2370; J2405; J2543; J2710; J3010; J3370; J7030; J7040; J7050; J7120; J7613; P9016; P9035; P9047; Q9967